=== PATIENT | male | born 1955 | race Caucasian/White ===

== ENCOUNTER → 2018-05-27 11:18 | Outpatient (CLI) | payer OTHER, SELFPAY | PROVIDERS: Family Provider Family Medicine; PCP Family Medicine | DX: M43.26 Fusion of spine, lumbar region (principal) | CPT/HCPCS: 72114 ==

== ENCOUNTER → 2018-11-17 07:47 | Outpatient (CLI) | payer MEDICARE, OTHER, SELFPAY ==
--- NOTE | 2018-11-17 07:56 | ART_ITS ---
Reason For Study: Atherosclerosis Procedure A bilateral lower extremity continuous wave Doppler with analog waveform analysis and ankle brachial indexes. Left Segmental Pressures Left brachial= 122mmHg. Left posterior tibial artery = 168mmHg. Left dorsalis pedis artery = 167mmHg. Right Segmental Pressures Right brachial= 131mmHg. Right posterior tibial artery = 153mmHg. Right dorsalis pedis artery = 139mmHg. Indices The right ankle brachial index by the posterior tibial artery is 1.17. The right ankle brachial index by the dorsalis pedis is 1.06. The left ankle brachial index by the posterior tibial artery is 1.28. The left ankle brachial index by the dorsalis pedis is 1.27. Interpretation Summary 1. bilateral lower extremity with no significant stenosis at rest with an JERE 1.17/1.28. Ordering Physician: Curt Nguyen Referring Physician: Curt Nguyen Performed By: Gauri Dodson RDCS/RVT
--- NOTE | 2018-11-17 07:56 | CDU_ITS ---
Reason For Study: Carotid Stenosis Rt. Velocities/BP Lt. Velocities/BP Prox CCA 93/26 cm/sec. Prox CCA 104/36 cm/sec. Mid CCA 100/36 cm/sec. Mid CCA 101/36 cm/sec. Dist CCA 96/32 cm/sec. Dist CCA 108/39 cm/sec. Prox ICA 76/26 cm/sec. Prox ICA 178/56 cm/sec. Mid ICA 107/38 cm/sec. Mid ICA 148/50 cm/sec. Dist ICA 100/47 cm/sec. Dist ICA 123/46 cm/sec. Rt. ICA/CCA = 1.07. Lt. ICA/CCA = 1.76. Prox ECA 110/25 cm/sec. Prox ECA 74/16 cm/sec. Rt. Vert. 40/17 cm/sec. Lt. Vert. 25/9 cm/sec. Right Extracranial There is heterogeneous, irregular atherosclerotic plaque noted in the right common carotid artery. There is heterogeneous, smooth atherosclerotic plaque noted in the right internal carotid artery. There is heterogeneous, smooth atherosclerotic plaque noted in the right external carotid artery. Antegrade flow is noted in the right vertebral artery. Left Extracranial There is heterogeneous, irregular atherosclerotic plaque noted in the left common carotid artery. There is heterogeneous, irregular atherosclerotic plaque noted in the left internal carotid artery. There is heterogeneous, irregular atherosclerotic plaque noted in the left external carotid artery. Antegrade flow is noted in the left vertebral artery. Procedure Carotid Duplex [id number]. Exam performed in department. Interpretation Summary Mild (<50%) stenosis right extracranial internal carotid. Moderate (50-69%) stenosis left extracranial internal carotid. Flow within the vertebral arteries is antegrade bilaterally. Ordering Physician: Curt Nguyen Referring Physician: Juan Antonio Claros Performed By: Gauri Dodson, RDCS, RVT
--- NOTE | 2018-11-17 07:57 | AAVD_ITS ---
Reason For Study: Atherosclerosis Aorta Measurements Aorta Doppler Measurements Proximal aorta measures2.04 x 2.16cm. in cross- Peak systolic flow velocities within the proximal sectional axis. aorta measure 80.7 cm/sec. Proximal aorta measures2.04cm. in longitudinal Peak systolic flow velocities within the mid aorta axis. measure 48.1 cm/sec. Mid aorta measures2.20 x 2.23cm. in cross- Peak systolic flow velocities within the distal sectional axis. aorta measure 48.5 cm/sec. Mid aorta measures2.19cm. in longitudinal axis. Distal aorta measures3.26 x 3.30cm. in cross- sectional axis. Distal aorta measures3.13cm. in longitudinal axis. Left Iliac Artery Left iliac artery measures 1.01 x 0.99 cm. in the cross-sectional axis. Left iliac artery measures 1.02 cm. in the longitudinal axis. Peak systolic velocity in the left iliac artery measures 232 cm/sec. Right Iliac Artery Right iliac artery measures 1.92 x 19.2 cm. in the cross-sectional axis. Right iliac artery measures 1.55 cm. in the longitudinal axis. Right iliac artery stent measures 0.79 x 0.84 cm in the cross- sectional axis. Right iliac artery stent measures 0.73 cm in the longitudinal axis. Peak systolic velocity in the right iliac artery measures 493 cm/sec. Procedure Aorta IVC Iliac vasculature or bypass grafts [id number]. Exam performed in department. Interpretation Summary 1. Aortic aneurysm 3.3cm 2. Severe right CLAUDE stenosis 3. Moderate left CLAUDE stenosis. Ordering Physician: Curt Nguyen Referring Physician: Juan Antonio Claros MD Performed By: Gauri Dodson RVT, RDCS and Student
== END ==
PROVIDERS: Family Provider Family Medicine; PCP Family Medicine; Referring Provider Surgery Vascular Surgery; Visit Provider Surgery Vascular Surgery
DX: I65.23 Occlusion and stenosis of bilateral carotid arteries (principal); I70.213 Atherosclerosis of native arteries of extremities with intermittent claudication, bilateral legs; I77.1 Stricture of artery
CPT/HCPCS: 93880; 93922; 93978

== ENCOUNTER → 2019-07-27 | Outpatient (CLI) | payer MEDICARE, OTHER, SELFPAY ==
[2019-01-27 08:06] VITALS: BMI 27.3
--- NOTE | 2019-07-27 09:56 | RAD_ITS ---
STUDY: X-RAY - PELVIS REASON FOR EXAM: Male, 64 years old. Inflammatory polyarthropathy TECHNIQUE: One view of the pelvis was obtained. COMPARISON: None. FINDINGS: There is a non-specific bowel gas pattern. Normal visualized soft tissue structures. Surgical fusion with vertebral rods with slight scoliosis at the lower lumbar levels. Right common iliac stent is noted. Normal bilateral iliac wings, sacroiliac joints and visualized sacrum. Normal visualized bilateral superior and inferior pubic rami. Normal pubic symphysis. Normal ischial tuberosities. Normal visualized right femoral head. Normal right acetabulum. Normal right hip joint. Normal visualized left femoral head. Normal left acetabulum. Normal left hip joint. RAD/Pelvis 1 or 2 Views IMPRESSION: No acute pathology of the pelvis. Electronically Signed: Raul Samuel DO at 21:23 EDT Tel [phone], Service support ,
[2019-07-27 12:19] LABS: Erythrocyte Sedimentation Rate 7 mm/hr (0-20)
[2019-07-27 12:24] LABS: Absolute Lymphocyte Count 1.26 X10^3/uL (0.83-4.51); Absolute Neutrophil Count 3.1 X10^3/uL (2.0-7.7); Basophil# 0.02 X10^3/uL; Basophil% 0.4 % (0-1); Hematocrit 40.1 % (40-54); Hemoglobin 13.3 g/dL (13.0-16.5); Lymphocyte # 1.26 X10^3/ul (4.0); Lymphocyte % 25.8 % (19-41); Mean Corp Hgb Conc 33.2 g/dL (32-36); Mean Corpuscular Hgb 31.9 pg (27.0-32.0); Mean Corpuscular Volume 96.2 fL (80-94); Mean Platelet Vol. 9.7 fl (6.2-12.0); Monocyte# 0.39 X10^3/uL; NRBC Flagged by Analyzer 0 % (0-5); Neutrophil % 63.6 % (47-70); Platelet Count 234 K/mm3 (150-450); RBC Distribution Width CV 13.1 % (11.6-14.6); Red Blood Count 4.17 M/mm3 (4.6-6.2); White Blood Count 4.9 K/mm3 (4.4-11.0)
[2019-07-27 12:42] LABS: BUN 21 mg/dL (7-18); Creatinine, Serum 0.91 mg/dL (0.70-1.30); Glucose 128 mg/dL (74-106)
[2019-07-27 12:43] LABS: ALB/GLOB Ratio 1.2 RATIO (0.9-2.4); AST(SGOT) 23 U/L (15-37); Alanine Aminotransfer ALT/SGPT 25 U/L (16-61); Albumin, Serum 3.7 g/dL (3.2-5.0); Alkaline Phosphatase 92 U/L (45-117); Anion Gap 7 (5-15); BUN/Creat Ratio 23.1 RATIO (10-20); CRP < 2.90 mg/L (0.0-3.0); Calcium,Total 8.7 mg/dL (8.5-10.1); Chloride 106 mmol/L (98-107); EST Glomerular Filtration Rate 89 mL/min (>60); Est Glom Filt Rate - Afr Amer 107 mL/min (>60); Globulin 3.2 g/dL (2.2-4.2); Potassium 3.6 mmol/L (3.5-5.1); Protein, Total 6.9 g/dL (6.4-8.2); Rheumatoid Factor < 10.0 IU/mL (<15); Sodium Level 140 mmol/L (136-145)
[2019-07-27 13:27] LABS: Hepatitis B Surface Antibody Non-Reactive; Hepatitis B Surface Antigen Non-Reactive (Nonreactive); Hepatitis C Antibody Non-Reactive (Nonreactive)
[2019-07-28 15:25] LABS: ANTINUCLEAR ANTIBODIES DIRECT Negative (Negative)
[2019-08-01 13:35] LABS: CCP IgG Antibodies 7 units (0-19); HLA B27 Negative (.); Hepatitis B Core AB IgM Negative (Negative)
== END | disposition home or self-care (01) ==
LOC: MTLAB 09:53
PROVIDERS: Family Provider Family Medicine; PCP Family Medicine; Referring Provider Internal Medicine Rheumatology; Visit Provider Internal Medicine Rheumatology
DX: M06.4 Inflammatory polyarthropathy (principal); M17.0 Bilateral primary osteoarthritis of knee; M50.30 Other cervical disc degeneration, unspecified cervical region; M51.37 Other intervertebral disc degeneration, lumbosacral region; M47.892 Other spondylosis, cervical region; M47.897 Other spondylosis, lumbosacral region; I73.9 Peripheral vascular disease, unspecified; E78.5 Hyperlipidemia, unspecified; F41.9 Anxiety disorder, unspecified
CPT/HCPCS: 36415; 72170; 80053; 81374; 85025; 85652; 86038; 86140; 86200; 86431; 86705; 86706; 86803; 87340

== ENCOUNTER → 2019-08-21 08:19 | Outpatient (CLI) | payer MEDICARE, OTHER, SELFPAY ==
[2019-01-27 08:06] VITALS: BMI 27.3
--- NOTE | 2019-08-21 16:20 | NEURO ---
NCS and/or EMG Patient Report HPI: Patient is a 64-year-old male who presented with numbness, tingling, pain and stiffness in both hands, left hand being worse than the right. Symptoms began about 10 months ago. Patient has history of neck surgeries, bulging disc and bone spurs in the cervical neck area. Patient denies being diabetic. Physical Exam: Mild tenderness at right and left wrist area noted. Tinel's sign slightly positive at left wrist. Decreased sensation to light touch noted in both hand fingers. Mild cervical spasm and tenderness noted. ROM mostly within functional limit at cervical spine. Findings: 1. There is prolongation of distal latency of the left median sensory nerve response 2. Normal right median and right and left ulnar sensory nerve responses. 3. Normal right and left median and ulnar motor nerve conduction studies. 4. Normal needle examination of bilateral upper extremities including cervical paraspinal muscles. Impression: 1. Findings are consistent with mild left median mononeuropathy at wrist due to carpal tunnel syndrome. 2. No electrodiagnostic evidence of ulnar neuropathy, cervical radiculopathy or brachial plexopathy in bilateral upper extremities. Recommendation: 1. Patient recommended to wear left hand splint as much as possible. 2. Patient recommended to avoid repetitive hand movements and heavy lifting from left hand. 3. Patient will need evaluation by hand surgeon for possible surgical release of left carpal syndrome if symptoms continues.
== END ==
PROVIDERS: Family Provider Family Medicine; PCP Family Medicine; Referring Provider Physician Assistant; Visit Provider Physician Assistant
DX: M54.12 Radiculopathy, cervical region (principal); M50.30 Other cervical disc degeneration, unspecified cervical region
CPT/HCPCS: 95886; 95911

== ENCOUNTER → 2020-03-08 07:58 | Outpatient (CLI) | payer MEDICARE, OTHER, SELFPAY ==
[2019-01-27 08:06] VITALS: BMI 27.3
--- NOTE | 2020-03-08 08:04 | ART_ITS ---
Reason For Study: Athersoclerosis Procedure A bilateral lower extremity continuous wave Doppler with analog waveform analysis and ankle brachial indexes. Left Segmental Pressures Left brachial= 144mmHg. Left posterior tibial artery = 156mmHg. Left dorsalis pedis artery = 159mmHg. The left dorsalis pedis waveforms are triphasic. The left posterior tibial artery waveforms are triphasic. Right Segmental Pressures Right brachial= 144mmHg. Right posterior tibial artery = 158mmHg. Right dorsalis pedis artery = 156mmHg. The right dorsalis pedis waveforms are triphasic. The right posterior tibial artery waveforms are triphasic. Indices The right ankle brachial index by the dorsalis pedis is 1.08. The right ankle brachial index by the posterior tibial artery is 1.10. The left ankle brachial index by the dorsalis pedis is 1.10. The left ankle brachial index by the posterior tibial artery is 1.08. Interpretation Summary No significant occlussive disease at rest with bilateral triphasic flow and JERE 1.1 and 1.1. Ordering Physician: Curt Nguyen Referring Physician: Juan Antonio Claros MD Performed By: Harleen Maurer RVT
--- NOTE | 2020-03-08 08:04 | AAVD_ITS ---
Reason For Study: Atherosclerosis Aorta Measurements Aorta Doppler Measurements Proximal aorta measures2.24 x 2.26cm. in cross- Peak systolic flow velocities within the proximal sectional axis. aorta measure 84.3 cm/sec. Proximal aorta measures2.27cm. in longitudinal Peak systolic flow velocities within the mid aorta axis. measure 52.3 cm/sec. Mid aorta measures2.40 x 2.50cm. in cross- Peak systolic flow velocities within the distal sectional axis. aorta measure 46.2 cm/sec. Mid aorta measures2.40cm. in longitudinal axis. Distal aorta measures3.22 x 3.27cm. in cross- sectional axis. Distal aorta measures3.26cm. in longitudinal axis. Left Iliac Artery Left iliac artery measures 0.79 x 0.79 cm. in the cross-sectional axis. Left iliac artery measures 0.60 cm. in the longitudinal axis. Peak systolic velocity in the left iliac artery measures 179.5 cm/sec. Right Iliac Artery Right iliac artery measures 1.61 x 1.54 cm. in the cross-sectional axis. Right iliac artery measures 1.67 cm. in the longitudinal axis. Right iliac stent measures 0.58 x 0.58 x 0.58 cm. Peak systolic velocity in the right iliac artery measures 205.6 cm/sec. Procedure Aorta IVC Iliac vasculature or bypass grafts [id number]. Exam performed in department. Interpretation Summary 3.27cm aortic aneurysm. Ordering Physician: uCrt Nguyen Referring Physician: Juan Antonio Claros MD Performed By: Harleen Maurer RVT
== END ==
PROVIDERS: PCP Family Medicine; Referring Provider Surgery Vascular Surgery; Visit Provider Surgery Vascular Surgery
DX: I70.213 Atherosclerosis of native arteries of extremities with intermittent claudication, bilateral legs (principal); Z48.812 Encounter for surgical aftercare following surgery on the circulatory system
CPT/HCPCS: 93922; 93978

== ENCOUNTER → 2021-04-07 08:42 | Outpatient (CLI) | payer MEDICARE, OTHER, SELFPAY ==
[2019-01-27 08:06] VITALS: BMI 27.3
--- NOTE | 2021-04-07 08:59 | CDU_ITS ---
Reason For Study: Carotid stenosis Rt. Velocities/BP Lt. Velocities/BP Prox CCA 74.7/21.3 cm/sec. Prox CCA 69.2/17.3 cm/sec. Mid CCA 73.4/17.3 cm/sec. Mid CCA 89/27.7 cm/sec. Dist CCA 73.4/20 cm/sec. Dist CCA 65.1/17.9 cm/sec. Prox ICA 89.1/27.8 cm/sec. Prox ICA 181.4/46.2 cm/sec. Mid ICA 82.6/26.5 cm/sec. Mid ICA 126.6/37.1 cm/sec. Dist ICA 107.3/35.6 cm/sec. Dist ICA 124.7/37.1 cm/sec. Rt. ICA/CCA = 1.46. Lt. ICA/CCA = 2.63. Prox ECA 70.8/14.7 cm/sec. Prox ECA 51.9/8 cm/sec. Rt. Vert. 48.5 cm/sec. Lt. Vert. 32.5/9 cm/sec. Right Extracranial There is heterogeneous, irregular atherosclerotic plaque noted in the right common carotid artery. There is heterogeneous, irregular atherosclerotic plaque noted in the right internal carotid artery. There is heterogeneous, irregular atherosclerotic plaque noted in the right external carotid artery. Antegrade flow is noted in the right vertebral artery. Left Extracranial There is heterogeneous, irregular atherosclerotic plaque noted in the left common carotid artery. There is heterogeneous, irregular atherosclerotic plaque noted in the left internal carotid artery. There is heterogeneous, irregular atherosclerotic plaque noted in the left external carotid artery. Antegrade flow is noted in the left vertebral artery. Procedure Carotid Duplex [id number]. This is a Carotid Duplex examination using B-mode, color flow and specral Doppler. Exam performed in department. VL/Carotid Duplex Ultrasound Interpretation Summary Mild (<50%) stenosis right extracranial internal carotid. Moderate (50-69%) rian nosis left extracranial internal carotid. Flow within the vertebral arteries is antegrade bilaterally. Ordering Physician: Curt Nguyen Referring Physician: Juan Antonio Claros MD Performed By: Harleen Maurer RVT
--- NOTE | 2021-04-07 08:59 | AAVD_ITS ---
Reason For Study: AAA Aorta Measurements Aorta Doppler Measurements Proximal aorta measures2.32 x 2.32cm. in cross- Peak systolic flow velocities within the proximal sectional axis. aorta measure 79.8 cm/sec. Proximal aorta measures2.31cm. in longitudinal Peak systolic flow velocities within the mid aorta axis. measure 51.2 cm/sec. Mid aorta measures2.44 x 2.44cm. in cross- Peak systolic flow velocities within the distal sectional axis. aorta measure 39.3 cm/sec. Mid aorta measures2.40cm. in longitudinal axis. Distal aorta measures3.53 x 3.55cm. in cross- sectional axis. Distal aorta measures3.54cm. in longitudinal axis. Left Iliac Artery Left iliac artery measures 0.99 x 0.98 cm. in the cross-sectional axis. Left iliac artery measures 0.95 cm. in the longitudinal axis. Peak systolic velocity in the left iliac artery measures 205.6 cm/sec. Right Iliac Artery Right iliac artery measures 0.82 x 0.83 cm. in the cross-sectional axis. Right iliac artery measures 1.84 cm. in the longitudinal axis. Peak systolic velocity in the right iliac artery measures 190.8 cm/sec. Stent noted within the right iliac artery. Residual sac measures 1.85 x 1.88 x 1.84 cm. Procedure Aorta IVC Iliac vasculature or bypass grafts [id number]. Exam performed in department. VL/Abd Aortic/IVC Duplex scan Interpretation Summary Aortic aneurysm at 3.5 cm. Right iliac at 1.8 cm possible stent noted. Ordering Physician: Curt Nguyen Referring Physician: Juan Antonio Claros MD Performed By: Harleen Maurer RVT and Student
--- NOTE | 2021-04-07 08:59 | ART_ITS ---
Reason For Study: Atherosclerosis Procedure A bilateral lower extremity continuous wave Doppler with analog waveform analysis and ankle brachial indexes. Left Segmental Pressures Left brachial= 167mmHg. Left posterior tibial artery = 175mmHg. Left dorsalis pedis artery = 170mmHg. The left dorsalis pedis waveforms are triphasic. The left posterior tibial artery waveforms are triphasic. Right Segmental Pressures Right brachial= 157mmHg. Right posterior tibial artery = 166mmHg. Right dorsalis pedis artery = 162mmHg. The right dorsalis pedis waveforms are triphasic. The right posterior tibial artery waveforms are triphasic. Indices The right ankle brachial index by the dorsalis pedis is 0.97. The right ankle brachial index by the posterior tibial artery is 0.99. The left ankle brachial index by the dorsalis pedis is 1.02. The left ankle brachial index by the posterior tibial artery is 1.05. VL/Ankle Brachial Index Interpretation Summary Bilateral lower extremities with no significant occlusive disease at rest with bilateral triphasic flow and an JERE 0.99 and 1.05. Ordering Physician: Curt Nguyen Referring Physician: Juan Antonio Claros MD Performed By: Harleen Maurer RVT and Student
== END ==
PROVIDERS: PCP Family Medicine; Referring Provider Surgery Vascular Surgery; Visit Provider Surgery Vascular Surgery
DX: I65.23 Occlusion and stenosis of bilateral carotid arteries (principal); I70.213 Atherosclerosis of native arteries of extremities with intermittent claudication, bilateral legs; I71.4 Abdominal aortic aneurysm, without rupture; I77.1 Stricture of artery
CPT/HCPCS: 93880; 93922; 93978

== ENCOUNTER → 2021-06-02 12:01 | Outpatient (CLI) | payer MEDICARE, OTHER, SELFPAY ==
--- NOTE | 2021-06-02 12:14 | CT_ITS ---
STUDY: CT LUMBAR SPINE WITH CONTRAST REASON FOR EXAM: Male, 66 years old. RADICULOPATHY OF LEG RADIATION DOSAGE (If Supplied By Facility): CTDIvol = ( 12.89 ) mGy, DLP = ( 423.12 ) mGycm TECHNIQUE: The patient was scanned in a multi detector CT scanner. High resolution transaxial imaging was performed following the intravenous administration of 14 mL of intrathecal contrast.. Images were obtained from T1 through the sacrum. Sagittal and coronal images were reconstructed. Individualized dose optimization techniques were used for this CT. COMPARISON: Lumbar spine MRI obtained 06/23/2016 and lumbar spine x-ray obtained on 05/19/2018. FINDINGS: Straightening of the normal alignment of the columns of the lumbar spine is visualized. Fusion of the L2 and L3 vertebral bodies is visualized. Bipedicular posterior internal fixation of the L2, L3, L4 and L5 vertebral bodies is visualized, no evidence of lucency surrounding the prosthesis. Subtle grade 1 anterolisthesis of L2 over L3 is seen. Subtle grade 1 retrolisthesis of L5 over S1 is seen. Loss of intervertebral disc height/ossification visualized at L2-L3, decreased intervertebral disc height visualized most prominent at L5-S1. Unremarkable opacification of the thecal sac is visualized, no evidence of extravasation of contrast outside the contours of the thecal sac except at the level of the L3-4 intervertebral disc space, this most likely represents the lumbar puncture access site. Extensive atherosclerotic calcifications visualized in the abdominal aorta and common iliac vessels, the abdominal aorta measures 2.7 x 2.9 cm at the proximal segment and measures at least 3.4 cm in its distal segment suggestive of aneurysmal dilatation. A stent is visualized within the right common iliac artery. L1-2: Circumferential disc bulges hypertrophic changes in the facet joints and ligamentum flavum is visualized this level, a longitudinal calcification is visualized along the lateral aspect of the posterior left epidural space is visualized on axial series 2 image 26 that could represent calcifications of the ligamentum flavum at this level. Moderate narrowing of the spinal canal and severe narrowing of bilateral neuroforamina is visualized at this level. L2-3: Opacification of the intervertebral disc spaces visualized this level, posterior decompression is seen at this level, unremarkable spinal canal is seen, moderate to severe narrowing of the right neural foramina and severe narrowing of the left neuroforamina is seen at this level. L3-4: Circumferential disc bulges hypertrophic changes in the facet joints is visualized, posterior decompression is seen at this level, no narrowing of the spinal canal is visualized at this level. Severe narrowing of the right neural foramina and moderate to severe narrowing of the left neuroforamina is seen at this level. L4-5: Circumferential disc bulges hypertrophic changes in the facet joints is visualized at this level, posterior decompression is seen. Note narrowing of the spinal canal is seen at this level. Severe narrowing of the right neural foramina and moderate narrowing of the left neuroforamina is seen at this level. L5-S1: Circumferential disc bulge is seen with hypertrophic changes in the facet joints, posterior decompression visualized at this level with no narrowing of the spinal canal seen, severe narrowing of bilateral neuroforamina is visualized at this level. CT/Spine Lumbar WITH Contrast IMPRESSION: Extensive degenerative changes of the lumbar spine visualized. Narrowing of the spinal canal visualized at L1-L2. Severe narrowing of the neural foramina visualized at multiple levels. Electronically Signed: Damián Lee MD at 15:15 EDT Tel , Service support ,
[2021-06-02 12:33] VITALS: BP 165/79; PULSE 63; RESP 18; TEMP 36.7; O2SAT 98; BMI 25.8
--- NOTE | 2021-06-02 12:40 | RAD_ITS ---
FLUOROSCOPICALLY GUIDED LUMBAR MYELOGRAM. HISTORY: The patient is a 66 years year old Male presenting with lower extremity radiculopathy. CONSENT: Risks, benefits, treatment options, potential complications and personnel to be involved were discussed (including the risks of radiation exposure, contrast and anesthesia administration, and any equipment needed for the procedure to ensure best possible outcome) with the patient and all questions were answered and consent was obtained prior to procedure. MEDICATION RECONCILIATION: The patient''s medications and allergies were reviewed in the electronic medical record and reconciled to the proposed procedure/treatment. TIME OUT: An audible time out was performed immediately prior to the start of the procedure with the entire procedure team to confirm the patient''s identity (name, medical record number), anatomy (including marking of site and side), type of procedure to be performed, patient position, procedure consent form, relevant diagnostic and radiology test results, antibiotic administration, safety precautions, and procedure-specific equipment was present. ANESTHESIA: Local anesthesia: 1% Lidocaine was administered. IMAGE GUIDANCE: Fluoroscopic guidance was used. Fluoro Time: 2 minutes. Radiation dose exceed 5 Gy: No If radiation dose exceeded 5 Gy, was counseling and instructional brochure provided:N/A POSITIONING: The patient was placed prone on the fluoroscopy table. The paraspinal region was then prepped and draped in the usual sterile fashion. Access Site: 22 gauge spinal needle from a Right paramedian approach at the L4 vertebral body level. Procedure Details: Using sterile procedure, local anesthesia was introduced to the skin and subcutaneous tissues as outlined above. Under fluoroscopic guidance, the needle was carefully advanced into the thecal space resulting in free flow of clear CSF. A total of 14 mL of 4 OMNIPAQUE 300 was then injected under fluoroscopy observation needle was removed and sterile dressing was applied. Multiple images of the contrast opacified thecal sac were then obtained in different projections. The patient tolerated the procedure well with no immediate complications and was transferred for CT myelogram stable condition. RAD/Lumbar Myelogram IMPRESSION: SUCCESSFUL FLUOROSCOPICALLY GUIDED LUMBAR MYELOGRAM. Electronically Signed: Damián Lee MD at 14:17 EDT Tel , Service support ,
[2021-06-02] MEDS: Lidocaine 2% (5ml sdv) 5 ML VIAL.MPF INFILT (12:45)
[2021-06-02 13:20] VITALS: BP 139/61; PULSE 55; RESP 16; O2SAT 99
[2021-06-02 14:30] VITALS: BP 154/62; PULSE 57; RESP 16; O2SAT 100
== END | disposition home or self-care (01) ==
PROVIDERS: PCP Family Medicine
DX: M54.10 Radiculopathy, site unspecified (principal); Z98.1 Arthrodesis status
CPT/HCPCS: 62304; 72132; Q9965

== ENCOUNTER → 2022-06-07 | Outpatient (CLI) | payer MEDICARE, OTHER, SELFPAY ==
--- NOTE | 2022-06-07 08:40 | ART_ITS ---
Reason For Study: Atherosclerosis Procedure A bilateral lower extremity continuous wave Doppler with analog waveform analysis and ankle brachial indexes. Left Segmental Pressures Left brachial= 127mmHg. Left posterior tibial artery = 157mmHg. Left dorsalis pedis artery = 150mmHg. Left digit = 132 mmHg. The left dorsalis pedis waveforms are triphasic. The left posterior tibial artery waveforms are triphasic. Right Segmental Pressures Right brachial= 131mmHg. Right posterior tibial artery = 155mmHg. Right dorsalis pedis artery = 152mmHg. Right digit = 117 mmHg. The right dorsalis pedis waveforms are triphasic. The right posterior tibial artery waveforms are triphasic. Indices The right ankle brachial index by the dorsalis pedis is 1.16. The right ankle brachial index by the posterior tibial artery is 1.18. The right digital-brachial index is 0.89. The left ankle brachial index by the dorsalis pedis is 1.15. The left ankle brachial index by the posterior tibial artery is 1.20. The left digital-brachial index is 1.01. VL/Ankle Brachial Index Interpretation Summary No evidence occlussive disease at rest with triphasic flow and JERE 1.18 and 1.2 0. Ordering Physician: Curt Nguyen Referring Physician: Juan Antonio Claros MD Performed By: Harleen Maurer RVT
--- NOTE | 2022-06-07 08:40 | AAVD_ITS ---
Reason For Study: AAA w/o rupture Aorta Measurements Aorta Doppler Measurements Proximal aorta measures2.32 x 2.32cm. in cross- Peak systolic flow velocities within the proximal sectional axis. aorta measure 60 cm/sec. Proximal aorta measures2.30cm. in longitudinal Peak systolic flow velocities within the mid aorta axis. measure 65.5 cm/sec. Mid aorta measures2.59 x 2.62cm. in cross- Peak systolic flow velocities within the distal sectional axis. aorta measure 56 cm/sec. Mid aorta measures2.56cm. in longitudinal axis. Distal aorta measures3.68 x 3.65cm. in cross- sectional axis. Distal aorta measures3.64cm. in longitudinal axis. Left Iliac Artery Left iliac artery measures 1.05 x 1.07 cm. in the cross-sectional axis. Left iliac artery measures 1.06 cm. in the longitudinal axis. Peak systolic velocity in the left iliac artery measures 173.4 cm/sec. Right Iliac Artery Right iliac artery measures 0.83 x 0.81 cm. in the cross-sectional axis. Right iliac artery measures 0.83 cm. in the longitudinal axis. Peak systolic velocity in the right iliac artery measures 167.5 cm/sec. Stent noted within the right iliac artery. Residual sac measures 1.84 x 1.93 x 1.89 cm. Procedure Aorta IVC Iliac vasculature or bypass grafts [id number]. Exam performed in department. VL/Abd Aortic/IVC Duplex scan Interpretation Summary 3.68cm aortic aneurysm. Ordering Physician: MD Curt Nguyen Referring Physician: Juan Antonio Claros MD Performed By: Harleen Maurer RVT
--- NOTE | 2022-06-07 08:41 | CDU_ITS ---
Reason For Study: Carotid artery stenosis Rt. Velocities/BP Lt. Velocities/BP Prox CCA 66.9/20 cm/sec. Prox CCA 80.2/22.5 cm/sec. Mid CCA 78.6/22.6 cm/sec. Mid CCA 85.1/28.6 cm/sec. Dist CCA 73.4/17.3 cm/sec. Dist CCA 81.4/28.6 cm/sec. Prox ICA 66.9/26.5 cm/sec. Prox ICA 179.5/39.6 cm/sec. Mid ICA 89.1/30.4 cm/sec. Mid ICA 101.6/38 cm/sec. Dist ICA 86.5/33 cm/sec. Dist ICA 101/33.4 cm/sec. Rt. ICA/CCA = 1.21. Lt. ICA/CCA = 2.21. Prox ECA 81.2/14.7 cm/sec. Prox ECA 59.3/9 cm/sec. Rt. Vert. 41.9/14.5 cm/sec. Lt. Vert. 31.5/8.8 cm/sec. Right Extracranial There is heterogeneous, irregular atherosclerotic plaque noted in the right common carotid artery. There is heterogeneous, irregular atherosclerotic plaque noted in the right internal carotid artery. There is heterogeneous, irregular atherosclerotic plaque noted in the right external carotid artery. Antegrade flow is noted in the right vertebral artery. Left Extracranial There is heterogeneous, irregular atherosclerotic plaque noted in the left common carotid artery. There is heterogeneous, irregular atherosclerotic plaque noted in the left internal carotid artery. There is heterogeneous, irregular atherosclerotic plaque noted in the left external carotid artery. Antegrade flow is noted in the left vertebral artery. Procedure Carotid Duplex [id number]. This is a Carotid Duplex examination using B-mode, color flow and specral Doppler. Exam performed in department. VL/Carotid Duplex Ultrasound Interpretation Summary Mild (<50%) stenosis right extracranial internal carotid. Moderate (50-69%) rian nosis left extracranial internal carotid. Flow within the vertebral arteries is antegrade bilaterally. Ordering Physician: MD Curt Nguyen Referring Physician: Juan Antonio Claros MD Performed By: Harleen Maurer RVT
== END | disposition home or self-care (01) ==
LOC: CVS 08:36
PROVIDERS: PCP Family Medicine; Referring Provider Surgery Vascular Surgery; Visit Provider Surgery Vascular Surgery
DX: I71.4 Abdominal aortic aneurysm, without rupture (principal); I77.1 Stricture of artery; I65.23 Occlusion and stenosis of bilateral carotid arteries
CPT/HCPCS: 93880; 93922; 93978

== ENCOUNTER 2023-04-01 14:30 | Inpatient (IN) | payer MEDICARE, OTHER, SELFPAY ==
[2023-04-01 14:56] VITALS: BP 162/70; PULSE 68; RESP 17; TEMP 36.7; O2SAT 93
[2023-04-01 16:53] VITALS: O2SAT 96
[2023-04-01] MEDS: Magnesium Hydroxide 30 ML UDC PO (17:06)
--- NOTE | 2023-04-01 18:03 | PCM.HP.STD ---
HPI - General General Date of Admission: 04/01/23 Date of Service: 04/01/23 Chief Complaint: Debility due to Cervical laminectomy and fusion of C2-7. HPI Narrative SADIE CARSON, is a 68 YO M with a PMH of peripheral vascular disease with history of stents in the lower extremities, osteoarthritis, hyperlipidemia, anxiety and rheumatoid arthritis who was seen at [facility] ED c/o radicular pain in BL LE's, numbness in both legs and muscle weakness to the point where he had to use a walker. The day prior to presenting to the ED his leg buckled and he fell. He was also c/o of pain in his hands for the preceding 1-2 weeks. He had been seeing Dr. Johnson and had a hx of cervical spine fusion in the early and Lumbar laminectomy and fusion on 01/26/2016. He was transferred from [facility] to [facility] and was admitted to Dr. Johnson's service. He underwent cervical laminectomy and fusion of C2-C7 by Dr. Johnson. Post operatively he was seen by PT/OT and admission to acute rehab was recommended post DC. He was transferred to [facility] acute rehab on 04/01/23 for 3 hours of therapy daily to restore function/independence at or near his level prior to recent decline with radiculopathy and myopathy. He has been taking Prednisone 10 mg daily since November to help with radicular pain in the R leg. He tells me that he suddenly became weak in the R leg and the R arm about 1 and 1/2 weeks prior to presenting to [facility]. He though it was his low back causing the R leg pain. Sadie tells me that he started on Abilify in 2012 when his son . He has not tried to get off of Abilify since then. Tells me he has gained about 25 pounds since starting Abilify. [facility] Medical History (Updated 04/02/23 @ 18:[address] Shyla Coleman DO) Abdominal aortic aneurysm Anxiety Depression Former smoker Hyperlipidemia PAD (peripheral artery disease) Palmoplantar keratoderma Rheumatoid arthritis Rotator cuff arthropathy of right shoulder Ventral hernia Home Medications alprazolam 0.5 mg tablet,extended release 24 hr (Xanax XR) 0.5 mg PO DAILY nn 05/03/15 [History Last Taken Unknown] aspirin 81 mg chewable tablet 81 mg PO DAILY@0800 heart 05/03/15 [History Last Taken Unknown] atorvastatin 20 mg tablet 20 mg PO QHS cholesterol 05/03/15 [History Last Taken Unknown] ibuprofen 400 mg tablet 800 mg PO Q6H PRN PRN Mild/Moderate Pain 05/03/15 [History Last Taken Unknown] aripiprazole 5 mg tablet (Abilify) 5 mg PO DAILY mood 04/01/23 [History Last Taken Unknown] baclofen 5 mg tablet 5 mg PO Q8H PRN muscle spasm 04/01/23 [History Last Taken Unknown] gabapentin 300 mg capsule 300 mg PO BID pain 04/01/23 [History Last Taken Unknown] oxycodone 5 mg tablet 5 - 10 mg PO Q6H PRN pain 04/01/23 [History Last Taken Unknown] prednisone 10 mg tablet 10 mg PO DAILY pain 04/01/23 [History Last Taken Unknown] Allergy/AdvReac Type Severity Reaction Status Date / Time No Known Allergies Allergy Verified 01/27/19 08:07 Family History unable to obtain Surgical History (Updated 04/02/23 @ 09:[address] Shyla Coleman DO) H/O knee surgery H/O laminectomy H/O microdiscectomy Hip joint replacement status History of lumbar laminectomy Status post cervical spinal fusion Status post right rotator cuff repair Total knee replacement status Social History (Updated 04/02/23 @ 17:[address] Shyla Coleman DO) household members: spouse housing: house current occupational status: retired Smoking Status: Former smoker quit date: 03/05/23 how long ago did patient quit smokin weeks ago refuses a nicotine patch alcohol intake: current substance use type: does not use ROS Review of Systems ROS Unobtainable: Denies due to encephalopathy, due to endotracheal tube, due to mental condition or due to mental status Constitutional Constitutional: Reports change in weight, fatigue, snoring, stops breathing during sleep, weight gain and other Details: Has gained approximately 25 pounds since starting on Abilify. ; Denies anorexia, chills, fever(s), night sweats or weakness Eyes Eyes: Denies blurry vision, change in vision, eye pain or loss of vision ENT HEENT: Denies abnormal hearing, dysphagia, headache(s), hearing loss, nasal congestion or sore throat Cardiovascular Cardiovascular: Denies chest pain, dyspnea on exertion, edema, lightheadedness, orthopnea, palpitations, paroxysmal nocturnal dyspnea or syncope Respiratory/Chest Respiratory/Chest: Denies cough, dyspnea, shortness of breath at rest, shortness of breath with exertion or wheezing Gastrointestinal Gastrointestinal: Reports constipation; Denies abdominal pain, diarrhea, dyspepsia, hematemesis, hematochezia, nausea or vomiting Genitourinary Genitourinary: Denies dysuria, hematuria, nocturia, urinary frequency, urinary hesitancy, urinary incontinence or urinary urgency Musculoskeletal Musculoskeletal: Reports back pain, muscle weakness, neck pain, numbness and radiating pain into limb; Denies joint pain or joint swelling Integumentary Integumentary: Reports wounds; Denies jaundice Neurologic Neurologic: Reports focal weakness, paresthesias, radicular pain, restless legs and weakness; Denies confusion, disequilibrium, dizziness, headache(s), seizures or tremor(s) Psychiatric Psychiatric: Denies anxiety, depression, homicidal ideation or suicidal ideation Endocrine Endocrinology: Denies change in body appearance, polydipsia or polyuria Hematologic/Lymphatic Hematologic/Lymphatic: Denies easy bleeding, easy bruising or lymphadenopathy Allergic/Immunologic Allergic/Immunologic: Denies rhinitis, eczemia or asthma Vital Signs Vital Signs Vital Signs: 04/01/23 14:56 04/01/23 16:53 Temperature 98.0 F Temperature Source Temporal Pulse Rate 68 Respiratory Rate 17 Blood Pressure 162/70 H Blood Pressure Mean 100 Blood Pressure Source Monitor Blood Pressure Position Semi-Fowlers Blood Pressure Location Left Arm Pulse Ox 93 96 Oxygen Delivery Method Room Air Room Air Physical Exam Const alert, oriented x3 and no apparent distress Constitutional Narrative: Making good eye contact, appropriate General Appearance: cooperative and comfortable HEENT normocephalic and head/scalp atraumatic HEENT Narrative: Very dry mucous membranes. No evidence of thrush. Eyes PERRL, EOMs intact bilaterally, conjunctivae normal and no scleral icterus Eyes Narrative: No discharge from the eye and no mattering of the eyelashes. General Eye: normal appearance of both eyes Neck no lymphadenopathy, supple, no JVD and no carotid bruits Neck Narrative: There is an incision in the posterior neck from recent laminectomy. General: trachea midline Chest Chest: symmetrical chest wall rise Resp normal respiratory effort, no use of accessory muscles and clear to auscultation bilaterally Resp Narrative: Not tachypneic and no conversational dyspnea. Effort and Inspection: able to speak in complete sentences Cardio regular rate, regular rhythm, S1 normal heart sound, S2 normal heart sound, no murmurs, no rub and no gallops GI normal to inspection, nondistended, normoactive bowel sounds, soft to palpation and non-tender GI Narrative: No guarding with palpation. Extremity no clubbing, cyanosis or edema and no calf tenderness Extremity Narrative: hands and feet are warm with good color, no cyanosis Skin Skin Narrative: No rashes, no skin breakdown. The skin over the palms of the hands is hyperkeratotic and cracked in several places. This is chronic. He tells me that his feet are the same way and it runs in his family. His hands are painful when they are cracked. Neuro oriented x3 and CN's II-XII intact bilaterally Neuro Narrative: Weakness of the R arm and leg. Can not lift the RLE off the bed but can lift his knee up. Some side to side movement on the bed. R hand printing mechanist is weaker than the left and he is R handed. Unable to lift the R arm more than 20 to 30 degrees off the bed. Psych affect normal Psych Narrative: Appropriate, making good eye contact. Able to stay on topic and focus. No flight of ideas. Does not appear anxious or depressed. Conversant and relating well to staff. 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 DVT prophylaxis with SCDs and MISA hose until okay with Dr. Johnson to start pharmacologic DVT prophylaxis. He has no history of VTE. Follow up with PCP, Dr. Benjamin, dermatology following DC from [facility] AM lab including CMP, CBC, Mag and Phos - personally reviewed. We discussed tapering the Abilify with Sadie and he is in agreement, spencer when he found out that Abilify causes wt gain. If he needs and antidepressant he may be a good candidate for either Effexor or duloxetine going forward as they both have indications for chronic pain. Will decrease the Abilify dose to 2 mg Q HS. ammonium lactate and hydrocortisone BID to the hands. Will examine his feet in the AM. If this is not effective will DC the steroid and try a retinoid. Encouraged him to follow up with a air pollution inspector. Measure his neck in cm. Overnight trending pulse ox tonight on room air Sleep center evaluation completed. He snores, stops breathing while sleeping, has restless leg, has fallen asleep while driving and falls asleep when he is a passenger in a car all the time, does not feel rested when he wakes up in the AM and feels tired most of the time. Charges/Coding Visit Charges Inpatient E&M: 22392 Init Hosp L2
[2023-04-01] MEDS: oxyCODONE 5 MG Tablet PO (18:28)
[2023-04-01 21:30] VITALS: BP 159/68; PULSE 70; RESP 18; TEMP 36.8; O2SAT 94
[2023-04-01] MEDS: Gabapentin 300 MG Capsule PO (22:08)
[2023-04-01] MEDS: Senna/Docusate Sodium 1 Tablet 2 TABLET PO (22:08)
[2023-04-01] MEDS: Baclofen 10 MG Tablet 5 MG PO (22:08)
[2023-04-02 00:26] VITALS: BMI 29.0
[2023-04-02] MEDS: oxyCODONE 5 MG Tablet PO ×2 (05:54→20:13)
[2023-04-02 06:09] LABS: Hematocrit 44.8 % (40-54); Hemoglobin 14.5 g/dL (13.0-16.5); Mean Corp Hgb Conc 32.4 g/dL (32-36); Mean Corpuscular Hgb 31.8 pg (27.0-32.0); Mean Corpuscular Volume 98.2 fL (80-94); Mean Platelet Vol. 9.5 fl (6.2-12.0); Platelet Count 177 K/mm3 (150-450); RBC Distribution Width CV 14.1 % (11.6-14.6); RBC Distribution Width SD 51.2 fl (35.1-43.9); Red Blood Count 4.56 M/mm3 (4.6-6.2); White Blood Count 8.5 K/mm3 (4.4-11.0)
[2023-04-02 06:46] LABS: ALB/GLOB Ratio 0.9 RATIO (0.9-2.4); AST(SGOT) 99 U/L (15-37); Alanine Aminotransfer ALT/SGPT 29 U/L (16-61); Albumin, Serum 3.1 g/dL (3.2-5.0); Alkaline Phosphatase 62 U/L (45-117); Anion Gap 3 (5-15); BUN 27 mg/dL (7-18); BUN/Creat Ratio 29.2 RATIO (10-20); Calcium,Total 8.6 mg/dL (8.5-10.1); Chloride 102 mmol/L (98-107); Creatinine, Serum 0.92 mg/dL (0.70-1.30); EST Glomerular Filtration Rate 86 mL/min (>60); Est Glom Filt Rate - Afr Amer 104 mL/min (>60); Estimated Creatinine Clearance 67.42 ml/min; Globulin 3.3 g/dL (2.2-4.2); Glucose 98 mg/dL (74-106); Magnesium 2.5 mg/dL (1.6-2.6); Phosphorus 2.7 mg/dL (2.5-4.9); Potassium 4.4 mmol/L (3.5-5.1); Protein, Total 6.4 g/dL (6.4-8.2); Sodium Level 138 mmol/L (136-145)
[2023-04-02 07:47] VITALS: BP 148/67; PULSE 69; RESP 17; TEMP 36.8; O2SAT 95
[2023-04-02] MEDS: Aspirin 81 MG TAB.CHEW PO (09:13)
[2023-04-02] MEDS: predniSONE 10 MG Tablet PO (09:14)
[2023-04-02] MEDS: ARIPiprazole 5 MG Tablet PO (09:14)
[2023-04-02] MEDS: Senna/Docusate Sodium 1 Tablet 2 TABLET PO ×2 (09:14→20:18)
[2023-04-02] MEDS: Gabapentin 300 MG Capsule PO ×2 (09:18→21:17)
[2023-04-02 12:18] VITALS: BMI 29.5
[2023-04-02 15:45] VITALS: O2SAT 92
--- NOTE | 2023-04-02 18:20 | REHABEVAL_ITS ---
Admission Information Primary Diagnosis:: Debility secondary to cervical myelopathy/radiculopathy with recent cervical laminectomy and fusion. Status Changes from Prescreening?: No changes Identified Actual Problem List:: Skin Intergrity, Pain, ALteration in Cmfrt, Depression, Bowel, Constipation, Mobility Impaired, Self Care Deficit, BP, Hypertension, Fluid Change-Dehydration and Alteration-Leisure Activ. Potential Problem List:: DVT, Bleeding, Infection, UTI, Aspiration, Falls, Skin Integrity and Depression Risk of Complications DVT: MISA Hose and Sequential Compression Device Bleeding: Monitor Lab Values, Nursing to Teach Precautions for anti-coagulation therapy., Wound, if applicable, to be assessed every shift. and Stroke patients assessed for lethargy or change in status. Infection: Clinical Staff to Monitor for S/S of infection: and S/S of infection include fever, redness, warmth, etc. Urinary Tract Infection: Monitor for frequency, burning, discomfort, or incontinence. and Nursing will obtain urine sample for urinalysis and C&S when ordered. Aspiration: Clinical staff will monitor for coughing, drooling, congestion., Speech will evaluate swallowing and dsyphasia. and Nursing will monitor patient swallowing during meals. Falls: Patient will be evaluated for Fall Precautions and Patient will be placed on Fall Precautions as indicated per protocol. Skin Breakdown: Nursing will assess skin daily using assessment tool. and Nursing will place on Skin Breakdown Precautions as indicated. Pain: Clinical staff will assess patient's pain level per protocol., Medications will be given, if needed, and the pain level reassessed. and Other methods: Massage, distraction, decrease stimulus, etc. used PRN. Plan of Care Patient requires physician specializing in physical medicine and rehab oversight to provide close medical supervision of rehab issues including: Pain Management, Sleep Problems, Bowel and Bladder, Medical and co-morbidity Management, DVT prophylaxis, Rehabilitation Leadership and Coordination of treatment team Patient needs Physical Therapy: For a minimum of 1 hour and At least 5 out of 7 days Patient needs Physical Therapy to improve:: Mobility, Strengthening, Transfers, Stretching, ROM, Endurance, Stairs, Gait and Balance Patient needs Occupational Therapy: For a minimum of 1 hour and At least 5 out of 7 days Patient needs Occupational Therapy to improve ADL's incl.: Eating, Grooming, Bathing, Dressing, Toileting, Toilet transfers, Community Reintegration, Higher functioning activities, Household tasks, Adaptive Equipment, Splinting and Other activities as determined Patient requires 24/7 Rehabilitation Nursing for: Pain Issues, Identifying and preventing risk factors, Monitoring and reporting current medical conditions, Assisting with ambulation, transfer, and all ADL's, Teaching patients about disease process and medications, Family teaching, Providing safe environment, Bowel and Bladder Issues, Skin integrity and Medication Management Patient needs Collect On Delivery Clerk/ Case Management for: Discharge Planning, Arranging Home Equipment or Services and Family Interventions Patient needs Dietary and Nutrition Services for: Adequate Nutrition, Nutritional Supplements and Nutritional Education Goals Patient will remain: free from falls Patient will perform bed mobility at: MOD I level of assist. Patient will complete transfers from bed to chair at: MOD I level of assist. Patient will ambulate: - (150 feet with a front wheeled walker at mod I) Patient will complete upper body dressing at: MOD I level of assist. Patient will complete lower body dressing at: MOD I level of assist. (with AE as needed) Patient will complete toileting at: MOD I level of assist. Patient will perform bathing at: Standby Assist. Patient will complete grooming at: MOD I level of assist. Patient will achieve: - (1 flight of stairs with 2 handrails at mod I to allow safe entry into his home.) Patient will have pain level of: of 3 or less Patient's skin will: remain intact Discharge Planning Pt Prognosis for Sig. Practical Improv. w/in Reasonable Time: Good Estimated Length of stay (days): 28 Anticipated D/C Destination: Home with Outpt Therapy Was Preadmission Assessment Accurate?: Yes
[2023-04-02 19:57] VITALS: BP 141/70; PULSE 64; RESP 15; TEMP 36.8; O2SAT 100
[2023-04-02] MEDS: Hydrocortisone 2.5% Crm 1 APPLIC TOPICAL (20:13)
[2023-04-02] MEDS: Ammonium Lactate 225 gm Bottle 1 APPLIC TOPICAL (20:13)
[2023-04-02 22:08] VITALS: PULSE 62; O2SAT 93
--- NOTE | 2023-04-02 22:11 | NURSING ---
Neck circumference is 20 inches.
[2023-04-03] MEDS: Acetaminophen 325 MG Tablet 650 MG PO ×2 (01:24→09:13)
[2023-04-03] MEDS: Baclofen 10 MG Tablet 5 MG PO (01:25)
[2023-04-03] MEDS: oxyCODONE 5 MG Tablet PO ×3 (05:23→21:37)
[2023-04-03 07:33] VITALS: O2SAT 95
[2023-04-03 08:01] VITALS: BP 124/65; PULSE 64; RESP 16; TEMP 36.8; O2SAT 94
[2023-04-03] MEDS: Ammonium Lactate 225 gm Bottle 1 APPLIC TOPICAL ×2 (09:08→20:10)
[2023-04-03] MEDS: Hydrocortisone 2.5% Crm 1 APPLIC TOPICAL ×2 (09:08→20:11)
[2023-04-03] MEDS: predniSONE 10 MG Tablet PO (09:09)
[2023-04-03] MEDS: ARIPiprazole 2 MG Tablet PO (09:09)
[2023-04-03] MEDS: Aspirin 81 MG TAB.CHEW PO (09:09)
[2023-04-03] MEDS: Gabapentin 300 MG Capsule PO ×2 (09:09→20:14)
[2023-04-03 19:28] VITALS: BP 139/76; PULSE 56; RESP 16; TEMP 36.6; O2SAT 97
[2023-04-03 20:00] VITALS: PULSE 56; RESP 16; O2SAT 97
[2023-04-03] MEDS: Senna/Docusate Sodium 1 Tablet 2 TABLET PO (20:12)
[2023-04-04] MEDS: Acetaminophen 325 MG Tablet 650 MG PO ×2 (05:16→20:00)
[2023-04-04] MEDS: Aspirin 81 MG TAB.CHEW PO (07:40)
[2023-04-04] MEDS: predniSONE 10 MG Tablet PO (07:40)
[2023-04-04] MEDS: Menthol/Lanolin/Calamine/Znox 113 GM Tube 1 APPLIC TOPICAL ×2 (07:58→20:07)
[2023-04-04 08:10] VITALS: BP 143/71; PULSE 77; RESP 17; TEMP 36.4; O2SAT 93
[2023-04-04] MEDS: oxyCODONE 5 MG Tablet PO ×2 (09:10→15:10)
[2023-04-04] MEDS: Ammonium Lactate 225 gm Bottle 1 APPLIC TOPICAL ×2 (09:51→20:01)
[2023-04-04] MEDS: Hydrocortisone 2.5% Crm 1 APPLIC TOPICAL ×2 (09:52→20:00)
[2023-04-04] MEDS: ARIPiprazole 2 MG Tablet PO (09:52)
[2023-04-04] MEDS: Gabapentin 300 MG Capsule PO ×2 (09:54→20:02)
[2023-04-04 20:00] VITALS: BP 124/72; PULSE 72; RESP 17; TEMP 36.6; O2SAT 96
[2023-04-04] MEDS: Senna/Docusate Sodium 1 Tablet 2 TABLET PO (20:02)
--- NOTE | 2023-04-05 02:49 | NURSING ---
Reviewed and agree with Esteban QUESADA, documentation and assessment charting.
[2023-04-05] MEDS: oxyCODONE 5 MG Tablet PO ×3 (03:07→19:46)
[2023-04-05] MEDS: Menthol/Lanolin/Calamine/Znox 113 GM Tube 1 APPLIC TOPICAL (05:53)
[2023-04-05 06:00] VITALS: BMI 29.0
[2023-04-05] MEDS: Aspirin 81 MG TAB.CHEW PO (08:36)
[2023-04-05] MEDS: predniSONE 10 MG Tablet PO (08:36)
[2023-04-05] MEDS: ARIPiprazole 2 MG Tablet PO (08:36)
[2023-04-05] MEDS: Senna/Docusate Sodium 1 Tablet 2 TABLET PO ×2 (08:38→21:55)
[2023-04-05] MEDS: Ammonium Lactate 225 gm Bottle 1 APPLIC TOPICAL ×2 (08:39→19:52)
[2023-04-05] MEDS: Hydrocortisone 2.5% Crm 1 APPLIC TOPICAL ×2 (08:39→19:52)
[2023-04-05 08:44] VITALS: BP 134/81; PULSE 61; RESP 17; TEMP 36.8; O2SAT 94
[2023-04-05] MEDS: Acetaminophen 325 MG Tablet 650 MG PO (08:52)
[2023-04-05] MEDS: Gabapentin 300 MG Capsule PO ×2 (08:53→21:54)
--- NOTE | 2023-04-05 08:53 | PCM.PROGNOTE ---
Subjective Subjective Afebrile VSS Maintaining appropriate oxygen saturation on RA Oral intake is good Discussed with nursing - no problems that need addressed Reviewed the PT/OT/ST notes Medication list reviewed. Tells me that he feels tired much of the time and still not feeling rested in the AM. RLS has resolved with the administration of O2 any time he is sleeping. Denies SOB, CP, lightheadedness. No calf tenderness and no dysuria. He wonders fi Valium wound help his pain........his pharmacist suggested this since it helped him after spinal surgery. Giuliano is denying muscle spasms. He has only taken 2 doses of the PRN Baclofen since admission to rehab. I told him Baclofen and Valium are both used for muscle spasms and if he is having spasms he should ask for the Baclofen. He is only taking the Oxycodone 2 times a day. His only complaint today is numbness of the R foot.......all his toes today. Between the ROBBIE wrap and the sock and shoe it is very tight over the tarsal tunnel.......may be compressing the nerve. Will take the show off and rewrap the ROBBIE. I reviewed the results of the overnight trending pulse ox with him and told him he likely has ISMA. I completed the paperwork for a sleep study and left in in the sleep lab office. Will try and schedule for the night he is discharged if possible. He will need Oxygen at home until he can get CPAP. Will need to follow up with pulmonary after the sleep study. Giuliano had been trying to not take the Oxycodone but, PT spoke to him and told him pain limits his ability to do therapy and he should take the Oxycodone in the AM and around lunch so he is not having a lot of pain with therapy limiting his ability to participate. Objective Data Objective Data Vital Signs: Vital Signs Temp Pulse Resp BP Pulse Ox O2 Del Method O2 Flow Rate 98.3 F 61 17 134/81 H 94 Room Air 0 04/05/23 08:44 04/05/23 08:44 04/05/23 08:44 04/05/23 08:44 04/05/23 08:44 04/05/23 08:44 04/02/23 22:08 FiO2 21 04/02/23 22:08 Oxygen Flow Rate (L/min) 0 Oxygen Delivery Method Room Air Weight: 188 lb 7 oz Body Mass Index (BMI) 29.5 Intake & Output: Intake and Output for Last 24 Hours 04/03/23 04/04/23 04/05/23 23:59 23:59 23:59 Intake Total 1000 / 1000 1024 / 1024 1230 / 1230 Output Total 1250 / 1250 1525 / 1525 1000 / 1000 Balance -250 / -250 -501 / -501 230 / 230 Lab / Micro Data 04/02/23 05:50 04/02/23 05:50 Physical Exam Const alert, oriented x3 and no apparent distress Constitutional Narrative: Sitting in the WC and looks comfortable. General Appearance: cooperative HEENT moist oral mucous membranes Resp normal respiratory effort and clear to auscultation bilaterally Resp Narrative: Denies cough and SOB. Effort and Inspection: Negative for tachypneic or labored Auscultation: diminished lung sounds Cardio regular rate, regular rhythm, no rub and no gallops Cardio Narrative: No ectopy GI normal to inspection, nondistended, normoactive bowel sounds, soft to palpation and non-tender GI Narrative: No guarding with palpation and he is having regular BM's Extremity no calf tenderness Extremity Narrative: No spasm in the cervical thoracic area posteriorly. No pain with palpation in the trapezius muscle. General Extremity: Negative for edema Skin General Skin Exam: no breakdown Rashes: no rashes Wound Narrative: The incision of the posterior neck and upper thoracic area is intact. There is some swelling around the incision but no erythema and no increased warmth to touch. Small amount of serous DC from the caudal portion of the incision. No tenderness to palpation around the incision. Still with bruising but resolving. Psych thought process normal, cooperative and affect normal Appearance: appropriate Attitude: No agitated Activity / Motor Behavior: Negative for restless Assessment & Plan Assessment/Plan (1) Debility: (2) Radiculopathy: QUALIFIERS: Spinal region: unspecified Qualified Code(s): M54.10 - Radiculopathy, site unspecified PLAN: UE's and LE's (3) Myopathy: PLAN: More so on the R (4) Right hemiparesis: (5) H/O laminectomy: (6) Current chronic use of systemic steroids: PLAN: We are weaning off. (7) Metabolic alkalosis: PLAN: more likely than not do to contraction alkalosis (8) Dehydration: (9) ISMA (obstructive sleep apnea): PLAN: Suspected. Very abnormal overnight trending pulse ox. Paperwork completed for sleep study and sleep lab will try and coordinate to do the study on the night of DC. Then he will follow up with pulmonary. I suspect he may have COPD as well. 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 (13) Depression: PLAN: Plan 1. Continue therapy 2. The Abilify was decreased to 2 mg at HS from 5 mg. Has gained 25lbs since he was started on Abilify and he would like to lose weight. Will start Low dose Duloxetine. In another week or 10 days will DC Abilify and increase the Duloxetine to a more therapeutic dose. Will help with the chronic radicular pain he has. 3. Reminded Goerge the Baclofen is PRN and he will need to ask for it if he is having issues with muscle spasm 4. Continue Lac-Hydrin and hydrocortisone cream to both hands. If no improvement by next week will discontinue hydrocortisone and start a retinoid. Recommended he follow up with a on site construction superintendent post DC. It runs in his family. 5. Continue to encourage increased fluid intake. 6. Recheck a BMP on Saturday. Charges/Coding Visit Charges Inpatient E&M: 19071 Subs Hosp L2
[2023-04-05] MEDS: DULoxetine Hcl 20 MG Capsule PO (12:07)
--- NOTE | 2023-04-05 14:50 | CHAPLAIN ---
Type of Pastoral Visit _x__ Initial Visit ___ Follow-up Visit ___ On-call Visit ___ General Patient Visit ___ Spiritual Assessment ___ Family Conference ___ Bereavement ___ Rapid Response ___ Code Blue ___ Other (describe below) Pastoral Care Referral From _x__ Patient ___ Family ___ Nurse ___ Physician ___ Statistics Professor ___ Ditching Machine Engineer ___ Other (describe below) Sacrament/Intervention _x__ Active listening ___ Anointing ___ Restorationism ___ Bereavement ___ Communion _x__ Karen exploration ___ _x__ Life review _x__ Prayer ___ Reconciliation ___ Sacrament of Sick ___ Supportive presence ___ Wedding ___ Other (describe below) Pastoral Comments patient is welcoming of spiritual care visit and 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
[2023-04-05 19:01] VITALS: BP 144/55; PULSE 68; RESP 16; TEMP 36.5; O2SAT 95
[2023-04-05] MEDS: Baclofen 10 MG Tablet 5 MG PO (21:58)
[2023-04-06] MEDS: Menthol/Lanolin/Calamine/Znox 113 GM Tube 1 APPLIC TOPICAL ×2 (05:02→21:24)
[2023-04-06] MEDS: oxyCODONE 5 MG Tablet PO ×2 (05:02→17:57)
[2023-04-06 08:24] VITALS: BP 153/60; PULSE 62; RESP 18; TEMP 36.6; O2SAT 95
[2023-04-06] MEDS: Senna/Docusate Sodium 1 Tablet 2 TABLET PO ×2 (09:21→21:05)
[2023-04-06] MEDS: DULoxetine Hcl 20 MG Capsule PO (09:21)
[2023-04-06] MEDS: Ammonium Lactate 225 gm Bottle 1 APPLIC TOPICAL ×2 (09:22→21:05)
[2023-04-06] MEDS: Hydrocortisone 2.5% Crm 1 APPLIC TOPICAL ×2 (09:22→21:06)
[2023-04-06] MEDS: ARIPiprazole 2 MG Tablet PO (09:23)
[2023-04-06] MEDS: predniSONE 10 MG Tablet PO (09:23)
[2023-04-06] MEDS: Aspirin 81 MG TAB.CHEW PO (09:24)
[2023-04-06] MEDS: Gabapentin 300 MG Capsule PO ×2 (09:26→21:05)
[2023-04-06 21:00] VITALS: BP 130/68; PULSE 62; RESP 15; TEMP 36.7; O2SAT 96
[2023-04-06] MEDS: Acetaminophen 325 MG Tablet 650 MG PO (21:04)
[2023-04-07] MEDS: oxyCODONE 5 MG Tablet PO ×2 (02:57→12:59)
[2023-04-07] MEDS: Menthol/Lanolin/Calamine/Znox 113 GM Tube 1 APPLIC TOPICAL ×2 (05:27→20:05)
[2023-04-07 07:11] VITALS: BP 124/63; PULSE 62; RESP 16; TEMP 36.2; O2SAT 94
[2023-04-07] MEDS: Ammonium Lactate 225 gm Bottle 1 APPLIC TOPICAL ×2 (09:21→20:03)
[2023-04-07] MEDS: Hydrocortisone 2.5% Crm 1 APPLIC TOPICAL ×2 (09:21→20:03)
[2023-04-07] MEDS: Aspirin 81 MG TAB.CHEW PO (09:22)
[2023-04-07] MEDS: DULoxetine Hcl 20 MG Capsule PO (09:22)
[2023-04-07] MEDS: ARIPiprazole 2 MG Tablet PO (09:23)
[2023-04-07] MEDS: predniSONE 10 MG Tablet PO (09:23)
[2023-04-07] MEDS: Acetaminophen 325 MG Tablet 650 MG PO ×2 (09:26→20:06)
[2023-04-07] MEDS: Gabapentin 300 MG Capsule PO ×2 (09:27→20:04)
[2023-04-07] MEDS: Senna/Docusate Sodium 1 Tablet 2 TABLET PO (09:28)
[2023-04-07 19:45] VITALS: BP 146/64; PULSE 63; RESP 18; TEMP 36.6; O2SAT 97
[2023-04-07] MEDS: Baclofen 10 MG Tablet 5 MG PO (22:35)
[2023-04-08] MEDS: Menthol/Lanolin/Calamine/Znox 113 GM Tube 1 APPLIC TOPICAL ×2 (05:38→20:54)
[2023-04-08 06:04] LABS: Anion Gap 2 (5-15); BUN 22 mg/dL (7-18); Chloride 105 mmol/L (98-107); Creatinine, Serum 0.76 mg/dL (0.70-1.30); EST Glomerular Filtration Rate 108 mL/min (>60); Est Glom Filt Rate - Afr Amer 131 mL/min (>60); Estimated Creatinine Clearance 62.03 ml/min; Glucose 97 mg/dL (74-106); Sodium Level 138 mmol/L (136-145)
[2023-04-08 08:10] VITALS: BP 135/63; PULSE 94; RESP 16; TEMP 36.4; O2SAT 96
[2023-04-08] MEDS: oxyCODONE 5 MG Tablet PO ×2 (08:29→17:52)
[2023-04-08] MEDS: predniSONE 10 MG Tablet PO (08:31)
[2023-04-08] MEDS: ARIPiprazole 2 MG Tablet PO (08:31)
[2023-04-08] MEDS: DULoxetine Hcl 20 MG Capsule PO (08:31)
[2023-04-08] MEDS: Aspirin 81 MG TAB.CHEW PO (08:31)
[2023-04-08] MEDS: Senna/Docusate Sodium 1 Tablet 2 TABLET PO ×2 (08:31→20:53)
[2023-04-08] MEDS: Baclofen 10 MG Tablet 5 MG PO (09:33)
[2023-04-08] MEDS: Gabapentin 300 MG Capsule PO ×2 (09:33→20:54)
--- NOTE | 2023-04-08 09:38 | NURSING ---
Patient c/o pain in the right thigh. No redness and edema or swelling noted. Patient states baclofen helped previously. PRN baclofen given at this time.
[2023-04-08 09:56] VITALS: PULSE 62
[2023-04-08] MEDS: Hydrocortisone 2.5% Crm 1 APPLIC TOPICAL ×2 (10:33→20:54)
[2023-04-08] MEDS: Ammonium Lactate 225 gm Bottle 1 APPLIC TOPICAL ×2 (10:34→20:53)
--- NOTE | 2023-04-08 11:07 | PCM.PROGNOTE ---
Subjective Subjective Giuliano was seen on team rounds today. His was present in the room for rounds. Afebrile VSS Maintaining appropriate oxygen saturation on RA Oral intake is good. He ate 75 to 100% of his breakfast today. Discussed with nursing - no problems that need addressed Reviewed the PT/OT/ST notes Medication list reviewed. Taking only 2 oxycodone 10 mg daily. He has had baclofen 5 mg once yesterday and once today. All lab today was personally reviewed. Sodium is 138 and the potassium is 4.0. Serum bicarb is down to 31 from 33 on 04/02/2023. BUN is 22, down from 27 on 04/02/2023 and the creatinine is 0.76, down from 0.92 on 04/02/2023. Calcium is 8 and the Albumin is pending. Giuliano tells me that his pain is adequately controlled. He is making progress in therapy. He denies cephalgia, lightheadedness, chest pain, shortness of breath, palpitations, nausea/vomiting/abdominal pain/constipation, dysuria and calf tenderness. The right side is weaker than the left side. He has ambulated up to 100 feet with a front wheeled walker at [facility]. Still needs a lot of assistance with toileting. Both Giuliano and his feel that he is not ready to go home yet and suspect he will need to go to an SNF for more therapy at [place] from rehab which is on the 04/12/23. Objective Data Objective Data Vital Signs: Vital Signs Temp Pulse Resp BP Pulse Ox O2 Del Method O2 Flow Rate 97.6 F L 62 16 135/63 H 96 Room Air 0 04/08/23 08:10 04/08/23 09:56 04/08/23 08:10 04/08/23 08:10 04/08/23 08:10 04/08/23 08:10 04/02/23 22:08 FiO2 21 04/02/23 22:08 Oxygen Flow Rate (L/min) 0 Oxygen Delivery Method Room Air Weight: 184 lb 11.958 oz Body Mass Index (BMI) 29.0 Intake & Output: Intake and Output for Last 24 Hours 04/06/23 04/07/23 04/08/23 23:59 23:59 23:59 Intake Total 1430 / 1430 340 / 340 840 / 840 Output Total 2875 / 2875 650 / 650 Balance -1445 / -1445 -310 / -310 840 / 840 Lab / Micro Data 04/02/23 05:50 04/08/23 05:05 Labs: Laboratory Results - last 24 hr 04/08/23 05:05: Sodium 138, Potassium 4.0, Chloride 105, Carbon Dioxide 31.0, Anion Gap 2 L, BUN 22 H, Creatinine 0.76, Estim Creat Clear Calc 62.03, Est GFR (MDRD) Af Amer 131, Est GFR (MDRD) Non-Af 108, BUN/Creatinine Ratio 29.0 H, Glucose 97, Calcium 8.0 L Physical Exam Const alert, oriented x3 and no apparent distress General Appearance: cooperative Neck supple Resp normal respiratory effort, no use of accessory muscles and clear to auscultation bilaterally Effort and Inspection: able to speak in complete sentences; Negative for tachypneic Auscultation: diminished lung sounds Cardio regular rate, regular rhythm, S1 normal heart sound, S2 normal heart sound, no murmurs, no rub and no gallops Cardio Narrative: No ectopy GI normal to inspection, nondistended, normoactive bowel sounds, soft to palpation and non-tender GI Narrative: No guarding with palpation and he is having regular BM's Extremity no clubbing, cyanosis or edema and no calf tenderness Extremity Narrative: No spasm in the cervical thoracic area posteriorly. No pain with palpation in the trapezius muscle. General Extremity: Negative for edema Skin General Skin Exam: no breakdown Rashes: no rashes Wound Narrative: The incision of the posterior neck and upper thoracic area is intact. There is some swelling around the incision but no erythema and no increased warmth to touch. Small amount of serous DC from the caudal portion of the incision. No tenderness to palpation around the incision. Still with bruising but resolving. Neuro oriented x3 and CN's II-XII intact bilaterally Neuro Narrative: Weakness of the R arm and leg. Can not lift the RLE off the bed but can lift his knee up. Some side to side movement on the bed. 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 Unable to lift the R arm more than 20 to 30 degrees off the bed. Psych thought process normal, cooperative and affect normal Psych Narrative: Appropriate, making good eye contact. Able to stay on topic and focus. No flight of ideas. Does not appear anxious or depressed. Conversant and relating well to staff. 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 Continue therapy 2. [place] Abilify and increase duloxetine to 40 mg daily later this week. 3. Prednisone decreased to 7.5 mg daily for 1 week then alternate 7.5.and 6 mg for 1 week and then 6 mg daily for 1 week and then alternate 6 mg and 5 mg for 1 week and then 5 mg daily for 1 week and then alternate 5 mg and 4 mg for 1 week and then 4 mg daily for 1 week and then alternate 4 mg and 3 mg for 1 week and then decrease to 3 mg daily for 1 week and then decrease to 2.5 mg daily for 1-2 weeks and then discontinue. 4. Planning for SNF at [place] from rehab. 5. Continue to encourage increased fluid intake. BUN/creatinine ratio is still markedly elevated at 29. Charges/Coding Visit Charges Inpatient E&M: 03807 Subs Hosp L2
[2023-04-08 11:32] LABS: Albumin, Serum 2.7 g/dL (3.2-5.0)
--- NOTE | 2023-04-08 13:27 | CASEMGMT ---
Addendum entered by Narcisa Samuels 04/09/23 15:30: SW spoke with Director and reimbursement was received from insurance, thus pt can admit to TCU pending precert from insurance. SW phoned to update. Advised precert can be denied and pt can pay privately, but precert can be submitted afterall. expressed understanding and appreciation. Plan: DC to TCU, pending precert, pending LCD given on RU Addendum entered by Narcisa Samuels 04/08/23 14:16: provided copies of advanced directives for pt. SW placed on chart. Pt and also requesting referral to [facility] TCU. SW phoned referral. Will continue to follow. Original Note: Social Work IDT met with patient and for Team meeting. Discussed patient's progress in PT/OT/SN. Educated to Medicare approval of 13 days with [facility]C 04/14. However, pt needs a sleep study and sleep lab can accommodate on 04/12. Pt will DC to sleep study on 04/12. SW inquired about DC plan from sleep study. Offered therapy training or alternative DC plans. and pt agreed pt needs to be more independent to DC home and agreeable to SNF stay. Educated to SNF benefit. Provided printed SNF list in [facility] with quality and resource data via [facility]. Pt/ requesting [facility] as first choice. Pt also has f/u appt scheduled with surgeon for 04/15 and requesting w/c transport. Hand off to be given to accepting SNF. SW will continue to follow. MARLO FairbanksW
--- NOTE | 2023-04-08 13:31 | CASEMGMT ---
Social Work IDT met with patient and for Team meeting. Discussed patient's progress in PT/OT/Sn. Educated to Medicare approval of 13 days with [facility] 04/14. However, pt needs a sleep study and [facility] sleep lab can accommodate on 04/12. Pt and agreeable to DC to sleep study on 04/12, then admit to location. SW inquired about DC plan from sleep study. Offered therapy training or alternative DC plans. and pt agreed pt needs to be more independent to DC home and agreeable to SNF stay. Educated to SNF benefit. Provided printed SNF list in [facility] with quality and resource data via [employer]. pt/ requesting referral to [facility]. Pt also has f/u appt scheduled with surgeon for 04/15 and requesting w/c transport. Hand off to be given to accepting SNF. SW will continue to follow. -- provided copies of advanced directives for pt. SW placed in chart. Pt and also requesting referral to [facility] TCU. SW phoned referral to TCU. Will continue to follow. MARLO Fairbanks RFID MANAGER
[2023-04-08] MEDS: Acetaminophen 325 MG Tablet 650 MG PO (20:53)
[2023-04-08 21:00] VITALS: BP 139/49; PULSE 59; RESP 14; TEMP 36.6; O2SAT 93
[2023-04-09] MEDS: Menthol/Lanolin/Calamine/Znox 113 GM Tube 1 APPLIC TOPICAL ×2 (05:47→21:29)
[2023-04-09] MEDS: oxyCODONE 5 MG Tablet PO ×2 (05:48→12:39)
[2023-04-09 07:48] VITALS: BP 143/73; PULSE 59; RESP 16; TEMP 36.1; O2SAT 98
[2023-04-09] MEDS: DULoxetine Hcl 20 MG Capsule PO (08:08)
[2023-04-09] MEDS: ARIPiprazole 2 MG Tablet PO (08:08)
[2023-04-09] MEDS: Hydrocortisone 2.5% Crm 1 APPLIC TOPICAL ×2 (08:08→21:27)
[2023-04-09] MEDS: Aspirin 81 MG TAB.CHEW PO (08:08)
[2023-04-09] MEDS: Ammonium Lactate 225 gm Bottle 1 APPLIC TOPICAL ×2 (08:09→21:27)
[2023-04-09] MEDS: Senna/Docusate Sodium 1 Tablet 2 TABLET PO (08:09)
[2023-04-09] MEDS: Gabapentin 300 MG Capsule PO ×2 (08:12→21:27)
[2023-04-09] MEDS: predniSONE 5 MG Tablet 7.5 MG PO (09:01)
[2023-04-09 09:30] VITALS: PULSE 62
[2023-04-09] MEDS: Acetaminophen 325 MG Tablet 650 MG PO ×2 (10:16→21:27)
[2023-04-09] MEDS: Baclofen 10 MG Tablet 5 MG PO (10:17)
--- NOTE | 2023-04-09 15:39 | CASEMGMT ---
Social Work SW spoke with pt to update [facility] and TCU can accept pt. Pt's first choice is [facility] TCU. SW updated both SNFs. Narcisa Samuels, HEAD START ASSISTANT TEACHER NUMBERER AND WIRER
[2023-04-09 19:54] VITALS: BP 125/65; PULSE 64; RESP 16; TEMP 36.6; O2SAT 94
[2023-04-09 21:00] VITALS: PULSE 64; RESP 16; O2SAT 94
[2023-04-10] MEDS: Acetaminophen 325 MG Tablet 650 MG PO (05:00)
[2023-04-10] MEDS: oxyCODONE 5 MG Tablet PO ×3 (05:00→21:35)
[2023-04-10] MEDS: Menthol/Lanolin/Calamine/Znox 113 GM Tube 1 APPLIC TOPICAL ×2 (05:04→22:30)
--- NOTE | 2023-04-10 07:48 | SLEEP ---
PROVIDED PATIENT WITH INFORMATION FOR SLEEP LAB VISIT COMING UP ON Saturday04/12/23. [facility] AND TELLS ME HIS IS DC TO TCU AFTER STUDY. HE REQUESTS URINAL BE PROVIDED. HE WILL NEED ASSISTANCE IF HAS BM DURING STUDY. STUDY PROCEDURE EXPLAINED TO PATIENT AND HIS QUESTIONS ANSWERED. ENCOURAGED HIM/ TO CONTACT IF FURTHER QUESTIONS PRIOR TO HIS APPT.
[2023-04-10] MEDS: predniSONE 5 MG Tablet 7.5 MG PO (07:57)
[2023-04-10] MEDS: Aspirin 81 MG TAB.CHEW PO (07:57)
[2023-04-10 08:21] VITALS: BP 139/79; PULSE 60; RESP 16; TEMP 36.2; O2SAT 99
[2023-04-10] MEDS: Ammonium Lactate 225 gm Bottle 1 APPLIC TOPICAL ×2 (09:20→22:31)
[2023-04-10] MEDS: DULoxetine Hcl 20 MG Capsule PO (09:21)
[2023-04-10] MEDS: ARIPiprazole 2 MG Tablet PO (09:21)
[2023-04-10] MEDS: Gabapentin 300 MG Capsule PO ×2 (09:21→21:57)
[2023-04-10] MEDS: Hydrocortisone 2.5% Crm 1 APPLIC TOPICAL ×2 (09:21→22:31)
[2023-04-10] MEDS: Senna/Docusate Sodium 1 Tablet 2 TABLET PO (09:21)
[2023-04-10] MEDS: Baclofen 10 MG Tablet 5 MG PO (11:14)
[2023-04-10 18:53] VITALS: BP 133/63; PULSE 68; RESP 18; TEMP 36.7; O2SAT 94
[2023-04-11] MEDS: oxyCODONE 5 MG Tablet PO ×2 (06:42→13:48)
[2023-04-11] MEDS: Menthol/Lanolin/Calamine/Znox 113 GM Tube 1 APPLIC TOPICAL ×2 (06:42→20:48)
[2023-04-11 07:57] VITALS: BP 129/60; PULSE 63; RESP 16; TEMP 36.6; O2SAT 95
[2023-04-11] MEDS: Aspirin 81 MG TAB.CHEW PO (08:39)
[2023-04-11] MEDS: predniSONE 5 MG Tablet 7.5 MG PO (08:40)
[2023-04-11] MEDS: DULoxetine Hcl 20 MG Capsule PO (08:40)
[2023-04-11] MEDS: ARIPiprazole 2 MG Tablet PO (08:41)
[2023-04-11] MEDS: Hydrocortisone 2.5% Crm 1 APPLIC TOPICAL ×2 (08:41→20:45)
[2023-04-11] MEDS: Ammonium Lactate 225 gm Bottle 1 APPLIC TOPICAL ×2 (08:41→20:44)
[2023-04-11] MEDS: Gabapentin 300 MG Capsule PO ×2 (08:53→20:46)
--- NOTE | 2023-04-11 12:20 | PCM.PROGNOTE ---
Subjective Subjective Afebrile VSS Maintaining appropriate oxygen saturation on RA Oral intake is good Discussed with nursing - no problems that need addressed Reviewed the PT/OT/ST notes - making good progress but, he does not feel he will be ready to go home at [place] from rehab and thinks he would like to go to an SNF for additional therapy prior to going home. Medication list reviewed. Giuliano denies lightheadedness, cephalgia, chest pain, palpitations, shortness of breath, nausea/vomiting/abdominal pain, dysuria and calf pain. He feels that he is sleeping well and his pain is adequately controlled. Objective Data Objective Data Vital Signs: Vital Signs Temp Pulse Resp BP Pulse Ox O2 Del Method O2 Flow Rate 97.8 F 63 16 129/60 H 95 Room Air 0 04/11/23 07:57 04/11/23 07:57 04/11/23 07:57 04/11/23 07:57 04/11/23 07:57 04/11/23 07:57 04/02/23 22:08 FiO2 21 04/02/23 22:08 Oxygen Flow Rate (L/min) 0 Oxygen Delivery Method Room Air Weight: 184 lb 11.958 oz Body Mass Index (BMI) 29.0 Intake & Output: Intake and Output for Last 24 Hours 04/09/23 04/10/23 04/11/23 23:59 23:59 23:59 Intake Total 1300 / 1400 2520 / 2520 300 / 300 Output Total 775 / 1125 2125 / 2125 900 / 900 Balance 525 / 275 395 / 395 -600 / -600 Lab / Micro Data 04/02/23 05:50 04/08/23 05:05 Physical Exam Const alert, oriented x3 and no apparent distress General Appearance: cooperative Resp normal respiratory effort and clear to auscultation bilaterally Effort and Inspection: Negative for tachypneic or labored Auscultation: diminished lung sounds Cardio regular rate, regular rhythm, no murmurs and no gallops GI normal to inspection, nondistended, normoactive bowel sounds, soft to palpation and non-tender Extremity no calf tenderness General Extremity: Negative for edema Skin General Skin Exam: no breakdown Rashes: no rashes Wound Narrative: The posterior cervical incision that extends into the upper thoracic area is intact with some localized shazia-incisional bruising but no dehiscence, no shazia-incisional erythema, no purulent discharge and no significant shazia-incisional swelling. Assessment & Plan Assessment/Plan (1) Debility: (2) Radiculopathy: QUALIFIERS: Spinal region: unspecified Qualified Code(s): M54.10 - Radiculopathy, site unspecified (3) Myopathy: (4) Right hemiparesis: (5) H/O laminectomy: PLAN: Dr. Johnson is the surgeon. (6) Metabolic alkalosis: (7) Dehydration: PLAN: This is chronic due to decreased fluid consumption despite multiple reminders to increase fluids. 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 Continue therapy 2. Discuss SNF at discharge with the health and social care teacher. 3. Needs a sleep study at discharge. 4. Can start tapering off prednisone over the next 2 months. Charges/Coding Visit Charges Inpatient E&M: 60766 Subs Hosp L2
[2023-04-11 19:31] VITALS: BP 135/88; PULSE 87; RESP 17; TEMP 36.7; O2SAT 94
[2023-04-11 21:55] VITALS: O2SAT 94
[2023-04-12] MEDS: oxyCODONE 5 MG Tablet PO ×3 (01:30→19:41)
[2023-04-12] MEDS: Menthol/Lanolin/Calamine/Znox 113 GM Tube 1 APPLIC TOPICAL ×2 (05:18→19:44)
[2023-04-12 05:39] VITALS: BMI 32.4
[2023-04-12 08:06] VITALS: BP 133/64; PULSE 62; RESP 18; TEMP 36.5; O2SAT 99
[2023-04-12] MEDS: Aspirin 81 MG TAB.CHEW PO (08:36)
[2023-04-12] MEDS: predniSONE 5 MG Tablet 7.5 MG PO (08:37)
[2023-04-12] MEDS: ARIPiprazole 2 MG Tablet PO (08:38)
[2023-04-12] MEDS: DULoxetine Hcl 20 MG Capsule PO (08:39)
[2023-04-12] MEDS: Gabapentin 300 MG Capsule PO ×2 (08:42→19:38)
[2023-04-12] MEDS: Ammonium Lactate 225 gm Bottle 1 APPLIC TOPICAL ×2 (08:44→19:42)
[2023-04-12] MEDS: Hydrocortisone 2.5% Crm 1 APPLIC TOPICAL ×2 (08:44→19:43)
--- NOTE | 2023-04-12 10:47 | TREXTCAR_ITS ---
Diet Diet Order/Speech Therapy: 04/01/23 16:01 Diet: Regular - General Routine Orders/Code Status Enema Type: Fleetz Enema Frequency: Daily PRN Suppository Type: Dulcolax 10mg Suppository Frequency: Daily PRN O2 Liters per Minute: 1-2 O2 Frequency: PRN (He should be on 2 LPM of O2 ANYTIME he is sleeping. ) Keep PO Greater than or Equal to (%): 90 Code Status: Full Code Wound(s) posterior neck: Wound Type: Surgical Incision left sykes: Wound Type: Abrasion drain site to the right of the incision: Wound Type: Surgical Incision Therapies Weight Bearing: Full weight bearing Extremity Affected:: Bilateral Lower (BL legs and the R arm. ) Physical Therapy: Eval and Treat Occupational Therapy: Eval and Treat Problem/Diagnosis (1) Debility: Status: Acute Code(s): R53.81 - Other malaise (2) Radiculopathy: Status: Acute Code(s): M54.10 - Radiculopathy, site unspecified (3) Myopathy: Status: Acute Code(s): G72.9 - Myopathy, unspecified (4) Right hemiparesis: Status: Acute Code(s): G81.91 - Hemiplegia, unspecified affecting right dominant side Comment: Due to cervical cord compression. (5) H/O laminectomy: Status: Acute Code(s): Z98.890 - Other specified postprocedural states Comment: Cervical laminectomy and fusion of C2-[address] Johnson in February of 2023. (6) Current chronic use of systemic steroids: Status: Chronic Code(s): Z79.52 - terminal superintendent (current) use of systemic steroids Comment: Tapering these off. See protocol on DC medication. Started in November for radiculopathy. (7) Metabolic alkalosis: Status: Resolved Code(s): E87.3 - Alkalosis Comment: more likely than not due to dehydration. (8) Dehydration: Status: Acute Code(s): E86.0 - Dehydration Comment: He continues to limit fluid intake despite instruction to increase fluids. (9) ISMA (obstructive sleep apnea): Status: Suspected Code(s): G47.33 - Obstructive sleep apnea (adult) (pediatric) Comment: overnight trending pulse ox ABN with pulse ox < 90% on RA for 30% of the time he was monitored. He is currently on 2 LPM O2 anytime he is sleeping. Having a sleep study on 04/12/23 then admitting to TCU on 04/13/23. 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 Could try a retinoid with ammonium lactate or refer to dermatology when DC'd from TCU (12) Restless leg syndrome: Status: Chronic Code(s): G25.81 - Restless legs syndrome Comment: Suspect due to obstructive sleep apnea. While on oxygen had no restless leg. (13) Depression: Status: Chronic Code(s): F32.A - Depression, unspecified Comment: Abilify weaned off because of weight gain and he has been transitioned to Duloxetine for depression and chronic pain S. Plan 1. Discharge today. 2. Sleep study tonight and then will follow up with pulmonary medicine at [facility]. 3. Continue 2 LPM O2 whenever he is sleeping. 4. Will follow up with Dr. Allen for orthopedics. 5. 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 6. Steroids are being tapered off over several weeks. See protocol in the discharge medication list. Allergies/Procedures Done in Hospital Allergies No Known Allergies Allergy (Verified 01/27/19 08:07) Type of Care/Length of Stay Estimated LOS: Convalescent Care Less Than 30 days Type of Care Needed: Skilled Rehab Potential: Good Prognosis: Good Additional Orders/Day of Discharge Day of Discharge: 04/12/23 Dietary and Speech Recommendations Dietitian Recommendations/Changes: Continue Regular diet to optimize oral intakes. Discharge Plan Admission Admit Date/Time: 04/01/23 14:30 Primary Reason for Your Visit: Debility secondary to cervical canal stenosis with radiculopathy and myopat Attending Provider: Shyla Coleman Primary Care Provider: Juan Antonio Claros Discharge Orders/Prescriptions Prescriptions: New prednisone 5 mg Tablet See Rx Instructions .ROUTE .COMPLEX Qty: 1 0RF Rx Instructions: Prednisone 7.5 mg daily X 3 days then alternate 6 mg and 7 mg for 7 days then 6 mg daily for 7 days then alternate 5 mg and 6 mg for 7 days then 5 mg daily for 7 days then alternate 4 mg and 5 mg for 7 days then 4 mg daily for 7 days them alternate 3 mg and 4 mg for 7 days then 3 mg daily for 7 days then 2.5 mg daily for 14 days and discontinue Prednisone acetaminophen 325 mg Tablet 650 mg PO Q6H PRN PRN (Reason: Pain Score 1-4) Qty: 1 0RF ammonium lactate 12 % Lotion 1 applic topical BID Qty: 1 0RF Protocol: *Topical Application Instructions APPLICATION INSTRUCTIONS: mix this with the hydrocortisone and apply to the hands (back and front) BID bisacodyl 10 mg Suppository 10 mg UT .PRN X 1 PRN (Reason: Constipation) Qty: 12 0RF sennosides-docusate sodium [Stool Softener-Stimulant Laxat] 8.6-50 mg Tablet 2 tab PO BID PRN (Reason: constipation) Qty: 1 0RF duloxetine 20 mg Capsule,Delayed Release(Dr/Ec) 40 mg PO DAILY Qty: 1 0RF Continued aspirin 81 MG tablet,chewable 81 mg PO DAILY@0800 baclofen 5 mg tablet 5 mg PO Q8H PRN (Reason: muscle spasm) gabapentin 300 mg capsule 300 mg PO BID oxycodone 5 mg tablet 5 - 10 mg PO Q6H PRN (Reason: pain) 7 Days Qty: 42 0RF Rx Instructions: one tab pain 4-6 two tabs pain 7-10 Discontinued alprazolam [Xanax XR] 0.5 MG tablet extended release 24 hr 0.5 mg PO DAILY aripiprazole [Abilify] 5 mg tablet 5 mg PO DAILY prednisone 10 mg tablet 10 mg PO DAILY No Action atorvastatin 20 MG tablet 20 mg PO QHS ibuprofen 400 MG tablet 800 mg PO Q6H PRN PRN (Reason: Mild/Moderate Pain) Referrals / Follow Up: sleep,study [Other] - 04/12/23 8:00 pm Reji Duarte [Other] - 04/15/23 1:40 pm Juan Antonio Claros MD [Primary Care Provider] - Disposition Disposition (needs filled in before D/C Order can be placed): [facility] (2) Radiculopathy Qualifiers: Spinal region: unspecified Qualified Code(s): M54.10 - Radiculopathy, site unspecified (10) Hyperlipidemia Qualifiers: Hyperlipidemia type: unspecified Qualified Code(s): E78.5 - Hyperlipidemia, unspecified (13) Depression Qualifiers: Depression Type: persistent depressive disorder Qualified Code(s): F34.1 - Dysthymic disorder
--- NOTE | 2023-04-12 11:35 | DS.PCM_ITS ---
Providers Date of Admission: 04/01/23 Date of Discharge: 04/13/23 Primary Care Physician: Dr. Juan Antonio Claros MD Reason For Visit: CERVICAL LAMINECTOMY Diagnosis Discharge Diagnosis (1) Debility: Status: Acute Code(s): R53.81 - Other malaise (2) Radiculopathy: Status: Acute Code(s): M54.10 - Radiculopathy, site unspecified Qualifiers: Spinal region: unspecified Qualified Code(s): M54.10 - Radiculopathy, site unspecified (3) Myopathy: Status: Acute Code(s): G72.9 - Myopathy, unspecified (4) Right hemiparesis: Status: Acute Code(s): G81.91 - Hemiplegia, unspecified affecting right dominant side (5) H/O laminectomy: Status: Acute Code(s): Z98.890 - Other specified postprocedural states Plan: Dr. Johnson is the surgeon. (6) Metabolic alkalosis: Status: Resolved Code(s): E87.3 - Alkalosis Plan: To contraction alkalosis from decreased oral fluid intake. (7) Dehydration: Status: Acute Code(s): E86.0 - Dehydration Plan: This is chronic due to decreased fluid consumption despite multiple reminders to increase fluids. (8) ISMA (obstructive sleep apnea): Status: Suspected Code(s): G47.33 - Obstructive sleep apnea (adult) (pediatric) Plan: A sleep study was done on the night of discharge from rehab and he was admitted to TCU the following morning. He is going to follow-up with pulmonary medicine to review the results of the sleep study. Until he can see pulmonary medicine he will need oxygen 2 L/min anytime he is sleeping. 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 He may benefit more from addition of a retinoid however we have not on formulary at [facility]. 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 Many family members also have this. (11) Restless leg syndrome: Status: Chronic Code(s): G25.81 - Restless legs syndrome Plan: Restless leg resolved with application of O2 when he is sleeping. (12) Depression: Status: Chronic Code(s): F32.A - Depression, unspecified Qualifiers: Depression Type: persistent depressive disorder Qualified Code(s): F 34.1 - Dysthymic disorder Plan: He has gained 25 lbs since being on Abilify. He would like to lose weight. He was initially started on Abilify after the of his son. We tapered the Abilify off and he was started on duloxetine for chronic back pain. (13) Chronic steroid use: Status: Acute Plan: He was started on Prednisone 10 mg daily in November for back pain and radiculopathy. Will taper off per schedule in the medications at [place]. Plan 1. Discharge today. 2. Sleep study tonight and then will follow up with pulmonary medicine at [facility]. 3. Continue 2 LPM O2 whenever he is sleeping until he is seen by Pulmonary. 4. Will follow up with Dr. Johnson for orthopedics. 5. 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 6. Steroids are being tapered off over several weeks. See protocol in the discharge medication list. Medications at Discharge Home Medications aspirin 81 mg chewable tablet 81 mg PO DAILY@0800 heart 05/03/15 atorvastatin 20 mg tablet 20 mg PO QHS cholesterol 05/03/15 ibuprofen 400 mg tablet 800 mg PO Q6H PRN PRN Mild/Moderate Pain 05/03/15 baclofen 5 mg tablet 5 mg PO Q8H PRN muscle spasm 04/01/23 gabapentin 300 mg capsule 300 mg PO BID pain 04/01/23 acetaminophen 325 mg tablet 650 mg (2 x 325 mg) PO Q6H PRN PRN Pain Score 1-4 #1 TAB 04/12/23 ammonium lactate 12 % lotion 1 applic topical BID Dry skin #1 g 04/12/23 bisacodyl 10 mg rectal suppository 10 mg MI .PRN X 1 PRN Constipation #12 ea 04/12/23 duloxetine 20 mg capsule,delayed release 40 mg (2 x 20 mg) PO DAILY Depression #1 cap 04/12/23 oxycodone 5 mg tablet 5 - 10 mg (1 - 2 x 5 mg) PO Q6H PRN pain 7 days #42 tabs 04/12/23 prednisone 5 mg tablet See Rx Instructions .Route .COMPLEX Inflammation #1 TAB 04/12/23 sennosides 8.6 mg-docusate sodium 50 mg tablet (Stool Softener-Stimulant Laxative) 2 tab PO BID PRN constipation #1 TAB 04/12/23 menthol 0.44 %-zinc oxide 20.6 % topical ointment (Calmoseptine) 1 applic topical BID Redness 04/13/23 Hospital Course Operations - (C2-C7 laminectomy and fusion by Dr. Johnson. ) Procedures - (sleep study on the night of DC from rehab. Done as an OP.) Summary of Care Provided Minutes Spent on Discharge: 45 Hospital Course: SADIE CARSON, is a 68 YO M with a PMH of peripheral vascular disease with history of stents in the lower extremities, osteoarthritis, hyperlipidemia, anxiety, chronic steroid use since November 2022 and rheumatoid arthritis who was seen at [facility] ED c/o radicular pain in BL 's, numbness in both legs and muscle weakness to the point where he had to use a walker. The day prior to presenting to the ED his leg buckled and he fell. He was also c/o of pain in his hands for the preceding 1-2 weeks. He had been seeing Dr. Johnson and had a hx of cervical spine fusion in the early and Lumbar laminectomy and fusion on 01/26/2016. He was transferred from [facility] to [facility] and was admitted to Dr. Johnson's service. He underwent cervical laminectomy and fusion of C2-C7 by Dr. Johnson. Post operatively he was seen by PT/OT and admission to acute rehab was recommended post DC. He was transferred to [facility] acute rehab on 04/01/23 for 3 hours of therapy daily to restore function/independence at or near his level prior to recent decline with radiculopathy and myopathy. At the time of admission his hemoglobin was 14.5 but he was quite dehydrated. Following hydration the hemoglobin dropped to 12.4. Chemistry at admission showed a mildly increased CO2 at 33 and a BUN of 27 with a creatinine of 0.92 and a BUNs/creatinine ratio of 29.2. Calcium corrected for hypoalbuminemia has been within normal limits. Sadie c/o restless leg and his told me that he snores loudly and sto ps breathing at night. He can fall asleep when riding in a car, when driving a car (has to pull off the road), when reading and watching TV and when talking to someone. He has HTN and nocturia. He never feels rested and he naps in the afternoon, sometimes taking more than 1 nap a day. We did an overnight trending pulse ox that was markedly abnormal. 30% of the time he was monitored on room air the pulse ox was less than 90%. He has been wearing oxygen at 2 L/min anytime he is sleeping. Sadie and I had a discussion regarding his continued need for an antidepressant. He told me he is not depressed at this time and related that he has gained 25 pounds since being placed on Abilify. This is not helping his breathing or his back pain. We agreed to taper the Abilify down to 2 mg nightly and to see how it went. At the same time we started duloxetine 20 mg daily for depression/chronic back pain. He had no recurrence of depression and the Abilify was discontinued prior to transfer to transitional care. Duloxetine was increased to 40 mg daily at the time of discharge to TCU and he has had no adverse side effects with duloxetine. Sadie did well with therapy. At the time of discharge he was independent with eating and grooming and required minimal assistance with upper body dressing but moderate assistance with lower body dressing. He is contact-guard assist for toilet transfer but requires moderate assistance with toileting. He requires only minimal assistance with tub/shower transfer. He is ambulated up to 112 feet at contact-guard assist/min assist on various surfaces with a front wheeled walker. Still requiring min assist at times due to leg instability. He was able to ascend/descend three 4 inch steps with 2 handrails at contact-guard assist/min assist. His goal was to climb 1 flight of steps with 2 HR's at MOD I. He was not ready to be discharged home upon DC from acute rehab and he was transferred to TCU on the morning of 04/14/23. The night of DC from acute rehab he had a split sleep study and will follow up with either Dr. Clraos or Dr. Butch going forward to discuss the results of the sleep study. Physical Exam Const alert, oriented x3 and no apparent distress General Appearance: cooperative and comfortable HEENT normocephalic and head/scalp atraumatic HEENT Narrative: MM are dry always. He does not drink enough fluid despite constant reminders from staff. Eyes PERRL, EOMs intact bilaterally, conjunctivae normal and no scleral icterus Eyes Narrative: No discharge from the eye and no mattering of the eyelashes. General Eye: normal appearance of both eyes Neck no lymphadenopathy, supple, no JVD and no carotid bruits Neck Narrative: There is an incision in the posterior neck from recent laminectomy. General: trachea midline Chest Chest Narrative: He is barrel chested. Chest: symmetrical chest wall rise Resp normal respiratory effort, no use of accessory muscles and clear to auscultation bilaterally Resp Narrative: Denies cough and SOB. Effort and Inspection: able to speak in complete sentences; Negative for tachypneic or labored Auscultation: diminished lung sounds bilateral and diffuse Cardio regular rate, regular rhythm, S1 normal heart sound, S2 normal heart sound, no murmurs, no rub and no gallops Cardio Narrative: No ectopy GI normal to inspection, nondistended, normoactive bowel sounds, soft to palpation and non-tender GI Narrative: No guarding with palpation and he is having regular BM's Extremity no clubbing, cyanosis or edema and no calf tenderness Skin Skin Narrative: No rashes, no skin breakdown. The skin over the palms of the hands is hyperkeratotic and cracked in several places. This is chronic. He tells me that his feet are the same way and it runs in his family. His hands are painful when they are cracked. Rashes: no rashes Wound Narrative: the posterior cervical incision is intact with no dehiscence, no shazia-incisional erythema and no discharge. There is still some resolving bruising present. The area is not tender to palpation. Neuro oriented x3 and CN's II-XII intact bilaterally Neuro Narrative: Weakness of the R arm and leg. With abnormal gait. He is able to hold onto the WW now when ambulating. Psych thought process normal, cooperative and affect normal Psych Narrative: Appropriate, making good eye contact. Able to stay on topic and focus. No flight of ideas. Does not appear anxious or depressed. Conversant and relating well to staff. Attitude: No agitated Activity / Motor Behavior: Negative for restless Weight / BMI Weight Weight: 206 lb 14.4 oz Body Mass Index (BMI) 32.4 ABG / Lab / Microbiology Data 04/02/23 05:50 04/08/23 05:05 Meaningful Use Info Meaningful Use Diagnoses (Choose all that apply): None applicable Discharge Plan Admission Admit Date/Time: 04/01/23 14:30 Primary Reason for Your Visit: Debility secondary to cervical canal stenosis with radiculopathy and myopat Attending Provider: Shyla Coleman Primary Care Provider: Juan Antonio Claros Discharge Orders/Prescriptions Prescriptions: New prednisone 5 mg Tablet See Rx Instructions .ROUTE .COMPLEX Qty: 1 0RF Rx Instructions: Prednisone 7.5 mg daily X 3 days then alternate 6 mg and 7 mg for 7 days then 6 mg daily for 7 days then alternate 5 mg and 6 mg for 7 days then 5 mg daily for 7 days then alternate 4 mg and 5 mg for 7 days then 4 mg daily for 7 days them alternate 3 mg and 4 mg for 7 days then 3 mg daily for 7 days then 2.5 mg daily for 14 days and discontinue Prednisone acetaminophen 325 mg Tablet 650 mg PO Q6H PRN PRN (Reason: Pain Score 1-4) Qty: 1 0RF ammonium lactate 12 % Lotion 1 applic topical BID Qty: 1 0RF Protocol: *Topical Application Instructions APPLICATION INSTRUCTIONS: mix this with the hydrocortisone and apply to the hands (back and front) BID bisacodyl 10 mg Suppository 10 mg MI .PRN X 1 PRN (Reason: Constipation) Qty: 12 0RF sennosides-docusate sodium [Stool Softener-Stimulant Laxat] 8.6-50 mg Tablet 2 tab PO BID PRN (Reason: constipation) Qty: 1 0RF duloxetine 20 mg Capsule,Delayed Release(Dr/Ec) 40 mg PO DAILY Qty: 1 0RF Continued aspirin 81 MG tablet,chewable 81 mg PO DAILY@0800 baclofen 5 mg tablet 5 mg PO Q8H PRN (Reason: muscle spasm) gabapentin 300 mg capsule 300 mg PO BID oxycodone 5 mg tablet 5 - 10 mg PO Q6H PRN (Reason: pain) 7 Days Qty: 42 0RF Rx Instructions: one tab pain 4-6 two tabs pain 7-10 Discontinued alprazolam [Xanax XR] 0.5 MG tablet extended release 24 hr 0.5 mg PO DAILY aripiprazole [Abilify] 5 mg tablet 5 mg PO DAILY prednisone 10 mg tablet 10 mg PO DAILY No Action atorvastatin 20 MG tablet 20 mg PO QHS Hold Instructions: Patient stated not taking ibuprofen 400 MG tablet 800 mg PO Q6H PRN PRN (Reason: Mild/Moderate Pain) Hold Instructions: Order Changed menthol-zinc oxide [Calmoseptine] 0.44-20.6 % ointment 1 applic topical BID Rx Instructions: Apply to bilateral buttocks Referrals / Follow Up: marco antonio,enriqueta [Other] - 04/12/23 8:00 pm Reji Duarte [Other] - 04/15/23 1:40 pm Juan Antonio Claros MD [Primary Care Provider] - Disposition Disposition (needs filled in before D/C Order can be placed): Shelter Facility Charges/Coding Visit Charges Inpatient E&M: 97854 Disch Hosp >30min
--- NOTE | 2023-04-12 11:50 | TREXTCAR_ITS ---
Diet Diet Order/Speech Therapy: 04/01/23 16:01 Diet: Regular - General Routine Orders/Code Status Enema Type: Fleetz Enema Frequency: Daily PRN Suppository Type: Dulcolax 10mg Suppository Frequency: Daily PRN O2 Frequency: PRN (He should be on 2 LPM of O2 ANYTIME he is sleeping. ) Keep PO Greater than or Equal to (%): 90 Code Status: Full Code Wound(s) posterior neck: Wound Type: Surgical Incision left sykse: Wound Type: Abrasion drain site to the right of the incision: Wound Type: Surgical Incision Therapies Weight Bearing: Full weight bearing Extremity Affected:: Right Upper Physical Therapy: Eval and Treat Occupational Therapy: Eval and Treat Problem/Diagnosis (1) Debility: Status: Acute Code(s): R53.81 - Other malaise (2) Radiculopathy: Status: Acute Code(s): M54.10 - Radiculopathy, site unspecified (3) Myopathy: Status: Acute Code(s): G72.9 - Myopathy, unspecified (4) Right hemiparesis: Status: Acute Code(s): G81.91 - Hemiplegia, unspecified affecting right dominant side Comment: Due to cervical cord compression. (5) H/O laminectomy: Status: Acute Code(s): Z98.890 - Other specified postprocedural states Comment: Cervical laminectomy and fusion of C2-[address] Johnson in February of 2023. (6) Current chronic use of systemic steroids: Status: Chronic Code(s): Z79.52 - [facility] (current) use of systemic steroids Comment: Tapering these off. See protocol on DC medication. Started in November for radiculopathy. (7) Metabolic alkalosis: Status: Resolved Code(s): E87.3 - Alkalosis Comment: more likely than not due to dehydration. (8) Dehydration: Status: Acute Code(s): E86.0 - Dehydration Comment: He continues to limit fluid intake despite instruction to increase fluids. (9) ISMA (obstructive sleep apnea): Status: Suspected Code(s): G47.33 - Obstructive sleep apnea (adult) (pediatric) Comment: overnight trending pulse ox ABN with pulse ox < 90% on RA for 30% of the time he was monitored. He is currently on 2 LPM O2 anytime he is sleeping. Having a sleep study on 04/12/23 then admitting to TCU on 04/13/23. 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 Could try a retinoid with ammonium lactate or refer to dermatology when DC'd from TCU (12) Restless leg syndrome: Status: Chronic Code(s): G25.81 - Restless legs syndrome Comment: Suspect due to obstructive sleep apnea. While on oxygen had no restless leg. (13) Depression: Status: Chronic Code(s): F32.A - Depression, unspecified Comment: Abilify weaned off because of weight gain and he has been transitioned to Duloxetine for depression and chronic pain S. Plan 1. Discharge today. 2. Sleep study tonight and then will follow up with pulmonary medicine at [facility]. 3. Continue 2 LPM O2 whenever he is sleeping. 4. Will follow up with Dr. Allen for orthopedics. 5. 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 6. Steroids are being tapered off over several weeks. See protocol in the discharge medication list. Allergies/Procedures Done in Hospital Allergies No Known Allergies Allergy (Verified 01/27/19 08:07) Type of Care/Length of Stay Estimated LOS: Convalescent Care Less Than 30 days Type of Care Needed: Skilled Rehab Potential: Good Prognosis: Good Additional Orders/Day of Discharge Day of Discharge: 04/12/23 Dietary and Speech Recommendations Dietitian Recommendations/Changes: Continue Regular diet to optimize oral intakes. Discharge Plan Admission Admit Date/Time: 04/01/23 14:30 Primary Reason for Your Visit: Debility secondary to cervical canal stenosis with radiculopathy and myopat Attending Provider: Shyla Coleman Primary Care Provider: Juan Antonio Claros Discharge Orders/Prescriptions Prescriptions: New prednisone 5 mg Tablet See Rx Instructions .ROUTE .COMPLEX Qty: 1 0RF Rx Instructions: Prednisone 7.5 mg daily X 3 days then alternate 6 mg and 7 mg for 7 days then 6 mg daily for 7 days then alternate 5 mg and 6 mg for 7 days then 5 mg daily for 7 days then alternate 4 mg and 5 mg for 7 days then 4 mg daily for 7 days them alternate 3 mg and 4 mg for 7 days then 3 mg daily for 7 days then 2.5 mg daily for 14 days and discontinue Prednisone acetaminophen 325 mg Tablet 650 mg PO Q6H PRN PRN (Reason: Pain Score 1-4) Qty: 1 0RF ammonium lactate 12 % Lotion 1 applic topical BID Qty: 1 0RF Protocol: *Topical Application Instructions APPLICATION INSTRUCTIONS: mix this with the hydrocortisone and apply to the hands (back and front) BID bisacodyl 10 mg Suppository 10 mg [place] .PRN X 1 PRN (Reason: Constipation) Qty: 12 0RF sennosides-docusate sodium [Stool Softener-Stimulant Laxat] 8.6-50 mg Tablet 2 tab PO BID PRN (Reason: constipation) Qty: 1 0RF duloxetine 20 mg Capsule,Delayed Release(Dr/Ec) 40 mg PO DAILY Qty: 1 0RF Continued aspirin 81 MG tablet,chewable 81 mg PO DAILY@0800 baclofen 5 mg tablet 5 mg PO Q8H PRN (Reason: muscle spasm) gabapentin 300 mg capsule 300 mg PO BID oxycodone 5 mg tablet 5 - 10 mg PO Q6H PRN (Reason: pain) 7 Days Qty: 42 0RF Rx Instructions: one tab pain 4-6 two tabs pain 7-10 Discontinued alprazolam [Xanax XR] 0.5 MG tablet extended release 24 hr 0.5 mg PO DAILY aripiprazole [Abilify] 5 mg tablet 5 mg PO DAILY prednisone 10 mg tablet 10 mg PO DAILY No Action atorvastatin 20 MG tablet 20 mg PO QHS ibuprofen 400 MG tablet 800 mg PO Q6H PRN PRN (Reason: Mild/Moderate Pain) Referrals / Follow Up: sleep,study [Other] - 04/12/23 8:00 pm Reji Duarte [Other] - 04/15/23 1:40 pm Juan Antonio Claros MD [Primary Care Provider] - Disposition Disposition (needs filled in before D/C Order can be placed): [facility] (2) Radiculopathy Qualifiers: Spinal region: unspecified Qualified Code(s): M54.10 - Radiculopathy, site unspecified (10) Hyperlipidemia Qualifiers: Hyperlipidemia type: unspecified Qualified Code(s): E78.5 - Hyperlipidemia, unspecified (13) Depression Qualifiers: Depression Type: persistent depressive disorder Qualified Code(s): F34.1 - Dysthymic disorder
[2023-04-12 19:31] VITALS: BP 139/64; PULSE 64; RESP 18; TEMP 36.8; O2SAT 96
[2023-04-12 19:33] VITALS: RESP 16; O2SAT 96
--- NOTE | 2023-04-12 20:07 | NURSING ---
discharged to sleep lab per order and premedicated for pain and hs meds.
== END 2023-04-12 20:09 | disposition skilled nursing facility (03) | DRG 560 ==
PROVIDERS: Admitting Provider Internal Medicine; PCP Family Medicine; Visit Provider Internal Medicine
DX: Z47.89 Encounter for other orthopedic aftercare (principal); E87.3 Alkalosis; G81.91 Hemiplegia, unspecified affecting right dominant side; G95.29 Other cord compression; I73.9 Peripheral vascular disease, unspecified; M06.9 Rheumatoid arthritis, unspecified; F34.1 Dysthymic disorder; G47.33 Obstructive sleep apnea (adult) (pediatric); G25.81 Restless legs syndrome; M54.10 Radiculopathy, site unspecified; Q82.8 Other specified congenital malformations of skin; I10 Essential (primary) hypertension; E78.5 Hyperlipidemia, unspecified; F41.9 Anxiety disorder, unspecified; Z87.891 Personal history of nicotine dependence; Z79.52 Long term (current) use of systemic steroids; Z79.82 Long term (current) use of aspirin; Z98.1 Arthrodesis status; Z79.899 Other long term (current) drug therapy
CPT/HCPCS: 36415; 80048; 80053; 82040; 83735; 84100; 85027; 94668; 94762; 97110; 97112; 97116; 97163; 97165; 97530; 97535; 97802; 99252; 99406; G0463

== ENCOUNTER → 2023-04-12 | Outpatient (CLI) | payer MEDICARE, OTHER, SELFPAY | END | disposition home or self-care (01) | PROVIDERS: PCP Family Medicine; Visit Provider Internal Medicine | DX: G47.10 Hypersomnia, unspecified (principal); G47.30 Sleep apnea, unspecified | CPT/HCPCS: 95811 ==

== ENCOUNTER 2023-04-13 05:30 | Inpatient (IN) | payer MEDICARE, OTHER, SELFPAY ==
[2023-04-13 06:00] VITALS: BP 130/70; PULSE 63; RESP 16; TEMP 36.7; O2SAT 94; BMI 29.4
[2023-04-13] MEDS: DULoxetine Hcl 20 MG Capsule 40 MG PO (07:46)
[2023-04-13] MEDS: oxyCODONE 5 MG Tablet PO ×2 (07:46→17:27)
[2023-04-13] MEDS: Aspirin 81 MG TAB.CHEW PO (07:46)
--- NOTE | 2023-04-13 08:11 | HP.PCM_ITS ---
HPI - General General Date of Admission: 04/13/23 Date of Service: 04/15/23 Chief Complaint: Here for rehabilitation. HPI Narrative SADIE CARSON, is a 68 Male who presents with following: [facility] bilateral lower extremity radicular pain, numbness, muscle weakness, needed walker to walk. Legs bucked, fell. Dr. Jeffrey cervical spine fusion 1999', lumbar laminectomy/fusion 01/26/2016. Transfer to [facility] under Dr. Johnson's service. Dr. Johnson performed C2-C7 laminectomy/fusion. PT/OT recommended acute rehab. 04/01/2023 Admit to . On Abilify since his son , causing weight gain. Taper off Abilify. 04/05/2023 Baclofen for muscle spasm. Overnight trending pulsox suggestive of obstructive sleep apnea. Taper off Abilify, start Duloxetine for depression. 04/08/2023 Pain controlled, progressing with therapy. Right side weaker than left. Stop Abilify, increase Duloxetine to 40mg daily. Taper down prednisone. 04/12/2023 Discharge to sleep lab for sleep study. 04/13/2023 Admit to TCU with debility, here for rehabilitation, strengthening, prior to discharge home with . [facility] Medical History Abdominal aortic aneurysm Anxiety Depression Former smoker Hyperlipidemia PAD (peripheral artery disease) Palmoplantar keratoderma Rheumatoid arthritis Rotator cuff arthropathy of right shoulder Ventral hernia Home Medications aspirin 81 mg chewable tablet 81 mg PO DAILY@0800 heart 05/03/15 [History Last Taken 04/12/23] atorvastatin 20 mg tablet 20 mg PO QHS cholesterol 05/03/15 [History Last Taken Unknown] ibuprofen 400 mg tablet 800 mg PO Q6H PRN PRN Mild/Moderate Pain 05/03/15 [History Last Taken Unknown] baclofen 5 mg tablet 5 mg PO Q8H PRN muscle spasm 04/01/23 [History Last Taken Unknown] gabapentin 300 mg capsule 300 mg PO BID pain 04/01/23 [History Last Taken 04/12/23] acetaminophen 325 mg tablet 650 mg (2 x 325 mg) PO Q6H PRN PRN Pain Score 1-4 #1 TAB 04/12/23 [Rx Last Taken Unknown] ammonium lactate 12 % lotion 1 applic topical BID Dry skin #1 g 04/12/23 [Rx Last Taken 04/12/23] bisacodyl 10 mg rectal suppository 10 mg TX .PRN X 1 PRN Constipation #12 ea 04/12/23 [Rx Last Taken Unknown] duloxetine 20 mg capsule,delayed release 40 mg (2 x 20 mg) PO DAILY Depression #1 cap 04/12/23 [Rx Last Taken Unknown] oxycodone 5 mg tablet 5 - 10 mg (1 - 2 x 5 mg) PO Q6H PRN pain 7 days #42 tabs 04/12/23 [Rx Last Taken 04/12/23] prednisone 5 mg tablet See Rx Instructions .Route .COMPLEX Inflammation #1 TAB 04/12/23 [Rx Last Taken 04/12/23] sennosides 8.6 mg-docusate sodium 50 mg tablet (Stool Softener-Stimulant Laxative) 2 tab PO BID PRN constipation #1 TAB 04/12/23 [Rx Last Taken Unknown] menthol 0.44 %-zinc oxide 20.6 % topical ointment (Calmoseptine) 1 applic topical BID Redness 04/13/23 [History Last Taken 04/12/23] Allergy/AdvReac Type Severity Reaction Status Date / Time No Known Allergies Allergy Verified 01/27/19 08:07 Surgical History H/O knee surgery H/O laminectomy H/O microdiscectomy Hip joint replacement status History of lumbar laminectomy Status post cervical spinal fusion Status post right rotator cuff repair Total knee replacement status Social History household members: spouse housing: house current occupational status: retired Smoking Status: Former smoker quit date: 03/05/23 how long ago did patient quit smokin weeks ago refuses a nicotine patch alcohol intake: current substance use type: does not use ROS Constitutional Constitutional: Denies chills, fever(s) or weight gain ENT HEENT: Denies headache(s), nasal congestion or nasal discharge Cardiovascular Cardiovascular: Denies chest pain or palpitations Respiratory/Chest Respiratory/Chest: Denies cough, excessive phlegm production or shortness of breath with exertion Gastrointestinal Gastrointestinal: Denies abdominal pain, nausea or vomiting Genitourinary Genitourinary: Denies dysuria Musculoskeletal Musculoskeletal: Denies joint pain or joint swelling Integumentary Integumentary: Denies rash or wounds Neurologic Neurologic: Denies focal weakness, numbness or tingling Psychiatric Psychiatric: Denies anxiety, auditory hallucinations, depression, homicidal ideation or suicidal ideation Vital Signs Vital Signs Vital Signs: 04/13/23 06:00 04/13/23 06:00 Temperature 98.1 F Temperature Source Temporal Pulse Rate 63 Pulse Rhythm Regular Pulse Strength Normal (2+) Respiratory Rate 16 Respiratory Effort Normal Non-Labored Respiratory Depth Normal Respiratory Pattern Normal Blood Pressure 130/70 H Blood Pressure Mean 90 Blood Pressure Source Monitor Blood Pressure Position Sitting Blood Pressure Location Right Arm Pulse Ox 94 Oxygen Delivery Method Room Air Room Air Weight Weight: 82.69 kg Body Mass Index (BMI) 29.4 Physical Exam Const alert General Appearance: cooperative HEENT normocephalic Eyes PERRL and EOMs intact bilaterally Neck supple, no JVD and no carotid bruits Resp normal respiratory effort, normal air movement and clear to auscultation bilaterally Cardio regular rate and regular rhythm GI normal to inspection, nondistended, normoactive bowel sounds, non-tender and non-distended Extremity normal capillary refill General Extremity: Negative for edema Skin no rashes or lesions noted Skin Narrative: Posterior cervical incision birgit intact. General Skin Exam: no breakdown Psych affect normal Appearance: appropriate Results Lab / Micro Data 04/14/23 06:10 04/14/23 06:10 Assessment & Plan Assessment/Plan (1) Debility: (2) Cervical spinal stenosis: (3) H/O laminectomy: (4) ISMA (obstructive sleep apnea): (5) Peripheral vascular disease: (6) Osteoarthritis: (7) Hyperlipidemia: QUALIFIERS: Hyperlipidemia type: unspecified Qualified Code(s): E78.5 - Hyperlipidemia, unspecified (8) Rheumatoid arthritis: (9) Depression: QUALIFIERS: Depression Type: persistent depressive disorder Qualified Code(s): F34.1 - Dysthymic disorder (10) Muscle spasm: PLAN: Plan 68 year old male with below past medical history hospitalized for progressive quadraplegia, underwent C2-C7 laminectomy/fusion with Dr. Johnson, transferred to for acute rehab, discharged to sleep study, admit to TCU with debility, here for rehabilitation, strengthening, prior to discharge home with . * Debility - PT/OT. * Pain - Tylenol 1000mg q6 prn pain (1-4), Oxycodone 5-10mg q6h prn pain (6-10). * Bowel - senna/colace 2 tablets bid, Dulcolax 10mg pr x 1 prn, MOM 30ml po x 1 prn. * Adult immunization - Administer pneumonia vaccine, covid19 vaccine, flu v accine as appropriate. * DVT prophylaxis - Monitor. * Skin irritation - Ammonium Lactate topical bid, Hydrocortisone 2.5% topical bid, Calmoseptine topical bid. * CV prophylaxis - Aspirin 81mg daily. * Muscle spasm - Baclofen 5mg q8h prn. * Depression - Duloxetine 40mg daily, stable use, GDR not recommended. * Neuropathic pain - Gabapentin 300mg bid. * Cervical spinal stenosis s/p laminectomy/fusion - Prednisone taper.
[2023-04-13 14:41] VITALS: BP 125/58; PULSE 68; RESP 14; TEMP 36.3; O2SAT 89
--- NOTE | 2023-04-13 14:43 | PCA ---
nurse put patient on 2L/min 02 and oxygen raised to 95%
[2023-04-13] MEDS: Gabapentin 300 MG Capsule PO (17:27)
[2023-04-13] MEDS: Ammonium Lactate 225 gm Bottle 1 APPLIC TOPICAL (17:30)
[2023-04-13] MEDS: Hydrocortisone 2.5% Ointment 20 gm tube 1 APPLIC TOPICAL (17:30)
[2023-04-13] MEDS: Menthol/Lanolin/Calamine/Znox 113 GM Tube 1 APPLIC TOPICAL (17:34)
[2023-04-13] MEDS: Baclofen 10 MG Tablet 5 MG PO (20:09)
[2023-04-14 06:32] LABS: Absolute Lymphocyte Count 1.06 X10^3/uL (0.83-4.51); Absolute Neutrophil Count 2.9 X10^3/uL (2.0-7.7); Basophil# 0.04 X10^3/uL; Basophil% 0.8 % (0-1); Eosinophil# 0.18 X10^3/uL; Eosinophils% 3.8 % (0-5); Hematocrit 38.2 % (40-54); Hemoglobin 12.4 g/dL (13.0-16.5); Lymphocyte # 1.06 X10^3/ul (0.83-4.51); Lymphocyte % 22.1 % (19-41); Mean Corp Hgb Conc 32.5 g/dL (32-36); Mean Corpuscular Hgb 31.6 pg (27.0-32.0); Mean Corpuscular Volume 97.2 fL (80-94); Monocyte# 0.57 X10^3/uL; Monocyte% 11.9 % (0-10); NRBC Flagged by Analyzer 0 % (0-5); Neutrophil # 2.92 X10^3/uL (2.7-7.7); Platelet Count 215 K/mm3 (150-450); RBC Distribution Width SD 46.7 fl (35.1-43.9); Red Blood Count 3.93 M/mm3 (4.6-6.2); White Blood Count 4.8 K/mm3 (4.4-11.0)
[2023-04-14] MEDS: Gabapentin 300 MG Capsule PO ×2 (06:40→16:30)
[2023-04-14] MEDS: oxyCODONE 5 MG Tablet PO ×2 (06:40→12:33)
[2023-04-14] MEDS: Menthol/Lanolin/Calamine/Znox 113 GM Tube 1 APPLIC TOPICAL ×2 (06:41→16:30)
[2023-04-14] MEDS: Ammonium Lactate 225 gm Bottle 1 APPLIC TOPICAL ×2 (06:41→16:31)
[2023-04-14] MEDS: Hydrocortisone 2.5% Ointment 20 gm tube 1 APPLIC TOPICAL ×2 (06:42→16:31)
[2023-04-14] MEDS: DULoxetine Hcl 20 MG Capsule 40 MG PO (06:42)
[2023-04-14 07:00] LABS: Anion Gap 2 (5-15); BUN 21 mg/dL (7-18); BUN/Creat Ratio 24.5 RATIO (10-20); Calcium,Total 8.3 mg/dL (8.5-10.1); Chloride 103 mmol/L (98-107); Creatinine, Serum 0.86 mg/dL (0.70-1.30); EST Glomerular Filtration Rate 94 mL/min (>60); Est Glom Filt Rate - Afr Amer 114 mL/min (>60); Estimated Creatinine Clearance 72.13 ml/min; Glucose 100 mg/dL (74-106); Potassium 4.2 mmol/L (3.5-5.1); Sodium Level 138 mmol/L (136-145)
[2023-04-14] MEDS: Aspirin 81 MG TAB.CHEW PO (07:49)
[2023-04-14] MEDS: predniSONE 5 MG Tablet 7.5 MG PO (07:50)
[2023-04-14] MEDS: Tuberculin,Purif.prot.deriv. 50 TU/ML Vial 0.1 ML ID (09:53)
[2023-04-14] MEDS: Baclofen 10 MG Tablet 5 MG PO ×2 (09:59→20:22)
[2023-04-14 16:00] VITALS: BP 128/43; PULSE 69; RESP 16; TEMP 36.2; O2SAT 93
[2023-04-14 20:27] VITALS: PULSE 67; RESP 18; O2SAT 91
[2023-04-15] MEDS: Acetaminophen 500 MG Tablet 1000 MG PO ×2 (01:48→17:26)
[2023-04-15] MEDS: Ammonium Lactate 225 gm Bottle 1 APPLIC TOPICAL ×2 (04:51→17:28)
[2023-04-15] MEDS: DULoxetine Hcl 20 MG Capsule 40 MG PO (04:51)
[2023-04-15] MEDS: Hydrocortisone 2.5% Ointment 20 gm tube 1 APPLIC TOPICAL ×2 (04:52→17:28)
[2023-04-15] MEDS: Menthol/Lanolin/Calamine/Znox 113 GM Tube 1 APPLIC TOPICAL (04:54)
[2023-04-15] MEDS: Gabapentin 300 MG Capsule PO ×2 (04:54→17:27)
[2023-04-15 05:30] VITALS: BMI 29.1
[2023-04-15] MEDS: Aspirin 81 MG TAB.CHEW PO (07:39)
[2023-04-15] MEDS: predniSONE 5 MG Tablet 7.5 MG PO (07:39)
[2023-04-15] MEDS: oxyCODONE 5 MG Tablet PO ×2 (07:42→17:27)
[2023-04-15 09:43] VITALS: PULSE 53; RESP 18; O2SAT 94
--- NOTE | 2023-04-15 11:14 | PHA.CONS_ITS ---
<Statement entered by Carlos Castillo MD - 04/15/23 11:54> I have personally performed a face to face assessment of the patient and have reviewed the BUDDY Note. TCU RX Drug Regimen Review Subjective/Objective Subjective/Objective: Subjective: TCU Admission. 68 YOM presented to the ER with bilateral lower extremity pain, weakness and numbness. Transferred to [facility] and hospitalized for progressive quadriplegia, underwent C2-C7 laminectomy/fusion with Dr. Johnson, transferred to for acute rehab, discharged to sleep study. Admitted to TCU with debility for strengthening and rehabilitation. Objective: Allergies No Known Allergies Allergy (Verified 01/27/19 08:07) Current Medications Generic Name Dose Route Start Last Admin Trade Name Freq PRN Reason Stop Dose Admin Acetaminophen 1,000 mg 04/13/23 08:30 04/15/23 01:48 Acetaminophen 500 Mg Tablet PO 1,000 mg Q6H PRN PRN Administration Pain Score 1-4 Aspirin 81 mg 04/13/23 08:00 04/15/23 07:39 Aspirin 81 Mg Tab.Chew PO 81 mg DAILY@0800 SERGIO Administration Baclofen 5 mg 04/13/23 06:53 04/14/23 20:22 Baclofen 10 Mg Tablet PO 5 mg Q8H PRN PRN Administration muscle spasm Bisacodyl 10 mg 04/13/23 06:40 Bisacodyl 10 Mg Suppository RC .PRN X 1 PRN Constipation Calamine/Phenol 1 applic 04/13/23 18:00 04/15/23 04:54 Menthol/Lanolin/Calamine/Znox 113 Gm Tube TOPICAL 1 applic BID SERGIO Administration Protocol Duloxetine HCl 40 mg 04/13/23 08:00 04/15/23 04:51 Duloxetine Hcl 20 Mg Capsule PO 40 mg DAILY SERGIO Administration Gabapentin 300 mg 04/13/23 18:00 04/15/23 04:54 Gabapentin 300 Mg Capsule PO 300 mg BID SERGIO Administration Hydrocortisone 1 applic 04/13/23 18:00 04/15/23 04:52 Hydrocortisone 2.5% Ointment 20 Gm Tube TOPICAL 1 applic BID SERGIO Administration Protocol Lactic Acid 1 applic 04/13/23 18:00 04/15/23 04:51 Ammonium Lactate 225 Gm Bottle TOPICAL 1 applic BID SERGIO Administration Protocol Magnesium Hydroxide 30 ml 04/13/23 07:39 Magnesium Hydroxide 30 Ml Udc PO DAILY PRN Constipation Oxycodone HCl 5 - 10 mg 04/13/23 06:40 04/15/23 07:42 Oxycodone 5 Mg Tablet PO 5 mg Q6H PRN PRN Administration Pain Score 4-10 Prednisone 7.5 mg 04/14/23 08:00 04/15/23 07:39 Prednisone 5 Mg Tablet PO 04/21/23 08:01 7.5 mg BREAKFAST SERGIO Administration Prednisone 5 mg 04/22/23 08:00 Prednisone 5 Mg Tablet PO 04/29/23 08:01 BREAKFAST SERGIO Prednisone 2.5 mg 04/30/23 08:00 Prednisone 5 Mg Tablet PO 05/07/23 08:01 BREAKFAST SERGIO Senna/Docusate Sodium 2 tablet 04/13/23 06:40 Senna/Docusate Sodium 1 Tablet PO BID PRN PRN constipation Tuberculin PPD 0.1 ml 04/21/23 10:00 Tuberculin,Purif.Prot.Deriv. 50 Tu/Ml Vial ID 04/21/23 10:01 X1 ONE Problem List (Updated 04/02/23 @ 09:[address] Shyla Coleman, DO) Muscle spasm (Acute) Osteoarthritis (Acute) Peripheral vascular disease (Acute) Cervical spinal stenosis (Acute) Depression (Chronic) Hyperlipidemia (Chronic) Debility (Acute) ISMA (obstructive sleep apnea) (Suspected) Rheumatoid arthritis (Acute) H/O laminectomy (Acute) Vital Signs Temp Pulse Resp BP Pulse Ox O2 Del Method 97.2 F L 53 L 18 128/43 H 94 Room Air 04/14/23 16:00 04/15/23 09:43 04/15/23 09:43 04/14/23 16:00 04/15/23 09:43 04/15/23 09:43 Oxygen Delivery Method Room Air Weight: 81.828 kg Body Mass Index (BMI) 29.1 Sodium 138 mmol/L (136-145) 04/14/23 06:10 Potassium 4.2 mmol/L (3.5-5.1) 04/14/23 06:10 Chloride 103 mmol/L (98-107) 04/14/23 06:10 Carbon Dioxide 33.0 mmol/L (21.0-32.0) H 04/14/23 06:10 Anion Gap 2 (5-15) L 04/14/23 06:10 BUN 21 mg/dL (7-18) H 04/14/23 06:10 Creatinine 0.86 mg/dL (0.70-1.30) 04/14/23 06:10 Est GFR (MDRD) Af Amer 114 mL/min (>60) 04/14/23 06:10 Est GFR (MDRD) Non-Af 94 mL/min (>60) 04/14/23 06:10 BUN/Creatinine Ratio 24.5 RATIO (10-20) H 04/14/23 06:10 Glucose 100 mg/dL (74-106) 04/14/23 06:10 Assessment/Plan: 1. Pain: acetaminophen 1000 mg PO Q6H PRN pain (1-4) and oxycodone 5-10 mg PO Q6H PRN pain (6-10). Please monitor total daily intake of acetaminophen, pain levels, constipation and respiratory depression. Resident has had 1 dose of acetaminophen for a pain score (3 in the legs) and 5 doses of oxycodone for a pain scores of 5-7 in the back/leg/neck. 2. Bowel: senna/docusate 2 tablets PO BID PRN constipation, bisacodyl 10 mg RC PRN constipation and MOM 30mL PO x1 PRN constipation. Please monitor for constipation and diarrhea as well as electrolyte disturbances. Resident has not had any doses of PRN medications. Last documented bowel movement from admission on 04/07/23. 3. CV prophylaxis: aspirin 81 mg PO daily. Please monitor platelet count (last 215,000), hemoglobin (last 12.4g/dL) and S/S of bleeding/heart attack.? 4. Muscle spasm: baclofen 5 mg Q8H PO PRN muscle spasms. Please monitor breakthrough S/S of muscle spasms and medication effectiveness, hypotonia, dry mouth and muscle weakness.?Resident has received 3 doses so far. 5. Cervical spinal stenosis s/p laminectomy/fusion: prednisone taper thru 05/07/23. Please anger control counselor on taper doses and monitor for insomnia, agitation and irritability, improved pain, increased hunger and glucose (last 100mg/dL). 6. Skin irritation: ammonium lactate topical BID, hydrocortisone ointment 2.5% topical BID, calmoseptine topical BID. Please monitor skin irritation, redness and itching.? Assessment/Plan for indications treated with psychotropic medications: 1. Depression: duloxetine 40mg PO daily. Please see physician note regarding GDR. Please continue to monitor for suicidal ideation (black box warning), falls/fractures (BEERs medication), renal function and sodium (last 138mmol/L). Of note, resident was recently weaned off aripiprazole. 2. Neuropathic pain: gabapentin 300mg PO BID. GDR not appropriate as this resident is using for neuropathic pain. Dose appropriate for renal function. Please continue to monitor renal function (BEERs medication, CrCl 72 mL/min), confusion and falls/fractures (BEERs medication). Medical chart and medication regimen reviewed. The following medication irregularities or issues were identified: 1. Hyperlipidemia: atorvastatin 20mg PO QHS listed on home medication list with a note that resident is not taking, however, hyperlipidemia is still listed as an active problem and there is no lipid panel in the chart. Please consider ordering a lipid panel to see if this medication should be restarted. Thanks. Date Date of Note:: 04/15/23
--- NOTE | 2023-04-15 11:53 | CASEMGMT ---
Social Work Pt admitted from RU stay. No changes to assessment. Educated to Medicare benefit. Encouraged to contact secondary insurance to ensure copay coverage. Confirmed full code as code status. Pt's goal is to return home with closer to PLOF. SW will continue to follow for DC planning. Narcisa Samuels, MARLO BARAJASW
--- NOTE | 2023-04-15 11:56 | NURSING ---
Pool Cleaner Note; Activity Asset: Alec Nobles prefers to be called Jean-Pierre. Jean-Pierre is independent in his choice of daily activities. He has his devotional book, magazines, and will work on word search puzzles along with TV. He has a smartphone he uses to talk w/family and friend on. He has stated he would interested in trying bingo and welcomes visit from the locum tenens hospitalist and therapy dog.
--- NOTE | 2023-04-15 12:08 | NURSING ---
Addendum entered by Jessica Alvarez 04/15/23 16:53: Pt returned from appt with Dr. Johnson at 1430, No new orders received at this time. [place] to cervical area removed at appointment. Pt has follow up in 3 months, has appointment information. Original Note: Pt left unit at 1205 for appointment, transporting.
--- NOTE | 2023-04-15 13:21 | NS ---
Left copy of daily specials/first choice menu on bedside table. MST score is 2 d/t wt gain
[2023-04-15 16:00] VITALS: BP 120/57; PULSE 76; RESP 18; TEMP 36.2; O2SAT 96
[2023-04-16] MEDS: oxyCODONE 5 MG Tablet PO ×3 (06:35→23:25)
[2023-04-16] MEDS: DULoxetine Hcl 20 MG Capsule 40 MG PO (06:36)
[2023-04-16] MEDS: Gabapentin 300 MG Capsule PO ×2 (06:36→17:20)
[2023-04-16] MEDS: Menthol/Lanolin/Calamine/Znox 113 GM Tube 1 APPLIC TOPICAL ×2 (06:37→17:20)
[2023-04-16] MEDS: Ammonium Lactate 225 gm Bottle 1 APPLIC TOPICAL ×2 (06:37→17:21)
[2023-04-16] MEDS: Hydrocortisone 2.5% Ointment 20 gm tube 1 APPLIC TOPICAL ×2 (06:37→17:21)
[2023-04-16 07:00] VITALS: BMI 29.5
[2023-04-16] MEDS: Aspirin 81 MG TAB.CHEW PO (07:44)
[2023-04-16] MEDS: predniSONE 5 MG Tablet 7.5 MG PO (07:44)
[2023-04-16 09:23] VITALS: BP 116/67; PULSE 83; RESP 16; TEMP 36.3; O2SAT 95
[2023-04-16] MEDS: Baclofen 10 MG Tablet 5 MG PO (14:05)
[2023-04-16] MEDS: Acetaminophen 500 MG Tablet 1000 MG PO (19:36)
[2023-04-16 21:11] VITALS: RESP 18
[2023-04-17] MEDS: Gabapentin 300 MG Capsule PO ×2 (06:42→17:24)
[2023-04-17] MEDS: Ammonium Lactate 225 gm Bottle 1 APPLIC TOPICAL ×2 (06:42→20:23)
[2023-04-17] MEDS: Menthol/Lanolin/Calamine/Znox 113 GM Tube 1 APPLIC TOPICAL ×2 (06:42→17:26)
[2023-04-17] MEDS: DULoxetine Hcl 20 MG Capsule 40 MG PO (06:42)
[2023-04-17] MEDS: Hydrocortisone 2.5% Ointment 20 gm tube 1 APPLIC TOPICAL ×2 (06:43→17:24)
[2023-04-17] MEDS: oxyCODONE 5 MG Tablet PO ×2 (06:47→13:50)
[2023-04-17] MEDS: predniSONE 5 MG Tablet 7.5 MG PO (08:26)
[2023-04-17] MEDS: Aspirin 81 MG TAB.CHEW PO (08:26)
[2023-04-17] MEDS: Baclofen 10 MG Tablet 5 MG PO (08:30)
--- NOTE | 2023-04-17 10:16 | CASEMGMT ---
Social Work IDT met with patient, and sister for care plan meeting. Discussed patient's progress in PT/OT/SN. Educated to Medicare benefit. Encouraged to contact secondary insurance for copay coverage. Pt's goal is to return home with . Pt has new night O2. SW to coordinate ongoing therapy. No DME needs. Pt and to set DC date when ready. Provided detailed explanations of tasks to improve pt during stay and at home and the progressions of therapy exercises. SW will continue to follow for DC planning. MARLO FairbanksW
[2023-04-17 12:49] VITALS: PULSE 70; O2SAT 94
[2023-04-17 14:14] VITALS: BP 123/64; PULSE 68; RESP 16; TEMP 36.3; O2SAT 95
[2023-04-17] MEDS: Acetaminophen 500 MG Tablet 1000 MG PO (20:26)
[2023-04-18] MEDS: Menthol/Lanolin/Calamine/Znox 113 GM Tube 1 APPLIC TOPICAL ×2 (05:25→17:13)
[2023-04-18] MEDS: Gabapentin 300 MG Capsule PO ×2 (05:25→17:12)
[2023-04-18] MEDS: Hydrocortisone 2.5% Ointment 20 gm tube 1 APPLIC TOPICAL ×2 (05:25→17:12)
[2023-04-18] MEDS: Ammonium Lactate 225 gm Bottle 1 APPLIC TOPICAL ×2 (05:25→17:12)
[2023-04-18] MEDS: DULoxetine Hcl 20 MG Capsule 40 MG PO (05:25)
[2023-04-18] MEDS: Aspirin 81 MG TAB.CHEW PO (08:09)
[2023-04-18] MEDS: predniSONE 5 MG Tablet 7.5 MG PO (08:09)
[2023-04-18] MEDS: oxyCODONE 5 MG Tablet PO ×2 (08:53→21:42)
--- NOTE | 2023-04-18 10:59 | CASEMGMT ---
Social Work BIMS () and PHQ-9 (10/26) completed for MDS assessment. Narcisa Samuels MSW STAFF SUBMARINE WARFARE OFFICER
[2023-04-18 11:24] VITALS: BP 130/76; PULSE 60; RESP 16; TEMP 36.1; O2SAT 95
[2023-04-18] MEDS: Baclofen 10 MG Tablet 5 MG PO ×2 (11:29→20:20)
[2023-04-18] MEDS: Acetaminophen 500 MG Tablet 1000 MG PO ×2 (13:28→20:20)
[2023-04-18 20:00] VITALS: PULSE 61; RESP 16; O2SAT 98
[2023-04-19] MEDS: oxyCODONE 5 MG Tablet PO ×2 (05:59→14:00)
[2023-04-19] MEDS: Gabapentin 300 MG Capsule PO ×2 (05:59→16:59)
[2023-04-19] MEDS: Menthol/Lanolin/Calamine/Znox 113 GM Tube 1 APPLIC TOPICAL ×2 (06:00→15:51)
[2023-04-19] MEDS: DULoxetine Hcl 20 MG Capsule 40 MG PO (06:01)
--- NOTE | 2023-04-19 06:04 | NURSING ---
patient requests creams as ordered to be administered after shower this AM, will pass along to oncoming nurse of patient request.
[2023-04-19] MEDS: Aspirin 81 MG TAB.CHEW PO (08:31)
[2023-04-19] MEDS: predniSONE 5 MG Tablet 7.5 MG PO (08:31)
--- NOTE | 2023-04-19 09:58 | NURSING ---
pt with nonpitting edema to RLE with slight redness. pt reports more painful than LT leg. dr lancaster notified by operations supervisor 2nd shift nurse, new order for doppler. pt aware.
[2023-04-19] MEDS: Hydrocortisone 2.5% Ointment 20 gm tube 1 APPLIC TOPICAL ×2 (10:17→15:50)
--- NOTE | 2023-04-19 12:42 | MDS.RN ---
Pain interview for mds completed
[2023-04-19 15:03] VITALS: BP 112/58; PULSE 79; RESP 18; TEMP 36.2; O2SAT 93
--- NOTE | 2023-04-19 15:13 | NURSING ---
doppler positive for DVTS, dr lancaster updated, new order for eliquis. pt updated.
[2023-04-19] MEDS: APIXABAN 5 MG TABLET 10 MG PO (15:49)
[2023-04-19] MEDS: Baclofen 10 MG Tablet 5 MG PO (15:49)
[2023-04-19] MEDS: Ammonium Lactate 225 gm Bottle 1 APPLIC TOPICAL (15:51)
[2023-04-19 20:00] VITALS: PULSE 64; RESP 14; O2SAT 97
[2023-04-19] MEDS: Acetaminophen 500 MG Tablet 1000 MG PO (21:11)
[2023-04-20] MEDS: DULoxetine Hcl 20 MG Capsule 40 MG PO (06:27)
[2023-04-20] MEDS: oxyCODONE 5 MG Tablet PO ×2 (06:27→21:14)
[2023-04-20] MEDS: APIXABAN 5 MG TABLET 10 MG PO ×2 (06:28→17:04)
[2023-04-20] MEDS: Gabapentin 300 MG Capsule PO ×2 (06:30→17:04)
[2023-04-20] MEDS: predniSONE 5 MG Tablet 7.5 MG PO (07:35)
[2023-04-20] MEDS: Ammonium Lactate 225 gm Bottle 1 APPLIC TOPICAL ×2 (07:42→21:15)
[2023-04-20] MEDS: Hydrocortisone 2.5% Ointment 20 gm tube 1 APPLIC TOPICAL ×2 (07:44→21:16)
[2023-04-20 14:26] VITALS: BP 111/71; PULSE 91; RESP 18; TEMP 36.6; O2SAT 93
[2023-04-20] MEDS: Menthol/Lanolin/Calamine/Znox 113 GM Tube 1 APPLIC TOPICAL ×2 (17:05→21:17)
[2023-04-20] MEDS: Acetaminophen 500 MG Tablet 1000 MG PO (17:07)
[2023-04-21] MEDS: Acetaminophen 500 MG Tablet 1000 MG PO ×2 (05:14→16:32)
[2023-04-21] MEDS: APIXABAN 5 MG TABLET 10 MG PO ×2 (05:14→16:31)
[2023-04-21] MEDS: DULoxetine Hcl 20 MG Capsule 40 MG PO (05:14)
[2023-04-21] MEDS: Gabapentin 300 MG Capsule PO ×2 (05:15→16:32)
[2023-04-21 06:11] LABS: Absolute Lymphocyte Count 1.69 X10^3/uL (0.83-4.51); Absolute Neutrophil Count 2.7 X10^3/uL (2.0-7.7); Basophil# 0.03 X10^3/uL; Basophil% 0.6 % (0-1); Eosinophil# 0.15 X10^3/uL; Eosinophils% 2.9 % (0-5); Hematocrit 38.9 % (40-54); Hemoglobin 12.6 g/dL (13.0-16.5); Lymphocyte # 1.69 X10^3/ul (0.83-4.51); Lymphocyte % 32.8 % (19-41); Mean Corp Hgb Conc 32.4 g/dL (32-36); Mean Corpuscular Hgb 31.3 pg (27.0-32.0); Mean Corpuscular Volume 96.5 fL (80-94); Mean Platelet Vol. 8.9 fl (6.2-12.0); Monocyte# 0.59 X10^3/uL; Monocyte% 11.5 % (0-10); NRBC Flagged by Analyzer 0 % (0-5); Neutrophil # 2.66 X10^3/uL (2.7-7.7); Neutrophil % 51.6 % (47-70); Platelet Count 234 K/mm3 (150-450); RBC Distribution Width CV 12.9 % (11.6-14.6); RBC Distribution Width SD 45.7 fl (35.1-43.9); Red Blood Count 4.03 M/mm3 (4.6-6.2); White Blood Count 5.2 K/mm3 (4.4-11.0)
[2023-04-21 07:01] LABS: Anion Gap 4 (5-15); BUN 20 mg/dL (7-18); BUN/Creat Ratio 25.2 RATIO (10-20); Calcium,Total 8.6 mg/dL (8.5-10.1); Chloride 105 mmol/L (98-107); Creatinine, Serum 0.79 mg/dL (0.70-1.30); EST Glomerular Filtration Rate 103 mL/min (>60); Est Glom Filt Rate - Afr Amer 124 mL/min (>60); Estimated Creatinine Clearance 62.03 ml/min; Glucose 89 mg/dL (74-106); Potassium 3.9 mmol/L (3.5-5.1); Sodium Level 140 mmol/L (136-145)
[2023-04-21] MEDS: predniSONE 5 MG Tablet 7.5 MG PO (07:47)
[2023-04-21] MEDS: Tuberculin,Purif.prot.deriv. 50 TU/ML Vial 0.1 ML ID (10:16)
[2023-04-21] MEDS: Hydrocortisone 2.5% Ointment 20 gm tube 1 APPLIC TOPICAL ×2 (10:19→20:22)
[2023-04-21] MEDS: Ammonium Lactate 225 gm Bottle 1 APPLIC TOPICAL ×2 (10:19→20:23)
[2023-04-21 15:35] VITALS: BP 139/71; PULSE 63; RESP 16; TEMP 36.2; O2SAT 96
[2023-04-21] MEDS: Senna/Docusate Sodium 1 Tablet 2 TABLET PO (16:35)
[2023-04-21] MEDS: oxyCODONE 5 MG Tablet PO (20:22)
[2023-04-21] MEDS: Baclofen 10 MG Tablet 5 MG PO (22:10)
[2023-04-22] MEDS: Gabapentin 300 MG Capsule PO ×2 (04:59→17:20)
[2023-04-22] MEDS: APIXABAN 5 MG TABLET 10 MG PO ×2 (05:00→17:20)
[2023-04-22] MEDS: DULoxetine Hcl 20 MG Capsule 40 MG PO (05:00)
--- NOTE | 2023-04-22 05:14 | NURSING ---
Lg amount of dried blood noted on pillowcase and flat sheet. Small sheared area noted to posterior aspect of lt upper arm. Affected area w/ a small amount of active bleeding. Pressure applied per pt using 4x4s. Bleeding ceased. Wound bed is pink/red. Surrounding tissue without redness, warmth, or swelling. Bandaid applied per pt request. Will continue to monitor.
[2023-04-22] MEDS: oxyCODONE 5 MG Tablet PO ×2 (06:56→20:21)
[2023-04-22] MEDS: predniSONE 5 MG Tablet PO (08:17)
[2023-04-22 08:18] VITALS: BP 124/68; PULSE 75; RESP 16; TEMP 36.2; O2SAT 94
--- NOTE | 2023-04-22 08:59 | NURSING ---
Principal Technical Specialist Note; MDS for 04/20/2023 Complete
[2023-04-22] MEDS: Ammonium Lactate 225 gm Bottle 1 APPLIC TOPICAL ×2 (10:03→21:03)
[2023-04-22] MEDS: Hydrocortisone 2.5% Ointment 20 gm tube 1 APPLIC TOPICAL ×2 (10:04→21:02)
[2023-04-22] MEDS: Acetaminophen 500 MG Tablet 1000 MG PO (15:21)
[2023-04-22] MEDS: Baclofen 10 MG Tablet 5 MG PO (15:21)
[2023-04-23] MEDS: DULoxetine Hcl 20 MG Capsule 40 MG PO (05:56)
[2023-04-23] MEDS: APIXABAN 5 MG TABLET 10 MG PO ×2 (05:56→17:44)
[2023-04-23] MEDS: Gabapentin 300 MG Capsule PO ×2 (05:59→17:44)
[2023-04-23] MEDS: oxyCODONE 5 MG Tablet PO ×2 (06:00→20:38)
[2023-04-23] MEDS: predniSONE 5 MG Tablet PO (07:26)
[2023-04-23 07:46] VITALS: BMI 28.8
[2023-04-23 09:19] VITALS: BP 131/76; PULSE 88; RESP 16; TEMP 36.3; O2SAT 97
[2023-04-23] MEDS: Baclofen 10 MG Tablet 5 MG PO (09:24)
[2023-04-23] MEDS: Ammonium Lactate 225 gm Bottle 1 APPLIC TOPICAL ×2 (10:44→20:39)
[2023-04-23] MEDS: Hydrocortisone 2.5% Ointment 20 gm tube 1 APPLIC TOPICAL ×2 (10:44→20:40)
--- NOTE | 2023-04-23 13:10 | MDS.RN ---
Information for the mds was obtained from review of the clinical record, interview of resident, staff, and direct observation of resident's care.
[2023-04-23] MEDS: Acetaminophen 500 MG Tablet 1000 MG PO (15:59)
[2023-04-24] MEDS: Acetaminophen 500 MG Tablet 1000 MG PO ×2 (05:02→16:04)
[2023-04-24] MEDS: Gabapentin 300 MG Capsule PO ×2 (05:03→18:03)
[2023-04-24] MEDS: DULoxetine Hcl 20 MG Capsule 40 MG PO (05:04)
[2023-04-24] MEDS: APIXABAN 5 MG TABLET 10 MG PO ×2 (05:04→18:03)
[2023-04-24] MEDS: oxyCODONE 5 MG Tablet PO ×2 (06:19→20:23)
[2023-04-24] MEDS: Baclofen 10 MG Tablet 5 MG PO (06:23)
[2023-04-24] MEDS: predniSONE 5 MG Tablet PO (08:39)
--- NOTE | 2023-04-24 09:25 | NURSING ---
Off unit with for appt at [facility].
--- NOTE | 2023-04-24 14:05 | NURSING ---
Return from appt at this time with NNO. Pt denies needs.
[2023-04-24] MEDS: Hydrocortisone 2.5% Ointment 20 gm tube 1 APPLIC TOPICAL ×2 (14:20→20:24)
[2023-04-24] MEDS: Ammonium Lactate 225 gm Bottle 1 APPLIC TOPICAL ×2 (14:20→20:23)
[2023-04-24 15:04] VITALS: BP 136/101; PULSE 83; RESP 18; TEMP 36.3; O2SAT 96
[2023-04-25] MEDS: Acetaminophen 500 MG Tablet 1000 MG PO ×2 (03:55→17:32)
[2023-04-25] MEDS: oxyCODONE 5 MG Tablet PO ×2 (06:17→20:17)
[2023-04-25] MEDS: Gabapentin 300 MG Capsule PO ×2 (06:18→17:29)
[2023-04-25] MEDS: APIXABAN 5 MG TABLET 10 MG PO ×2 (06:18→17:29)
[2023-04-25] MEDS: DULoxetine Hcl 20 MG Capsule 40 MG PO (06:18)
[2023-04-25] MEDS: predniSONE 5 MG Tablet PO (07:36)
[2023-04-25] MEDS: Baclofen 10 MG Tablet 5 MG PO ×2 (07:41→22:43)
[2023-04-25] MEDS: Hydrocortisone 2.5% Ointment 20 gm tube 1 APPLIC TOPICAL ×2 (10:06→21:28)
[2023-04-25] MEDS: Ammonium Lactate 225 gm Bottle 1 APPLIC TOPICAL ×2 (10:07→21:28)
[2023-04-25 15:34] VITALS: BP 136/68; PULSE 63; RESP 16; TEMP 35.9; O2SAT 97
[2023-04-25] MEDS: Menthol/Lanolin/Calamine/Znox 113 GM Tube 1 APPLIC TOPICAL (21:26)
[2023-04-26] MEDS: DULoxetine Hcl 20 MG Capsule 40 MG PO (05:42)
[2023-04-26] MEDS: Gabapentin 300 MG Capsule PO ×2 (05:43→17:36)
[2023-04-26] MEDS: APIXABAN 5 MG TABLET 10 MG PO ×2 (05:43→17:36)
[2023-04-26] MEDS: oxyCODONE 5 MG Tablet PO ×2 (07:05→21:02)
[2023-04-26] MEDS: Baclofen 10 MG Tablet 5 MG PO ×2 (07:06→21:04)
[2023-04-26] MEDS: predniSONE 5 MG Tablet PO (07:07)
[2023-04-26] MEDS: Ammonium Lactate 225 gm Bottle 1 APPLIC TOPICAL (07:08)
[2023-04-26] MEDS: Hydrocortisone 2.5% Ointment 20 gm tube 1 APPLIC TOPICAL (07:08)
[2023-04-26 14:04] VITALS: BP 127/61; PULSE 62; RESP 16; TEMP 36.1; O2SAT 94
[2023-04-26] MEDS: Acetaminophen 500 MG Tablet 1000 MG PO (14:15)
[2023-04-26] MEDS: Menthol/Lanolin/Calamine/Znox 113 GM Tube 1 APPLIC TOPICAL (21:05)
[2023-04-27] MEDS: DULoxetine Hcl 20 MG Capsule 40 MG PO (05:10)
[2023-04-27] MEDS: Gabapentin 300 MG Capsule PO ×2 (05:10→17:30)
[2023-04-27] MEDS: APIXABAN 5 MG TABLET PO ×2 (05:10→17:30)
[2023-04-27] MEDS: oxyCODONE 5 MG Tablet PO ×2 (06:15→20:39)
[2023-04-27] MEDS: predniSONE 5 MG Tablet PO (07:55)
[2023-04-27] MEDS: Ammonium Lactate 225 gm Bottle 1 APPLIC TOPICAL ×2 (07:56→20:38)
[2023-04-27] MEDS: Hydrocortisone 2.5% Ointment 20 gm tube 1 APPLIC TOPICAL ×2 (07:57→20:36)
[2023-04-27 11:00] VITALS: PULSE 72; RESP 18; O2SAT 92
[2023-04-27 13:52] VITALS: BP 111/56; PULSE 65; RESP 18; TEMP 35.9; O2SAT 93
[2023-04-27] MEDS: Baclofen 10 MG Tablet 5 MG PO (20:39)
[2023-04-28] MEDS: APIXABAN 5 MG TABLET PO ×2 (05:33→18:49)
[2023-04-28] MEDS: Gabapentin 300 MG Capsule PO ×2 (05:33→18:49)
[2023-04-28] MEDS: Acetaminophen 500 MG Tablet 1000 MG PO (05:33)
[2023-04-28] MEDS: DULoxetine Hcl 20 MG Capsule 40 MG PO (05:33)
[2023-04-28 07:04] LABS: Absolute Lymphocyte Count 2.21 X10^3/uL (0.83-4.51); Absolute Neutrophil Count 2.8 X10^3/uL (2.0-7.7); Basophil# 0.04 X10^3/uL; Basophil% 0.7 % (0-1); Eosinophil# 0.23 X10^3/uL; Eosinophils% 3.9 % (0-5); Hematocrit 42.2 % (40-54); Hemoglobin 13.5 g/dL (13.0-16.5); Lymphocyte # 2.21 X10^3/ul (0.83-4.51); Mean Corpuscular Hgb 30.8 pg (27.0-32.0); Mean Corpuscular Volume 96.3 fL (80-94); Monocyte# 0.66 X10^3/uL; Monocyte% 11.1 % (0-10); NRBC Flagged by Analyzer 0 % (0-5); Neutrophil # 2.81 X10^3/uL (2.7-7.7); Platelet Count 247 K/mm3 (150-450); RBC Distribution Width CV 12.9 % (11.6-14.6); RBC Distribution Width SD 45.9 fl (35.1-43.9); Red Blood Count 4.38 M/mm3 (4.6-6.2)
[2023-04-28 07:45] LABS: Anion Gap 3 (5-15); BUN 19 mg/dL (7-18); BUN/Creat Ratio 20.2 RATIO (10-20); Calcium,Total 8.8 mg/dL (8.5-10.1); Chloride 103 mmol/L (98-107); Creatinine, Serum 0.94 mg/dL (0.70-1.30); EST Glomerular Filtration Rate 84 mL/min (>60); Est Glom Filt Rate - Afr Amer 102 mL/min (>60); Estimated Creatinine Clearance 65.99 ml/min; Glucose 98 mg/dL (74-106); Potassium 4.1 mmol/L (3.5-5.1); Sodium Level 138 mmol/L (136-145)
[2023-04-28] MEDS: predniSONE 5 MG Tablet PO (08:04)
[2023-04-28] MEDS: Hydrocortisone 2.5% Ointment 20 gm tube 1 APPLIC TOPICAL ×2 (08:04→21:10)
[2023-04-28] MEDS: Ammonium Lactate 225 gm Bottle 1 APPLIC TOPICAL ×2 (08:05→21:10)
[2023-04-28 09:31] VITALS: PULSE 70; RESP 16; O2SAT 94
[2023-04-28 14:23] VITALS: BP 118/61; PULSE 66; RESP 18; TEMP 36; O2SAT 100
[2023-04-28] MEDS: oxyCODONE 5 MG Tablet PO (18:48)
[2023-04-29] MEDS: APIXABAN 5 MG TABLET PO ×2 (05:54→17:33)
[2023-04-29] MEDS: DULoxetine Hcl 20 MG Capsule 40 MG PO (05:54)
[2023-04-29] MEDS: Gabapentin 300 MG Capsule PO ×2 (05:54→17:33)
[2023-04-29] MEDS: oxyCODONE 5 MG Tablet PO (07:01)
[2023-04-29] MEDS: predniSONE 5 MG Tablet PO (08:01)
[2023-04-29] MEDS: Ammonium Lactate 225 gm Bottle 1 APPLIC TOPICAL ×2 (11:32→19:46)
[2023-04-29] MEDS: Hydrocortisone 2.5% Ointment 20 gm tube 1 APPLIC TOPICAL ×2 (11:34→19:46)
[2023-04-29 13:34] VITALS: BP 129/69; PULSE 83; RESP 18; TEMP 36; O2SAT 98
--- NOTE | 2023-04-29 14:46 | NURSING ---
PER THERAPY, PT IS AB DAVIS IN ROOM BUT HELP PT WITH ADLS.
[2023-04-29] MEDS: Acetaminophen 500 MG Tablet 1000 MG PO (19:49)
[2023-04-29] MEDS: Baclofen 10 MG Tablet 5 MG PO (19:52)
[2023-04-29 19:59] VITALS: PULSE 71; RESP 18; O2SAT 92
[2023-04-30] MEDS: DULoxetine Hcl 20 MG Capsule 40 MG PO (05:04)
[2023-04-30] MEDS: APIXABAN 5 MG TABLET PO ×2 (05:04→17:48)
[2023-04-30] MEDS: Gabapentin 300 MG Capsule PO ×2 (05:04→17:47)
[2023-04-30 07:00] VITALS: BMI 28.8
[2023-04-30] MEDS: predniSONE 5 MG Tablet 2.5 MG PO (07:48)
[2023-04-30] MEDS: oxyCODONE 5 MG Tablet PO ×2 (07:48→20:25)
[2023-04-30 09:40] VITALS: PULSE 90; RESP 18; O2SAT 90
[2023-04-30] MEDS: Hydrocortisone 2.5% Ointment 20 gm tube 1 APPLIC TOPICAL ×2 (10:35→20:19)
[2023-04-30] MEDS: Ammonium Lactate 225 gm Bottle 1 APPLIC TOPICAL ×2 (10:35→20:19)
[2023-04-30 14:44] VITALS: BP 135/71; PULSE 73; RESP 14; TEMP 36.2; O2SAT 96
[2023-04-30] MEDS: Acetaminophen 500 MG Tablet 1000 MG PO (16:33)
[2023-04-30] MEDS: Baclofen 10 MG Tablet 5 MG PO (20:25)
[2023-05-01] MEDS: APIXABAN 5 MG TABLET PO ×2 (06:10→17:05)
[2023-05-01] MEDS: DULoxetine Hcl 20 MG Capsule 40 MG PO (06:10)
[2023-05-01] MEDS: Gabapentin 300 MG Capsule PO ×2 (06:12→17:04)
[2023-05-01] MEDS: oxyCODONE 5 MG Tablet PO ×2 (06:47→20:30)
[2023-05-01] MEDS: Baclofen 10 MG Tablet 5 MG PO ×2 (06:50→20:31)
[2023-05-01] MEDS: predniSONE 5 MG Tablet 2.5 MG PO (07:38)
[2023-05-01 07:40] VITALS: O2SAT 96
[2023-05-01] MEDS: Ammonium Lactate 225 gm Bottle 1 APPLIC TOPICAL ×2 (10:54→20:33)
[2023-05-01] MEDS: Hydrocortisone 2.5% Ointment 20 gm tube 1 APPLIC TOPICAL ×2 (10:55→20:34)
[2023-05-01 14:47] VITALS: BP 131/63; PULSE 60; RESP 16; TEMP 36.1; O2SAT 98
[2023-05-01 20:40] VITALS: O2SAT 94
[2023-05-01 21:44] VITALS: PULSE 67; RESP 16; O2SAT 95
[2023-05-02] MEDS: Gabapentin 300 MG Capsule PO ×2 (06:42→16:58)
[2023-05-02] MEDS: APIXABAN 5 MG TABLET PO ×2 (06:43→16:58)
[2023-05-02] MEDS: Baclofen 10 MG Tablet 5 MG PO ×2 (06:43→18:46)
[2023-05-02] MEDS: DULoxetine Hcl 20 MG Capsule 40 MG PO (06:43)
[2023-05-02] MEDS: oxyCODONE 5 MG Tablet PO ×2 (06:43→18:46)
[2023-05-02] MEDS: predniSONE 5 MG Tablet 2.5 MG PO (08:30)
[2023-05-02] MEDS: Hydrocortisone 2.5% Ointment 20 gm tube 1 APPLIC TOPICAL ×2 (10:00→20:47)
[2023-05-02] MEDS: Ammonium Lactate 225 gm Bottle 1 APPLIC TOPICAL ×2 (10:02→20:48)
[2023-05-02 14:22] VITALS: BP 119/58; PULSE 77; RESP 16; TEMP 36.3; O2SAT 95
[2023-05-03] MEDS: APIXABAN 5 MG TABLET PO ×2 (06:07→17:17)
[2023-05-03] MEDS: DULoxetine Hcl 20 MG Capsule 40 MG PO (06:07)
[2023-05-03] MEDS: Gabapentin 300 MG Capsule PO ×2 (06:07→17:17)
[2023-05-03] MEDS: Baclofen 10 MG Tablet 5 MG PO ×2 (06:52→19:10)
[2023-05-03] MEDS: oxyCODONE 5 MG Tablet PO ×2 (06:52→19:10)
[2023-05-03] MEDS: predniSONE 5 MG Tablet 2.5 MG PO (09:28)
[2023-05-03] MEDS: Hydrocortisone 2.5% Ointment 20 gm tube 1 APPLIC TOPICAL ×2 (10:42→21:10)
[2023-05-03] MEDS: Ammonium Lactate 225 gm Bottle 1 APPLIC TOPICAL ×2 (10:42→21:09)
[2023-05-03 13:59] VITALS: BP 124/70; PULSE 72; RESP 18; TEMP 36.2; O2SAT 94
[2023-05-03 21:00] VITALS: BP 134/67; PULSE 60; RESP 18; TEMP 36.6; O2SAT 95
[2023-05-04] MEDS: Gabapentin 300 MG Capsule PO ×2 (06:15→17:18)
[2023-05-04] MEDS: DULoxetine Hcl 20 MG Capsule 40 MG PO (06:15)
[2023-05-04] MEDS: APIXABAN 5 MG TABLET PO ×2 (06:16→17:19)
[2023-05-04] MEDS: Baclofen 10 MG Tablet 5 MG PO ×2 (07:00→21:40)
[2023-05-04] MEDS: oxyCODONE 5 MG Tablet PO ×2 (07:01→21:41)
[2023-05-04] MEDS: predniSONE 5 MG Tablet 2.5 MG PO (07:48)
[2023-05-04 08:50] VITALS: PULSE 76; RESP 18
[2023-05-04] MEDS: Ammonium Lactate 225 gm Bottle 1 APPLIC TOPICAL (09:02)
[2023-05-04] MEDS: Hydrocortisone 2.5% Ointment 20 gm tube 1 APPLIC TOPICAL ×2 (09:03→21:39)
[2023-05-04 15:51] VITALS: BP 121/65; PULSE 62; RESP 15; TEMP 37.1; O2SAT 99
[2023-05-05 04:35] LABS: Absolute Lymphocyte Count 1.73 X10^3/uL (0.83-4.51); Absolute Neutrophil Count 2.5 X10^3/uL (2.0-7.7); Basophil# 0.04 X10^3/uL; Basophil% 0.8 % (0-1); Eosinophil# 0.24 X10^3/uL; Eosinophils% 4.7 % (0-5); Hematocrit 38.8 % (40-54); Hemoglobin 12.2 g/dL (13.0-16.5); Lymphocyte # 1.73 X10^3/ul (0.83-4.51); Lymphocyte % 33.5 % (19-41); Mean Corp Hgb Conc 31.4 g/dL (32-36); Mean Corpuscular Hgb 30.7 pg (27.0-32.0); Mean Corpuscular Volume 97.5 fL (80-94); Mean Platelet Vol. 9.2 fl (6.2-12.0); Monocyte# 0.66 X10^3/uL; Monocyte% 12.8 % (0-10); NRBC Flagged by Analyzer 0 % (0-5); Neutrophil # 2.47 X10^3/uL (2.7-7.7); Neutrophil % 47.8 % (47-70); Platelet Count 216 K/mm3 (150-450); RBC Distribution Width CV 12.7 % (11.6-14.6); RBC Distribution Width SD 45.8 fl (35.1-43.9); Red Blood Count 3.98 M/mm3 (4.6-6.2); White Blood Count 5.2 K/mm3 (4.4-11.0)
[2023-05-05 05:03] LABS: Anion Gap 4 (5-15); BUN 18 mg/dL (7-18); BUN/Creat Ratio 22.1 RATIO (10-20); Calcium,Total 8.6 mg/dL (8.5-10.1); Chloride 105 mmol/L (98-107); Creatinine, Serum 0.81 mg/dL (0.70-1.30); EST Glomerular Filtration Rate 100 mL/min (>60); Est Glom Filt Rate - Afr Amer 121 mL/min (>60); Estimated Creatinine Clearance 76.58 ml/min; Glucose 99 mg/dL (74-106); Potassium 3.8 mmol/L (3.5-5.1); Sodium Level 140 mmol/L (136-145)
[2023-05-05] MEDS: Acetaminophen 500 MG Tablet 1000 MG PO ×2 (06:33→18:47)
[2023-05-05] MEDS: APIXABAN 5 MG TABLET PO ×2 (06:33→17:22)
[2023-05-05] MEDS: DULoxetine Hcl 20 MG Capsule 40 MG PO (06:33)
[2023-05-05] MEDS: Baclofen 10 MG Tablet 5 MG PO ×2 (06:34→21:57)
[2023-05-05] MEDS: Gabapentin 300 MG Capsule PO ×2 (06:38→17:22)
[2023-05-05] MEDS: predniSONE 5 MG Tablet 2.5 MG PO (08:16)
[2023-05-05] MEDS: Hydrocortisone 2.5% Ointment 20 gm tube 1 APPLIC TOPICAL ×2 (09:04→21:59)
[2023-05-05] MEDS: Ammonium Lactate 225 gm Bottle 1 APPLIC TOPICAL ×2 (09:04→21:59)
[2023-05-05 16:00] VITALS: BP 125/63; PULSE 76; RESP 16; TEMP 36.1; O2SAT 96
[2023-05-05 19:50] VITALS: BP 146/73; PULSE 72; RESP 18; TEMP 37.4; O2SAT 96
[2023-05-05] MEDS: oxyCODONE 5 MG Tablet PO (21:58)
[2023-05-06] MEDS: oxyCODONE 5 MG Tablet PO ×3 (05:36→20:22)
[2023-05-06] MEDS: DULoxetine Hcl 20 MG Capsule 40 MG PO (05:37)
[2023-05-06] MEDS: APIXABAN 5 MG TABLET PO ×2 (05:38→17:54)
[2023-05-06] MEDS: Gabapentin 300 MG Capsule PO ×2 (05:38→17:54)
[2023-05-06] MEDS: Ammonium Lactate 225 gm Bottle 1 APPLIC TOPICAL ×3 (05:40→20:18)
[2023-05-06] MEDS: Hydrocortisone 2.5% Ointment 20 gm tube 1 APPLIC TOPICAL ×2 (08:38→20:18)
[2023-05-06] MEDS: Acetaminophen 500 MG Tablet 1000 MG PO (08:41)
[2023-05-06] MEDS: predniSONE 5 MG Tablet 2.5 MG PO (08:42)
[2023-05-06] MEDS: Baclofen 10 MG Tablet 5 MG PO ×2 (08:42→20:22)
[2023-05-06 10:00] VITALS: PULSE 74; RESP 16
[2023-05-06 14:30] VITALS: BP 125/64; PULSE 70; RESP 18; TEMP 35.9; O2SAT 95
--- NOTE | 2023-05-06 15:55 | CASEMGMT ---
Social Work SW followed up with pt on setting DC date. Pt requesting DC home 05/12. IDT agreeable. SW offered skilled HHC list but pt requesting [facility] for HHC first then transition to OP. Confirmed no DME needs. SW placed referral to [facility] for PT/OT via [facility]. Plan: DC home with 05/12, [facility] PT/OT MARLO FairbanksW
--- NOTE | 2023-05-06 19:11 | PCM.DC.SUM ---
Providers Date of Admission: 04/13/23 Primary Care Physician: Dr. Juan Antonio Claros MD Reason For Visit: DEBILITY Diagnosis Discharge Diagnosis (1) Debility: Status: Acute Code(s): R53.81 - Other malaise (2) Cervical spinal stenosis: Status: Acute Code(s): M48.02 - Spinal stenosis, cervical region (3) H/O laminectomy: Status: Acute Code(s): Z98.890 - Other specified postprocedural states (4) ISMA (obstructive sleep apnea): Status: Acute Code(s): G47.33 - Obstructive sleep apnea (adult) (pediatric) (5) Peripheral vascular disease: Status: Acute Code(s): I73.9 - Peripheral vascular disease, unspecified (6) Osteoarthritis: Status: Acute Code(s): M19.90 - Unspecified osteoarthritis, unspecified site (7) Hyperlipidemia: Status: Inactive Code(s): E78.5 - Hyperlipidemia, unspecified Qualifiers: Hyperlipidemia type: unspecified Qualified Code(s): E78.5 - Hyperlipidemia, unspecified (8) Rheumatoid arthritis: Status: Acute Code(s): M06.9 - Rheumatoid arthritis, unspecified (9) Depression: Status: Inactive Code(s): F32.A - Depression, unspecified Qualifiers: Depression Type: persistent depressive disorder Qualified Code(s): F34.1 - Dysthymic disorder (10) Muscle spasm: Status: Acute Code(s): M62.838 - Other muscle spasm Plan 68 year old male with below past medical history hospitalized for progressive quadraplegia, underwent C2-C7 laminectomy/fusion with Dr. Johnson, transferred to for acute rehab, discharged to sleep study, admit to TCU with debility, here for rehabilitation, strengthening, prior to discharge home with . Debility - PT/OT. Pain - Tylenol 1000mg q6 prn pain (1-4), Oxycodone 5-10mg q6h prn pain (6-10). Bowel - senna/colace 2 tablets bid, Dulcolax 10mg pr x 1 prn, MOM 30ml po x 1 prn. Adult immunization - Administer pneumonia vaccine, covid19 vaccine, flu vaccine as appropriate. DVT prophylaxis - Monitor. Skin irritation - Ammonium Lactate topical bid, Hydrocortisone 2.5% topical bid, Calmoseptine topical bid. CV prophylaxis - Aspirin 81mg daily. Muscle spasm - Baclofen 5mg q8h prn. Depression - Duloxetine 40mg daily, stable use, GDR not recommended. Neuropathic pain - Gabapentin 300mg bid. Cervical spinal stenosis s/p laminectomy/fusion - Prednisone taper. Medications at Discharge Home Medications acetaminophen 500 mg tablet 1,000 mg (2 x 500 mg) PO Q6H PRN PRN Pain Score 1-4 #0 tabs 05/06/23 ammonium lactate 12 % lotion 1 applic topical BID@1000,2200 30 days #400 grams 05/06/23 apixaban 5 mg tablet (Eliquis) 5 mg PO BID 30 days #60 tabs 05/06/23 baclofen 10 mg tablet 5 mg (1/2 x 10 mg) PO Q8H PRN PRN muscle spasm 30 days #90 tabs 05/06/23 duloxetine 20 mg capsule,delayed release 40 mg (2 x 20 mg) PO DAILY 30 days #60 caps 05/06/23 gabapentin 300 mg capsule 300 mg PO BID 30 days #60 caps 05/06/23 oxycodone 5 mg tablet 5 - 10 mg (1 - 2 x 5 mg) PO Q6H PRN PRN Pain Score 4-10 7 days #28 tabs 05/06/23 Hospital Course Operations - (See below.) Procedures None Summary of Care Provided Minutes Spent on Discharge: 35 Hospital Course: 68 year old male with below past medical history hospitalized for progressive quadraplegia, underwent C2-C7 laminectomy/fusion with Dr. Johnson, transferred to for acute rehab, discharged to sleep study, admit to TCU with debility, here for rehabilitation, strengthening, prior to discharge home with . 04/19/2023 Doppler showed right lower extremity DVT, recommend Eliquis 5mg bid thru 07/20/2023. Discharge home with 05/12/2023, [facility] PT/OT. Physical Exam Const alert General Appearance: cooperative HEENT normocephalic Eyes PERRL and EOMs intact bilaterally Neck supple, no JVD and no carotid bruits Resp normal respiratory effort, normal air movement and clear to auscultation bilaterally Cardio regular rate and regular rhythm GI normal to inspection, nondistended, normoactive bowel sounds, non-tender and non-distended Extremity normal capillary refill General Extremity: Negative for edema Skin no rashes or lesions noted General Skin Exam: no breakdown Psych affect normal Appearance: appropriate Weight / BMI Weight Weight: 81.193 kg Body Mass Index (BMI) 28.8 ABG / Lab / Microbiology Data 05/05/23 04:05 05/05/23 04:05 D/C Instructions Discharge Diet: No restrictions Discharge Activity: Return to Normal Activity, May Shower and Use Walker Weight Bearing Status: Weight bearing as tolerated Call your doctor if you observe: Fever of 101 or Higher, Inability to urinate, Inability to have a bowel movement, Shortness of breath, Dizziness, Fainting spells, Swelling in the ankles, Chest pain and Uncontrolled pain Additional Instructions: Discharge home with 05/12/2023, [facility] PT/OT. Please Follow Up With: Solis Johnson MD When: As scheduled. Meaningful Use Info Meaningful Use Diagnoses (Choose all that apply): None applicable Discharge Plan Admission Admit Date/Time: 04/13/23 05:30 Primary Reason for Your Visit: Debility. Attending Provider: Carlos Castillo Chi Primary Care Provider: Juan Antonio Claros Instructions Additional Instructions / Restrictions: Discharge home with 05/12/2023, [facility] PT/OT. Discharge Orders/Prescriptions Prescriptions: New acetaminophen 500 mg Tablet 1,000 mg PO Q6H PRN PRN (Reason: Pain Score 1-4) Qty: 0 0RF ammonium lactate 12 % Lotion 1 applic topical BID@1000,2200 30 Days Qty: 400 0RF Protocol: *Topical Application Instructions APPLICATION INSTRUCTIONS: Apply to BLE baclofen 10 mg Tablet 5 mg PO Q8H PRN PRN (Reason: muscle spasm) 30 Days Qty: 90 0RF gabapentin 300 mg Capsule 300 mg PO BID 30 Days Qty: 60 0RF oxycodone 5 mg Tablet 5 - 10 mg PO Q6H PRN PRN (Reason: Pain Score 4-10) 7 Days Qty: 28 0RF duloxetine 20 mg Capsule,Delayed Release(Dr/Ec) 40 mg PO DAILY 30 Days Qty: 60 0RF Eliquis 5 mg Tablet 5 mg PO BID 30 Days Qty: 60 0RF Discontinued atorvastatin 20 MG tablet 20 mg PO QHS Hold Instructions: Patient stated not taking ibuprofen 400 MG tablet 800 mg PO Q6H PRN PRN (Reason: Mild/Moderate Pain) Hold Instructions: Order Changed aspirin 81 MG tablet,chewable 81 mg PO DAILY@0800 baclofen 5 mg tablet 5 mg PO Q8H PRN (Reason: muscle spasm) gabapentin 300 mg capsule 300 mg PO BID prednisone 5 mg Tablet See Rx Instructions .ROUTE .COMPLEX Qty: 1 0RF Rx Instructions: Prednisone 7.5 mg daily X 3 days then alternate 6 mg and 7 mg for 7 days then 6 mg daily for 7 days then alternate 5 mg and 6 mg for 7 days then 5 mg daily for 7 days then alternate 4 mg and 5 mg for 7 days then 4 mg daily for 7 days them alternate 3 mg and 4 mg for 7 days then 3 mg daily for 7 days then 2.5 mg daily for 14 days and discontinue Prednisone acetaminophen 325 mg Tablet 650 mg PO Q6H PRN PRN (Reason: Pain Score 1-4) Qty: 1 0RF ammonium lactate 12 % Lotion 1 applic topical BID Qty: 1 0RF Protocol: *Topical Application Instructions APPLICATION INSTRUCTIONS: mix this with the hydrocortisone and apply to the hands (back and front) BID bisacodyl 10 mg Suppository 10 mg FL .PRN X 1 PRN (Reason: Constipation) Qty: 12 0RF sennosides-docusate sodium [Stool Softener-Stimulant Laxat] 8.6-50 mg Tablet 2 tab PO BID PRN (Reason: constipation) Qty: 1 0RF duloxetine 20 mg Capsule,Delayed Release(Dr/Ec) 40 mg PO DAILY Qty: 1 0RF oxycodone 5 mg tablet 5 - 10 mg PO Q6H PRN (Reason: pain) 7 Days Qty: 42 0RF Rx Instructions: one tab pain 4-6 two tabs pain 7-10 menthol-zinc oxide [Calmoseptine] 0.44-20.6 % ointment 1 applic topical BID Rx Instructions: Apply to bilateral buttocks Referrals / Follow Up: Juan Antonio Claros MD [Primary Care Provider] - Gisselle Davila NP, ANALYTICAL SCIENCES DIRECTOR-C [Med Staff - [facility]] - 05/09/23 8:00 am Disposition Disposition (needs filled in before D/C Order can be placed): Home Health Service
[2023-05-07] MEDS: DULoxetine Hcl 20 MG Capsule 40 MG PO (05:53)
[2023-05-07] MEDS: APIXABAN 5 MG TABLET PO ×2 (05:53→17:35)
[2023-05-07] MEDS: Gabapentin 300 MG Capsule PO ×2 (05:59→17:35)
[2023-05-07] MEDS: oxyCODONE 5 MG Tablet PO ×2 (06:43→20:21)
[2023-05-07] MEDS: Baclofen 10 MG Tablet 5 MG PO ×2 (06:43→20:22)
[2023-05-07 07:00] VITALS: BMI 28.3
[2023-05-07] MEDS: predniSONE 5 MG Tablet 2.5 MG PO (07:43)
[2023-05-07] MEDS: Hydrocortisone 2.5% Ointment 20 gm tube 1 APPLIC TOPICAL ×2 (10:08→20:37)
[2023-05-07] MEDS: Ammonium Lactate 225 gm Bottle 1 APPLIC TOPICAL ×2 (10:10→20:36)
[2023-05-07 14:07] VITALS: BP 142/70; PULSE 70; RESP 14; TEMP 35.8; O2SAT 96
[2023-05-07 20:20] VITALS: BP 132/66; PULSE 63; RESP 17; TEMP 36.3; O2SAT 95
[2023-05-08] MEDS: Gabapentin 300 MG Capsule PO ×2 (06:51→17:44)
[2023-05-08] MEDS: APIXABAN 5 MG TABLET PO ×2 (06:51→17:44)
[2023-05-08] MEDS: DULoxetine Hcl 20 MG Capsule 40 MG PO (06:51)
[2023-05-08] MEDS: oxyCODONE 5 MG Tablet PO ×2 (06:51→21:17)
[2023-05-08] MEDS: Baclofen 10 MG Tablet 5 MG PO ×2 (06:52→21:17)
[2023-05-08 09:40] VITALS: PULSE 56; RESP 16; O2SAT 93
[2023-05-08] MEDS: Ammonium Lactate 225 gm Bottle 1 APPLIC TOPICAL ×2 (09:53→21:17)
[2023-05-08] MEDS: Hydrocortisone 2.5% Ointment 20 gm tube 1 APPLIC TOPICAL ×2 (09:53→21:17)
[2023-05-08 14:34] VITALS: BP 119/57; PULSE 75; RESP 18; TEMP 36.2; O2SAT 96
[2023-05-08] MEDS: Acetaminophen 500 MG Tablet 1000 MG PO (17:44)
[2023-05-09] MEDS: Gabapentin 300 MG Capsule PO ×2 (05:36→17:43)
[2023-05-09] MEDS: DULoxetine Hcl 20 MG Capsule 40 MG PO (05:36)
[2023-05-09] MEDS: APIXABAN 5 MG TABLET PO ×2 (05:37→17:43)
[2023-05-09] MEDS: oxyCODONE 5 MG Tablet PO ×2 (06:28→19:51)
[2023-05-09] MEDS: Baclofen 10 MG Tablet 5 MG PO ×2 (06:30→19:51)
--- NOTE | 2023-05-09 08:16 | NURSING ---
Pt left the floor at 0750 by wheelchair for an appt with Dr Mike
--- NOTE | 2023-05-09 08:46 | NURSING ---
Pt back to floor at 0840 from being off floor for an appt
[2023-05-09] MEDS: Hydrocortisone 2.5% Ointment 20 gm tube 1 APPLIC TOPICAL ×2 (09:01→19:53)
[2023-05-09] MEDS: Ammonium Lactate 225 gm Bottle 1 APPLIC TOPICAL ×2 (09:02→19:52)
[2023-05-09 10:00] VITALS: PULSE 78
[2023-05-09] MEDS: Acetaminophen 500 MG Tablet 1000 MG PO (14:17)
[2023-05-09 14:42] VITALS: BP 107/55; PULSE 63; RESP 14; TEMP 36.1; O2SAT 93
[2023-05-10] MEDS: APIXABAN 5 MG TABLET PO ×2 (05:11→17:02)
[2023-05-10] MEDS: Gabapentin 300 MG Capsule PO ×2 (05:11→17:02)
[2023-05-10] MEDS: DULoxetine Hcl 20 MG Capsule 40 MG PO (05:11)
[2023-05-10] MEDS: Baclofen 10 MG Tablet 5 MG PO ×2 (08:08→19:57)
[2023-05-10] MEDS: oxyCODONE 5 MG Tablet PO ×2 (08:08→19:56)
[2023-05-10 09:14] VITALS: BP 95/50; PULSE 93; RESP 17; TEMP 36.4; O2SAT 95
[2023-05-10 10:00] VITALS: PULSE 74
--- NOTE | 2023-05-10 15:21 | CASEMGMT ---
Social Work BIMS () and PHQ-9 () completed for MDS assessment. Narcisa Samuels MSW [employer] UTILITY WORKER
[2023-05-10] MEDS: Ammonium Lactate 225 gm Bottle 1 APPLIC TOPICAL (19:57)
[2023-05-10] MEDS: Hydrocortisone 2.5% Ointment 20 gm tube 1 APPLIC TOPICAL (19:57)
[2023-05-11] MEDS: Baclofen 10 MG Tablet 5 MG PO ×2 (06:32→20:47)
[2023-05-11] MEDS: APIXABAN 5 MG TABLET PO ×2 (06:33→16:57)
[2023-05-11] MEDS: DULoxetine Hcl 20 MG Capsule 40 MG PO (06:33)
[2023-05-11] MEDS: oxyCODONE 5 MG Tablet PO ×2 (06:33→20:48)
[2023-05-11] MEDS: Gabapentin 300 MG Capsule PO ×2 (06:34→16:57)
[2023-05-11] MEDS: Ammonium Lactate 225 gm Bottle 1 APPLIC TOPICAL (12:24)
[2023-05-11] MEDS: Hydrocortisone 2.5% Ointment 20 gm tube 1 APPLIC TOPICAL ×2 (12:25→20:49)
[2023-05-11 16:00] VITALS: BP 129/63; PULSE 60; RESP 14; TEMP 36.5; O2SAT 95
[2023-05-11] MEDS: Acetaminophen 500 MG Tablet 1000 MG PO (16:56)
[2023-05-12] MEDS: Gabapentin 300 MG Capsule PO (06:07)
[2023-05-12] MEDS: DULoxetine Hcl 20 MG Capsule 40 MG PO (06:08)
[2023-05-12] MEDS: APIXABAN 5 MG TABLET PO (06:08)
[2023-05-12 06:57] LABS: Absolute Lymphocyte Count 1.78 X10^3/uL (0.83-4.51); Basophil# 0.04 X10^3/uL; Basophil% 0.9 % (0-1); Eosinophil# 0.23 X10^3/uL; Hematocrit 40.1 % (40-54); Lymphocyte # 1.78 X10^3/ul (0.83-4.51); Lymphocyte % 38.4 % (19-41); Mean Corp Hgb Conc 32.4 g/dL (32-36); Mean Corpuscular Volume 95.7 fL (80-94); Mean Platelet Vol. 9.2 fl (6.2-12.0); Monocyte# 0.54 X10^3/uL; Monocyte% 11.6 % (0-10); NRBC Flagged by Analyzer 0 % (0-5); Neutrophil # 2.04 X10^3/uL (2.7-7.7); Neutrophil % 43.9 % (47-70); Platelet Count 244 K/mm3 (150-450); RBC Distribution Width CV 12.8 % (11.6-14.6); RBC Distribution Width SD 44.6 fl (35.1-43.9); Red Blood Count 4.19 M/mm3 (4.6-6.2); White Blood Count 4.6 K/mm3 (4.4-11.0)
[2023-05-12 07:26] LABS: Anion Gap 5 (5-15); BUN 18 mg/dL (7-18); BUN/Creat Ratio 22.4 RATIO (10-20); Calcium,Total 8.9 mg/dL (8.5-10.1); Chloride 105 mmol/L (98-107); EST Glomerular Filtration Rate 101 mL/min (>60); Est Glom Filt Rate - Afr Amer 122 mL/min (>60); Estimated Creatinine Clearance 77.53 ml/min; Glucose 95 mg/dL (74-106); Potassium 4.4 mmol/L (3.5-5.1); Sodium Level 140 mmol/L (136-145)
[2023-05-12 07:37] VITALS: O2SAT 95
[2023-05-12] MEDS: Baclofen 10 MG Tablet 5 MG PO (08:12)
[2023-05-12] MEDS: oxyCODONE 5 MG Tablet PO (08:12)
[2023-05-12 09:38] VITALS: BP 124/63; PULSE 75; RESP 14; TEMP 36.4; O2SAT 96
== END 2023-05-12 11:40 | disposition home health service (06) | DRG 561 ==
PROVIDERS: Admitting Provider Family Medicine Geriatric Medicine; PCP Family Medicine; Visit Provider Family Medicine Geriatric Medicine
DX: Z47.89 Encounter for other orthopedic aftercare (principal); E78.5 Hyperlipidemia, unspecified; I73.9 Peripheral vascular disease, unspecified; M06.9 Rheumatoid arthritis, unspecified; F34.1 Dysthymic disorder; G47.33 Obstructive sleep apnea (adult) (pediatric); M19.90 Unspecified osteoarthritis, unspecified site; M48.02 Spinal stenosis, cervical region; M62.838 Other muscle spasm; Z87.891 Personal history of nicotine dependence; Z79.82 Long term (current) use of aspirin; Z98.1 Arthrodesis status; Z79.899 Other long term (current) drug therapy
CPT/HCPCS: 36415; 80048; 85025; 94002; 94003; 94660; 95811; 97110; 97116; 97162; 97166; 97530; 97535

== ENCOUNTER → 2023-04-19 | Outpatient (CLI) | payer MEDICARE, OTHER, SELFPAY ==
--- NOTE | 2023-04-19 10:17 | VDLE_ITS ---
Reason For Study: RLE SWELLING RIGHT GSV is normal. CFV is compressible, spontaneous, phasic, competent and demonstrates normal augmentation. FV is compressible, spontaneous, phasic, competent and demonstrates normal augmentation. Acute deep vein thrombosis is noted in the POP V. It is dilated and NONCOMPRESSIBLE. Acute deep vein thrombosis is noted in the T/P Trunk. It is dilated and NONCOMPRESSIBLE. Acute deep vein thrombosis is noted in the PTV. It is dilated and NONCOMPRESSIBLE. RT PerV is compressible. Procedure This is a venous duplex using B-mode, color flow and spectral Doppler. Exam performed portable in patient room. A preliminary report was called and/or faxed to RN on TCU @ 2:10 pm. VL/Venous Duplex US, Unilateral Interpretation Summary Acute deep venous thrombosis right popliteal tibioperoneal trunk, posterior tib ial veins Patent and compressible right great saphenous vein Ordering Physician: Carlos Castillo Chi Referring Physician: Roshni Claros Performed By: Zenaida Doyle, LIZZETTE, RVT
== END | disposition home or self-care (01) ==
LOC: CVS 10:17
PROVIDERS: PCP Family Medicine; Referring Provider Family Medicine Geriatric Medicine; Visit Provider Family Medicine Geriatric Medicine
DX: R22.41 Localized swelling, mass and lump, right lower limb (principal)
CPT/HCPCS: 93971

== ENCOUNTER → 2023-05-10 | Outpatient (CLI) | payer MEDICARE, OTHER, SELFPAY | END | disposition home or self-care (01) | LOC: SL 09:44 | PROVIDERS: PCP Family Medicine; Visit Provider Nurse Practitioner Acute Care | DX: Z46.89 Encounter for fitting and adjustment of other specified devices (principal) ==

== ENCOUNTER → 2023-08-27 | Outpatient (CLI) | payer MEDICARE, OTHER, SELFPAY ==
--- NOTE | 2023-08-27 08:19 | CT_ITS ---
STUDY: LOW DOSE CT LUNG CANCER SCREENING REASON FOR EXAM: Male, 68 years old. Patient smokes half a pack per day for 51 years. RADIATION DOSAGE (If Supplied By Facility): CTDIvol = ( 3.02 ) mGy, DLP = ( 102.32 ) mGycm TECHNIQUE: No contrast was administered. Low dose technique was utilized (average mAS-38 and kVp 120). 1.25 mm axial source images with a slice interval of 1.25-mm were reconstructed in lung windows. 2.5 mm axial source images with a slice interval of 2.5-mm were reconstructed in lung windows. 5.0 mm axial source images with a slice interval of 5.0-mm were reconstructed in soft tissue windows. COMPARISON: None. NODULES: No suspicious nodules are seen. Emphysema: Hyperinflation. Emphysematous changes with bullous formation worse in the upper lobes. Linear scarring in the posterior aspect of the lingular segment of the left upper lobe. Endobronchial lesion: None Aorta: Atherosclerotic plaque formation of the aortic arch and descending thoracic aorta. CORONARY ARTERIES: Coronary artery calcification is seen. Heart: Remarkable Pulmonary artery: Unremarkable Mediastinal nodes: Small mediastinal lymph nodes. Other chest and abdominal findings: CT/Low Dose CT Lung Screening IMPRESSION: Lung-RADS category 2 - Continue annual screening with LDCT in 12 months. IMPORTANT NOTES FOR USE: ACR Lung-RADS Version 1.1 Assessment Categories Release Date: 2018 Category: Coded 0-4 bases on nodule(s) with highest degree of suspicion. Negative screen is defined as categories 1 and 2; a positive screen is defined as categories 3 and 4. Category 3 and 4A nodules that are unchanged on interval CT should be coded as category 2, and individuals returned to screening in 12 months. Category 4X: Category 3 or 4 nodules with additional imaging findings that increase the suspicion of lung cancer, such as spiculation, GGN that doubles in size in 1 year, enlarged lymph notes, etc. Category Modifiers: S (significant finding unrelated to lung cancer) Electronically Signed: Dez Ibrahim MD at 10:05 EST ,
--- NOTE | 2023-08-27 08:20 | ART_ITS ---
Reason For Study: Atherosclerosis / AAA Procedure A bilateral lower extremity continuous wave Doppler with analog waveform analysis and ankle brachial indexes. Left Segmental Pressures Left brachial= 139mmHg. Left posterior tibial artery = 151mmHg. Left dorsalis pedis artery = 158mmHg. The left posterior tibial artery waveforms are triphasic. The left dorsalis pedis waveforms are triphasic. Right Segmental Pressures Right brachial= 138mmHg. Right posterior tibial artery = 160mmHg. Right dorsalis pedis artery = 156mmHg. The right posterior tibial artery waveforms are triphasic. The right dorsalis pedis waveforms are triphasic. Indices The right ankle brachial index by the posterior tibial artery is 1.15. The right ankle brachial index by the dorsalis pedis is 1.12. The left ankle brachial index by the posterior tibial artery is 1.09. The left ankle brachial index by the dorsalis pedis is 1.14. VL/Ankle Brachial Index Interpretation Summary No disease noted at rest with triphasic flow and JERE 1.15 and 1.14. Ordering Physician: Curt Nguyen Referring Physician: Juan Antonio Claros Performed By: Hussein Webster RVT
--- NOTE | 2023-08-27 08:20 | AAVD_ITS ---
Reason For Study: Atherosclerosis / AAA / Rt Iliac Stent Aorta Measurements Aorta Doppler Measurements Proximal aorta measures3.54 x 3.49cm. in cross- Peak systolic flow velocities within the proximal sectional axis. aorta measure 62.5 cm/sec. Proximal aorta measures3.54cm. in longitudinal Peak systolic flow velocities within the mid aorta axis. measure 51.5 cm/sec. Mid aorta measures4.01 x 3.85cm. in cross- Peak systolic flow velocities within the distal sectional axis. aorta measure 52.6 cm/sec. Mid aorta measures4.14cm. in longitudinal axis. Distal aorta measures3.92 x 3.76cm. in cross- sectional axis. Distal aorta measures3.69cm. in longitudinal axis. Left Iliac Artery Left iliac artery measures 1.12 x 1.26 cm. in the cross-sectional axis. Left iliac artery measures 1.21 cm. in the longitudinal axis. Peak systolic velocity in the left iliac artery measures 180.1 cm/sec. Right Iliac Artery Stent noted within Rt Iliac Artery. Residual sac measures 2.00cm x 1.91 cm in transverse view. Stent measures 0.67cm x 0.70cm in transverse view. Residual sac measures 1.8cm in longitudinal view. Stent measures 0.67cm in longitudinal view. Peak systolic velocity in the right iliac artery measures 211.5 cm/sec. Procedure Aorta IVC Iliac vasculature or bypass grafts [id number]. The exam was diagnostic. Exam performed in department. VL/Abd Aortic/IVC Duplex scan Interpretation Summary AAA at 4.1cm. Right iliac sac 2cm. No stenosis noted. Ordering Physician: Curt Nguyen Referring Physician: Juan Antonio Claros Performed By: Hussein Webster RVT
--- NOTE | 2023-08-27 08:21 | CDU_ITS ---
Reason For Study: Atherosclerosis Rt. Velocities/BP Lt. Velocities/BP Prox CCA 57.5/15.7 cm/sec. Prox CCA 90.6/24.8 cm/sec. Mid CCA 96.0/24.5 cm/sec. Mid CCA 92.4/23.0 cm/sec. Dist CCA 77.3/26.7 cm/sec. Dist CCA 86.9/21.2 cm/sec. Prox ICA 85.0/27.8 cm/sec. Prox ICA 180.7/54.6 cm/sec. Mid ICA 82.8/28.9 cm/sec. Mid ICA 124.0/43.7 cm/sec. Dist ICA 92.7/28.9 cm/sec. Dist ICA 127.7/34.5 cm/sec. Rt. ICA/CCA = 1.0. Lt. ICA/CCA = 2.0. Prox ECA 98.1/20.1 cm/sec. Prox ECA 105.2/12.1 cm/sec. Rt. Vert. 43.5/14.9 cm/sec. Lt. Vert. 50.2/14.6 cm/sec. Right Extracranial There is heterogeneous, irregular atherosclerotic plaque noted in the right common carotid artery. There is heterogeneous, irregular atherosclerotic plaque noted in the right internal carotid artery. There is heterogeneous, irregular atherosclerotic plaque noted in the right external carotid artery. Antegrade flow is noted in the right vertebral artery. Left Extracranial There is heterogeneous, irregular atherosclerotic plaque noted in the left common carotid artery. There is heterogeneous, irregular atherosclerotic plaque noted in the left internal carotid artery. There is heterogeneous, irregular atherosclerotic plaque noted in the left external carotid artery. Antegrade flow is noted in the left vertebral artery. Procedure Carotid Duplex [id number]. This is a Carotid Duplex examination using B-mode, color flow and specral Doppler. The exam was diagnostic. Exam performed in department. VL/Carotid Duplex Ultrasound Interpretation Summary Mild (<50%) stenosis right extracranial internal carotid. Moderate (50-69%) rian nosis left extracranial internal carotid. Flow within the vertebral arteries is antegrade bilaterally. Ordering Physician: Curt Nguyen Referring Physician: Juan Antonio Claros Performed By: Hussein Webster RVT
== END | disposition home or self-care (01) ==
PROVIDERS: PCP Family Medicine; Referring Provider Surgery Vascular Surgery; Visit Provider Surgery Vascular Surgery
DX: Z12.2 Encounter for screening for malignant neoplasm of respiratory organs (principal); I71.43 Infrarenal abdominal aortic aneurysm, without rupture; I70.213 Atherosclerosis of native arteries of extremities with intermittent claudication, bilateral legs; F17.210 Nicotine dependence, cigarettes, uncomplicated; I65.23 Occlusion and stenosis of bilateral carotid arteries
CPT/HCPCS: 71271; 93880; 93922; 93978

== ENCOUNTER → 2023-09-03 | Outpatient (CLI) | payer MEDICARE, OTHER, SELFPAY | END | disposition home or self-care (01) | LOC: SL 12:03 | PROVIDERS: PCP Family Medicine; Referring Provider Internal Medicine Critical Care Medicine; Visit Provider Internal Medicine Critical Care Medicine | DX: G47.33 Obstructive sleep apnea (adult) (pediatric) (principal) | CPT/HCPCS: 98960; G0463 ==

== ENCOUNTER → 2023-11-07 | Outpatient (CLI) | payer MEDICARE, OTHER, SELFPAY ==
--- OUTSIDE RECORDS SUMMARY | 2023-11-07 06:52 | XMS RPT_ITS | CCD ---
Author Name Unknown Address [id number] [place] [address] Organization [facility] Care Team Providers Care Portfolio Lead Name Role Phone Harlan BEASLEY, Christina Weiss Unavailable Christina Claros MD Unavailable [facility], . [facility] office Unavailable Wendy Corley, Dr. Elias Unavailable [phone] Sidra BEASLEY, Dr Federico Weiss Unavailable [facility] Unavailable [facility] Unavailable Mackenzie BEASLEY, Dr. Escalera Unavailable Sesar BEASLEY, Dr. Vigil Unavailable [phone] [facility] Unavaila ble Jarrod BEASLEY, Dr. Dee ([facility]) A Unavail able Dr. Sheir Kingston MD Unavailable [facility] Unavailable [facility] Unavailable Paris BEASLEY, Joceline Marshall Unavailable Terry QUESADA, Caroilne Unavailable Chandan ROSALES, Leila Velazquez Unavailable Kirsten Mireles LPN Unavailable Unavailable Gogoi (scribe), Hemanta Unavailable Unavaila ble Harrison QUESADA, Margaret Unavailable Unavailable Jad BEASLEY, Feliciano Perez Unavailable Polly Hernandez PA-C Unavailable Sushila Zavala Unavailable Unavailable Sally RN, Kimberly L Unavailable Unavail able Juan BUSINESS MACHINE MECHANIC, Rachel Unavailable Unavailable Faisal GARZA, Polly Perez Unavailable Unavaila ble Marthey BUSINESS MACHINE MECHANIC, Brooklyn Unavailable Unavailable Fab BUSINESS MACHINE MECHANIC, Rony Unavailable Unavailable Khloe RN, Marilu Y Unavailable Unavailable Taylor BUSINESS MACHINE MECHANIC, Farheen Unavailable Unavailable Mutersbaugh BUSINESS MACHINE MECHANIC, Valorie K Unavailable Unavai joshua Sanchez PA-C, Haven J Unavailable Tha BUSINESS MACHINE MECHANIC, Joceline M Unavailable Unavailab le Abie BUSINESS MACHINE MECHANIC, Shyla Lepe Unavailable Unavailab louise Phillips MA, Rachel Unavailable Unavailable Omi BEASLEY, Wilmar Perez Unavailable Vess BUSINESS MACHINE MECHANIC, Nedimase L Unavailable Unavailable Wengerd BUSINESS MACHINE MECHANIC, Patricia Unavailable Unavailabl e Eloy BUSINESS MACHINE MECHANIC, Alis N Unavailable Unavaila ble Unavailable Unavailable CHRISTINA CLAROS Consulting Unavailable CHRISTINA CLAROS Attending Unavailable CHRISTINA CLAROS Admitting Unavailable CHRISTINA CLAROS Primary Care Unavailable PROVIDER, UNKNOWN Consulting Unavailable PROVIDER, UNKNOWN Consulting Unavailable PROVIDER, UNKNOWN Consulting Unavailable CHRISTINA CLAROS Consulting Unavailable CHRISTINA CLAROS Attending Unavailable CHRISTINA CLAROS Admitting Unavailable CHRISTINA CLAROS Primary Care Unavailable PROVIDER, UNKNOWN Consulting Unavailable PROVIDER, UNKNOWN Consulting Unavailable PROVIDER, UNKNOWN Consulting Unavailable CHRISTINA CLAROS Consulting Unavailable GAURAV SHUKLA Admitting Unavailable GAURAV SHUKLA Primary Care Unavailable GAURAV SHUKLA Attending Unavailable PROVIDER, UNKNOWN Consulting Unavailable PROVIDER, UNKNOWN Consulting Unavailable PROVIDER, UNKNOWN Consulting Unavailable FOREST MOTT Primary Care Unavailable FOREST MOTT Attending Unavailable CHRISTINA CLAROS Consulting Unavailable CHRISTINA CLAROS Referring Unavailable FOREST MOTT Admitting Unavailable PROVIDER, UNKNOWN Consulting Unavailable PROVIDER, UNKNOWN Consulting Unavailable PROVIDER, UNKNOWN Consulting Unavailable Medications Current Medications Medication Drug Class(es) Dates Sig (Normalized) Sig (Original) ALPRAZolam 0.25 mg oral tablet (5 sources) Benzodiazepine Start: 10-24-2021 apixaban 2.5 mg oral tablet (5 sources) Factor Xa Inhibitor aspirin 81 mg delayed release oral tablet (10 sources) Platelet Aggregation Inhibitor, Nonsteroidal Anti-inflammatory Drug baclofen 20 mg oral tablet (5 sources) gamma-Aminobutyric Acid-ergic Agonist citalopram 10 mg oral tablet (5 sources) Serotonin Reuptake Inhibitor fenofibrate 160 mg oral tablet (5 sources) Peroxisome Proliferator Receptor alpha Agonist Start: 06-13-2023 gabapentin 300 mg oral capsule (15 sources) Anti-epileptic Agent Start: 06-25-2023 Completed/Discontinued Medications Medication Drug Class(es) Dates Sig (Normalized) Sig (Original) acetaminophen 325 mg / oxyCODONE hydrochloride 5 mg oral tablet (5 sources) Opioid Agonist Start: 07-07-2016 End: 08-10-2016 amitriptyline hydrochloride 50 mg oral tablet (5 sources) Tricyclic Antidepressant Start: 06-12-2013 End: 11-25-2013 amoxicillin 500 mg oral tablet (5 sources) Penicillin-class Antibacterial Start: 06-10-2023 End: 06-11-2023 amoxicillin 875 mg / clavulanate 125 mg oral tablet (10 sources) Penicillin-class Antibacterial Start: 09-17-2023 End: 09-26-2023 Problems Problem Classification Problem Date Documented Da te Episodic/Chronic Acute bronchitis (5 sources) Acute bronchitis; Translations: [Acute bronchitis, unspecified] 10-30-2013 Episodic Adjustment disorders (10 sources) Adjustment disorder with depressed mood 10-30-2013 Chronic Administrative/social admission (20 sources) Issue of repeat prescriptions 09-06-2017 Episodic Allergic reactions (10 sources) Allergic condition; Translations: [Allergy, unspecified, initial encounter] 09-17-2023 Episodic Anxiety disorders (20 sources) Anxiety; Translations: [Anxiety disorder, unspecified] 09-17-2023 Chronic Aortic; peripheral; and visceral artery aneurysms (20 sources) Abdominal aortic aneurysm; Translations: [Abdominal aortic aneurysm, without rupture] 09-17-2023 Chronic Chronic obstructive pulmonary disease and bronchiectasis (20 sources) Bronchitis; Translations: [Bronchitis, not specified as acute or chronic] 09-26-2023 Episodic Coagulation and hemorrhagic disorders (5 sources) Easy bruising; Translations: [Spontaneous ecchymoses] 08-10-2016 Episodic Diseases of mouth; excluding dental (5 sources) Glossitis; Translations: [Glossitis] 05-29-2019 Episodic Disorders of lipid metabolism (20 sources) Hyperlipidemia; Translations: [Hyperlipidemia, unspecified] 09-17-2023 Chronic Esophageal disorders (10 sources) Gastroesophageal reflux disease; Translations: [Gastro-esophageal reflux disease without esophagitis] 09-17-2023 Chronic Hemorrhoids (5 sources) Hemorrhoids; Translations: [Unspecified hemorrhoids] 09-17-2017 Episodic Immunizations and screening for infectious disease (20 sources) Needs influenza immunization; Translations: [Encounter for immunization] 07-10-2017 Episodic Intestinal infection (5 sources) Colitis, enteritis, and gastroenteritis of presumed infectious origin 06-30-2010 Episodic Malaise and fatigue (15 sources) Fatigue; Translations: [Other fatigue] 09-17-2023 Episodic Mood disorders (20 sources) Depressive disorder; Translations: [Depressive disorder, not elsewhere classified] 04-13-2021 Chronic Mycoses (8 sources) Candidiasis of mouth; Translations: [Candidal stomatitis] 10-10-2023 Episodic Nonspecific chest pain (8 sources) Chest pain; Translations: [Chest pain, unspecified] 10-10-2023 Episodic Osteoarthritis (20 sources) Degenerative joint disease involving multiple joints; Translations: [Polyosteoarthritis, unspecified] 09-17-2023 Chronic Other aftercare (10 sources) Antibiotic prophylaxis indicated; Translations: [buttermaker (current) use of antibiotics] 09-17-2023 Episodic Other aftercare (15 sources) Long-term (current) use of other medications 06-18-2011 Episodic Other circulatory disease (10 sources) Elevated blood pressure; Translations: [Elevated blood-pressure reading, without diagnosis of hypertension] 09-17-2023 Episodic Other connective tissue disease (20 sources) Polymyalgia rheumatica; Translations: [Polymyalgia rheumatica] 09-17-2023 Chronic Other connective tissue disease (15 sources) Pain in bilateral legs; Translations: [Pain in right leg] 09-17-2023 Episodic Other connective tissue disease (10 sources) Muscle pain; Translations: [Myalgia, unspecified site] 09-17-2023 Episodic Other connective tissue disease (10 sources) Olecranon bursitis; Translations: [Olecranon bursitis, unspecified elbow] 09-17-2023 Episodic Other connective tissue disease (5 sources) Pain in lower limb; Translations: [Pain in right leg] 01-05-2014 Episodic Other ear and sense organ disorders (5 sources) Impacted cerumen; Translations: [Impacted cerumen, right ear] 07-08-2018 Episodic Other ear and sense organ disorders (5 sources) Pain of ear structure; Translations: [Otalgia, unspecified ear] 09-15-2012 Episodic Other gastrointestinal disorders (10 sources) Abdominal bloating; Translations: [Abdominal distension (gaseous)] 09-17-2023 Episodic Other gastrointestinal disorders (5 sources) Stool DNA-based colorectal cancer screening positive; Translations: [Other fecal abnormalities] 03-06-2019 Episodic Other inflammatory condition of skin (5 sources) Other psoriasis 06-30-2010 Chronic Other lower respiratory disease (5 sources) Cough; Translations: [Cough] 01-16-2017 Episodic Other nervous system disorders (10 sources) Myelomalacia; Translations: [Other specified diseases of spinal cord] 09-17-2023 Chronic Other nervous system disorders (10 sources) Peripheral nerve entrapment syndrome; Translations: [Mononeuropathy, unspecified] 09-17-2023 Chronic Other nervous system disorders (15 sources) Paresthesia; Translations: [Paresthesia of skin] 09-17-2023 Episodic Other non-traumatic joint disorders (15 sources) Pain in right hip joint; Translations: [Pain in right hip] 09-17-2023 Episodic Other non-traumatic joint disorders (5 sources) Pain in left knee; Translations: [Pain in joint, lower leg] 02-16-2019 Episodic Other nutritional; endocrine; and metabolic disorders (20 sources) Overweight in adulthood with body mass index of 25 or more but less than 30; Translations: [Body mass index (BMI) 27.0-27.9, adult] 09-17-2023 Episodic Other nutritional; endocrine; and metabolic disorders (10 sources) Weight loss; Translations: [Abnormal weight loss] 09-17-2023 Episodic Other nutritional; endocrine; and metabolic disorders (5 sources) Anorexia 06-30-2010 Episodic Other screening for suspected conditions (not mental disorders or infectious disease) (20 sources) Decreased testosterone level ; Translations: [Other specified abnormal findings of blood chemistry] 09-17-2023 Episodic Other upper respiratory infections (15 sources) Sinusitis; Translations: [Chronic sinusitis, unspecified] 06-26-2022 Chronic Other upper respiratory infections (5 sources) Acute sinusitis; Translations: [Acute sinusitis, unspecified] 11-24-2012 Episodic Peripheral and visceral atherosclerosis (20 sources) Intermittent claudication of bilateral lower limbs co-occurrent and due to atherosclerosis; Translations: [Atherosclerosis of [place] arteries of extremities with intermittent claudication, bilateral legs] 09-17-2023 Chronic Residual codes; unclassified (10 sources) Obstructive sleep apnea syndrome; Translations: [Obstructive sleep apnea (adult) (pediatric)] 09-17-2023 Chronic Residual codes; unclassified (15 sources) Insomnia; Translations: [Insomnia, unspecified] 09-17-2023 Episodic Residual codes; unclassified (20 sources) Tobacco user; Translations: [Tobacco use] 09-17-2023 Episodic Residual codes; unclassified (5 sources) Altered mental status; Translations: [Altered mental status, unspecified] 03-07-2020 Episodic Spondylosis; intervertebral disc disorders; other back problems (20 sources) Lumbar radiculopathy; Translations: [Radiculopathy, lumbar region] 09-17-2023 Episodic Systemic lupus erythematosus and connective tissue disorders (5 sources) Temporal arteritis; Translations: [Other giant cell arteritis] 01-05-2014 Chronic Results Test Name Value Interpretation Reference Range Facil ity Vital Signs Date Time Vital Sign Value Performing Clinician Faci lity 10-17-2023 14:19-0500 Body weight 85.28 kg Rony Sanon BUSINESS MACHINE MECHANIC [employer]. 10-17-2023 14:19-0500 Diastolic blood pressure 79 mm[Hg] Rony Sanon BUSINESS MACHINE MECHANIC [employer] 10-17-2023 14:19-0500 Heart rate 76 /min Rony Sanon BUSINESS MACHINE MECHANIC [employer] 10-17-2023 14:19-0500 Systolic blood pressure 162 mm[Hg] Rony Sanon LPN [employer], [employer]. 10-10-2023 07:13-0500 Body temperature 97.6 [degF] Christina Claros MD Work Phone: [employer], [employer]. 10-10-2023 07:13-0500 Body weight 85.28 kg Christina Claros MD Work Phone: [employer], [employer]. 10-10-2023 07:13-0500 Heart rate 62 /min Christina Claros MD Work Phone: [facility].; [facility] 10-10-2023 07:13-0500 Inhaled oxygen concentration 20 % Christina Claros MD Work Phone: [facility].; [facility], [employer]. 10-10-2023 07:13-0500 SaO2% (BldA) [Mass fraction] 99 % Christina Claros MD Work Phone: [facility].; [employer] [facility]. 09-17-2023 14:16-0500 Body height 167.64 [facility], [facility].; [place] [facility], [employer]. 09-17-2023 14:16-0500 Body mass index (BMI) [Ratio] 30.18 kg/m2 [facility], [facility].; [place] [facility], [employer]. 09-17-2023 14:16-0500 Body surface area Derived from formula 1.94 m2 [facility], [facility].; [employer], [employer]. 09-17-2023 14:16-0500 Body temperature 100.2 [degF] [facility], [facility].; [employer] 09-17-2023 14:16-0500 Body weight 84.82 kg [facility], [facility].; [employer], [employer]. 09-17-2023 14:16-0500 Diastolic blood pressure 64 mm[Hg] [facility], [facility].; [employer], [employer]. 09-17-2023 14:16-0500 Heart rate 66 /min [facility], [facility].; [employer] 09-17-2023 14:16-0500 Inhaled oxygen concentration 20 % [facility], [facility].; [employer], [employer]. 09-17-2023 14:16-0500 SaO2% (BldA) [Mass fraction] 96 % Shyla Santana BUSINESS MACHINE MECHANIC [facility], Inc.; [employer] 09-17-2023 14:16-0500 Systolic blood pressure 118 mm[Hg] Shyla Santana [facility], Inc.; [employer] 07-17-2023 09:31-0400 Body height 167.64 cm Joceline Praveena Tha [facility], Inc.; [employer] 07-17-2023 09:31-0400 Body mass index (BMI) [Ratio] 29.54 kg/m2 [facility] [employer] 07-17-2023 09:31-0400 Body surface area Derived from formula 1.93 m[address] Praveena Alma[address] [facility], [facility].; [employer] 07-17-2023 09:31-0400 Body weight 83.01 kg Joceline M Tha [facility], [facility] [employer] 07-17-2023 09:31-0400 Diastolic blood pressure 75 mm[Hg] Joceline [facility]veena [facility] [employer] 07-17-2023 09:31-0400 Heart rate 74 /min Joceline Praveena Almazan BUSINESS MACHINE MECHANIC [employer] [facility], [facility] [employer] 07-17-2023 09:31-0400 Systolic blood pressure 133 mm[Hg] Joceline Almazan [facility], [facility] [employer] 05-16-2023 09:05-0400 Body weight 81.65 kg Rony Sanon BUSINESS MACHINE MECHANIC [employer] [facility], [facility] [employer], [employer]. 05-16-2023 09:05-0400 Diastolic blood pressure 78 mm[Hg] [facility]ony [facility]on [facility] [employer] 05-16-2023 09:05-0400 Heart rate 71 /min Rony Sanon BUSINESS MACHINE MECHANIC [employer] [facility], [facility] [employer], [employer]. 05-16-2023 09:05-0400 Systolic blood pressure 144 mm[Hg] Rony Sanon LPN [facility], [facility].; [facility], [facility]. 02-19-2023 13:04-0400 Body weight 84.82 kg Rony Sanon LPN [facility], [facility].; [facility] 02-19-2023 13:04-0400 Diastolic blood pressure 88 mm[Hg] Rony Sanon LPN [facility] 02-19-2023 13:04-0400 Heart rate 76 /min Rony Sanon BUSINESS MACHINE MECHANIC [facility], [facility].; [facility], [facility]. 02-19-2023 13:04-0400 Systolic blood pressure 156 mm[Hg] Rony Sanon LPN [facility], [facility] 01-03-2023 09:37-0400 Body height 167.64 cm Rachel Phillips MA [facility], [facility].; [facility], [facility]. 01-03-2023 09:37-0400 Body mass index (BMI) [Ratio] 30.51 kg/m2 Rachel Phillips MA [facility], [facility].; [place] [facility], [facility]. 01-03-2023 09:37-0400 Body surface area Derived from formula 1.95 m2 Rachel Phillips MA [facility], [facility].; [facility], [facility]. 01-03-2023 09:37-0400 Body weight 85.73 kg Rachel Phillips MA [facility], [facility], [facility]. 01-03-2023 09:37-0400 Diastolic blood pressure 88 mm[Hg] Rachel Phillips MA [facility], [facility].; [facility], [facility]. 01-03-2023 09:37-0400 Heart rate 84 /min Rachel Phillips MA [facility], [facility].; [place] [facility], [facility]. 01-03-2023 09:37-0400 Systolic blood pressure 153 mm[Hg] Rachel Phillips MA [facility], [facility].; [facility], [facility]. 11-29-2022 09:32-0500 Body height 167.64 cm Rachel Martinez LPN [facility].; [facility]. 11-29-2022 09:32-0500 Body mass index (BMI) [Ratio] 30.34 kg/m2 Rachel Martinez LPN [facility], [facility].; [facility]. 11-29-2022 09:32-0500 Body surface area Derived from formula 1.95 m2 Rachel Martinez LPN [facility], [facility].; [facility]. 11-29-2022 09:32-0500 Body temperature 96.2 [degF] Rachel Martinez LPN [facility], [facility].; [facility]. 11-29-2022 09:32-0500 Body weight 85.28 kg Rachel Martinez LPN [facility], [facility].; [facility]. 11-29-2022 09:32-0500 Diastolic blood pressure 79 mm[Hg] Rachel Martinez [facility], [facility].; [facility]. 11-29-2022 09:32-0500 Heart rate 71 /min Rachel Martinez LPN [facility].; [facility]. 11-29-2022 09:32-0500 Inhaled oxygen concentration 20 % Rachel Martinez [facility].; [facility]. 11-29-2022 09:32-0500 SaO2% (BldA) [Mass fraction] 97 % Rachel Martinez BUSINESS MACHINE MECHANIC [facility], [facility].; [facility]. 11-29-2022 09:32-0500 Systolic blood pressure 135 mm[Hg] Rachel Martinez LPN [facility], [facility].; [facility], [facility]. 11-13-2022 08:03-0500 Body height 167.64 cm Christina Claros MD Work Phone: [facility].; [facility], [facility]. 11-13-2022 08:03-0500 Body mass index (BMI) [Ratio] 30.99 kg/m2 Christina Claros MD Work Phone: [facility].; [place], [facility]. 11-13-2022 08:03-0500 Body surface area Derived from formula 1.97 m2 Christina Claros MD Work Phone: [place] [employer]. 11-13-2022 08:03-0500 Body weight 87.09 kg Christina Claros MD Work Phone: [place] [employer] 11-13-2022 08:03-0500 Diastolic blood pressure 80 mm[Hg] Christina Claros MD Work Phone: [employer]. 11-13-2022 08:03-0500 Heart rate 59 /min Christina Claros MD Work Phone: [place] [employer]. 11-13-2022 08:03-0500 Systolic blood pressure 132 mm[Hg] Christina Claros MD Work Phone: [place] [employer]. 09-11-2022 09:42-0500 Body height 167.64 cm Rachel Phillips [facility].; [employer] [facility]. 09-11-2022 09:42-0500 Body mass index (BMI) [Ratio] 30.34 kg/m2 Rachel Phillips MA [facility].; [employer]. 09-11-2022 09:42-0500 Body surface area Derived from formula 1.95 m2 Rachel Phillips MA [facility].; [employer]. 09-11-2022 09:42-0500 Body temperature 96.6 [degF] Rachel [facility].; [employer]. 09-11-2022 09:42-0500 Body weight 85.28 kg Rachel Phillips [facility].; [employer]. 09-11-2022 09:42-0500 Diastolic blood pressure 81 mm[Hg] Rachel Phillips [facility].; [employer]. 09-11-2022 09:42-0500 Heart rate 71 /min Rachel Phillips MA [facility], [facility].; [facility], [facility]. 09-11-2022 09:42-0500 Systolic blood pressure 136 mm[Hg] Rachel Phillips MA [facility], [facility].; [facility], [facility]. 06-26-2022 10:50-0400 Body height 167.64 cm [facility], [facility].; [place] [facility], [facility]. 06-26-2022 10:50-0400 Body mass index (BMI) [Ratio] 29.86 kg/m2 [facility], [facility].; [facility], [employer]. 06-26-2022 10:50-0400 Body surface area Derived from formula 1.94 m2 [facility], [facility].; [facility], [facility]. 06-26-2022 10:50-0400 Body temperature 97.8 [degF] Jayashree Esther [facility], [facility].; [facility], [facility]. 06-26-2022 10:50-0400 Body weight 83.92 kg [facility], [facility].; [employer] [facility], [employer]. 06-26-2022 10:50-0400 Diastolic blood pressure 88 mm[Hg] JayashreeSherley Santana [facility] [employer] [facility], [employer]. 06-26-2022 10:50-0400 Heart rate 62 /min [facility], [facility].; [facility], [employer]. 06-26-2022 10:50-0400 Inhaled oxygen concentration 20 % [facility], [facility].; [facility], [employer]. 06-26-2022 10:50-0400 SaO2% (BldA) [Mass fraction] 96 % [facility], [facility].; [employer], [employer]. 06-26-2022 10:50-0400 Systolic blood pressure 131 mm[Hg] [facility], [facility].; [employer]. 05-17-2022 08:02-0400 Body height 167.64 cm Christina Claros MD Work Phone: [employer] 05-17-2022 08:02-0400 Body mass index (BMI) [Ratio] 29.38 kg/m2 Christina Claros MD Work Phone: [employer].; [employer] 05-17-2022 08:02-0400 Body surface area Derived from formula 1.92 m2 Christina Claros MD Work Phone: [employer].; [employer]. 05-17-2022 08:02-0400 Body weight 82.56 kg Christina Claros MD Work Phone: [employer]. 05-17-2022 08:02-0400 Diastolic blood pressure 72 mm[Hg] Christina Claros MD Work Phone: [employer].; [employer]. 05-17-2022 08:02-0400 Heart rate 81 /min Christina Claros MD Work Phone: [employer].; [employer]. 05-17-2022 08:02-0400 Systolic blood pressure 130 mm[Hg] Christina Claros MD Work Phone: [employer]. 02-20-2022 10:50-0400 Body height [facility].64 cm [facility] [employer]. 02-20-2022 10:50-0400 Body mass index (BMI) [Ratio] 29.21 kg/m2 [facility] [employer] 02-20-2022 10:50-0400 Body surface area Derived from formula 1.92 m2 [facility] [employer]. 02-20-2022 10:50-0400 Body weight 82.1 kg Shyla Santana LPN [facility], Inc.; [facility], Inc[facility] 02-20-2022 10:50-0400 Diastolic blood pressure 83 mm[Hg] Shyla Santana [facility], Inc.; [employer] 02-20-2022 10:50-0400 Heart rate 69 /min Shyla Santana [facility], Inc.; [employer] 02-20-2022 10:50-0400 Systolic blood pressure 151 mm[Hg] Shyla Santana [facility], Inc.; [employer] [facility], Inc. 08-15-2021 11:30-0500 Body height 167.64 cm Shyla Santana [facility], Inc.; [employer] 08-15-2021 11:30-0500 Body mass index (BMI) [Ratio] 26.47 kg/m2 Shyla Santana [facility], Inc.; [employer] 08-15-2021 11:30-0500 Body surface area Derived from formula 1.84 m2 Jayashree Esther [facility], Inc.; [employer] 08-15-2021 11:30-0500 Body temperature 97.9 [degF] Shyla Santana [facility], Inc.; [employer] 08-15-2021 11:30-0500 Body weight 74.39 kg Shyla Santana BUSINESS MACHINE MECHANIC [facility], Inc.; [employer] 08-15-2021 11:30-0500 Diastolic blood pressure 87 mm[Hg] Shyla Santana [facility], Inc.; [employer] 08-15-2021 11:30-0500 Heart rate 85 /min Shyla Santana [facility], Inc.; [employer] 08-15-2021 11:30-0500 Inhaled oxygen concentration 20 % Jayashree Esther [facility], Inc.; [employer] 08-15-2021 11:30-0500 SaO2% (BldA) [Mass fraction] 99 % Shyla Santana [facility], Inc.; [employer], [employer]. 08-15-2021 11:30-0500 Systolic blood pressure 166 mm[Hg] Shyla Santana BUSINESS MACHINE MECHANIC [facility], Inc.; [employer] 08-01-2021 09:30-0400 Body height 167.64 cm Shyla Whelanuckey [facility], Inc.; [employer], [employer]. 08-01-2021 09:30-0400 Body mass index (BMI) [Ratio] 26.47 kg/m2 [facility].; [employer] 08-01-2021 09:30-0400 Body surface area Derived from formula 1.84 m2 [facility].; [employer], [employer]. 08-01-2021 09:30-0400 Body weight 74.39 kg Shyla Whelanuckey [facility], [facility].; [employer], [employer]. 08-01-2021 09:30-0400 Diastolic blood pressure 91 mm[Hg] Shyla Santana [facility], Inc.; [employer], [employer]. 08-01-2021 09:30-0400 Heart rate 71 /min [facility], [facility].; [employer]. 08-01-2021 09:30-0400 Systolic blood pressure 180 mm[Hg] Shyla Whelanuckey [facility], [facility].; [employer], [employer]. 04-13-2021 09:27-0400 Body height 167.64 cm Farheen Taylor BUSINESS MACHINE MECHANIC [facility], [facility].; [employer], [employer]. 04-13-2021 09:27-0400 Body mass index (BMI) [Ratio] 26.63 kg/m2 Farheen Taylor BUSINESS MACHINE MECHANIC [place] [facility], Inc.; [employer]. 04-13-2021 09:27-0400 Body surface area Derived from formula 1.84 m2 Farheen Taylor LPN [facility], [facility].; [facility]. 04-13-2021 09:27-0400 Body weight 74.84 kg Farheen Taylor LPN [facility], [facility].; [facility], [facility]. 04-13-2021 09:27-0400 Diastolic blood pressure 79 mm[Hg] Farheen Taylor BUSINESS MACHINE MECHANIC [facility], Inc.; [facility], [facility]. 04-13-2021 09:27-0400 Heart rate 79 /min [facility].; [employer] [facility], [facility]. 04-13-2021 09:27-0400 Systolic blood pressure 145 mm[Hg] [facility], [facility].; [facility], [facility]. 01-19-2021 10:51-0400 Diastolic blood pressure 71 mm[Hg] Farheen Taylor LPN [facility], Inc.; [facility], [facility]. 01-19-2021 10:51-0400 Systolic blood pressure 123 mm[Hg] Farheen Taylor LPN [place] [facility], [facility].; [employer] [facility], [facility]. 01-18-2021 07:08-0400 Body height 167.64 cm JayashreeSherley Santana [facility], [facility].; [employer] [facility], [facility]. 01-18-2021 07:08-0400 Body mass index (BMI) [Ratio] 28.57 kg/m2 Jayashree Stuckey [facility], [facility].; [employer] [facility], [facility]. 01-18-2021 07:08-0400 Body surface area Derived from formula 1.9 m2 Shyla Santana LPN [facility], [facility].; [employer], [facility]. 01-18-2021 07:08-0400 Body weight 80.29 kg JayashreeSherley Santana BUSINESS MACHINE MECHANIC [place] [facility], [facility].; [employer], [facility]. 01-18-2021 07:08-0400 Diastolic blood pressure 77 mm[Hg] JayashreeSherley Santana LPN [place] [facility], Inc.; [employer], [employer]. 01-18-2021 07:08-0400 Heart rate 82 /min Shyla Santana [facility].; [facility], Inc. 01-18-2021 07:08-0400 Systolic blood pressure 154 mm[Hg] Shyla Santana BUSINESS MACHINE MECHANIC [facility], [facility].; [facility] 01-02-2021 10:41-0400 Body height 167.64 cm Shyla Santana [facility], Inc.; [facility] Inc[facility] 01-02-2021 10:41-0400 Body mass index (BMI) [Ratio] 28.57 kg/m2 Shyla Santana [facility], Inc.; [employer] 01-02-2021 10:41-0400 Body surface area Derived from formula 1.9 m2 Shyla Santana [facility], [facility].; [facility] Inc[facility] 01-02-2021 10:41-0400 Body weight 80.29 kg Shyla Santana [facility], Inc.; [employer] 01-02-2021 10:41-0400 Diastolic blood pressure 92 mm[Hg] Shyla Santana [facility], Inc.; [employer] [facility] Inc. 01-02-2021 10:41-0400 Heart rate 85 /min Shyla Santana [facility], [facility].; [employer] [facility], Inc. 01-02-2021 10:41-0400 Systolic blood pressure 154 mm[Hg] Shyla Santana BUSINESS MACHINE MECHANIC [facility], Inc.; [employer] [facility], Inc. 12-02-2020 07:45-0500 Body height 167.64 cm Christina Claros MD Work Phone: [facility], [facility].; [employer] 12-02-2020 07:45-0500 Body mass index (BMI) [Ratio] 30.02 kg/m2 Christina Claros MD Work Phone: [place] [facility], Inc.; [employer] 12-02-2020 07:45-0500 Body surface area Derived from formula 1.94 m2 Christina Claros MD Work Phone: [employer] [facility], [employer].; [employer] 12-02-2020 07:45-0500 Body weight 84.37 kg Christina Claros MD Work Phone: [employer], [employer].; [employer] 12-02-2020 07:45-0500 Diastolic blood pressure 63 mm[Hg] Christina Claros MD Work Phone: [employer].; [employer] 12-02-2020 07:45-0500 Heart rate 56 /min Christina lCaros MD Work Phone: [employer].; [employer], [employer]. 12-02-2020 07:45-0500 Systolic blood pressure 136 mm[Hg] Christina Claros MD Work Phone: [employer], [employer].; [employer] 07-04-2020 14:08-0400 Body height 167.64 cm [facility].; [employer] 07-04-2020 14:08-0400 Body mass index (BMI) [Ratio] 29.38 kg/m2 [facility] Inc.; [employer] 07-04-2020 14:08-0400 Body surface area Derived from formula 1.92 m2 [facility], Inc.; [employer] 07-04-2020 14:08-0400 Body temperature 96.7 [degF] [facility], Inc.; [employer], [employer]. 07-04-2020 14:08-0400 Body weight 82.56 kg [facility], Inc.; [employer], [employer]. 07-04-2020 14:08-0400 Diastolic blood pressure 88 mm[Hg] [facility] Inc.; [employer] 07-04-2020 14:08-0400 Heart rate 96 /min [facility], Inc.; [employer]. 07-04-2020 14:08-0400 Inhaled oxygen concentration 20 % [facility].; [facility]. 07-04-2020 14:08-0400 SaO2% (BldA) [Mass fraction] 98 % Jayashree Esther [facility], [facility].; [employer]. 07-04-2020 14:08-0400 Systolic blood pressure 155 mm[Hg] Shyla Santana [facility].; [employer]. 03-07-2020 09:07-0400 Body height 167.64 cm Polly Malone RN [place] [facility].; [employer]. 03-07-2020 09:07-0400 Body mass index (BMI) [Ratio] 28.08 kg/m2 Polly Malone RN [place] [facility] HospitalTun[facility].; [employer] [facility]. 03-07-2020 09:07-0400 Body surface area Derived from formula 1.89 m2 Polly Malone RN [place] [facility].; [employer]. 03-07-2020 09:07-0400 Body temperature 97.1 [degF] Polly Malone RN [place] [facility].; [employer]. 03-07-2020 09:07-0400 Body weight 78.93 kg Polly Malone RN [facility] [employer] [facility].; [employer]. 03-07-2020 09:07-0400 Diastolic blood pressure 74 mm[Hg] Polly Malone RN [facility] [employer] [facility].; [employer]. 03-07-2020 09:07-0400 Heart rate 87 /min Polly Malone RN [facility] [employer] [facility].; [employer]. 03-07-2020 09:07-0400 Systolic blood pressure 124 mm[Hg] Polly Malone RN [employer].; [employer]. 10-12-2019 10:38-0500 Body height 167.64 cm JayashreeSherley Santana [facility], Inc.; [employer] [facility], [employer]. 10-12-2019 10:38-0500 Body mass index (BMI) [Ratio] 28.25 kg/m2 Shyla Santana [facility], Inc.; [employer] [facility], Inc. 10-12-2019 10:38-0500 Body surface area Derived from formula 1.89 m2 Jayashree Esther BUSINESS MACHINE MECHANIC [facility], Inc.; [employer] [facility], [employer]. 10-12-2019 10:38-0500 Body temperature 96.7 [degF] Shyla Santana [facility], Inc.; [employer], [employer]. 10-12-2019 10:38-0500 Body weight 79.38 kg Shyla Santana [facility], Inc.; [employer], [employer]. 10-12-2019 10:38-0500 Diastolic blood pressure 89 mm[Hg] Jayashree Esther [facility], Inc.; [employer], [employer]. 10-12-2019 10:38-0500 Heart rate 81 /min Jayashree Stuckey [facility], [facility].; [employer], [employer]. 10-12-2019 10:38-0500 Inhaled oxygen concentration 20 % [facility].; [employer], [employer]. 10-12-2019 10:38-0500 SaO2% (BldA) [Mass fraction] 97 % [facility].; [employer], [employer]. 10-12-2019 10:38-0500 Systolic blood pressure 148 mm[Hg] Shyla Santana BUSINESS MACHINE MECHANIC [facility], [facility].; [employer], [employer]. 07-10-2019 06:55-0400 Body height 167.64 cm Polly Malone RN [place] [facility], [employer].; [employer], [employer]. 07-10-2019 06:55-0400 Body mass index (BMI) [Ratio] 27.6 kg/m2 Polly Malone RN [place] [facility], [employer].; [employer]. 07-10-2019 06:55-0400 Body surface area Derived from formula 1.87 m2 Polly Malone RN [employer] 07-10-2019 06:55-0400 Body weight 77.57 kg Polly Malone RN [employer], [employer].; [employer] 07-10-2019 06:55-0400 Diastolic blood pressure 67 mm[Hg] Polly Malone RN [employer], [employer].; [employer] 07-10-2019 06:55-0400 Heart rate 57 /min Polly Malone RN [employer], [employer].; [employer] 07-10-2019 06:55-0400 Systolic blood pressure 123 mm[Hg] Polly Malone RN [employer], [employer].; [employer] 06-09-2019 11:44-0400 Body height 167.64 cm Shyla Santana LPN [employer], [employer].; [employer] 06-09-2019 11:44-0400 Body mass index (BMI) [Ratio] 27.12 kg/m2 JayashreeSherley Santana LPN [employer], [employer].; [employer] 06-09-2019 11:44-0400 Body surface area Derived from formula 1.86 m2 Shyla Santana LPN [employer] 06-09-2019 11:44-0400 Body temperature 97.8 [degF] Shyla Santana LPN [employer].; [employer] 06-09-2019 11:44-0400 Body weight 76.2 kg Shyla Santana LPN [employer].; [employer] 06-09-2019 11:44-0400 Diastolic blood pressure 71 mm[Hg] Shyla Santana LPN [employer].; [employer] 06-09-2019 11:44-0400 Heart rate 73 /min Shyla Santana LPN [employer], [employer].; [employer] 06-09-2019 11:44-0400 Inhaled oxygen concentration 20 % Shyla Santana BUSINESS MACHINE MECHANIC [employer]. 06-09-2019 11:44-0400 SaO2% (BldA) [Mass fraction] 98 % Shyla Santana BUSINESS MACHINE MECHANIC [employer].; [employer] 06-09-2019 11:44-0400 Systolic blood pressure 150 mm[Hg] Shyla Santana SANGITA [employer], [employer].; [employer] 05-29-2019 15:29-0400 Body height 167.64 cm [facility]oceline Almazan [facility].; [employer]. 05-29-2019 15:29-0400 Body mass index (BMI) [Ratio] 26.79 kg/m2 Joceline [facility]mazan [facility].; [employer]. 05-29-2019 15:29-0400 Body surface area Derived from formula 1.85 m2 Joceline Almazan BUSINESS MACHINE MECHANIC [employer].; [employer]. 05-29-2019 15:29-0400 Body weight 75.3 kg Joceline Almazan BUSINESS MACHINE MECHANIC [employer].; [employer], [employer]. 05-29-2019 15:29-0400 Diastolic blood pressure 80 mm[Hg] Joceline Almazan LPN [employer] [employer].; [employer]. 05-29-2019 15:29-0400 Heart rate 84 /min Joceline Almazan BUSINESS MACHINE MECHANIC [employer], [employer].; [employer]. 05-29-2019 15:29-0400 Systolic blood pressure 135 mm[Hg] Joceline Almazan BUSINESS MACHINE MECHANIC [employer].; [employer]. 02-16-2019 07:55-0400 Body height 167.64 cm Polly Malone RN [employer], [employer].; [employer]. 02-16-2019 07:55-0400 Body mass index (BMI) [Ratio] 28.57 kg/m2 Polly Malone RN [employer].; [employer]. 02-16-2019 07:55-0400 Body surface area Derived from formula 1.9 m2 Polly Malone RN [employer].; [employer]. 02-16-2019 07:55-0400 Body temperature 97.2 [degF] Polly Malone RN [employer].; [employer]. 02-16-2019 07:55-0400 Body weight 80.29 kg Polly Malone RN [employer].; [employer]. 02-16-2019 07:55-0400 Diastolic blood pressure 78 mm[Hg] Polly Malone RN [employer].; [employer]. 02-16-2019 07:55-0400 Heart rate 82 /min Polly Malone RN [employer].; [employer]. 02-16-2019 07:55-0400 Systolic blood pressure 149 mm[Hg] Polly Malone RN [employer].; [employer]. 01-26-2019 14:07-0400 Body height 167.64 cm Hermelindailee L Vess SANGITA [employer].; [employer]. 01-26-2019 14:07-0400 Body mass index (BMI) [Ratio] 28.57 kg/m2 Neilee L Vess SANGITA [employer]. 01-26-2019 14:07-0400 Body surface area Derived from formula 1.9 m2 Neilee L Vess SANGITA [employer].; [employer]. 01-26-2019 14:07-0400 Body temperature 97.6 [degF] Neilee L Vess SANGITA [employer].; [employer]. 01-26-2019 14:07-0400 Body weight 80.29 kg Neilee L Vess BUSINESS MACHINE MECHANIC [employer]. 01-26-2019 14:07-0400 Diastolic blood pressure 73 mm[Hg] Neilee L Vess BUSINESS MACHINE MECHANIC [employer].; [employer]. 01-26-2019 14:07-0400 Heart rate 79 /min Nedimase Dinora Vess BUSINESS MACHINE MECHANIC [employer], [employer].; [employer]. 01-26-2019 14:07-0400 Systolic blood pressure 136 mm[Hg] Neilee L Vess BUSINESS MACHINE MECHANIC [employer], [employer].; [employer] 01-09-2019 07:20-0400 Body height 167.64 cm Joceline Grissom Tha BUSINESS MACHINE MECHANIC [employer], [employer].; [employer]. 01-09-2019 07:20-0400 Body mass index (BMI) [Ratio] 28.41 kg/m2 Joceline Patellabach [facility].; [employer] 01-09-2019 07:20-0400 Body surface area Derived from formula 1.89 m2 Joceline Praveena RebolledoTha [facility] Inc.; [employer] 01-09-2019 07:20-0400 Body weight 79.83 kg Joceline Grissom Tha BUSINESS MACHINE MECHANIC [employer], [employer].; [employer]. 01-09-2019 07:20-0400 Diastolic blood pressure 79 mm[Hg] Joceline Grissom Tha SANGITA [employer], [employer].; [employer] 01-09-2019 07:20-0400 Heart rate 57 /min Joceline Grissom Tha BUSINESS MACHINE MECHANIC [employer].; [employer]. 01-09-2019 07:20-0400 Systolic blood pressure 133 mm[Hg] Joceline Grissom Tha BUSINESS MACHINE MECHANIC [employer].; [employer]. 12-15-2018 13:42-0400 Body height 170.18 cm Hermelindailee L Vess BUSINESS MACHINE MECHANIC [employer].; [employer]. 12-15-2018 13:42-0400 Body mass index (BMI) [Ratio] 27.88 kg/m2 Neilee L Vess BUSINESS MACHINE MECHANIC [employer].; [employer]. 12-15-2018 13:42-0400 Body surface area Derived from formula 1.92 m2 Neilee L Vess BUSINESS MACHINE MECHANIC [employer] [employer].; [employer] 12-15-2018 13:42-0400 Body weight 80.74 kg Kamala Eason BUSINESS MACHINE MECHANIC [employer].; [employer] 12-15-2018 13:42-0400 Diastolic blood pressure 83 mm[Hg] Kamala Eason BUSINESS MACHINE MECHANIC [employer] 12-15-2018 13:42-0400 Heart rate 84 /min Kamala [facility]ason [facility] [employer] 12-15-2018 13:42-0400 Systolic blood pressure 137 mm[Hg] Kamala Eason BUSINESS MACHINE MECHANIC [employer] 11-29-2018 08:07-0500 Body height 170.18 cm Shyla Santana BUSINESS MACHINE MECHANIC [employer].; [employer] 11-29-2018 08:07-0500 Body mass index (BMI) [Ratio] 28.19 kg/m2 Shyla [facility]ana [facility] [employer] 11-29-2018 08:07-0500 Body surface area Derived from formula 1.93 m2 Shyla Santana BUSINESS MACHINE MECHANIC [employer].; [employer] 11-29-2018 08:07-0500 Body temperature 97.3 [degF] Shyla Santana BUSINESS MACHINE MECHANIC [employer].; [employer] 11-29-2018 08:07-0500 Body weight 81.65 kg Shyla Santana SANGITA [employer].; [employer] 11-29-2018 08:07-0500 Diastolic blood pressure 77 mm[Hg] Shyla Santana BUSINESS MACHINE MECHANIC [employer].; [employer] 11-29-2018 08:07-0500 Heart rate 72 /min Shyla Santana BUSINESS MACHINE MECHANIC [employer] [employer].; [employer] 11-29-2018 08:07-0500 Inhaled oxygen concentration 20 % Shyla Whelanuckey [facility] [employer], [employer]. 11-29-2018 08:07-0500 SaO2% (BldA) [Mass fraction] 99 % Shyla Santana [facility], Inc.; [employer] 11-29-2018 08:07-0500 Systolic blood pressure 150 mm[Hg] Shyla Santana BUSINESS MACHINE MECHANIC [place] [facility], Inc.; [employer], [employer]. 11-12-2018 10:43-0500 Body height 170.[address] [facility], Inc.; [employer], [employer]. 11-12-2018 10:43-0500 Body mass index (BMI) [Ratio] 28.19 kg/m2 Jayashree Esther [facility], Inc.; [employer], [employer]. 11-12-2018 10:43-0500 Body surface area Derived from formula 1.93 m2 Jayashree Esther BUSINESS MACHINE MECHANIC [place] [facility], Inc.; [employer], [employer]. 11-12-2018 10:43-0500 Body temperature 96.5 [degF] Shyla Santana [facility], Inc.; [employer], [employer]. 11-12-2018 10:43-0500 Body weight 81.65 kg Shyla Santana BUSINESS MACHINE MECHANIC [place] [facility], Inc.; [employer], [employer]. 11-12-2018 10:43-0500 Diastolic blood pressure 81 mm[Hg] Shyla Santana BUSINESS MACHINE MECHANIC [place] [facility], Inc.; [employer], [employer]. 11-12-2018 10:43-0500 Heart rate 79 /min Shyla Santana BUSINESS MACHINE MECHANIC [place] [facility], Inc.; [employer], [employer]. 11-12-2018 10:43-0500 Inhaled oxygen concentration 20 % Shyla Santana [facility], Inc.; [employer], [employer]. 11-12-2018 10:43-0500 SaO2% (BldA) [Mass fraction] 95 % Shyla Santana BUSINESS MACHINE MECHANIC [place] [facility], Inc.; [employer]. 11-12-2018 10:43-0500 Systolic blood pressure 152 mm[Hg] Shyla Santana LPN [facility], Inc.; [employer] 07-08-2018 11:13-0400 Body height 170.18 cm Shyla Santana [facility], Inc.; [employer] 07-08-2018 11:13-0400 Body mass index (BMI) [Ratio] 27.1 kg/m2 Jayashree Esther [facility], Inc.; [employer] 07-08-2018 11:13-0400 Body surface area Derived from formula 1.[address] [facility], Inc.; [employer] 07-08-2018 11:13-0400 Body temperature 97.9 [degF] JayashreeSherley Santana [facility], Inc.; [employer], [employer] 07-08-2018 11:130400 Body weight 78.[address] [facility] [employer] 07-08-2018 11:13-0400 Diastolic blood pressure 68 mm[Hg] Shyla Santana [facility] [employer] 07-08-2018 11:13-0400 Heart rate 83 /min JayashreeSherley Santana [facility] [employer] 07-08-2018 11:13-0400 Systolic blood pressure 130 mm[Hg] Shyla Santana [facility] [employer] 07-04-2018 06:57-0400 Body height 170.18 cm Polly Malone RN [place] [facility] [employer], [employer]. 07-04-2018 06:57-0400 Body mass index (BMI) [Ratio] 26.78 kg/m2 Polly Malone RN [place] [facility] [employer] 07-04-2018 06:57-0400 Body surface area Derived from formula 1.89 m2 Polly Malone RN [place] [facility] [employer], [employer]. 07-04-2018 06:57-0400 Body weight 77.57 kg Polly Malone RN [employer] [facility] [employer] 07-04-2018 06:57-0400 Diastolic blood pressure 78 mm[Hg] Polly Malone RN [employer] [employer] 07-04-2018 06:57-0400 Heart rate 61 /min Polly Malone RN [employer] [employer] 07-04-2018 06:57-0400 Systolic blood pressure 129 mm[Hg] Polly Malone RN [employer] [employer] 01-03-2018 07:19-0400 Body height 175.26 cm Kirsten Mireles LPN [employer] [employer] 01-03-2018 07:19-0400 Body mass index (BMI) [Ratio] 27.5 kg/m2 Kirsten Mireles LPN [employer] [employer] 01-03-2018 07:19-0400 Body surface area Derived from formula 2 m2 Kirsten Mireles LPN [facility] [employer] 01-03-2018 07:19-0400 Body weight 84.48 kg Kirsten Mireles LPN [facility] [employer] 01-03-2018 07:19-0400 Diastolic blood pressure 71 mm[Hg] Kirsten Mireles LPN [facility] [employer] 01-03-2018 07:19-0400 Heart rate 75 /min Kirsten Mireles LPN [employer] [employer] 01-03-2018 07:19-0400 Systolic blood pressure 138 mm[Hg] Kirsten Mireles LPN [employer] [employer] 09-17-2017 11:54-0500 Body height 170.18 cm Jayashree Abie SANGITA [facility] [employer] 09-17-2017 11:54-0500 Body mass index (BMI) [Ratio] 28.82 kg/m2 Shyla Santana [employer] 09-17-2017 11:54-0500 Body surface area Derived from formula 1.95 m2 Shyla Santana [employer] [employer] 09-17-2017 11:54-0500 Body weight 83.46 kg [facility] [employer] 09-17-2017 11:54-0500 Diastolic blood pressure 76 mm[Hg] [facility]yla [facility] [employer] 09-17-2017 11:54-0500 Heart rate 73 /min Shyla [facility]ana [facility] [employer] 09-17-2017 11:54-0500 Systolic blood pressure 117 mm[Hg] Shyla Santana [facility] [employer] 07-10-2017 06:52-0400 Body height 170.18 cm Valorie Edmund Mutkhaibaugh [employer] 07-10-2017 06:52-0400 Body mass index (BMI) [Ratio] 27.72 kg/m2 Valorie Edmund Mutersbaugh [employer] 07-10-2017 06:52-0400 Body surface area Derived from formula 1.92 m2 Valorie K Mutersbaugh [employer] [employer] 07-10-2017 06:52-0400 Body weight 80.29 kg Valorie K Mutersbaugh [employer] 07-10-2017 06:52-0400 Diastolic blood pressure 70 mm[Hg] Valorie K Mutersbaugh [employer] 07-10-2017 06:52-0400 Heart rate 69 /min Valorie K Mutersbaugh [employer] 07-10-2017 06:52-0400 Systolic blood pressure 111 mm[Hg] Valorie Edmund Barnhartkhaijoe [facility] [employer] 01-16-2017 07:14-0400 Body height 170.18 cm [facility] [employer] 01-16-2017 07:14-0400 Body mass index (BMI) [Ratio] 28.5 kg/m2 [facility] [employer] 01-16-2017 07:14-0400 Body surface area Derived from formula 1.94 m2 [place] [facility] [employer] 01-16-2017 07:14-0400 Body weight 82.56 kg [facility] [employer] 01-16-2017 07:14-0400 Diastolic blood pressure 82 mm[Hg] Shyla [facility]ana [facility] [employer] 01-16-2017 07:14-0400 Heart rate 75 /min [facility] [employer] 01-16-2017 07:14-0400 Systolic blood pressure 124 mm[Hg] Jayashree Stuckey [facility] [employer] 11-16-2016 09:58-0500 Body temperature 98.1 [degF] Kirsten [facility]ireles [facility] [employer] 11-16-2016 09:58-0500 Body weight 83.01 kg Kirsten Mireles [facility] [employer], [employer]. 11-16-2016 09:58-0500 Diastolic blood pressure 85 mm[Hg] Kirsten Mireles [facility] [employer] 11-16-2016 09:58-0500 Heart rate 73 /min Kirsten Mireles [facility] [employer] 11-16-2016 09:58-0500 Systolic blood pressure 130 mm[Hg] Kirsten Mireles LPN [employer] 08-10-2016 12:11-0500 Body height 170.18 cm Christina Claros MD Work Phone: [employer] 08-10-2016 12:11-0500 Body mass index (BMI) [Ratio] 26.31 kg/m2 Christina Claros MD Work Phone: [employer] 08-10-2016 12:11-0500 Body surface area Derived from formula 1.88 m2 Christina Claros MD Work Phone: [employer] 08-10-2016 12:11-0500 Body weight 76.2 kg Christina Claros MD Work Phone: [employer] 08-10-2016 12:11-0500 Diastolic blood pressure 74 mm[Hg] Christina Claros MD Work Phone: [employer] 08-10-2016 12:11-0500 Heart rate 96 /min Christina Claros MD Work Phone: [employer].; [employer]. 08-10-2016 12:11-0500 Systolic blood pressure 130 mm[Hg] Christina Claros MD Work Phone: [employer].; [employer]. 05-25-2016 13:28-0400 Body height 170.18 cm Valorie K Mutersbaugh [employer] 05-25-2016 13:28-0400 Body mass index (BMI) [Ratio] 25.37 kg/m2 Valorie K Mutersbaugh [employer] 05-25-2016 [id number] Body surface area Derived from formula 1.85 m2 Valorie K Mutersbaugh [employer] [place] [facility] [employer] 05-25-2016 13:28-0400 Body weight 73.48 kg Valorie Miranda [employer]INE [employer] [facility] [employer] 05-25-2016 13:28-0400 Diastolic blood pressure 74 mm[Hg] Valorie Miranda [employer] [facility] [employer] 05-25-2016 13:28-0400 Heart rate 91 /min Valorie Miranda [employer] 05-25-2016 13:28-0400 Systolic blood pressure 128 mm[Hg] Valorie Miranda [employer] [facility] [employer] 01-13-2016 09:07-0400 Body height 170.18 cm Shyla Santana [employer] [facility] [employer] 01-13-2016 09:07-0400 Body mass index (BMI) [Ratio] 27.1 kg/m2 [facility]yla [facility] [employer], [employer]. 01-13-2016 09:07-0400 Body surface area Derived from formula 1.9 m2 Shyla Santana [employer] [facility] [employer] 01-13-2016 09:07-0400 Body temperature 96.2 [degF] Shyla Santana [employer] 01-13-2016 09:07-0400 Body weight 78.47 kg Shyla Santana [employer] [employer], [employer]. 01-13-2016 09:07-0400 Diastolic blood pressure 85 mm[Hg] Shyla Santana [employer] [employer] 01-13-2016 09:07-0400 Heart rate 68 /min Shyla Santana [employer], [employer]. 01-13-2016 09:07-0400 Inhaled oxygen concentration 20 % Shyla Santana [facility] [employer], [employer]. 01-13-2016 09:07-0400 SaO2% (BldA) [Mass fraction] 99 % [facility] [employer] 01-13-2016 09:07-0400 Systolic blood pressure 126 mm[Hg] Jayashree Esther [facility] [employer] 11-21-2015 15:35-0500 Body weight 79.38 kg [facility]irsten [facility]les [facility] [employer], [employer]. 11-21-2015 15:35-0500 Diastolic blood pressure 85 mm[Hg] Kirsten Mireles [facility] [employer] 11-21-2015 15:35-0500 Heart rate 86 /min Kirsten Mireles [facility] [employer] 11-21-2015 15:35-0500 Systolic blood pressure 157 mm[Hg] Kirsten [facility]ireles [facility] [employer], [employer]. 11-15-2015 08:12-0500 Body height 170.[address] [facility] [employer] 11-15-2015 08:12-0500 Body mass index (BMI) [Ratio] 28.5 kg/m2 [facility] [employer] 11-15-2015 08:12-0500 Body surface area Derived from formula 1.94 m2 [facility] [employer], [employer]. 11-15-2015 08:12-0500 Body weight 82.[address] [facility] [employer] 11-15-2015 08:12-0500 Diastolic blood pressure 80 mm[Hg] Jayashree Abie [facility] [employer] 11-15-2015 08:12-0500 Heart rate 103 /min Shyla Santana LPN [place] [facility] [employer] 11-15-2015 08:12-0500 Systolic blood pressure 123 mm[Hg] Shyla Santana LPN [place] [facility] [employer] 09-14-2015 06:58-0500 Body height 170.[address] [facility] [employer] 09-14-2015 06:58-0500 Body mass index (BMI) [Ratio] 27.57 kg/m2 Jayashree Esther [facility] [employer] 09-14-2015 06:58-0500 Body surface area Derived from formula 1.92 m[address] [facility] [employer] 09-14-2015 06:58-0500 Body weight 79.83 kg [facility]yla [facility] [employer] 09-14-2015 06:58-0500 Diastolic blood pressure 85 mm[Hg] Shyla [facility]ana [facility] [employer] 09-14-2015 06:58-0500 Heart rate 75 /min JayashreeSherley [facility]ana [facility] [employer] 09-14-2015 06:58-0500 Systolic blood pressure 126 mm[Hg] JayashreeSherley [facility]ana [facility] [employer] 08-10-2015 14:36-0500 Body height 170.18 cm Jayashree [facility] [employer] 08-10-2015 14:36-0500 Body mass index (BMI) [Ratio] 28.04 kg/m2 [facility] [employer] 08-10-2015 14:36-0500 Body surface area Derived from formula 1.93 m2 [facility] [employer] [facility] [employer] 08-10-2015 14:36-0500 Body weight 81.19 kg Shyla [facility]ana [facility]. 08-10-2015 14:36-0500 Diastolic blood pressure 90 mm[Hg] Shyla [facility]ana [facility] [employer] 08-10-2015 14:36-0500 Heart rate 64 /min Shyla [facility]ana [facility] [employer] 08-10-2015 14:36-0500 Systolic blood pressure 147 mm[Hg] Shyla [facility]ana [facility] [employer], [facility]. 03-16-2015 06:59-0400 Body height 170.18 cm Valorie K Mutersbaugh [facility] [employer], [employer]. 03-16-2015 06:59-0400 Body mass index (BMI) [Ratio] 26.94 kg/m2 Valorie K [facility]ersbaugh [facility] [employer] 03-16-2015 06:59-0400 Body surface area Derived from formula 1.9 m2 Valorie K [facility]ersbaugh [facility] [employer], [employer]. 03-16-2015 06:59-0400 Body weight 78.02 kg Valorie K [facility]baugh [facility] [employer]. 03-16-2015 06:59-0400 Diastolic blood pressure 72 mm[Hg] Valorie K Mutersbaugh [employer], [facility].; [employer], [employer]. 03-16-2015 06:59-0400 Heart rate 59 /min Valorie K [facility]ersbaugh [facility] [employer], [employer]. 03-16-2015 06:59-0400 Systolic blood pressure 114 mm[Hg] Valorie K Mutersbaugh [employer] [employer], [employer]. 09-15-2014 07:00-0500 Body height 170.18 cm Shyla [facility]ana [facility] [employer], [employer]. 09-15-2014 07:00-0500 Body mass index (BMI) [Ratio] 28.04 kg/m2 Shyla Santana [facility] [employer] 09-15-2014 07:00-0500 Body surface area Derived from formula 1.[address] [facility] [employer] 09-15-2014 07:00-0500 Body weight 81.19 kg Shyla Santana [facility], [facility].; [employer], [employer]. 09-15-2014 07:00-0500 Diastolic blood pressure 78 mm[Hg] Shyla Santana [facility] [employer] 09-15-2014 07:00-0500 Heart rate 87 /min Jayashree Esther [facility] [employer], [employer]. 09-15-2014 07:00-0500 Systolic blood pressure 125 mm[Hg] [facility]yla [facility] [employer] 08-02-2014 18:23-0500 Body temperature 97.4 [degF] Kirsten Mireles [facility] [employer] 08-02-2014 18:23-0500 Body weight 81.[address] [facility] [employer], [employer]. 08-02-2014 18:23-0500 Diastolic blood pressure 74 mm[Hg] Kirsten [facility]ireles [facility] [employer] [employer]. 08-02-2014 18:23-0500 Heart rate 90 /min Kirsten [facility]ireles [facility] [employer], [employer]. 08-02-2014 18:23-0500 Inhaled oxygen concentration 20 % Kirsten Mireles [facility] [employer], [employer]. 08-02-2014 18:23-0500 SaO2% (BldA) [Mass fraction] 98 % Kirsten Mireles [facility], [employer]. 08-02-2014 18:23-0500 Systolic blood pressure 126 mm[Hg] Kirsten Mireles SANGITA [facility] [employer] 04-16-2014 07:06-0400 Body weight 76.66 kg Kirsten Mireles SANGITA [place] [facility] [employer] 04-16-2014 07:06-0400 Diastolic blood pressure 78 mm[Hg] Kirsten Mireles SANGITA [facility] [facility] [employer] 04-16-2014 07:06-0400 Heart rate 76 /min Kirsten Mireles [employer] [employer] 04-16-2014 07:06-0400 Systolic blood pressure 120 mm[Hg] Kirsten Mireles SANGITA [facility] [employer] 03-09-2014 15:17-0400 Body height 170.18 cm Shyla Santana [employer]ACH[employer] [facility] [employer] 03-09-2014 15:17-0400 Body mass index (BMI) [Ratio] 25.53 kg/m2 Shyla [facility]ana [facility] [employer] 03-09-2014 15:17-0400 Body surface area Derived from formula 1.85 m2 Shyla Santana [employer]ACHINE [employer]CH[employer] [facility] [employer] 03-09-2014 15:17-0400 Body weight 73.94 kg Shyla Santana [employer] [employer] 03-09-2014 15:17-0400 Diastolic blood pressure 87 mm[Hg] Shyla Santana [employer]INE [employer] [employer] 03-09-2014 15:17-0400 Heart rate 87 /min JayashreeSherley Santana BUSINESS [employer]ACHINE [employer]CH[employer] [employer] 03-09-2014 15:17-0400 Systolic blood pressure 149 mm[Hg] Shyla Santana BUSINESS [employer]ACHINE [employer]CH[employer] [employer] 01-05-2014 10:14-0400 Body weight 73.94 kg Shyla Santana BUSINESS [employer]ACHINE [employer]CH[employer] [facility] 01-05-2014 10:14-0400 Diastolic blood pressure 86 mm[Hg] Shyla Santana [facility] 01-05-2014 10:14-0400 Heart rate 68 /min JayashreeSherley Santana [facility], [facility] [place] [facility] 01-05-2014 10:14-0400 Systolic blood pressure 142 mm[Hg] Shyla Santana [facility] [place] [facility] 12-16-2013 09:210400 Body height 170.18 cm Shyla Santana [facility], [facility] [place] [facility] 12-16-2013 09:21-0400 Body mass index (BMI) [Ratio] 24.9 kg/m2 [facility] [place] [facility] 12-16-2013 09:21-0400 Body surface area Derived from formula 1.83 m2 [facility] [place] [facility] 12-16-2013 09:21-0400 Body weight 72.12 kg Shyla Santana [employer]ACHINE [employer]CH[employer] [facility] [place] [facility] 12-16-2013 09:21-0400 Diastolic blood pressure 79 mm[Hg] Shyla Santana [facility] [place] [facility] 12-16-2013 09:21-0400 Heart rate 79 /min Jayashree Stuckey [facility], [facility] [place] [facility] 12-16-2013 09:21-0400 Systolic blood pressure 130 mm[Hg] Jayashree Stuckey [facility] [place] [facility] 11-25-2013 09:25-0500 Body height 170.18 cm Patricia Loomis [facility], [facility].; [place] [employer] 11-25-2013 09:25-0500 Body mass index (BMI) [Ratio] 25.12 kg/m2 Patricia Wemaryjane QUESADA [facility], [facility].; [facility] [employer] [facility]. 11-25-2013 09:25-0500 Body surface area Derived from formula 1.84 m2 Patriciasara Loomis LPN [place] [facility], [facility].; [employer]. 11-25-2013 09:25-0500 Body weight 72.75 kg Patricia Ebonie QUESADA [place] [employer] [facility], [facility].; [facility] [facility]. 11-25-2013 09:25-0500 Diastolic blood pressure 76 mm[Hg] [facility], [facility].; [employer] 11-25-2013 09:25-0500 Heart rate 71 /min Patricia Ebonie QUESADA [place] [employer] [facility] [facility]. 11-25-2013 09:25-0500 Systolic blood pressure 127 mm[Hg] Patricia [facility]bonie [facility], [facility].; [employer], [facility]. 10-30-2013 07:34-0500 Body temperature 96.2 [degF] Kirsten Mireles [facility], [facility].; [employer], [facility]. 10-30-2013 07:34-0500 Body weight 70.[address] [facility], [facility].; [employer]. 10-30-2013 07:34-0500 Diastolic blood pressure 82 mm[Hg] Kirsten Mireles [facility], [facility].; [employer], [employer]. 10-30-2013 07:34-0500 Heart rate 66 /min Kirsten Mireles [facility], [facility].; [employer]. 10-30-2013 07:34-0500 Inhaled oxygen concentration 20 % Kirsten Mireles [facility], [facility].; [employer], [employer]. 10-30-2013 07:34-0500 SaO2% (BldA) [Mass fraction] 97 % Kirsten Mireles [facility], [facility].; [employer]. 10-30-2013 07:34-0500 Systolic blood pressure 136 mm[Hg] Kirsten Mireles LPN [employer].; [employer]. 09-05-2013 09:01-0500 Body height 170.18 cm Marilu Ledbetter RN [place] [employer]. 09-05-2013 09:01-0500 Body mass index (BMI) [Ratio] 23.57 kg/m2 Marilu Ledbetter RN [place] [facility].; [employer]. 09-05-2013 09:01-0500 Body surface area Derived from formula 1.79 m2 Marilu Ledbetter RN [employer].; [employer]. 09-05-2013 09:01-0500 Body temperature 97.8 [degF] Marilu Ledbetter RN [employer].; [employer]. 09-05-2013 09:01-0500 Body weight 68.27 kg Marilu Ledbetter RN [employer].; [employer]. 09-05-2013 09:01-0500 Diastolic blood pressure 67 mm[Hg] Marilu Ledbetter RN [employer].; [employer]. 09-05-2013 09:01-0500 Heart rate 62 /min Marilu Ledbetter RN [employer].; [employer]. 09-05-2013 09:01-0500 Systolic blood pressure 113 mm[Hg] Marilu Ledbetter RN [employer].; [employer]. 08-14-2013 07:09-0500 Body weight 68.49 kg Kirsten Mireles LPN [employer].; [employer]. 08-14-2013 07:09-0500 Diastolic blood pressure 66 mm[Hg] Kirsten Mireles LPN [employer].; [employer]. 08-14-2013 07:09-0500 Heart rate 80 /min Kirsten Mireles LPN [employer].; [employer]. 08-14-2013 07:09-0500 Systolic blood pressure 114 mm[Hg] Kirsten Mireles LPN [employer] 07-13-2013 10:51-0400 Body weight 68.95 kg Kirsten Mireles SANGITA [employer] 07-13-2013 10:51-0400 Diastolic blood pressure 73 mm[Hg] Kirsten Rolando Mireles [employer]CH[employer] 07-13-2013 10:51-0400 Heart rate 109 /min Kirsten Mireles [employer] [employer] 07-13-2013 10:51-0400 Systolic blood pressure 123 mm[Hg] Kirsten Rolando Mireles [employer] 06-03-2013 07:58-0400 Body weight 72.58 kg Shyla Santana [employer] 06-03-2013 07:58-0400 Diastolic blood pressure 80 mm[Hg] Shyla Santana [facility] [employer] 06-03-2013 07:58-0400 Heart rate 66 /min Shyla Santana [facility] [employer] 06-03-2013 07:58-0400 Systolic blood pressure 152 mm[Hg] Shyla Santana [employer] 11-24-2012 17:49-0500 Body temperature 96.8 [degF] Kirsten Mireles LPN [employer] 11-24-2012 17:49-0500 Body weight 75.3 kg Kirsten Rolando Mireles [employer] 11-24-2012 17:49-0500 Diastolic blood pressure 82 mm[Hg] Kirsten Mireles LPN [employer] 11-24-2012 17:49-0500 Heart rate 85 /min Kirsten Mireles LPN [employer] [facility] 11-24-2012 17:49-0500 Systolic blood pressure 132 mm[Hg] Kirsten E Chi QUESADA [employer] [facility] [employer] 09-15-2012 09:20-0500 Body temperature 97.6 [degF] Kirsten Marshall Chi [employer] [facility] [employer] 09-15-2012 09:20-0500 Body weight 74.84 kg [facility]ando [facility] [employer] 09-15-2012 09:20-0500 Diastolic blood pressure 84 mm[Hg] Kirsten Mireles [employer] 09-15-2012 09:20-0500 Heart rate 76 /min [facility] [employer] 09-15-2012 09:20-0500 Systolic blood pressure 134 mm[Hg] Kirsten Mireles [employer] 05-02-2012 08:06-0400 Body height 170.18 cm [facility] [employer] 05-02-2012 08:06-0400 Body mass index (BMI) [Ratio] 24.9 kg/m2 [facility]ree Stuckey [facility] [employer] 05-02-2012 08:06-0400 Body surface area Derived from formula 1.83 m2 Jayashree Esther [facility] [employer] 05-02-2012 08:06-0400 Body weight 72.12 kg Shyla Santana [facility] [employer] 05-02-2012 08:06-0400 Diastolic blood pressure 81 mm[Hg] [facility] [employer] 05-02-2012 08:06-0400 Heart rate 64 /min [facility]ashree Esther [facility] [employer] 05-02-2012 08:06-0400 Systolic blood pressure 126 mm[Hg] Shyla Sierracedric QUESADA [facility] [employer] 10-11-2011 14:53-0500 Body height 170.18 cm Christina Claros MD Work Phone: [facility] [employer] 10-11-2011 14:53-0500 Body mass index (BMI) [Ratio] 25.84 kg/m2 Christina Claros MD Work Phone: [facility] [employer] 10-11-2011 14:53-0500 Body surface area Derived from formula 1.86 m2 Christina Claros MD Work Phone: [facility] [employer] 10-11-2011 14:53-0500 Body weight 74.84 kg Christina Claros MD Work Phone: [employer] [facility] 10-11-2011 14:53-0500 Diastolic blood pressure 84 mm[Hg] Christina Claros MD Work Phone: [employer] 10-11-2011 14:53-0500 Heart rate 80 /min Christina Claros MD Work Phone: [facility] [employer] 10-11-2011 14:53-0500 Systolic blood pressure 136 mm[Hg] Christina Claros MD Work Phone: [facility] [employer] 06-15-2011 07:46-0400 Body weight 73.03 kg Kirsten Mireles LPN [facility] [employer] 06-15-2011 07:46-0400 Diastolic blood pressure 67 mm[Hg] Kirsten Mireles LPN [employer] 06-15-2011 07:46-0400 Heart rate 61 /min Kirsten Mireles LPN [employer] [facility]. 06-15-2011 07:46-0400 Systolic blood pressure 109 mm[Hg] Kirsten Mireles LPN [employer] 06-30-2010 07:14-0400 Body temperature 96 [degF] Kirsten Marshall Chi QUESADA [employer] 06-30-2010 07:14-0400 Body weight 69.85 kg Kirsten Marshall Chi [employer] 06-30-2010 07:14-0400 Diastolic blood pressure 79 mm[Hg] Kirsten Mireles LPN [employer] 06-30-2010 07:14-0400 Heart rate 74 /min Kirsten Rolando Mireles [facility] [employer] 06-30-2010 07:14-0400 Systolic blood pressure 121 mm[Hg] Kirsten Marshall Chi [employer] Encounters Encounter Date Encounter Type Care Provider Facility Start: 10-24-2023 End: 10-24-2023 Christina Claros MD Work Phone: [employer] Start: 10-17-2023 End: 10-17-2023 Office outpatient visit 15 minutes Christina Claros MD Work Phone: [facility]. Start: 10-10-2023 End: 10-10-2023 ambulatory CHRISTINA CLAROS [facility] Start: 10-10-2023 End: 10-10-2023 Office outpatient visit 15 minutes Christina Claros MD Work Phone: [employer] Start: 10-07-2023 End: 10-07-2023 Christina Claros MD Work Phone: [facility]. Start: 09-26-2023 End: 09-26-2023 Christina Claros MD Work Phone: [facility]. Start: 09-17-2023 End: 09-17-2023 Office outpatient visit 15 minutes Christina Claros MD Work Phone: [facility]. Start: 07-17-2023 End: 07-17-2023 Office outpatient visit 15 minutes Christina Claros MD Work Phone: [facility]. Start: 05-23-2023 End: 05-24-2023 Christina Claros MD Work Phone: [facility]. Start: 05-16-2023 End: 05-16-2023 Office outpatient visit 15 minutes Christina Claros MD Work Phone: [facility]. Start: 04-23-2023 End: 04-23-2023 Christina Claros MD Work Phone: [facility]. Start: 03-25-2023 End: 03-26-2023 Emergency department patient visit FOREST Castro PANTERA [facility] Start: 03-18-2023 End: 03-20-2023 Christina Claros MD Work Phone: [facility]. Start: 03-18-2023 End: 03-18-2023 Christina Claros MD Work Phone: [facility]. Start: 02-28-2023 End: 02-28-2023 ambulatory [facility] Start: 02-19-2023 End: 02-19-2023 Office outpatient visit 15 minutes Christina Claros MD Work Phone: [facility]. Start: 01-03-2023 End: 01-03-2023 Office outpatient visit 15 minutes Christina Claros MD Work Phone: [facility]. Start: 12-27-2022 End: 12-27-2022 ambulatory [facility] Start: 12-27-2022 End: 12-27-2022 Christina Claros MD Work Phone: [facility]. Start: 11-30-2022 End: 12-03-2022 Christina Claros MD Work Phone: [facility]. Start: 11-29-2022 End: 11-29-2022 Office outpatient visit 15 minutes Christina Claros MD Work Phone: [facility]. Start: 11-27-2022 End: 11-27-2022 Christina Claros MD Work Phone: [facility]. Start: 11-13-2022 End: 11-13-2022 Office outpatient visit 25 minutes Christina Claros MD Work Phone: [facility]. Start: 09-11-2022 End: 09-11-2022 Office outpatient visit 15 minutes Christina Claros MD Work Phone: [facility]. Start: 06-26-2022 End: 06-26-2022 Office outpatient visit 15 minutes Christina Claros MD Work Phone: [facility]. Start: 05-17-2022 End: 05-17-2022 Patient encounter status Christina Claros MD Work Phone: [employer].; [facility] Start: 05-17-2022 End: 05-17-2022 Periodic preventive med est patient 65yrs& older Christina Claros MD Work Phone: [facility]. Start: 03-29-2022 End: 04-03-2022 Christina Claros MD Work Phone: [facility]. Start: 02-20-2022 End: 02-20-2022 Office outpatient visit 15 minutes Christina Claros MD Work Phone: [facility]. Start: 08-25-2021 End: 08-25-2021 Christina Claros MD Work Phone: [facility]. Start: 08-21-2021 End: 08-21-2021 Christina Claros MD Work Phone: [facility]. Start: 08-15-2021 End: 08-15-2021 Office outpatient visit 15 minutes Christina Claros MD Work Phone: [facility]. Start: 08-14-2021 End: 08-14-2021 Christina Claros MD Work Phone: [facility]. Start: 08-08-2021 End: 08-08-2021 Christina Claros MD Work Phone: [facility]. Start: 08-01-2021 End: 08-01-2021 Office outpatient visit 15 minutes Christina Claros MD Work Phone: [facility]. Start: 04-17-2021 End: 04-17-2021 Christina Claros MD Work Phone: [facility]. Start: 04-13-2021 End: 04-13-2021 Office outpatient visit 15 minutes Christina Claros MD Work Phone: [facility]. Start: 01-19-2021 End: 01-19-2021 Christina Claros MD Work Phone: [facility]. Start: 01-18-2021 End: 01-18-2021 Office outpatient visit 25 minutes Christina Claros MD Work Phone: [facility]. Start: 01-02-2021 End: 01-02-2021 Office outpatient visit 15 minutes Christina Claros MD Work Phone: [facility]. Start: 12-02-2020 End: 12-02-2020 Patient encounter status Christina Claros MD Work Phone: [employer]; [facility]. Start: 12-02-2020 End: 12-02-2020 Periodic preventive med est patient 65yrs& older Christina Claros MD Work Phone: [facility]. Start: 11-24-2020 End: 11-25-2020 Christina Claros MD Work Phone: [facility]. Start: 11-21-2020 End: 11-21-2020 Christina Claros MD Work Phone: [facility]. Start: 07-18-2020 End: 07-18-2020 Christina Claros MD Work Phone: [employer] Start: 07-04-2020 End: 07-04-2020 Christina Claros MD Work Phone: [facility]. Start: 03-07-2020 End: 03-07-2020 Office outpatient visit 15 minutes Christina Claros MD Work Phone: [facility]. Start: 10-27-2019 End: 10-27-2019 Christina Claros MD Work Phone: [facility]. Start: 10-12-2019 End: 10-12-2019 Office outpatient visit 15 minutes Christina Claros MD Work Phone: [facility]. Start: 07-10-2019 End: 07-10-2019 Office outpatient visit 15 minutes Christina Claros MD Work Phone: [facility]. Start: 06-09-2019 End: 06-09-2019 Office outpatient visit 15 minutes Christina Claros MD Work Phone: [facility]. Start: 05-29-2019 End: 05-29-2019 Office outpatient visit 15 minutes Christina Claros MD Work Phone: [facility]. Start: 04-15-2019 End: 04-15-2019 Christina Claros MD Work Phone: [facility]. Start: 03-06-2019 End: 03-06-2019 Christina Claros MD Work Phone: [facility]. Start: 03-05-2019 End: 03-05-2019 Christina Claros MD Work Phone: [facility]. Start: 02-16-2019 End: 02-16-2019 Office outpatient visit 15 minutes Christina Claros MD Work Phone: [facility]. Start: 01-26-2019 End: 01-26-2019 Office outpatient visit 15 minutes Christina Claros MD Work Phone: [facility]. Start: 01-09-2019 End: 01-09-2019 Patient encounter status Christina Claros MD Work Phone: [facility] [employer] Start: 01-09-2019 End: 01-09-2019 Periodic preventive med est patient 65yrs& older Christina Claros MD Work Phone: [employer] Start: 01-09-2019 End: 01-07-2019 Christina Claros MD Work Phone: [employer] Start: 01-02-2019 End: 01-02-2019 Christina Claros MD Work Phone: [employer] Start: 12-15-2018 End: 12-15-2018 Office outpatient visit 15 minutes Christina Claros MD Work Phone: [employer] Start: 11-29-2018 End: 11-29-2018 Office outpatient visit 15 minutes Christina Claros MD Work Phone: [employer] Start: 11-12-2018 End: 11-12-2018 Office outpatient visit 15 minutes Christina Claros MD Work Phone: [employer] Start: 07-08-2018 End: 07-08-2018 Office outpatient visit 15 minutes Christina Claros MD Work Phone: [employer] Start: 07-04-2018 End: 07-04-2018 Christina Claros MD Work Phone: [employer] Start: 07-04-2018 End: 07-04-2018 Office outpatient visit 25 minutes Christina Claros MD Work Phone: [employer] Start: 06-19-2018 End: 06-19-2018 Christina Claros MD Work Phone: [employer] Start: 01-03-2018 End: 01-03-2018 Office outpatient visit 15 minutes Christina Claros MD Work Phone: [employer] Start: 12-31-2017 End: 12-31-2017 Christina Claros MD Work Phone: [employer] Start: 09-18-2017 End: 09-20-2017 Christina Claros MD Work Phone: [employer] Start: 09-17-2017 End: 09-17-2017 Office outpatient visit 15 minutes Christina Claros MD Work Phone: [facility]. Start: 09-17-2017 End: 09-17-2017 Preprocedural examination done Christina Claros MD Work Phone: [facility] [employer] Start: 09-06-2017 End: 09-06-2017 Christina Claros MD Work Phone: [facility]. Start: 07-10-2017 End: 07-10-2017 Office outpatient visit 15 minutes Christina Claros MD Work Phone: [facility]. Start: 07-05-2017 End: 07-05-2017 Christina Claros MD Work Phone: [facility]. Start: 05-10-2017 End: 05-10-2017 Christina Claros MD Work Phone: [facility]. Start: 01-28-2017 End: 01-28-2017 Patient encounter status Christina Claros MD Work Phone: [facility] [employer] Start: 01-28-2017 End: 01-28-2017 Christina Claros MD Work Phone: [facility]. Start: 01-16-2017 End: 01-16-2017 Christina Claros MD Work Phone: [facility]. Start: 01-16-2017 End: 01-16-2017 Christina Claros MD Work Phone: [facility]. Start: 11-16-2016 End: 11-16-2016 Office outpatient visit 15 minutes Christina Claros MD Work Phone: [facility]. Start: 08-10-2016 End: 08-10-2016 Christina Claros MD Work Phone: [facility]. Start: 07-10-2016 End: 07-10-2016 Christina Claros MD Work Phone: [facility]. Start: 06-25-2016 End: 06-25-2016 Christina Claros MD Work Phone: [facility]. Start: 06-22-2016 End: 06-22-2016 Evaluation finding Christina Claros MD Work Phone: [facility].; [employer] Start: 06-22-2016 End: 06-22-2016 Christina Claros MD Work Phone: [employer] Start: 06-19-2016 End: 06-19-2016 Christina Claros MD Work Phone: [facility]. Start: 05-25-2016 End: 05-25-2016 Office outpatient visit 15 minutes Christina Claros MD Work Phone: [facility]. Start: 03-20-2016 End: 03-20-2016 Christina Claros MD Work Phone: [facility]. Start: 02-15-2016 End: 02-15-2016 Christina Claros MD Work Phone: [facility]. Start: 01-23-2016 End: 01-23-2016 Christina Claros MD Work Phone: [facility]. Start: 01-13-2016 End: 01-13-2016 Office outpatient visit 15 minutes Christina Claros MD Work Phone: [facility]. Start: 12-22-2015 End: 12-22-2015 Christina Claros MD Work Phone: [facility]. Start: 11-30-2015 End: 11-30-2015 Christina Claros MD Work Phone: [facility]. Start: 11-21-2015 End: 11-21-2015 Office outpatient visit 15 minutes Christina Claros MD Work Phone: [facility]. Start: 11-15-2015 End: 11-15-2015 Office outpatient visit 15 minutes Christina Claros MD Work Phone: [facility]. Start: 10-19-2015 End: 10-19-2015 Christina Claros MD Work Phone: [facility]. Start: 09-14-2015 End: 09-14-2015 Office outpatient visit 15 minutes Christina Claros MD Work Phone: [facility]. Start: 09-07-2015 End: 09-07-2015 Christina Claros MD Work Phone: [facility]. Start: 08-10-2015 End: 08-10-2015 Office outpatient visit 15 minutes Christina Claros MD Work Phone: [facility]. Start: 07-25-2015 End: 07-25-2015 Christina Claros MD Work Phone: [facility]. Start: 06-20-2015 End: 06-20-2015 Christina Claros MD Work Phone: [facility]. Start: 04-20-2015 End: 04-20-2015 Christina Claros MD Work Phone: [facility]. Start: 03-16-2015 End: 03-16-2015 Office outpatient visit 25 minutes Christina Claros MD Work Phone: [facility]. Start: 03-16-2015 End: 03-16-2015 Christina Claros MD Work Phone: [facility]. Start: 12-17-2014 End: 12-17-2014 Christina Claros MD Work Phone: [facility]. Start: 12-08-2014 End: 12-09-2014 Christina Claros MD Work Phone: [facility]. Start: 12-01-2014 End: 12-01-2014 Christina Claros MD Work Phone: [facility]. Start: 10-18-2014 End: 10-18-2014 Christina Claros MD Work Phone: [facility]. Start: 09-17-2014 End: 09-17-2014 Christina Claros MD Work Phone: [facility]. Start: 09-15-2014 End: 09-15-2014 Office outpatient visit 25 minutes Christina Claros MD Work Phone: [facility]. Start: 08-18-2014 End: 08-18-2014 Christina Claros MD Work Phone: [facility]. Start: 08-02-2014 End: 08-02-2014 Christina Claros MD Work Phone: [facility]. Start: 04-23-2014 End: 04-23-2014 Christina Claros MD Work Phone: [facility]. Start: 04-22-2014 End: 04-23-2014 Christina Claros MD Work Phone: [facility]. Start: 04-16-2014 End: 04-16-2014 Christina Claros MD Work Phone: [facility]. Start: 04-16-2014 End: 04-16-2014 Office outpatient visit 15 minutes Christina Claros MD Work Phone: [facility]. Start: 04-05-2014 End: 04-05-2014 Christina Claros MD Work Phone: [facility]. Start: 03-09-2014 End: 03-09-2014 Christina Claros MD Work Phone: [facility]. Start: 01-19-2014 End: 01-19-2014 Christina Claros MD Work Phone: [facility]. Start: 01-11-2014 End: 01-11-2014 Christina Claros MD Work Phone: [facility]. Start: 01-05-2014 End: 01-05-2014 Christina Claros MD Work Phone: [facility]. Start: 12-16-2013 End: 12-16-2013 Christina Claros MD Work Phone: [facility]. Start: 12-15-2013 End: 12-15-2013 Christina Claros MD Work Phone: [employer] Start: 12-01-2013 End: 12-01-2013 Christina Claros MD Work Phone: [facility]. Start: 11-25-2013 End: 11-25-2013 Christina Claros MD Work Phone: [facility]. Start: 10-30-2013 End: 10-30-2013 Christina Clarso MD Work Phone: [facility]. Start: 10-03-2013 End: 10-03-2013 Christina Claros MD Work Phone: [facility]. Start: 09-05-2013 End: 09-05-2013 Christina Claros MD Work Phone: [facility]. Start: 08-14-2013 End: 08-14-2013 Christina Claros MD Work Phone: [facility]. Start: 08-13-2013 End: 08-13-2013 Christina Claros MD Work Phone: [employer] Start: 07-13-2013 End: 07-13-2013 Christina Claros MD Work Phone: [facility]. Start: 06-26-2013 End: 06-26-2013 Christina Claros MD Work Phone: [facility]. Start: 06-18-2013 End: 06-18-2013 Christina Claros MD Work Phone: [facility]. Start: 06-12-2013 End: 06-12-2013 Christina Claros MD Work Phone: [facility]. Start: 06-03-2013 End: 06-03-2013 Christina Claros MD Work Phone: [facility]. Start: 12-03-2012 End: 12-03-2012 Christina Claros MD Work Phone: [facility]. Start: 11-24-2012 End: 11-24-2012 Christina Claros MD Work Phone: [facility]. Start: 09-15-2012 End: 09-15-2012 Christina Claros MD Work Phone: [facility]. Start: 06-09-2012 End: 06-09-2012 Christina Claros MD Work Phone: [facility]. Start: 05-02-2012 End: 05-02-2012 Christina Claros MD Work Phone: [facility]. Start: 04-07-2012 End: 04-07-2012 Christina Claros MD Work Phone: [facility] [employer] Start: 10-11-2011 End: 10-11-2011 [facility] Start: 06-18-2011 End: 06-18-2011 [facility] Start: 06-15-2011 End: 06-15-2011 Christina Claros MD Work Phone: [facility] Start: 04-04-2011 End: 04-04-2011 [facility] Start: 08-23-2010 End: 08-23-2010 Christina Claros MD Work Phone: [facility] Start: 06-30-2010 End: 06-30-2010 Christina Claros MD Work Phone: [facility] Patient encounter status Shyla Iqbal [facility]. Patient encounter status Rony Sanon [facility].; [facility]. Patient encounter status Rony Sanon [facility].; [facility]. Procedures Date Procedure Procedure Detail Performing Clinician Start: 10-17-2023 End: 10-17-2023 Dexamethasone sodium phos Christina Claros MD Work Phone: Start: 10-10-2023 End: 10-14-2023 Chest x-ray Christina Claros MD Work Phone: Start: 07-17-2023 End: 07-17-2023 Flu immunize order/admin Christina Chao Work Phone: Start: 02-19-2023 End: 03-01-2023 Us abdominal real time w/image documentation Christina Claros MD Work Phone: Start: 05-31-2022 End: 05-31-2022 Screening colonoscopy Shyla Santana LPN Start: 05-17-2022 End: 05-17-2022 Adv care pln/ no alt dcsn mkr docd or refusal Christina Claros MD Work Phone: Start: 05-17-2022 End: 05-17-2022 Depression screening Christina Claros MD Work Phone: Start: 05-17-2022 End: 05-17-2022 Falls risk assessment documented Christina Claros MD Work Phone: Start: 05-17-2022 End: 05-17-2022 PPPS, subseq visit Christina Claros MD Work Phone: Start: 05-17-2022 End: 05-17-2022 Pt falls assess docd w/o fall/injury past year Christina Claros MD Work Phone: Start: 05-17-2022 End: 05-17-2022 Scr dep neg, no plan reqd Christina Claros MD Work Phone: Start: 04-30-2022 End: 04-30-2022 Lipid panel results documented & reviewed Shyla Santana LPN Start: 04-30-2022 End: 04-30-2022 Shyla Santana LP N Start: 09-30-2021 End: 09-30-2021 Replacement of total knee joint Rachel Martinez [employer] Start: 08-08-2021 End: 08-14-2021 Radex hip unilateral with pelvis 2-3 views Christina Claros MD Work Phone: Start: 12-02-2020 End: 12-02-2020 Depression screening Christina Claros MD Work Phone: Start: 12-02-2020 End: 12-02-2020 Falls risk assessment documented Christina Clarso MD Work Phone: Start: 12-02-2020 End: 12-02-2020 PPPS, subseq visit Christina Claros MD Work Phone: Start: 12-02-2020 End: 12-02-2020 Pt falls assess docd 2/> falls/fall w/injury/yr Christina Claros MD Work Phone: Start: 12-02-2020 End: 12-02-2020 Scr dep neg, no plan reqd Christina Claros MD Work Phone: Start: 11-24-2020 End: 11-24-2020 Prostate specific antigen measurement Shyla Santana [employer] Start: 07-18-2020 End: 07-18-2020 Flu immunize order/admin Christina Chao Work Phone: Start: 02-19-2019 End: 02-19-2019 Shyla Santana LP N Start: 01-09-2019 End: 01-09-2019 Depression screening Christina Claros MD Work Phone: Start: 01-09-2019 End: 01-09-2019 Falls risk assessment documented Christina Claros MD Work Phone: Start: 01-09-2019 End: 01-09-2019 Initial preventive exam Christina Claros MD Work Phone: Start: 01-09-2019 End: 03-06-2019 Oncology colorectal screening zaynab 10 dna markrs Christina Claros MD Work Phone: Start: 01-09-2019 End: 01-09-2019 Pt falls assess docd w/o fall/injury past year Christina Claros MD Work Phone: Start: 01-09-2019 End: 01-09-2019 Scr dep neg, no plan reqd Christina Claros MD Work Phone: Start: 01-09-2019 End: 01-09-2019 Screening test visual acuity quantitative bilat Christina Claros MD Work Phone: Start: 07-08-2018 End: 07-08-2018 Removal impacted cerumen instrumentation unilat Christina Claros MD Work Phone: Start: 01-03-2018 End: 01-03-2018 Body mass index documented Christina Claros MD Work Phone: Start: 09-17-2017 End: 09-17-2017 Body mass index documented Christina Claros MD Work Phone: Start: 01-28-2017 End: 02-04-2020 Ct thorax w/o & w/contrast material Christina Claros MD Work Phone: Start: 01-16-2017 End: 01-16-2017 Dexamethasone sodium phos Christina Claros MD Work Phone: Start: 06-19-2016 End: 06-25-2016 Mri spinal canal lumbar w/o & w/contr matrl Christina Claros MD Work Phone: Start: 05-25-2016 End: 05-25-2016 Dexamethasone sodium phos Christina Claros MD Work Phone: Start: 11-15-2015 End: 11-15-2015 Dexamethasone sodium phos Feliciano Street MD Work Phone: Start: 08-10-2015 End: 08-10-2015 Dexamethasone sodium phos Christina Claros MD Work Phone: Start: 04-22-2014 End: 04-23-2014 Ct abdomen w/o & w/contrast material Christina Claros MD Work Phone: Start: 04-16-2014 End: 04-23-2014 Ct pelvis w/contrast material Kirsten Mireles LPN Start: 09-05-2013 End: 09-05-2013 Triamcinolone acet inj NOS Joceline Toledo MD Work Phone: Start: 06-03-2013 End: 06-03-2013 Triamcinolone acet inj NOS Christina Claros MD Work Phone: Start: 09-15-2012 End: 09-15-2012 Dexamethasone sodium phos Christina Claros MD Work Phone: Start: 10-11-2011 End: 10-11-2011 Triamcinolone acet inj NOS Joceline Toledo MD Work Phone: Polly edward RN Plan of Treatment Date Care Activity Detail Author Start: 11-21-2023 [facility] [employer] Start: 11-14-2023 [facility]. Start: 10-10-2023 Chest x-ray [facility].; [employer]. Start: 05-09-2023 Assay of testosterone free [employer] Start: 05-09-2023 Comprehensive metabolic panel [facility] [employer] [facility].; [employer] Start: 05-09-2023 Hemoglobin glycosylated a1c [employer], [employer]. Start: 05-09-2023 Lipid panel [facility].; [employer], [employer]. Work Phone: [facility] [employer], [employer]. [employer]. [employer]. [employer]. [employer].; [employer]. [employer], [employer]. [employer], [employer]. Immunizations Immunization Date Immunization Notes Care Provider [facility] 07-17-2023 influenza virus vacc ine, unspecified formulation Christina Claros MD Work Phone: [employer]. 07-17-2023 influenza, injectabl e, quadrivalent, preservative free Christina Claros MD Work Phone: [employer]. 05-17-2022 pneumococcal polysaccharide vaccine, 23 valent Christina Claros MD Work Phone: [employer] 01-30-2022 Christina Claros MD Work Phone: [employer]. 06-27-2021 [facility] MD [facility]: [facility].; [facility] 12-08-2020 Christina Claros MD Work Phone: [facility].; [facility] 11-17-2020 Christina Claros MD Work Phone: [facility].; [facility] 07-18-2020 influenza virus vacc ine, unspecified formulation Christina Claros MD Work Phone: [facility].; [facility] [employer] [facility]. 07-18-2020 influenza, injectabl e, quadrivalent, contains preservative Christina Claros MD Work Phone: [facility].; [facility] 03-04-2020 zoster vaccine recombinant Christina Claros MD Work Phone: [facility] 11-19-2019 zoster vaccine recombinant Christina Claros MD Work Phone: [facility].; [facility]. 01-22-2019 tetanus toxoid, redu linda diphtheria toxoid, and acellular pertussis vaccine, adsorbed Christina Claros MD Work Phone: [facility].; [facility]. 01-09-2019 diphtheria, tetanus toxoids and acellular pertussis vaccine, unspecified formulation Christina Claros MD Work Phone: [facility].; [facility] 01-09-2019 Shingrix (PF) Christina Claros MD Work Phone: [facility].; [facility]. 01-09-2019 pneumococcal conjuga te vaccine, 13 valent Christina Claros MD Work Phone: [facility].; [facility]. 07-04-2018 influenza, injectabl e, quadrivalent, contains preservative Christina Claros MD Work Phone: [facility].; [place] [employer]. 07-10-2017 influenza, injectabl e, quadrivalent, contains preservative Christina Claros MD Work Phone: [facility]; [employer]. 06-25-2016 influenza, seasonal, injectable Christina Claros MD Work Phone: [facility].; [place] [employer] 07-16-2013 influenza, seasonal, injectable Christina Claros MD Work Phone: [facility] [employer] Payers Date Payer Category Payer Unknown [id number] 1955 Unknown [id number] 1955 Unknown [id number] 1955 Unknown [id number] Medicare [id number] Unknown Unknown [id number] Social History Date Type Detail Facility [facility] [employer]; [employer] Former smoker. [place] [employer]. Summary Purpose Family History Colon Cancer Status:Active Comments:Negativ e Family History Of. Myocardial Infarction Status:Active Comments:F ather. Prostate Cancer Status:Active Comments:Father. Colon Cancer Status:Active Comments:Negativ e Family History Of. Myocardial Infarction Status:Active Comments:F ather. Prostate Cancer Status:Active Comments:Father. Colon Cancer Status:Active Comments:Negativ e Family History Of. Myocardial Infarction Status:Active Comments:F ather. Prostate Cancer Status:Active Comments:Father. Colon Cancer Status:Active Comments:Negativ e Family History Of. Myocardial Infarction Status:Active Comments:F ather. Prostate Cancer Status:Active Comments:Father. Colon Cancer Status:Active Comments:Negativ e Family History Of. Myocardial Infarction Status:Active Comments:F ather. Prostate Cancer Status:Active Comments:Father. Advance Directives No Advanced Directives Records FoundNo Advanced Directives Records FoundNo Advanced Directives Records FoundNo Advanced Directives Records Found Additional Source Comments (unrecognized sect ion and content) No Status Records FoundNo Status Records FoundNo Status Records FoundNo Status Records Found INFORMATION SOURCE (unrecogn ized section and content) DATE CREATED AUTHOR AUTHOR'S ORGANIZ ATION 06/05/2022 [facility] ([place]) DATE CREATED AUTHOR AUTHOR'S ORGANIZ ATION 08/25/2023 [facility] DATE CREATED AUTHOR AUTHOR'S ORGANIZ ATION 10/11/2023 [facility] FOR RECORDS PERTAINING TO PATIENTS WHO ARE OR HAVE BEEN ENROLLED IN A CHEMICAL DEPENDENCY/SUBSTANCEABUSE PROGRAM, SOME INFORMATION MAY BE OMITTED. This clinical summary was aggregated from multiple sources. Caution should be exercised in using it in the provision of clinical care. This summary normalizes information from multiple sources, and as a consequence, information in this document may materially change the coding, format and clinical context of patient data. In addition, data may be omitted in some cases. CLINICAL DECISIONS SHOULD BE BASED ON THE PRIMARY CLINICAL RECORDS. [facility] [employer] [facility]. provides no warranty or guarantee of the accuracy or completeness of information in this document.
--- NOTE | 2023-11-07 06:58 | CT_ITS ---
STUDY: CTA ABDOMEN AND PELVIS WITH CONTRAST REASON FOR EXAM: Male, 68 years old. INFRARENAL ABD AORTIC ANEURYSM W/O RUPTURE RADIATION DOSAGE (If Supplied By Facility): CTDIvol = ( 27.86 ) mGy, DLP = ( 1007.28 ) mGycm TECHNIQUE: Transaxial images were obtained from the dome of the diaphragm to the symphysis pubis without oral contrast. IV 100mL Isovue-370 was administered. Sagittal and coronal images were reconstructed. 3-D images were reconstructed. Individualized dose optimization techniques were used for this CT. COMPARISON: None. FINDINGS: The visualized lung bases are unremarkable. The visualized portions of the heart are within normal limits. There is decreased attenuation of the liver consistent with steatosis. Normal gallbladder and extrahepatic biliary system. Normal spleen. Normal pancreas. Normal bilateral adrenal glands. Dominant right renal cyst measuring 5.5 cm x 5.2 cm. Multiple left renal cysts. The largest cyst is in the lower pole and measures 8 cm x 7.4 cm. Normal left kidney. Normal visualized stomach. Normal small intestine. There are multiple colonic diverticula consistent with diverticulosis. The appendix is visualized and appears normal. Infrarenal fusiform abdominal aortic aneurysm with a transverse dimension of 3.9 cm. Mural thrombus is seen. 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 Atherosclerotic confirmation of the iliac arteries bilaterally. Normal inferior vena cava. Normal retroperitoneum. Normal urinary bladder. Plaque like calcifications of the penis suggestive of pleural disease. There is a small umbilical hernia containing fat. There is evidence of a prior intrapedicular screw and tressa fixation at the L2-L3, L3-L4 and L4-L5 levels. The patient is also status post right total hip replacement. CT/CTA Abd/Pelvis W/WO Contrast IMPRESSION: Infrarenal abdominal aortic aneurysm with a transverse dimension of 3.9 cm. Bilateral renal cysts more prominent on the left side. Electronically Signed: Dez Ibrahim MD at 15:22 EST ,
[2023-11-07 07:36] LABS: CREATININE FINGERSTICK 1.1 mg/dL (0.70-1.30); EGFR FINGERSTICK > 60.0000 mL/min (>60)
== END | disposition home or self-care (01) ==
LOC: CT 06:48
PROVIDERS: PCP Family Medicine; Referring Provider Surgery Vascular Surgery; Visit Provider Surgery Vascular Surgery
DX: I71.43 Infrarenal abdominal aortic aneurysm, without rupture (principal)
CPT/HCPCS: 74174; Q9967

== ENCOUNTER → 2023-12-13 | Outpatient (CLI) | payer MEDICARE, OTHER, SELFPAY ==
--- NOTE | 2023-12-13 12:11 | CT_ITS ---
STUDY: CT LUMBAR SPINE WITH INTRATHECAL CONTRAST (LUMBAR CT MYELOGRAM) REASON FOR EXAM: Male, 68 years old. LOWER BACK PAIN. Prior low back surgery. RADIATION DOSAGE (If Supplied By Facility): CTDIvol = ( 17.32 ) mGy, DLP = ( 472.95 ) mGycm TECHNIQUE: Transaxial images were obtained from the L1 vertebra through the S1 vertebral level, following intrathecal administration of 10 ml of Isovue-M 200 contrast material, performed by Dr. Ibrahim. Please refer to this physicians technical notes for procedural details. Coronal and sagittal reconstructions were obtained. Individualized dose optimization techniques were used for this CT. COMPARISON: Comparison is made with prior myelogram done earlier in the day. FINDINGS: There is straightening of the normal lumbar lordosis. There is no substantial scoliosis. Normal vertebrae of the lumbar spine. There is dependent layering of contrast material in the distal thecal sac. The conus medullaris terminates in a normal position at the T12-L1. There is no demonstrated cauda equina nerve root abnormality or intraspinal mass. L1-2: Moderate degree of disc space narrowing. Spondylosis. Facet joint osteoarthritis and hypertrophy. Mild degree of central canal stenosis. Mild degree of bilateral neural foraminal stenosis. L2-3: The patient is status post laminectomy and fusion. Minimal anterior listhesis of L1 on L2. No significant stenosis is seen. L3-4: Status post laminectomy and fusion. No evidence of stenosis. L4-5: Moderate degree of disc space narrowing. Anterior spondylosis. The patient is status post laminectomy and fusion. No significant stenosis seen. L5-S1: Normal endplates. Normal disc height and morphology. Normal bilateral facet joints. Normal central canal and bilateral lateral recesses. Normal bilateral intervertebral neural foramina. Normal visualized sacroiliac joints. There is evidence of a stenting of the dilated infrarenal abdominal aortic aneurysm and right common iliac artery. CT/Spine Lumbar WITH Contrast IMPRESSION: Status post laminectomy with intraventricular screw and tressa fixation at the L2-L3, L3-L4 and L4-L5 levels. Mild degree of spinal stenosis at the L1-L2 level. Mild anterior listhesis of L1 on L2. Electronically Signed: Dez Ibrahim MD at 14:36 EDT ,
[2023-12-13 12:27] VITALS: BP 169/79; PULSE 68; RESP 16; O2SAT 98; BMI 29.0
--- NOTE | 2023-12-13 12:36 | RAD_ITS ---
PROCEDURE: LUMBAR MYELOGRAM DATE OF EXAMINATION: December 13, 2023. INDICATION: Male, 68 years old. Low back pain. PHYSICIAN: Dez Ibrahim M.D. CONSENT: The patient''s history and physical findings were reviewed. The lumbar myelogram procedure was discussed with the patient prior to signing a consent. SEDATION: Local anesthesia with 3 mL of 1% lidocaine was used. FLUOROSCOPY TIME (if supplied): (1:12) minutes/seconds. 30.24 mGy Injection Information: 10 cc of Isovue-M 200 Number of images obtained: 4 TECHNIQUE: Digital fluoroscopy was used to identify a safe approach for the lumbar myelogram. The back was prepped and draped in usual fashion. Local anesthesia was utilized. Under fluoroscopic guidance a 22-gauge spinal needle was inserted into the spinal canal at the L2-L3 level. Clear spinal fluid was seen. 10 mL of Isovue 200 M was injected into the spinal canal. There is good opacification of the spinal fluid. The nerve root sheaths are asymmetrically identified. There is no extradural defects. The patient is status post laminectomy with fusion at the L2-L3, L3-L4 and L4-L5 levels. RAD/Lumbar Myelogram IMPRESSION: Normal lumbar myelogram. CT scan will be obtained. Electronically Signed: Dez Ibrahim MD at 13:56 EDT ,
[2023-12-13] MEDS: Lidocaine 2% (5ml sdv) 5 ML VIAL.MPF INFILT (12:51)
[2023-12-13 13:06] VITALS: BP 135/72; PULSE 56; RESP 14; O2SAT 98
[2023-12-13 13:40] VITALS: BP 130/76; PULSE 52; RESP 14; O2SAT 99
== END | disposition home or self-care (01) ==
PROVIDERS: PCP Family Medicine; Referring Provider Orthopaedic Surgery Orthopaedic Surgery of the Spine; Visit Provider Orthopaedic Surgery Orthopaedic Surgery of the Spine
DX: M54.50 Low back pain, unspecified (principal)
CPT/HCPCS: 62304; 72132; Q9965

== ENCOUNTER → 2024-09-02 | Outpatient (CLI) | payer MEDICARE, OTHER, SELFPAY ==
--- NOTE | 2024-09-02 07:50 | CT_ITS ---
STUDY: LOW DOSE CT LUNG CANCER SCREENING REASON FOR EXAM: Male, 69 years old. Smoker and gt; 20 pack history RADIATION DOSAGE (If Supplied By Facility): CTDIvol = ( 3.02 ) mGy, DLP = ( 117.02 ) mGycm TECHNIQUE: No contrast was administered. Low dose technique was utilized (average mAS-38 and kVp 120). 1.25 mm axial source images with a slice interval of 1.25-mm were reconstructed in lung windows. 2.5 mm axial source images with a slice interval of 2.5-mm were reconstructed in lung windows. 5.0 mm axial source images with a slice interval of 5.0-mm were reconstructed in soft tissue windows. COMPARISON: Comparison is made with prior study dated August 27, 2023. NODULES: No suspicious nodules are seen. Emphysema: Hyperinflation. Stable emphysematous changes with bullous formation more prominent in the upper lobes. Stable linear scarring in the posterior aspect of the lingular segment of the left upper lobe. Endobronchial lesion: None Aorta: Atherosclerotic plaque formation of the aortic arch and descending thoracic aorta. CORONARY ARTERIES: Coronary artery calcification is seen. Heart: Calcification of the mitral valve annulus. Pulmonary artery: Unremarkable Mediastinal nodes: Small mediastinal lymph nodes. Other chest and abdominal findings: CT/Low Dose CT Lung Screening IMPRESSION: Lung-RADS category 2 - Continue annual screening with LDCT in 12 months. IMPORTANT NOTES FOR USE: ACR Lung-RADS Version 1.1 Assessment Categories Release Date: 2018 Category: Coded 0-4 bases on nodule(s) with highest degree of suspicion. Negative screen is defined as categories 1 and 2; a positive screen is defined as categories 3 and 4. Category 3 and 4A nodules that are unchanged on interval CT should be coded as category 2, and individuals returned to screening in 12 months. Category 4X: Category 3 or 4 nodules with additional imaging findings that increase the suspicion of lung cancer, such as spiculation, GGN that doubles in size in 1 year, enlarged lymph notes, etc. Category Modifiers: S (significant finding unrelated to lung cancer) Electronically Signed: Dez Ibrahim MD at 13:32 EST ,
== END | disposition home or self-care (01) ==
LOC: CT 07:45
PROVIDERS: PCP Family Medicine; Referring Provider Nurse Practitioner Acute Care; Visit Provider Nurse Practitioner Acute Care
DX: F17.210 Nicotine dependence, cigarettes, uncomplicated (principal)
CPT/HCPCS: 71271

== ENCOUNTER → 2024-11-12 | Outpatient (CLI) | payer MEDICARE, OTHER, SELFPAY ==
--- NOTE | 2024-11-12 08:58 | AAVD_ITS ---
Reason For Study Reason For Study: AAA w/o rupture Aorta Measurements Aorta Doppler Measurements Proximal aorta measures2.12 x 2.15cm. in cross-sectional Peak systolic flow velocities within the proximal aorta axis. measure 81.4 cm/sec. Proximal aorta measures2.17cm. in longitudinal axis. Peak systolic flow velocities within the mid aorta measure Mid aorta measures3.99 x 4.02cm. in cross-sectional axis. 52.4 cm/sec. Mid aorta measures3.99cm. in longitudinal axis. Peak systolic flow velocities within the distal aorta Distal aorta measures3.01 x 3.05cm. in cross-sectional axis.measure 54.8 cm/sec. Distal aorta measures3.04cm. in longitudinal axis. Left Iliac Artery Left iliac artery measures 0.78 x 0.73 cm. in the cross-sectional axis. Left iliac artery measures 0.68 cm. in the longitudinal axis. Peak systolic velocity in the left iliac artery measures 236.2 cm/sec. Right Iliac Artery Stent noted within Rt Iliac Artery. Residual sac measures 2.04 x 2.17 cm in transverse view. Stent measures 0.84 x 0.85 cm in transverse view. Residual sac measures 2.04 cm in longitudinal view. Stent measures 0.84 cm in longitudinal view. Peak systolic velocity in the right iliac artery measures 171.1 cm/sec. Procedure Aorta IVC Iliac vasculature or bypass grafts [id number]. Exam performed in department. VL/Abd Aortic/IVC Duplex scan Interpretation Summary Aortic aneurysm 4cm. Right iliac stent patent with residual iliac 2cm. Ordering Physician: Curt Nguyen Referring Physician: Juan Antonio Claros MD Performed By: Harleen Maurer RVT
--- NOTE | 2024-11-12 08:58 | ART_ITS ---
Reason For Study Reason For Study: Atherosclerosis Procedure A bilateral lower extremity continuous wave Doppler with analog waveform analysis and ankle brachial indexes. Left Segmental Pressures Left brachial= 116mmHg. Left posterior tibial artery = 147mmHg. Left dorsalis pedis artery = 137mmHg. Left digit = 91 mmHg. The left dorsalis pedis waveforms are triphasic. The left posterior tibial artery waveforms are triphasic. Right Segmental Pressures Right brachial= 132mmHg. Right posterior tibial artery = 149mmHg. Right dorsalis pedis artery = 154mmHg. Right digit = 85 mmHg. The right dorsalis pedis waveforms are triphasic. The right posterior tibial artery waveforms are triphasic. Indices The right ankle brachial index by the dorsalis pedis is 1.17. The right ankle brachial index by the posterior tibial artery is 1.13. The right digital-brachial index is 0.64. The left ankle brachial index by the dorsalis pedis is 1.04. The left ankle brachial index by the posterior tibial artery is 1.11. The left digital-brachial index is 0.69. VL/Ankle Brachial Index Interpretation Summary Resting ankle-brachial indices appear bilaterally normal. Ordering Physician: Curt Nguyen Referring Physician: Juan Antonio Claros MD Performed By: Harleen Maurer RVT
--- NOTE | 2024-11-12 08:59 | CDU_ITS ---
Reason For Study Reason For Study: Carptid stenosis Rt. Velocities/BP Lt. Velocities/BP Prox CCA 69.2/11.6 cm/sec. Prox CCA 67.4/22 cm/sec. Mid CCA 75.1/24.6 cm/sec. Mid CCA 70.2/23 cm/sec. Dist CCA 85.3/24.8 cm/sec. Dist CCA 80.6/25.8 cm/sec. Prox ICA 81.5/28.6 cm/sec. Prox ICA 155.8/42.6 cm/sec. Mid ICA 80.6/26.7 cm/sec. Mid ICA 135.7/38.9 cm/sec. Dist ICA 80.6/25.8 cm/sec. Dist ICA 124.7/35.3 cm/sec. Rt. ICA/CCA = 1.09. Lt. ICA/CCA = 2.22. Prox ECA 99.5/23.9 cm/sec. Prox ECA 92.7/6.9 cm/sec. Rt. Vert. 46.6/15.4 cm/sec. Lt. Vert. 36/9.9 cm/sec. Right Extracranial There is heterogeneous, irregular atherosclerotic plaque noted in the right common carotid artery. There is heterogeneous, irregular atherosclerotic plaque noted in the right internal carotid artery. There is heterogeneous, irregular atherosclerotic plaque noted in the right external carotid artery. Antegrade flow is noted in the right vertebral artery. Left Extracranial There is heterogeneous, irregular atherosclerotic plaque noted in the left common carotid artery. There is heterogeneous, irregular atherosclerotic plaque noted in the left internal carotid artery. There is heterogeneous, irregular atherosclerotic plaque noted in the left external carotid artery. Antegrade flow is noted in the left vertebral artery. Procedure Carotid Duplex [id number]. This is a Carotid Duplex examination using B-mode, color flow and specral Doppler. Exam performed in department. VL/Carotid Duplex Ultrasound Interpretation Summary Mild (<50%) stenosis right extracranial internal carotid. Moderate (50-69%) rian nosis left extracranial internal carotid. Flow within the vertebral arteries is antegrade bilaterally. Ordering Physician: Curt Nguyen Referring Physician: Juan Antonio Claros MD Performed By: Harleen Maurer RVT
== END | disposition home or self-care (01) ==
LOC: CVS 08:55
PROVIDERS: PCP Family Medicine; Referring Provider Surgery Vascular Surgery; Visit Provider Surgery Vascular Surgery
DX: I65.23 Occlusion and stenosis of bilateral carotid arteries (principal); I70.213 Atherosclerosis of native arteries of extremities with intermittent claudication, bilateral legs; I71.43 Infrarenal abdominal aortic aneurysm, without rupture; I77.1 Stricture of artery; Z72.0 Tobacco use
CPT/HCPCS: 93880; 93922; 93978

== ENCOUNTER → 2024-12-08 | Outpatient (CLI) | payer MEDICARE, OTHER, SELFPAY | END | disposition home or self-care (01) | PROVIDERS: PCP Family Medicine; Referring Provider Nurse Practitioner Acute Care; Visit Provider Nurse Practitioner Acute Care | DX: R06.02 Shortness of breath (principal) | CPT/HCPCS: 94060; 94726; 94729 ==

== ENCOUNTER → 2024-12-22 | Outpatient (CLI) | payer MEDICARE, OTHER, SELFPAY ==
[2024-12-22 12:45] VITALS: PULSE 104; PULSE 105; PULSE 80; PULSE 85; PULSE 95; PULSE 97; PULSE 98; O2SAT 96; O2SAT 97; O2SAT 98
--- NOTE | 2024-12-23 11:05 | PCM.PSN.6M ---
PSN 6 Minute Walk Test 6 Minute Walk Test 6 Minute Walk Test: 6 Minute Walk Test PSN:6-Minute Walk Test Start: 12/22/24 12:45 Freq: Status: Active Protocol: [id number] Document 12/22/24 12:45 EW (Rec: 12/22/24 12:47 EW [id number]) 6 Minute Walk Test Date Performed 12/22/24 Time Performed 12:30 Height 5 ft 6 in Weight: 170 lb Weight in Pounds 170.0 lbs Assistive device None used: Pre-test Oxygen Delivery Room Air Method Pulse Ox (%) 98 Pulse Rate (60-100 80 beats/min) Dyspnea Carrie Scale ( 0 0-10) Exertion Carrie Scale 12 (6-20) 1st minute Oxygen Delivery Room Air Method Pulse Ox (%) 97 Pulse Rate (60-100 85 beats/min) 2nd minute Oxygen Delivery Room Air Method Pulse Ox (%) 96 Pulse Rate (60-100 95 beats/min) 3rd minute Oxygen Delivery Room Air Method Pulse Ox (%) 97 Pulse Rate (60-100 97 beats/min) 4th minute Oxygen Delivery Room Air Method Pulse Ox (%) 97 Pulse Rate (60-100 104 H beats/min) 5th minute Oxygen Delivery Room Air Method Pulse Ox (%) 98 Pulse Rate (60-100 105 H beats/min) 6th minute Oxygen Delivery Room Air Method Pulse Ox (%) 96 Pulse Rate (60-100 105 H beats/min) Post-test Oxygen Delivery Room Air Method Pulse Ox (%) 98 Pulse Rate (60-100 98 beats/min) Dyspnea Carrie Scale ( 0 0-10) Exertion Carrie Scale 13 (6-20) Full Laps Walked 15 Partial Lap, Number 34 of Tiles Walked Total Distance 919 Walked (ft) Interpretation Interpretation: The patient ambulated 919 feet over the course of 6 minutes beginning on room air without assistive devices. Pretesting oxygen saturation was noted to be 98% on room air. With ambulation, the cee oxygen saturation was 96%. There was no significant exertional oxygen desaturation. Recommendations Recommendations: There is no indication for the use of supplemental oxygen at this time.
== END | disposition home or self-care (01) ==
LOC: PSN 12:24
PROVIDERS: PCP Family Medicine; Referring Provider Nurse Practitioner Acute Care; Visit Provider Nurse Practitioner Acute Care
DX: R06.02 Shortness of breath (principal)
CPT/HCPCS: 94618

== ENCOUNTER → 2025-03-02 | Outpatient (CLI) | payer MEDICARE, OTHER, SELFPAY | END | disposition home or self-care (01) | LOC: SL 10:09 | PROVIDERS: PCP Family Medicine; Visit Provider Nurse Practitioner Acute Care | DX: Z00.00 Encounter for general adult medical examination without abnormal findings (principal) ==

== ENCOUNTER → 2025-07-27 | Outpatient (CLI) | payer MEDICARE, OTHER, SELFPAY | END | disposition home or self-care (01) | LOC: SL 19:50 | PROVIDERS: PCP Family Medicine | DX: G47.33 Obstructive sleep apnea (adult) (pediatric) (principal) | CPT/HCPCS: 95811 ==

== ENCOUNTER → 2025-07-28 | Outpatient (CLI) | payer MEDICARE, OTHER, SELFPAY ==
[2025-07-28] MEDS: Aspirin E.C. 81 MG Tablet PO (07:43)
== END | disposition home or self-care (01) ==
LOC: SL 07:10
PROVIDERS: PCP Family Medicine
DX: G47.419 Narcolepsy without cataplexy (principal); F51.11 Primary hypersomnia
CPT/HCPCS: 95805

== ENCOUNTER 2025-08-10 10:23 | Outpatient (CLI) | payer MEDICARE, OTHER, SELFPAY ==
[2025-08-10 13:12] LABS: Ferritin 73 ng/mL (37-417); Iron Binding Capacity,Total 361 ug/dL (250-450); Vitamin B12 533 pg/mL (180-914)
[2025-08-10 13:32] LABS: CRP 12.10 mg/L (0.0-3.0); Iron 63 ug/dL (65-175); Iron Binding Capacity,Unsat 298 ug/dL (228-428); Magnesium 2.2 mg/dL (1.5-2.2)
[2025-08-11 16:09] LABS: Folate, Hemolysate Test 468.0 ng/mL (Not Estab.); Folate, RBC (Hct) Test 36.6 % (37.5-51.0); Folates, RBC Test 1279 ng/mL (>498)
[2025-08-11 17:08] LABS: ANTINUCLEAR ANTIBODIES DIRECT Negative (Negative)
== END 2025-08-10 23:59 | disposition home or self-care (01) ==
PROVIDERS: PCP Family Medicine
DX: R51.9 Headache, unspecified (principal); G25.81 Restless legs syndrome
CPT/HCPCS: 36415; 82607; 82728; 82747; 83540; 83550; 83735; 85014; 85652; 86038; 86140; 86225; 86235

== ENCOUNTER → 2025-08-30 | Outpatient (CLI) | payer MEDICARE, OTHER, SELFPAY ==
--- NOTE | 2025-08-30 12:32 | CT_ITS ---
PROCEDURE: SPINE LUMBAR WITH CONTRAST 08/30/2025 REASON FOR EXAM: LUMBAR SPINE PAIN TECHNIQUE: Procedure Code: CTSPLW Modality: CT Procedure: SPINE LUMBAR WITH CONTRAST CONTRAST: Isovue M 200 VOLUME: 15 mL One or more dose reduction techniques were used (e.g., Automated exposure control, adjustment of the mA and/or kV according to patient size, use of iterative reconstruction technique). RADIATION DOSE SUMMARY: CTDlvol: 15.47 mGy DLP: 488.16 mGycm COMPARISON: Prior lumbar myelogram done earlier in the day. FINDINGS: Vertebrae: The patient is status post laminectomy and intrapedicular screw and tressa fixation at the L2-L3, L3-L4 and L4-L5 levels. Alignment: Straightening of the normal lumbar lordosis. L1-2: Marked degree of disc space narrowing. Spondylosis. Subchondral sclerosis. Marked degree of spinal stenosis secondary to facet joint osteoarthritis and hypertrophy as well as hypertrophy of the ligamentum flava. Posterior spondylosis. L2-3: Minimal anterior listhesis of L2 on L3. Status post laminectomy and intrapedicular screw fixation. There is evidence of bony spur formation arising from the right facet joint causing moderate degree of stenosis along the posterior aspect of the thecal sac worse on the right side. L3-4: Mild degree of disc space narrowing. Status post laminectomy and intrapedicular screw fixation. No evidence of spinal or neural foraminal stenosis. L4-5: Status post laminectomy and intrapedicular screw fixation. Facet joint osteoarthritis and hypertrophy. There is evidence of bilateral neural foraminal stenosis worse on the right side. L5-S1: Moderate degree of disc space narrowing and disc degeneration. Facet joint osteoarthritis. No significant stenosis seen. Sacrum: Unremarkable The patient is status post endoluminal stent grafting of the infrarenal abdominal aorta. CT/Spine Lumbar WITH Contrast IMPRESSION: Status post laminectomy and fusion at the L2-L3, L3-L4 and L4-L5 levels. Marked degree of spinal stenosis and canal stenosis at the L1-L2 level. [employer] ior spinal canal stenosis on the right side at the L2-L3 level. Reading Location: [place] [id number]
[2025-08-30 12:51] VITALS: BP 155/96; PULSE 76; RESP 16; TEMP 36.8; O2SAT 97; BMI 27.4
--- NOTE | 2025-08-30 13:03 | RAD_ITS ---
PROCEDURE: LUMBAR MYELOGRAM 08/30/2025 REASON FOR EXAM: LUMBAR SPINE PAIN TECHNIQUE: Procedure Code: RADMY Modality: DX Procedure: LUMBAR MYELOGRAM The procedure as well as the benefits and possible complications including infection and bleeding were explained to the patient. Informed consent was obtained. Radiation dose: 201.7 mGy. Fluoroscopy: 33 seconds. The patient was in the prone position. The overlying skin was prepped and draped in the usual sterile fashion. Following local anesthetic application, a lumbar puncture was performed at the L3-L4 level. 20 cc of Isovue M 200 was injected for the myelogram. COMPARISON: None FINDINGS: The patient is status post multilevel laminectomy with intrapedicular screw fixation at the L2-L3, L3-L4, L4-L5 levels. There is good opacification of the thecal sac. No significant abnormality seen at this time. The patient will have a CT scan as follow-up. RAD/Lumbar Myelogram IMPRESSION: Successful lumbar myelogram as described. CT scan will follow. The patient tolerated the procedure well. Reading Location: [place] [id number]
[2025-08-30] MEDS: Lidocaine 2% (5ml sdv) 5 ML VIAL.MPF INFILT (13:27)
[2025-08-30 13:58] VITALS: BP 155/76; PULSE 68; RESP 18; O2SAT 100
[2025-08-30 14:37] VITALS: BP 159/71; PULSE 66; RESP 18; O2SAT 99
== END | disposition home or self-care (01) ==
PROVIDERS: PCP Family Medicine; Referring Provider Orthopaedic Surgery Orthopaedic Surgery of the Spine; Visit Provider Orthopaedic Surgery Orthopaedic Surgery of the Spine
DX: M54.16 Radiculopathy, lumbar region (principal); Z96.89 Presence of other specified functional implants; M51.369 Other intervertebral disc degeneration, lumbar region without mention of lumbar back pain or lower extremity pain; Z98.1 Arthrodesis status
CPT/HCPCS: 62304; 72132; Q9965

== ENCOUNTER → 2025-09-06 | Outpatient (CLI) | payer MEDICARE, OTHER, SELFPAY ==
--- NOTE | 2025-09-06 06:21 | CT_ITS ---
PROCEDURE: LOW DOSE CT LUNG SCREENING 09/06/2025 REASON FOR EXAM: SMOKING QUIT 02/2023 Patient has smoked half pack of cigarettes per day for 51 years. TECHNIQUE: Procedure Code: [id number] Modality: CT Procedure: LOW DOSE CT LUNG SCREENING Coronal and Sagittal reconstruction series were provided. One or more dose reduction techniques were used (e.g., Automated exposure control, adjustment of the mA and/or kV according to patient size, use of iterative reconstruction technique). REFERENCE LINK: [facility] Lung-RADS RADIATION DOSE SUMMARY: CTDlvol: 3.02 mGy DLP: 104.20 mGycm COMPARISON: Low-dose CT lung screen, 09/02/2024. FINDINGS: PULMONARY NODULES: (Only nodules >3mm are reported) Lower neck:Prior cervical fusion. Mediastinum:Unremarkable Heart and thoracic aorta:Atherosclerotic plaque formation. Coronary artery calcification. Calcification of the mitral valve annulus. Esophagus:Unremarkable Upper Abdomen:Unremarkable Chest wall:Unremarkable Lungs, airways and pleura: Mild degree of emphysematous changes. No significant infiltration or mass lesion. No suspicious pulmonary nodule. CT/Low Dose CT Lung Screening IMPRESSION: Stable examination. Coronary artery calcification (CAC) is is present Lung-RADS Category: 2 BENIGN (BASED ON IMAGING FEATURES OR INDOLENT BEHAVIOR). RECOMMEND 12-MONTH SCREENING LDCT. Other Significant Findings: Reading Location: [place] [id number]
--- OUTSIDE RECORDS SUMMARY | 2025-09-06 06:25 | XMS RPT_ITS | CCD ---
Author Organization [facility] Care Team Providers Care Life Specialist Name Role Phone Dr. Juan Antonio Bacon Primary Care Provider Jared, Dr. Shyla Irving Admit Provider Jared, Dr. Shyla Irving Attending Provider Jared, Dr. Shyla Irving Other Provider Dr. Rishi Brooks Attending Provider [phone] Dr. Carlos Castillo Chi Referring Provider Dr. Juan Antonio Bacon Referring Provider Lola SURGICAL AIDES TEACHER, SURGICAL AIDES TEACHER-C Gisselle Attending Provider Dr. Juan Antonio Bacon Primary Care Provider Dr. Juan Antonio Bacon Referring Provider Lola SURGICAL AIDES TEACHER, SURGICAL AIDES TEACHER-C Gisselle Attending Provider Dr. Misael Rae Attending Provider Dr. Juan Antonio Bacon Primary Care Provider Dr. Juan Antonio Bacon Referring Provider Juan Antonio Bacon MD Unavailable [facility], . [facility] Unavailable Wendy Corley, Dr. Elias Unavailable [phone] Dr Federico Valente MD Unavailable [facility] Unavailable [facility] Unavailable Mackenzie BEASLEY, Dr. Escalera Unavailable Sesar BEASLEY, Dr. Vigil [facility]available [facility]/Jeffy Hancock Unavaila ble Jarrod BEASLEY, Dr. Dee ([facility]) A Unavail able Dr. Sheri Kingston MD Unavailable [facility] Unavailable [facility] Unavailable Paris BEASLEY, Joceline Marshall Unavailable Terry CAMOUFLAGE SPECIALIST, Caroline Unavailable Chandan ROSALES, Leila Velazquez Unavailable [phone] Chi CAMOUFLAGE SPECIALIST, Kirsten Marshall Unavailable Unavailable Gogoi (scribe), Hemanta Unavailable Unavaila ble Harrison CAMOUFLAGE SPECIALIST, Margaret Unavailable Unavailable Rishi Street MD Unavailable David ROSALES, Polly Chao Unavailable Sushila Zavala Unavailable Unavailable Sally GARZA, Kimberly Farias Unavailable Unavail able Juan RUBALCAVAN, Rachel Unavailable Unavailable Faisal GARZA, Polly Perez Unavailable Unavaila ble Thea CAMOUFLAGE SPECIALIST, Brooklyn Unavailable Unavailable Fab CAMOUFLAGE SPECIALIST, Rony Unavailable Unavailable Khloe RN, Marilu Y Unavailable Unavailable Brandon CAMOUFLAGE SPECIALIST, Farheen Unavailable Unavailable Ruth CAMOUFLAGE SPECIALIST, Valorie K Unavailable Unavai joshua Sanchez PA-C, Haven Velazquez Unavailable Tha CAMOUFLAGE SPECIALIST, Joceline Grissom Unavailable Unavailab louise Satnana LPN, Jayashree Unavailable Unavailab louise Phillips MA, Rachel Unavailable Unavailable Wilmar Braga MD Unavailable Vess CAMOUFLAGE SPECIALIST, Kamala L Unavailable Unavailable Francierjessee CAMOUFLAGE SPECIALIST, Patricia Unavailable Unavailsekou e Eloy CAMOUFLAGE SPECIALIST, Alis Lees Unavailable Unavaila ble Unavailable Unavailable Sally ROSALES, Colton Marshall Unavailable [facility] Unavailable [facility] Unavailable FEDERICO CASTAÑEDA Attending Unavailable FEDERICO CASTAÑEDA Admitting Unavailable JUAN ANTONIO BACON Primary Care Unavailable HARTNADIRA, FEDERICO Attending Unavailable JUAN ANTONIO BACON Primary Care Unavailable HARTNADIRA, FEDERICO Attending Unavailable JUAN ANTONIO BACON Primary Care Unavailable HARTNADIRA, FEDERICO Attending Unavailable JORDI, JUAN ANTONIO Primary Care Unavailable MADDY, FEDERICO Attending Unavailable JUAN ANTONIO BACON Primary Care Unavailable Jordi BEASLEY, Dr. Romano Primary Care Provider Lola SURGICAL AIDES TEACHER-C, Gisselle Attending Provider Lola SURGICAL AIDES TEACHER-C, Gisselle Referring Provider Jordi BEASLEY, Dr. Romano Referring Provider Wendy BEASLEY, Dr. Curt Perez Attending Provider Wendy BEASLEY, Dr. Curt Perez Referring Provider Lola SURGICAL AIDES TEACHER-C, Gisselle Other Provider Jordi ULLAO, Dr. Stewart Attending Provider [phone] Dr Francisco Magallanes MD Unavailable Jordi BEASLEY, Dr. Romano Primary Care Provider Lola SURGICAL AIDES TEACHER-C, Gisselle Attending Provider Lola SURGICAL AIDES TEACHER-C, Gisselle Referring Provider Jordi BEASLEY, Dr. Romano Referring Provider Jordi BEASLEY, Dr. Romano Primary Care Provider Lola SURGICAL AIDES TEACHER-C, Gisselle Attending Provider Lola SURGICAL AIDES TEACHER-C, Gisselle Referring Provider Marcella Blackwell Unavailable Unavailabl e Unavailable Primary Care Provider Unavailabl e Jordi BEASLEY, Dr. Romano Primary Care Physician Dr. Juan Antonio Bacon MD Referring Provider Lola SURGICAL AIDES TEACHER-C, Gisselle Attending Physician Rio BEASLEY, Dr. Meza Attending Physician [phone] Lise BEASLEY, Dr. Osman Attending Physician [phone] JUAN ANTONIO BACON Referring Unavailable JUAN ANTONIO BACON Consulting Unavailable CSERNYIK, NELL DO Attending Unavailable CSERNYIK, NELL DO Primary Care Unavailable CSERNYIK, NELL DO Admitting Unavailable PROVIDER, UNKNOWN Consulting Unavailable PROVIDER, UNKNOWN Consulting Unavailable PROVIDER, UNKNOWN Consulting Unavailable JUAN ANTONIO BACON Consulting Unavailable GAYLA, GAURAV Attending Unavailable GAYLA, GAURAV Primary Care Unavailable GAYLA, GAURAV Admitting Unavailable PROVIDER, UNKNOWN Consulting Unavailable PROVIDER, UNKNOWN Consulting Unavailable PROVIDER, UNKNOWN Consulting Unavailable JUAN FRANCISCO OJEDA Attending Unavailable EDITH PALM Attending Unavailable PAULETTE HARDY Attending Unavailable SELF Referring Unavailable [facility], Juan Antonio Primary Care Unavailable Curt Nguyen Referring Unavailable Curt Nguyen Attending Unavailable [facility], Juan Antonio Primary Care Unavailable Brown, Juan Antonio Referring Unavailable Derrick Pate Attending Unavailable [facility], Juan Antonio Primary Care Unavailable Dawson Lezama Attending Unavailable [facility], Juan Antonio Primary Care Unavailable Brown, Juan Antonio Referring Unavailable Lianne Burns Attending Unavailable Brown, Juan Antonio Primary Care Unavailable Brown, Juan Antonio Referring Unavailable Davila SURGICAL AIDES TEACHER, Gisselle Attending Unavailable [facility], Juan Antonio Primary Care Unavailable Brown, Juan Antonio Referring Unavailable Davila SURGICAL AIDES TEACHER, Gisselle Attending Unavailable [facility], Juan Antonio Primary Care Unavailable Brown, Juan Antonio Referring Unavailable Davila SURGICAL AIDES TEACHER, Gisselle Attending Unavailable [facility], Juan Antonio Primary Care Unavailable Brown, Juan Antonio Referring Unavailable Davila SURGICAL AIDES TEACHER, Gisselle Attending Unavailable Terry Bacno Attending Unavailable [facility], Juan Antonio Primary Care Unavailable Davila SURGICAL AIDES TEACHER, Gisselle Referring Unavailable Brown, Terry Attending Unavailable [facility], Juan Antonio Primary Care Unavailable Davila SURGICAL AIDES TEACHER, Gisselle Consulting Unavailable Davila SURGICAL AIDES TEACHER, Gisselle Referring Unavailable [facility], Juan Antonio Primary Care Unavailable Davila SURGICAL AIDES TEACHER, Gisselle Referring Unavailable Davila SURGICAL AIDES TEACHER, Gisselle Attending Unavailable Alexis Jarrett Attending Unavailable [facility], Juan Antonio Primary Care Unavailable JarrettAlexis Referring Unavailable [facility], Juana Ntonio Primary Care Unavailable Davila SURGICAL AIDES TEACHER, Gisselle Attending Unavailable Alexis Jarrett Referring Unavailable Alexis Jarrett Attending Unavailable [facility], Juan Antonio Primary Care Unavailable [facility], Juan Antonio Primary Care Unavailable Davila SURGICAL AIDES TEACHER, Gisselle Referring Unavailable Davila SURGICAL AIDES TEACHER, Gisselle Attending Unavailable [facility], Juan Atnonio Primary Care Unavailable Davila SURGICAL AIDES TEACHER, Gisselle Referring Unavailable Davila SURGICAL AIDES TEACHER, Gisselle Attending Unavailable [facility], Juan Antonio Primary Care Unavailable Lianne Burns Referring Unavailable Lianne Burns Attending Unavailable [facility], Juan Antonio Primary Care Unavailable Derrick Pate Referring Unavailable Derrick Pate Attending Unavailable Medications Current Medications Medication Drug Class(es) Dates Sig (Normalized) Sig (Original) aspirin 81 mg delayed release oral tablet (20 sources) Platelet Aggregation Inhibitor, Nonsteroidal Anti-inflammatory Drug Start: 08-15-2023 take 1 tablet by mouth once daily Start: 05-03-2015 End: 05-06-2023 take 1 tablet by mouth once daily Aspirin 81 MG tablet,chewable Discontinued 81 mg PO DAILY@0800 May 03, 2015 12:00am May 06, 2023 7:18pm heart DULoxetine 30 mg delayed release oral capsule (20 sources) Serotonin and Norepinephrine Reuptake Inhibitor Start: 06-22-2024 take 1 capsule by mouth twice daily Start: 05-27-2024 Start: 05-27-2024 Start: 04-12-2023 End: 08-15-2023 take 2 capsules by mouth once daily Duloxetine 20 mg Capsule,Delayed Release(Dr/Ec) Discontinued 40 mg PO DAILY 60 30 0 May 06, 2023 12:00am August 15, 2023 10:45am Start: 04-12-2023 End: 08-15-2023 take 40 mg by mouth once daily Duloxetine Discontinued 40 MG PO DAILY 60 30 May 06, 2023 12:00am August 15, 2023 10:45am Start: 04-17-2021 End: 08-01-2021 fenofibrate 160 mg oral tablet (20 sources) Peroxisome Proliferator Receptor alpha Agonist Start: 12-23-2024 take 1 tablet by mouth once daily Start: 06-13-2023 gabapentin 600 mg oral tablet (20 sources) Anti-epileptic Agent Start: 04-15-2025 take 1 tablet by mouth twice daily Start: 01-14-2025 End: 04-15-2025 take 1 tablet by mouth three times daily Gabapentin 600 mg tablet Discontinued 600 mg PO THREE TIMES A DAY January 14, 2025 12:00am April 15, 2025 7:52am Start: 09-08-2024 End: 01-14-2025 Gabapentin 400 mg capsule Discontinued mg PO September 08, 2024 1:00am January 14, 2025 7:53am Start: 04-01-2023 End: 09-08-2024 take 1 capsule by mouth twice daily Gabapentin 300 mg Capsule Discontinued 300 mg PO TWICE A DAY 60 30 0 May 06, 2023 12:00am September 08, 2024 8:59am Start: 11-24-2012 End: 06-04-2013 ketoconazole 200 mg oral tablet (2 sources) Azole Antifungal Start: 04-23-2007 ketoconazole 200 mg ORAL Tab Indications: Other seborrheic dermatitis ii now; ii at 7 & 14 days--with orange juice or carbonated beverage 6 0 04/23/2007 Active Start: 04-23-2007 End: 06-15-2025 apply 15 g topically twice daily ketoconazole 2 % TOPICAL Crea Indications: Dermatophytosis of scalp and winters bid to cm past involved scalp area--continue even if quiets 15 gm 2 04/23/2007 06/15/2025 Discontinued lisinopril 5 mg oral tablet (20 sources) Angiotensin Converting Enzyme Inhibitor Start: 04-26-2025 Start: 11-08-2023 take 1 tablet by mouth once da jeromy magnesium oxide 400 mg oral tablet (20 sources) Hctlxvei-Wyo-Bwvpu-Vit K-Lyc op 400-20-370 mcg tablet (4 sources) Start: 01-14-2025 Start: 01-14-2025 Jdmhpgcb-Pbn-U olic-Vit K-Lycop 400-20-370 mcg tablet Active 1 {tbl} PO daily January 14, 2025 12:00am Multivital-M (20 sources) Multivitamin (DAILY MULTIPLE) ORAL Tab (1 source) Start: 04-23-20 take 1 tablet by mouth once daily Multivitamin (DAILY MULTIPLE) ORAL Tab Take one(1) tablet daily. 0 04/23/2007 Active naproxen 375 mg delayed release oral tablet (20 sources) Nonsteroidal Anti-inflammatory Drug Start: 05-27-20 take 1 tablet by mouth twice daily at mealtime Naproxen 375 mg TbEC TAKE 1 TABLET BY MOUTH TWICE DAILY WITH FOOD OR MILK 05/27/2025 Active Start: 09-08-2024 rOPINIRole 1 mg oral tablet (20 sources) Nonergot Dopamine Agonist Start: 05-26-2025 take 0.5-1 tablets by mouth twice daily rOPINIRole (REQUIP) 1 mg tablet TAKE 1/2 TO 1 (ONE-HALF TO ONE) TABLET BY MOUTH TWICE DAILY 05/26/2025 Active Start: 01-14-2025 take 1 tablet by mouth three t imes daily sildenafil 100 mg oral tablet (3 sources) Phosphodiesterase 5 Inhibitor Start: 04-20-2025 take 1 tablet by mouth every hour sildenafil (VIAGRA) 100 mg tablet TAKE 1 TABLET BY MOUTH 1 HOUR PRIOR TO INTERCOURSE 04/20/2025 Active Completed/Discontinued Medications Medication Drug Class(es) Dates Sig (Normalized) Sig (Original) acetaminophen 500 mg oral tablet (20 sources) Start: 05-06-2023 End: 09-08-2024 take 2 tablets by mouth every six hours as needed for pain Acetaminophen 500 mg Tablet Discontinued 1000 mg PO EVERY 6 HOURS NEEDED as needed for Pain Score 1-4 0 0 May 06, 2023 12:00am September 08, 2024 8:58am Start: 05-06-2023 take 1000 mg by mout h every six hours as needed Acetaminophen Active 1000 MG PO EVERY 6 HOURS NEEDED 0 May 06, 2023 12:00am Start: 04-12-2023 End: 05-06-2023 take 2 tablets by mouth every six hours as needed for pain Acetaminophen 325 mg Tablet Discontinued 650 mg PO EVERY 6 HOURS NEEDED as needed for Pain Score 1-4 1 0 April 12, 2023 12:00am May 06, 2023 7:17pm Start: 04-12-2023 End: 05-06-2023 take 650 mg by mouth every six hours as needed Acetaminophen Discontinued 650 MG PO EVERY 6 HOURS NEEDED 1 April 12, 2023 12:00am May 06, 2023 7:17pm acetaminophen 325 mg / oxyCO DONE hydrochloride 5 mg oral tablet (20 sources) Opioid Agonist Start: 07-07-2016 End: 08-10-2016 ALPRAZolam 0.25 mg oral tabl et (20 sources) Benzodiazepine Start: 10-24-2021 End: 11-08-2023 Start: 05-03-2015 End: 04-12-2023 take 1 tablet by mouth once daily Alprazolam (Xanax Xr) 0.5 MG tablet extended release 24 hr Discontinued 0.5 mg PO DAILY May 03, 2015 12:00am April 12, 2023 11:21am nn amitriptyline hydrochloride 50 mg oral tablet (20 sources) Tricyclic Antidepressant Start: 06-12-2013 End: 11-25-2013 amoxicillin 500 mg oral tabl et (20 sources) Penicillin-class Antibacterial Start: 06-10-2023 End: 06-11-2023 amoxicillin 875 mg / clavula jazmin 125 mg oral tablet (20 sources) Penicillin-class Antibacterial Start: 09-17-2023 End: 09-26-2023 Start: 08-02-2014 End: 08-12-2014 apixaban 5 mg oral tablet (20 sources) Factor Xa Inhibitor Start: 05-06-2023 End: 08-15-2023 take 1 tablet by mouth twice daily Apixaban (Eliquis) 5 mg Tablet Discontinued 5 mg PO TWICE A DAY 60 30 0 May 06, 2023 12:00am August 15, 2023 10:46am ARIPiprazole 5 mg oral tablet (20 sources) Atypical Antipsychotic Start: 04-01-2023 End: 04-12-2023 take 1 tablet by mouth once daily Aripiprazole (Abilify) 5 mg tablet Discontinued 5 mg PO DAILY April 01, 2023 12:00am April 12, 2023 11:21am mood Start: 09-04-2021 End: 02-20-2022 atorvastatin 20 mg oral tabl et (20 sources) HMG-CoA Reductase Inhibitor Start: 11-02-2019 End: 12-02-2020 Start: 05-03-2015 End: 05-06-2023 take 1 tablet by mouth at bedtime Atorvastatin 20 MG tablet Discontinued 20 mg PO AT BEDTIME May 03, 2015 12:00am May 06, 2023 7:17pm cholesterol On Hold: Patient stated not taking azithromycin 250 mg oral tablet (20 sources) Macrolide Antimicrobial Start: 09-08-2024 End: 07-06-2025 Azithromycin 250 mg tablet Discontinued 250 mg PO As Directed September 08, 2024 1:00am July 06, 2025 9:51am Start: 09-07-2024 End: 09-12-2024 Start: 08-21-2021 End: 08-24-2021 baclofen 10 mg oral tablet (20 sources) gamma-Aminobutyric Acid-ergic Agonist Start: 05-06-2023 End: 09-08-2024 take 5 mg by mouth every eight hours as needed for muscle spasms Baclofen 10 mg Tablet Discontinued 5 mg PO EVERY 8 HOURS NEEDED as needed for muscle spasm 90 30 0 May 06, 2023 12:00am September 08, 2024 8:58am On Hold: Order Changed Start: 05-06-2023 take 5 mg by mouth e very eight hours as needed Baclofen Active 5 MG PO EVERY 8 HOURS NEEDED 30 May 06, 2023 12:00am Start: 04-01-2023 End: 04-20-2025 take 1 tablet by mouth every eight hours as needed for muscle spasms Baclofen 5 mg tablet Discontinued 5 mg PO Q8H as needed for muscle spasm April 01, 2023 12:00am May 06, 2023 7:18pm betamethasone 0.5 mg/ml topical lotion (1 source) Corticosteroid Start: 03-05-2007 End: 06-15-2025 Betamethasone Dipropionate 0.05 % TOPICAL Lotn bid affected areas scalp prn itch bottle 1 03/05/2007 06/15/2025 Discontinued bisacodyl 10 mg rectal suppository (20 sources) Stimulant Laxative Start: 05-09-2023 End: 08-15-2023 Bisacodyl 10 mg suppository Discontinued 10 mg RC DAILY as needed May 09, 2023 12:00am August 15, 2023 10:45am Start: 04-12-2023 End: 05-06-2023 Bisacodyl 10 mg Suppository Discontinued 10 mg RC .PRN X 1 as needed for Constipation 12 April 12, 2023 12:00am May 06, 2023 7:18pm 12 hr buPROPion hydrochloride 150 mg extended release oral tablet (20 sources) Aminoketone Start: 06-03-2013 End: 06-12-2013 cephalexin 500 mg oral capsule (20 sources) Cephalosporin Antibacterial Start: 10-12-2019 End: 10-22-2019 citalopram 10 mg oral tablet (20 sources) Serotonin Reuptake Inhibitor clopidogrel 75 mg oral tablet (20 sources) P2Y12 Platelet Inhibitor codeine phosphate 2 mg/ml / promethazine hydrochloride 1.25 mg/ml oral solution (20 sources) Opioid Agonist, Phenothiazine Start: 08-15-2021 End: 05-17-2022 cyclobenzaprine hydrochloride 10 mg oral tablet (20 sources) Muscle Relaxant Start: 12-15-2018 End: 01-09-2019 docusate sodium 50 mg / sennosides, long term 8.6 mg oral tablet (20 sources) Start: 05-09-2023 End: 08-15-2023 Sennosides-Docusate Sodium (Senokot-S) 8.6-50 mg tablet Discontinued 2 NMA PO TWICE A DAY as needed May 09, 2023 12:00am August 15, 2023 10:46am Start: 04-12-2023 End: 05-06-2023 Sennosides-Docusate Sodium ( Stool Softener-Stimulant Laxat) 8.6-50 mg Tablet Discontinued 2 {tbl} PO TWICE A DAY as needed for constipation 1 0 April 12, 2023 11:32am May 06, 2023 7:19pm doxycycline monohydrate 100 mg oral tablet (20 sources) Tetracycline-class Drug Start: 09-26-2023 End: 10-06-2023 etodolac 400 mg oral tablet (20 sources) Nonsteroidal Anti-inflammatory Drug Start: 05-10-2017 End: 07-10-2017 famciclovir 500 mg oral tablet (20 sources) Herpes Simplex Virus Nucleoside Analog DNA Polymerase Inhibitor Start: 09-11-2022 End: 09-18-2022 fluconazole 100 mg oral tablet (20 sources) Azole Antifungal Start: 10-07-2023 End: 10-17-2023 FLUoxetine 10 mg oral capsule (20 sources) Serotonin Reuptake Inhibitor Start: 11-25-2013 End: 12-02-2013 fluticasone propionate 0.05 mg/actuat metered dose nasal spray (20 sources) Corticosteroid Start: 07-04-2020 End: 04-13-2021 folic acid 1 mg oral tablet (20 sources) gemfibrozil 600 mg oral tablet (20 sources) Peroxisome Proliferator Receptor alpha Agonist Start: 05-02-2012 End: 06-04-2013 hydrocortisone 25 mg/ml topical cream (20 sources) Corticosteroid Start: 01-26-2019 End: 07-10-2019 hydroxychloroquine sulfate 200 mg oral tablet (20 sources) Antimalarial, Antirheumatic Agent ibuprofen 400 mg oral tablet (15 sources) Nonsteroidal Anti-inflammatory Drug Start: 05-03-2015 End: 05-06-2023 take 2 tablets by mouth every six hours as needed for pain Ibuprofen 400 MG tablet Discontinued 800 mg PO EVERY 6 HOURS NEEDED as needed for Mild/Moderate Pain May 03, 2015 12:00am May 06, 2023 7:17pm On Hold: Order Changed Start: 05-03-2015 End: 05-06-2023 take 800 mg by mouth every six hours as needed Ibuprofen Discontinued 800 MG PO EVERY 6 HOURS NEEDED May 03, 2015 12:00am May 06, 2023 7:17pm ammonium lactate 120 mg/ml topical lotion (20 sources) Start: 04-12-2023 End: 08-15-2023 Ammonium Lactate 12 % Lotion Discontinued 1 NMA TOPICAL BID@1000,2200 400 30 0 May 06, 2023 12:00am August 15, 2023 10:46am Please contact the information source for Protocol details. levoFLOXacin 500 mg oral tablet (20 sources) Quinolone Antimicrobial Start: 10-27-2019 End: 11-06-2019 LIPIDIN-HP CAP (1 source) Start: 12-05-2005 End: 06-15-2025 LIPIDIN-HP CAP Take one(1) tablet two(2) times daily. 0 12/05/2005 06/15/2025 Discontinued meloxicam 15 mg oral tablet (20 sources) Nonsteroidal Anti-inflammatory Drug Start: 12-13-2023 End: 09-08-2024 take 1 tablet by mouth once daily as needed for pain Meloxicam 15 mg tablet Discontinued 15 mg PO DAILY as needed for pain December 13, 2023 12:00am September 08, 2024 8:58am Start: 07-17-2023 End: 11-28-2023 menthol 0.0044 mg/mg / zinc oxide 0.206 mg/mg topical ointment (13 sources) Start: 04-13-2023 End: 05-06-2023 Menthol-Zinc Oxide (Calmosep george) 0.44-20.6 % ointment Discontinued 1 NMA TOPICAL TWICE A DAY April 13, 2023 12:00am May 06, 2023 7:18pm Redness Apply to bilateral buttocks Start: 04-13-2023 End: 05-06-2023 Menthol-Zinc Oxide (Calmosep george) 0.44-20.6 % ointment Discontinued 1 NMA TOPICAL TWICE A DAY April 13, 2023 12:00am May 06, 2023 7:18pm Redness Apply to bilateral buttocks Start: 04-13-2023 End: 05-06-2023 Menthol-Zinc Oxide (Calmosep george) 0.44-20.6 % ointment Discontinued 1 NMA TOPICAL TWICE A DAY April 13, 2023 12:00am May 06, 2023 7:18pm Apply to bilateral buttocks Start: 04-13-2023 End: 05-06-2023 Menthol-Zinc Oxide (Calmosep george) 0.44-20.6 % ointment Discontinued 1 APPLIC TOPICAL TWICE A DAY April 12, 2023 11:00pm [place] 7th, 2023 6:18pm Apply to bilateral buttocks Start: 04-13-2023 End: 05-06-2023 Menthol-Zinc Oxide (Calmosep george) 0.44-20.6 % ointment Discontinued 1 APPLIC TOPICAL TWICE A DAY April 13, 2023 12:00am May 06, 2023 7:18pm Apply to bilateral buttocks Start: 04-13-2023 Menthol-Zinc O xide (Calmoseptine) 0.44-20.6 % ointment Active 1 APPLIC TOPICAL TWICE A DAY April 13, 2023 12:00am Apply to bilateral buttocks methotrexate 2.5 mg oral tablet (20 sources) Folate Analog Metabolic Inhibitor methylPREDNISolone (20 sources) Corticosteroid Start: 013 End: nabumetone 500 mg oral tablet (20 sources) Nonsteroidal Anti-inflammatory Drug oxyCODONE hydrochloride 5 mg oral tablet (20 sources) Opioid Agonist Start: End: take 5-10 mg by mouth every six hours as needed for pain Oxycodone 5 mg Tablet Discontinued 5 - 10 mg PO EVERY 6 HOURS NEEDED as needed for Pain Score 4-10 28 7 0 May 06, 2023 August 15, 2023 10:46am History of laminectomy Other specified postprocedural states Start: 03-18-2023 End: 03-18-2023 predniSONE 5 mg oral tablet (20 sources) Start: 11-12-2023 End: 04-15-2024 Start: 07-19-2023 End: 11-08-2023 Start: 04-12-2023 End: 05-06-2023 Prednisone 5 mg Tablet Disco ntinued 0 .ROUTE .COMPLEX 1 0 April 12, 2023 12:00am May 06, 2023 7:19pm Inflammation Prednisone 7.5 mg daily X 3 days then alternate 6 mg and 7 mg for 7 days then 6 mg daily for 7 days then alternate 5 mg and 6 mg for 7 days then 5 mg daily for 7 days then alternate 4 mg and 5 mg for 7 days then 4 mg daily for 7 days them alternate 3 mg and 4 mg for 7 days then 3 mg daily for 7 days then 2.5 mg daily for 14 days and discontinue Prednisone Start: 04-12-2023 End: 05-06-2023 Prednisone Discontinued 0 .R OUTE .COMPLEX 1 April 12, 2023 12:00am May 06, 2023 7:19pm Prednisone 7.5 mg daily X 3 days then alternate 6 mg and 7 mg for 7 days then 6 mg daily for 7 days then alternate 5 mg and 6 mg for 7 days then 5 mg daily for 7 days then alternate 4 mg and 5 mg for 7 days then 4 mg daily for 7 days them alternate 3 mg and 4 mg for 7 days then 3 mg daily for 7 days then 2.5 mg daily for 14 days and discontinue Prednisone Start: 03-04-2023 End: 10-17-2023 take 1 tablet by mouth once daily Prednisone 10 mg tablet Discontinued 10 mg PO DAILY April 01, 2023 12:00am April 12, 2023 11:25am pain pregabalin 50 mg oral capsule (20 sources) Start: 01-18-2021 End: 04-13-2021 selenium sulfide 25 mg/ml medicated shampoo (1 source) Start: 04-23-2007 End: 06-15-2025 apply 4 [oz_av] topically every other day selenium sulfide 2.5 % TOPICAL Sham Indications: Other seborrheic dermatitis qod face, chest, back, scalp as second lather--lather, wait 5 minutes, rinse off 4 oz x 2 bottle 3 04/23/2007 06/15/2025 Discontinued sulfamethoxazole 800 mg / trimethoprim 160 mg oral tablet (20 sources) Dihydrofolate Reductase Inhibitor Antibacterial, Sulfonamide Antimicrobial Start: 08-18-2014 End: 09-01-2014 Syringe Luer Lock (20 sources) Start: 12-03-2022 End: 11-08-2023 Start: 12-03-2022 1 ml testosterone cypionate 200 mg/ml injection (20 sources) Androgen Start: 12-10-2022 End: 11-08-2023 tiZANidine 4 mg oral capsule (20 sources) Central alpha-2 Adrenergic Agonist traMADol hydrochloride 50 mg oral tablet (20 sources) Opioid Agonist Start: 05-10-2017 End: 07-10-2017 triamcinolone acetonide 1 mg /ml topical cream (20 sources) Corticosteroid Start: 09-15-2012 End: 06-04-2013 Start: 04-04-2011 End: 10-11-2011 varenicline 0.5 mg oral tabl et (20 sources) Partial Cholinergic Nicotinic Agonist Start: 11-24-2012 End: 06-04-2013 Start: 11-24-2012 End: 06-04-2013 Problems Active Problems Problem Classification Problem Date Documented Da te Episodic/Chronic Abdominal hernia (14 sources) Hernia of anterior abdominal wall; Translations: [Ventral hernia without obstruction or gangrene] 04-02-2023 Episodic Acute bronchitis (20 sources) Acute bronchitis; Translations: [Acute bronchitis, unspecified] 10-30-2013 Episodic Adjustment disorders (20 sources) Adjustment disorder with depressed mood 10-30-2013 Chronic Administrative/social admission (20 sources) Issue of repeat prescriptions 09-06-2017 Episodic Allergic reactions (20 sources) Allergic condition; Translations: [Allergy, unspecified, initial encounter] 09-17-2023 Episodic Anxiety disorders (20 sources) Anxiety; Translations: [Anxiety disorder, unspecified] 09-17-2023 Chronic Aortic; peripheral; and visceral artery aneurysms (20 sources) Abdominal aortic aneurysm; Translations: [Abdominal aortic aneurysm (AAA)] 04-02-2023 Chronic Comment on above: Follows with Dr. Alisson Nguyen. Chronic obstructive pulmonary disease and bronchiectasis (20 sources) Bronchitis; Translations: [Bronchitis, not specified as acute or chronic] 09-26-2023 Episodic Coagulation and hemorrhagic disorders (20 sources) Easy bruising; Translations: [Spontaneous ecchymoses] 08-10-2016 Episodic Diseases of mouth; excluding dental (20 sources) Glossitis; Translations: [Glossitis] 05-29-2019 Episodic Disorders of lipid metabolism (20 sources) Hyperlipidemia; Translations: [Hyperlipidemia, unspecified] 04-12-2023 Chronic Esophageal disorders (20 sources) Gastroesophageal reflux disease; Translations: [Gastro-esophageal reflux disease without esophagitis] 09-17-2023 Chronic Essential hypertension (20 sources) Hypertensive disorder; Translations: [Essential (primary) hypertension] 11-08-2023 Chronic Fluid and electrolyte disorders (20 sources) Dehydration; Translations: [Dehydration] 04-12-2023 Episodic Comment on above: He continues to limi t fluid intake despite instruction to increase fluids. more likely than not due to dehydration. Headache; including migraine (1 source) Headache; including migraine; Translations: [Headache, unspecified] Onset: Hemorrhoids (20 sources) Hemorrhoids; Translations: [Unspecified hemorrhoids] 09-17-2017 Episodic Immunizations and screening for infectious disease (20 sources) Needs influenza immunization; Translations: [Encounter for immunization] 07-10-2017 Episodic Intestinal infection (20 sources) Colitis, enteritis, and gastroenteritis of presumed infectious origin 06-30-2010 Episodic Malaise and fatigue (20 sources) Asthenia; Translations: [Other malaise] 04-02-2023 Episodic Mood disorders (20 sources) Depressive disorder; Translations: [Depression] 04-12-2023 Chronic Comment on above: Denisse weaned off b ecause of weight gain and he has been transitioned to Duloxetine for depression and chronic pain S. Mycoses (20 sources) Candidiasis of mouth; Translations: [Candidal stomatitis] 10-10-2023 Episodic Nonspecific chest pain (20 sources) Chest pain; Translations: [Chest pain, unspecified] 10-10-2023 Episodic Occlusion or stenosis of precerebral arteries (1 source) Occlusion and stenosis of bilateral carotid arteries; Translations: [Occlusion and stenosis of bilateral carotid arteries] Onset: Chronic Osteoarthritis (20 sources) Osteoarthritis; Translations: [Unspecified osteoarthritis, unspecified site] 04-13-2023 Chronic Other aftercare (20 sources) Long-term current use of steroid; Translations: [MCFP (current) use of systemic steroids] 04-12-2023 Episodic Comment on above: Tapering these off. See protocol on DC medication. Started in November for radiculopathy. Other aftercare (4 sources) MCFP (current) use of systemic steroids; Translations: [Long-term (current) use of steroids] 04-12-2023 Episodic Other aftercare (20 sources) Antibiotic prophylaxis indicated; Translations: [meterman (current) use of antibiotics] 09-17-2023 Episodic Other aftercare (20 sources) Long-term (current) use of other medications 06-18-2011 Episodic Other aftercare (2 sources) Long-term current use of systemic steroid; Translations: [MCFP (current) use of systemic steroids] 04-12-2023 Episodic Comment on above: Tapering these off. See protocol on DC medication. Started in November for radiculopathy. Other circulatory disease (20 sources) Elevated blood pressure; Translations: [Elevated blood-pressure reading, without diagnosis of hypertension] 09-17-2023 Episodic Other connective tissue disease (20 sources) Polymyalgia rheumatica; Translations: [Polymyalgia rheumatica] 09-17-2023 Chronic Other connective tissue disease (13 sources) Spasm; Translations: [Other muscle spasm] 04-13-2023 Episodic Other connective tissue disease (4 sources) Other muscle spasm; Translations: [Spasm of muscle] 04-13-2023 Episodic Other connective tissue disease (20 sources) Pain in bilateral legs; Translations: [Pain in right leg] 09-17-2023 Episodic Other connective tissue disease (20 sources) Muscle pain; Translations: [Myalgia, unspecified site] 09-17-2023 Episodic Other connective tissue disease (20 sources) Olecranon bursitis; Translations: [Olecranon bursitis, unspecified elbow] 09-17-2023 Episodic Other connective tissue disease (20 sources) Pain in lower limb; Translations: [Pain in right leg] 01-05-2014 Episodic Other connective tissue disease (2 sources) History of lumbar fusion; Translations: [Arthrodesis status] 07-06-2025 Episodic Other ear and sense organ disorders (20 sources) Impacted cerumen; Translations: [Impacted cerumen, right ear] 07-08-2018 Episodic Other ear and sense organ disorders (20 sources) Pain of ear structure; Translations: [Otalgia, unspecified ear] 09-15-2012 Episodic Other gastrointestinal disorders (20 sources) Abdominal bloating; Translations: [Abdominal distension (gaseous)] 09-17-2023 Episodic Other gastrointestinal disorders (20 sources) Stool DNA-based colorectal cancer screening positive; Translations: [Other fecal abnormalities] 03-06-2019 Episodic Other hereditary and degenerative nervous system conditions (14 sources) Restless legs; Translations: [Restless legs syndrome] 04-12-2023 Chronic Comment on above: Suspect due to obstr uctive sleep apnea. While on oxygen had no restless leg. Other hereditary and degenerative nervous system conditions (5 sources) Restless legs syndrome; Translations: [Restless legs syndrome (RLS)] Onset: 5 04-12-2023 Chronic Other inflammatory condition of skin (20 sources) Other psoriasis 06-30-2010 Chronic Other lower respiratory disease (20 sources) Cough; Translations: [Cough] 01-16-2017 Episodic Other lower respiratory disease (12 sources) Dyspnea on exertion; Translations: [Shortness of breath] 09-08-2024 Episodic Other male genital disorders (4 sources) Male erectile dysfunction, unspecified; Translations: [Impotence of organic origin] 04-20-2025 Chronic Other nervous system disorders (14 sources) Disorder of muscle; Translations: [Myopathy, unspecified] 04-02-2023 Chronic Other nervous system disorders (4 sources) Myopathy, unspecified; Translations: [Myopathy, unspecified] 04-12-2023 Chronic Other nervous system disorders (20 sources) Myelomalacia; Translations: [Other specified diseases of spinal cord] 09-17-2023 Chronic Other nervous system disorders (20 sources) Peripheral nerve entrapment syndrome; Translations: [Mononeuropathy, unspecified] 09-17-2023 Chronic Other nervous system disorders (20 sources) Spinal cord disease; Translations: [Disease of spinal cord, unspecified] 11-28-2023 Chronic Other nervous system disorders (20 sources) Chronic pain; Translations: [Other chronic pain] 05-27-2024 Chronic Other nervous system disorders (2 sources) Chronic pain syndrome; Translations: [Chronic pain syndrome] Onset: Chronic Other nervous system disorders (2 sources) Narcolepsy; 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] 04-20-2025 Chronic Other nervous system disorders (1 source) Narcolepsy without cataplexy; 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] Onset: 5 Chronic Other nervous system disorders (20 sources) Paresthesia; Translations: [Paresthesia of skin] 09-17-2023 Episodic Other non-traumatic joint disorders (20 sources) Pain in right hip joint; Translations: [Pain in right hip] 09-17-2023 Episodic Other non-traumatic joint disorders (20 sources) Pain in left knee; Translations: [Pain in joint, lower leg] 02-16-2019 Episodic Other non-traumatic joint disorders (20 sources) Multiple joint pain; Translations: [Pain in unspecified joint] 11-08-2023 Episodic Other non-traumatic joint disorders (20 sources) Hip pain; Translations: [Pain in right hip] 04-14-2024 Episodic Other nutritional; endocrine; and metabolic disorders (20 sources) Overweight in adulthood with body mass index of 25 or more but less than 30; Translations: [Body mass index (BMI) 27.0-27.9, adult] 09-17-2023 Episodic Other nutritional; endocrine; and metabolic disorders (20 sources) Weight loss; Translations: [Abnormal weight loss] 09-17-2023 Episodic Other nutritional; endocrine; and metabolic disorders (20 sources) Anorexia 06-30-2010 Episodic Other nutritional; endocrine; and metabolic disorders (12 sources) Body mass index 25-29 - overweight; Translations: [Body mass index (BMI) 27.0-27.9, adult] 11-28-2023 Episodic Other nutritional; endocrine; and metabolic disorders (20 sources) Weight decreased; Translations: [Abnormal weight loss] 04-14-2024 Episodic Other screening for suspected conditions (not mental disorders or infectious disease) (20 sources) Decreased testosterone level ; Translations: [Other specified abnormal findings of blood chemistry] 09-17-2023 Episodic Other upper respiratory infections (20 sources) Sinusitis; Translations: [Chronic sinusitis, unspecified] 06-26-2022 Chronic Other upper respiratory infections (20 sources) Acute sinusitis; Translations: [Acute sinusitis, unspecified] 11-24-2012 Episodic Paralysis (18 sources) Right hemiparesis; Translations: [Hemiplegia, unspecified affecting right dominant side] 04-12-2023 Chronic Comment on above: Due to cervical cord compression. Peripheral and visceral atherosclerosis (20 sources) Peripheral vascular disease; Translations: [Peripheral vascular disease, unspecified] 04-13-2023 Chronic Residual codes; unclassified (20 sources) Obstructive sleep apnea syndrome; Translations: [Obstructive sleep apnea (adult) (pediatric)] 04-29-2023 Chronic Comment on above: AHI 45.7 controlled on BiPAP AHI 45.7 controlled on BiPAP 12/8 Residual codes; unclassified (13 sources) Obstructive sleep apnea (adult) (pediatric); Translations: [Obstructive sleep apnea (adult)(pediatric)] Onset: 04-12-2023 Chronic Residual codes; unclassified (4 sources) Daytime somnolence; Translations: [Other hypersomnia] 04-20-2025 Chronic Residual codes; unclassified (1 source) Hypersomnia; Translations: [Hypersomnia, unspecified] 06-15-2025 Chronic Residual codes; unclassified (1 source) Hypersomnia, unspecified; Translations: [Hypersomnia] Onset: 5 Chronic Residual codes; unclassified (8 sources) H/O Spinal surgery; Translations: [Other specified postprocedural states] 04-01-2023 Episodic Residual codes; unclassified (14 sources) Other specified postprocedural states; Translations: [Other postprocedural status] 04-12-2023 Episodic Comment on above: Cervical laminectomy and fusion of C2-[address] Johnson in February of 2023. Residual codes; unclassified (20 sources) Insomnia; Translations: [Insomnia, unspecified] 09-17-2023 Episodic Residual codes; unclassified (20 sources) Tobacco user; Translations: [Tobacco use] 09-17-2023 Episodic Residual codes; unclassified (20 sources) Altered mental status; Translations: [Altered mental status, unspecified] 03-07-2020 Episodic Rheumatoid arthritis and related disease (18 sources) Rheumatoid arthritis; Translations: [Rheumatoid arthritis, unspecified] 04-01-2023 Chronic Comment on above: Doubt. Not on any me dication used to treat RA? Has had 3 negative RF's at [facility] over the years. CCP normal X2. GUNJAN negative and HLA B-27 negative also. Spondylosis; intervertebral disc disorders; other back problems (20 sources) Nerve root disorder; Translations: [Radiculopathy, site unspecified] Onset: 5 04-05-2023 Episodic Substance-related disorders (20 sources) Cigarette smoker ; Translations: [Nicotine dependence, cigarettes, uncomplicated] Onset: 5 05-09-2023 Chronic Comment on above: 10/01 ppd 50 years, qu it 02/2023 repeat LDCT ordered for August 2025 Systemic lupus erythematosus and connective tissue disorders (20 sources) Temporal arteritis; Translations: [Other giant cell arteritis] 01-05-2014 Chronic Unclassified (2 sources) Post-op; Translations: [Post-op] Onset: 4 Unclassified (2 sources) New Patient; Translations: [New Patient] Onset: 4 Past or Other Problems Problem Classification Problem Date Documented Da te Episodic/Chronic Other lower respiratory disease (2 sources) Shortness of breath; Translations: [Shortness of breath] Onset: 12-30-2024 Episodic Results Test Name Value Interpretation Reference Range Facility GUNJAN w/ Reflex Mult Confirmon 08-10-2025 GUNJAN-D See below TNP Normal [facility] Comment on above: Performed By: #### L 503.6030, L501.5200, L501.6710, L503.6550, L503.0106, L101.9900, L3100.5450 #### [facility] [address] [place], [address] CRPon 08-10-2025 C-REACTIVE PROT 12.10 mg/L High 0.0-3.0 [facility] Comment on above: Performed By: #### L 503.6030, L501.5200, L501.6710, L503.6550, L503.0106, L101.9900, L3100.5450 ####[facility] [id number] [place], [place], [id number] Erythrocyte Sed Rateon 08-10 SED RATE 14 mm/hr Normal 0-20 [facility] Comment on above: Performed By: #### L 503.6030, L501.5200, L501.6710, L503.6550, L503.0106, L101.9900, L3100.5450 #### [facility] [address] [place], [place], [id number] Ferritinon 08-10-2025 Ferritin [Mass/Vol] 73 ng/mL Normal 37-417 [facility] Comment on above: Performed By: #### L 503.6030, L501.5200, L501.6710, L503.6550, L503.0106, L101.9900, L3100.5450 #### [facility] [address] [place], [place], [id number] Iron+Iron Binding Capacityon 08-10-2025 Iron [Mass/Vol] 63 ug/dL Low 65-175 [facility] Comment on above: Performed By: #### L 503.6030, L501.5200, L501.6710, L503.6550, L503.0106, L101.9900, L3100.5450 #### [facility] [address] [place], [place], [id number] UIBC 298 ug/dL Normal 228-428 [facility] Comment on above: Performed By: #### L 503.6030, L501.5200, L501.6710, L503.6550, L503.0106, L101.9900, L3100.5450 #### [facility] [address] [place], [address] Magnesiumon 08-10-2025 Magnesium [Mass/Vol] 2.2 mg/dL Normal 1.5-2.2 [facility] Comment on above: Performed By: #### L 503.6030, L501.5200, L501.6710, L503.6550, L503.0106, L101.9900, L3100.5450 #### [facility] [address] [place], [place], [id number] Neurology Visit Reporton Neurology Visit Report [facility] [address] [place] [address], [address] [place], [place] [id number] OFFICE VISIT Date of Service: 08/10/25 MR#: [id number] Acct: [id number] Name: SADIE ESTRADA Rep #: [id number] : 1955 Provider: RITU umanzor Age/Sex: 70/M [place] [facility] [place] S[place] [facility] Chief Complaint: Establish Care Details: History of present illness: Mr. Estrada is a 70-year-old right-handed male who presents unaccompanied to neurology today 08/10/2025 to establish care for acute onset headaches. Patient has several comorbid conditions. Most notable is his history of several spinal surgeries including his cervical and lumbar spine with persistent pain and radicular symptoms. Approximately 3 weeks ago, patient had acute onset of throbbing headache and bilateral temporal pain that awoke him from sleep around 4:30 AM. Other symptoms included photophobia and nausea. He does not have a history of migraine headaches and has never been prone to headaches in the past. Later that day he was evaluated in [facility] ED. Workup was grossly negative. CT brain radiologist report did not appreciate any acute intracranial abnormalities. CTA head/neck demonstrated bilateral internal carotid artery stenosis, but degree cannot be classified due to artifact from cervical hardware. Vertebral arteries were reported patent. There is no report of aneurysm. Of note, he does follow with vascular surgery for his bilateral carotid stenosis and his carotid ultrasound from October 2024 demonstrated mild (<50%) stenosis of the right ICA and moderate (50-69%) stenosis of the left ICA. He was treated with a migraine with moderate relief; however, temporal headache persisted for several days. He still experiences daily headaches in the right temporal region extending above the right eyebrow. It is described as throbbing and rather intense. The pain is evident on today's office exam. He is very photophobic. With the lights turned down, headache will dissipate. There is no pain, tenderness, or nodularities upon palpitation of the temporal artery region. Bilateral temporal pulses are normal. He denies any visual changes or loss aside from the photophobia. He is afebrile. There is no jaw claudication. ROS: General: No fatigue. No recent weight loss/gain. No recent illness. No fevers. No recent falls. Neuro: New temporal headaches x3 weeks. Positive for photophobia. No dizziness. No weakness. No tremors. Psych: No insomnia or hypersomnia. No agitation. No depressive symptoms. No memory difficulties. Cardio: No palpitations. No chest pain or discomfort. No edema. Respiratory: Current smoker. No cough. No shortness of breath. No wheezing. Musculoskeletal: No use of assistive devices. Chronic pain, multiple surgeries. Has spinal cord stimulator. HEENT: No hearing loss. No blurry vision. No diplopia. No dysphagia. GI: No hematochezia. No NVD. No constipation. No abdominal pain or discomfort. : No hematuria. No frequency or urgency. No incontinence. No dysuria. Skin: No ecchymosis. No wounds, rashes, or lesions. PHYSICAL EXAM: Constitutional: Well-developed, well-nourished right-handed male. He is restless/fidgety and appears to be in pain. He is squinting at the overhead light. Psych: Cooperative and pleasant. Judgement and insight good. HEENT: Normocephalic. Atraumatic. Hearing grossly normal bilaterally. Periorbital findings are normal. There is no pain, tenderness, or nodularities upon palpitation of the temporal artery region. Temporal pulses normal. Respiratory: Normal effort. Symmetric chest movement. Clear to auscultation bilaterally. Cardio: Regular rate and rhythm. No auscultated murmurs. BP 155/79; HR 57 bpm GI: Abdomen is soft, rounded. Nontender. Bowel sounds normal. Musculoskeletal: No focal muscle weakness. No difficulties with ROM. Extremities: Absence of edema. No peripheral cyanosis. Skin: No visible wounds or lesions. No visible ecchymosis. Normal skin turgor. Neurological exam: Mental status: Alert, awake, oriented x 4. Speech is fluent with good comprehension. Cranial nerves II-XII: PERRL 4 mm in size bilaterally, some clouding of the lenses bilaterally. There is photophobia present. EOM intact. Ocular pursuit is smooth. There are no visual field deficits. Facial sensation is intact aside from the pain present in the right temporal region. Face is symmetric at rest and with activation. No jaw claudication. No ptosis. Tongue is midline. Phonation is normal. Swallowing is intact. Cerebellum: No nystagmus. No dysmetria; normal [id number] maneuvers. Reflexes: Triceps, biceps, brachioradialis, patellar, and Achilles deep (more content not included)... Normal [facility] Vitamin B12on 08-10-2025 Cobalamin (Vitamin B12) [Mass/Vol] 533 pg/mL Normal 180-914 [facility] Comment on above: Performed By: #### L 503.6030, L501.5200, L501.6710, L503.6550, L503.0106, L101.9900, L3100.5450 #### [facility] [address], [address] [facility] 07-22-2025 [facility] Telephone ([facility] SADIE ESTRADA ([id number]) 1955 M Date Time Provider Department 07/22/25 JUAN FRANCISCO OJEDA During your visit today, we recorded the following information about you: Fortunato Peterson RN 07/22/2025 11:37 AM Signed Called Margaret spaulding at [facility] and got voicemail. Left message with my call back number. Allergies As of Date: 07/22/2025 (No Known Allergies) Date Reviewed: 06/15/2025 Reviewed by: Yareli Brandt MA - Fully Assessed Prescriptions as of 07/22/2025 - gabapentin (NEURONTIN) 600 mg tablet Take 600 mg by mouth two times a day. - Fenofibrate (LOFIBRA) 160 mg tablet Take 160 mg by mouth once daily. - DULoxetine DR (CYMBALTA) 30 mg capsule Take 30 mg by mouth. - aspirin, enteric coated (ASPIRIN, ENTERIC COATED) 81 mg EC tablet Take 81 mg by mouth. - lisinopril (ZESTRIL) 5 mg tablet Take 5 mg by mouth once daily. - Naproxen 375 mg TbEC TAKE 1 TABLET BY MOUTH TWICE DAILY WITH FOOD OR MILK - rOPINIRole (REQUIP) 1 mg tablet TAKE 1/2 TO 1 (ONE-HALF TO ONE) TABLET BY MOUTH TWICE DAILY - sildenafil (VIAGRA) 100 mg tablet TAKE 1 TABLET BY MOUTH 1 HOUR PRIOR TO INTERCOURSE - Multivitamin (DAILY MULTIPLE) ORAL Tab Take one(1) tablet daily. - ketoconazole 200 mg ORAL Tab ii now; ii at 7 AND 14 days--with orange juice or carbonated beverage Problem List As Of Date: 07/22/2025 (None) Encounter Status:Closed by FORTUNATO PETERSON on 07/22/25 [facility] ED MED ADMINISTRATION DETAIL on 07-19-2025 ED MED ADMINISTRATION DETAIL Gun [employer] - SADIE ESTRADA, : 1955, , Medication Administration Record [address] [place] [address] [id number] 07/18/2025 Patient: SADIE ESTRADA Sex: Male : 1955 Age: 70y MEASUREMENTS: Wt: 77.1 kg, Ht/Issac: 66.0 in, BMI: 27.44 ALLERGIES: No known drug allergies Medication Ordered Medication Administration IV NS 0.9 % 1000 mL at 100 20:24 07/18 IV NS 0.9 % 1000 mL started in bag#1 1000 mL at 100 mL/ mL/hr (NOW x1) and confirmed 5 rights. IV patency established. IV site checked: no pain, thoroughly pre-medication administration. Information reviewed with pat this medication, signs of allergic reaction and precautions. Verbalizes un 07/18/2025 BP: 93/73 MAP: 76 mmHg. HR: 61 bpm. Completed per maria victoria E.M.T.-P. 00:48 07/19 Medication Discontinued: bag #1 infused. Total amount infu established. IV site checked: no pain, redness, or swelling. IV flushed tho administration. - 00:53 Anushka Dominguez R.N. HYDROmorphone (Dilaudid) 20:25 07/18 HYDROmorphone (Dilaudid) IVP 0.5 mg given via Site# 1. A IVP 0.5 mg (NOW x1, HIGH rights. IV patency established. IV site checked: no pain, redness, or swell ALERT MEDICATION) medication administration. IVP given by EMT-P. Information reviewed with taking this medication, signs of allergic reaction, precautions and sedativ understanding. - 20:25 Marty Sterling E.M.T.-P. 21:30 07/18 Medication Response: No adverse reaction. Pain is improvin The patient feels better. - 23:04 Anushka Dominguez R.N. 1 of 2 Gun [employer] - SADIE ESTRADA, : 1955, , Ondansetron IVP 4 mg (NOW 20:25 07/18 Ondansetron IVP 4 mg given via Site# 1. Allergies verified a x1) patency established. IV site checked: no pain, redness, or swelling. IV flu administration. IVP given by EMT-P. Information reviewed with patient inc medication, signs of allergic reaction and precautions. Verbalizes unders AashishP. OxyCODONE-APAP 5-325 00:46 10 OxyCODONE-APAP 5-325 (Percocet) PO 1 tab given. Allergie (Percocet) PO 1 tab (NOW x1, rights. Information reviewed with patient. (sent home with pt). - 00:46 D HIGH ALERT MEDICATION) 00:53 07/19 Medication Response: The patient feels the same. - 00:53 Order 00:34 07/19/2025 (to go. take when get home) Todd Comments: Navneet Roberts 2 of 2 [facility] ED NURSES CLINICAL NOTEon ED NURSES CLINICAL NOTE Nurse Surekha - SADIE ESTRADA, : 1955, , Nurse Clinical [address] [address] [id number] 07/18/2025 18:49:00 Patient: SADIE ESTRADA Sex: Male : 1955 Age: 70y Disposition: Discharge to Home Disposition Decision Time: 00:31 07/19/2025 Departure Time: 00:51 07/19/2025 TRIAGE Arrived by private vehicle, and from home. Historian: (patient). Patient has a primary care physician. Primary physician (Juan Antonio Bacon). Triage time: 19:04 07/18/2025. Acuity: LEVEL 3. Chief Complaint: HEADACHE and BLURRED VISION and DIZZINESS (light sensitivity). This started 0430 AM. SEPSIS SCREEN: NEGATIVE. SIRS criteria negative. No possible sources of infection. -- 19:24 07/18/25 EDT oMunika Saez R.N. 19:23 07/18/25. BP: 145/81 MAP: 102. HR: 67. RR: 16. O2 saturation: 97% Temperature: 98.2 F. Pain level now 7/10. -- 19:23 07/18/25 EDT Mounika Saez R.N. Measurements: 19:22 07/18/25 Wt: 77.1 kg, Ht/Issac: 66.0 in, BMI: 27.44 -- 19:22 07/18/25 MARIAT Mounika Saez R.N. Medications: fenofibrate 160 mg tablet: 160 mg once a day . -- 19:08 07/18/25 MARIAT Mounika Saez R.N. lisinopriL 5 mg tablet -- 19:09 07/18/25 MARIAT Mounika Saez R.N. 1 of 5 Nurse Narrative - SADIE ESTRADA, : 1955, , gabapentin 600 mg tablet: 600 mg at bedtime. -- 19:09 07/18/25 MARIAT Mounika Saez R.N. gabapentin 300 mg capsule: 300 mg once a day every AM. -- 19:10 07/18/25 EDT Mounika Saez R.N. rOPINIRole 1 mg tablet: 1 mg twice a day . -- 19:12 07/18/25 MARIAT Mounika Saez R.N. naproxen 375 mg tablet: 375 mg twice a day . -- 19:13 07/18/25 GREG Saez R.N. aspirin 81 mg tablet: 81 mg once a day . -- 19:13 07/18/25 GREG Saez R.N. 19:04 07/18/25. Preferred Pharmacy: [facility] -- 19:24 07/18/25 MARIAT Mounika Saez R.N. Allergies: no known drug allergies -- 19:01 07/18/25 GREG Saez R.N. Problems: Hypercholesterolemia -- 19:13 07/18/25 GREG Saez R.N. Hypertension -- 19:13 07/18/25 GREG Saez R.N. Arthritis -- 19:14 07/18/25 GREG Saez R.N. Restless Legs Syndrome -- 19:14 07/18/25 GREG Saez R.N. Back Pain -- 19:14 07/18/25 GREG Saez R.N. Surgeries: Back Surgery -- 19:15 07/18/25 GREG Saez R.N. spinal cord stimulator -- 19:15 07/18/25 GREG Saez R.N. Neck Surgery -- 19:17 07/18/25 GREG Saez R.N. Hip Surgery. right -- 19:17 07/18/25 GREG Saez R.N. Shoulder Surgery. right -- 19:17 07/18/25 GREG Saez R.N. right knee -- 19:18 07/18/25 GREG Saez R.N. History 19:04 07/18/25. PAST MEDICAL HX: Immunizations: up-to-date. SOCIAL HX: Light tobacco smoker- less than 1/2 a pack per day. Occasional alcohol use. No drug use. The patient has not traveled outside the [place] Infectious disease exposure: No infectious disease exposure. 2 of 5 Nurse Narrative - SADIE ESTRADA, : 1955, , ABUSE ASSESSMENT: The patient answered yes to the question(s) Do you feel safe in your home? and no to the question(s) Are you afraid to go home?. SELF HARM ASSESSMENT: Self harm assessment was performed. The patient answered no to the question(s) Have you recently felt down, depressed, or hopeless? and Do you have thoughts of harming or killing yourself?. FALL RISK ASSESSMENT: Fall risk assessment completed. Risk factors identified include patient age greater than 65 years and impairment of sight. -- 19:24 07/18/25 EDT Mounika Saez R.N. Interventions 19:04 07/18/25. Advanced care plan discussed with patient. Patient has a living will and medical power of attorney recruiter (Tracey). -- 19:24 07/18/25 EDT Mounika Saez R.N. PHYSICAL ASSESSMENT 20:09 07/18/25. BP: 155/75 MAP: 86 mmHg. HR: 61 bpm. -- 21:05 07/18/25 EDT Anushka Dominguez R.N. 20:10 07/18/25. HR: 64 bpm. RR: 13 rpm. O2 saturation: 96%. -- 21:05 07/18/25 EDT Anushka Dominguez R.N. 20:15 07/18/25. HR: 61 bpm. RR: 13 rpm. O2 saturation: 95%. -- 21:05 07/18/25 EDT Anushka Dominguez R.N. 20:23 07/18/25. BP: 93/73 MAP: 76 mmHg. HR: 61 bpm. -- 21:05 07/18/25 EDT Anushka Dominguez R.N. 21:01 07/18/25. Ambulatory to room. Patient gowned. GENERAL / NEURO / PSYCH: Oriented X 4. Speech within normal limits. Pupillary exam: Right pupil round. Left pupil: round and briskly reactive to light directly. HEENT: No facial asymmetry noted. Pupils equal, round and reactive to light. RESPIRATORY: Respirations not labored. GI / : Abdomen soft. SKIN: Skin is warm and dry. -- 21:06 07/18/25 EDT Anushka Dominguez R.N. NURSING PROGRESS NOTES 20:15 07/18/25. Site #1 started in the right antecubital space with an 18g needle with aseptic technique and good blood return; 1 atte (more content not included)... Normal [facility] ED ORDER SHEET (CPOE ONLY)on 07-19-2025 ED ORDER SHEET (CPOE ONLY) Order Sheet - SADIE ESTRADA : 1955, , Order Sheet [address] [address] [id number] 07/18/2025 Patient: SADIE ESTRADA Sex: Male : 1955 Age: 70y MEASUREMENTS: Wt: 77.1 kg, Ht/Issac: 66.0 in, BMI: 27.44 ALLERGIES: No known drug allergies MEDICATION/IV/DRIP/FLUID ORDERS Acknowledge Order Description Priority Entered d Completed IV NS 0.9 %1000 mL at 100 19:42 07/18/2025 20:11 20:24 mL/hr (NOW x1) Todd Roberts D.O. 07/18/2025 07/18/2025 Marty Butler E.M.T.-PNeftaly DavilaM.T.-P. HYDROmorphone 19:42 07/18/2025 20:11 20:25 (Dilaudid) IVP0.5 mg (NOW Todd Roberts D.O. 07/18/2025 07/18/2025 x1, HIGH ALERT MEDICATION) Marty Butler E.M.TNeftaly-P. ENeftalyM.T.-P. Reason for ordering with Clinical consideration given --19:42 07/18/2025 Todd alerts: Navneet Roberts Ondansetron IVP4 mg 19:42 07/18/2025 20:11 20:25 (NOW x1) Todd Roberts D.O. 07/18/2025 07/18/2025 Marty Butler E.M.T.-PNeftaly DavilaM.T.-P. OxyCODONE-APAP 5-325 00:34 07/19/2025 00:40 00:46 (Percocet) PO1 tab (NOW Todd Roberts D.O. 07/19/2025 07/19/2025 1 of 4 Order Sheet - SADIE ESTRADA, : 1955, , x1, HIGH ALERT MEDICATION) Shalini Burton R.N. Order 00:34 (to go. take when get home) Todd Roberts D.O. Comments: 07/19/2025: Reason for ordering with Clinical consideration given --00:34 07/19/2025 Todd alerts: Navneet Roberts LAB ORDERS Acknowledge Order Description Priority Entered d Collected Completed CBC w Diff Stat Stat 19:42 20:00 20:19 07/18/2025 07/18/2025 07/18/2025 Marty Sevilla Bryan Parker, D.O. E.M.T.-P. E.M.T.-P. CMP Stat Stat 19:42 20:00 20:19 07/18/2025 07/18/2025 07/18/2025 Marty Sevilla Bryan Parker, D.O. E.M.T.-P. E.M.T.-P. EKG - ED Stat Stat 19:42 20:00 20:11 07/18/2025 07/18/2025 07/18/2025 Marty Sevilla Bryan Parker, D.O. E.MNeftalyT.-P. E.M.T.-P. Troponin-I Stat Stat 19:42 20:00 20:19 07/18/2025 07/18/2025 07/18/2025 Marty Sevilla Bryan Parker, D.O. E.MNeftalyT.-P. E.M.T.-P. CRP Stat Stat 20:49 20:56 20:57 07/18/2025 07/18/2025 07/18/2025 Anushka Sevilla, Anushka Dominguez, 2 of 4 Order Sheet - SADIE ESTRADA, : 1955, , D.O. R.N. R.N. ESR Stat Stat 20:49 20:56 20:57 07/18/2025 07/18/2025 07/18/2025 Anushka Sevilla Debra Schrock, D.O. R.N. R.N. Flu Swab Stat 20:52 20:56 00:40 (Influenzae AAg) 07/18/2025 07/18/2025 07/19/2025 Stat Anushka Sevilla Debra Schrock, D.O. R.N. R.N. Rapid COVID (SARS) Stat 20:52 20:56 00:40 ANTIGEN TEST Stat 07/18/2025 07/18/2025 07/19/2025 Anushka Sevilla Debra Schrock, D.O. R.N. R.N. TSH Stat Stat 20:53 20:57 20:57 07/18/2025 07/18/2025 07/18/2025 Anushka Sevilla Debra Schrock, D.O. R.NNeftaly R.N. DIAGNOSTIC STUDY ORDERS Acknowledge Order Description Priority Entered d Completed CT Brain wo Cont Stat Stat 19:42 07/18/2025 20:00 20:11 Todd Roberts D.O. 07/18/2025 07/18/2025 Marty Butler, E.M.T.-P. E.M.T.-P. Reason for Study: Headache CTA Carotids w IVC Recons Stat 20:50 07/18/2025 20:56 00:40 3 of 4 Order Sheet - ALLI SADIE, : 1955, , Stat Todd Roberts D.O. 07/18/2025 07/19/2025 Shalini Burton, R.N. Reason for Study: Poor Circulation CTA Head [place] w Stat 20:50 07/18/2025 20:56 00:40 Recons Stat Todd Roberts D.O. 07/18/2025 07/19/2025 Shalini Burton, R.N. Reason for Study: Poor Circulation STAFF ORDERS Acknowledge Order Description Priority Entered d Collected Completed [employer] Chain Systems Manager 19:42 20:00 20:11 07/18/2025 07/18/2025 07/18/2025 Marty Sevilla Bryan Parker, D.O. E.M.T.-PNeftaly EricksonT.-P. Vital signs every 15 19:42 20:00 20:11 minutes 07/18/2025 07/18/2025 07/18/2025 Marty Sevilla Bryan Parker, D.O. E.M.T.-P. DreT.-P. IV Saline Lock 19:42 20:00 20:19 07/18/2025 07/18/2025 07/18/2025 Marty Sevilla Bryan Parker, D.O. E.M.T.-PNeftaly EricksonT.-P. [Electronically signed by Todd Roberts D.O. (07/19/2025 01:44 EDT)] 4 of 4 Normal [facility] ED PHYSICIAN CLINICAL REPORT on 07-19-2025 ED PHYSICIAN CLINICAL REPORT Narrative - SADIE ESTRADA, : 1955, , Physician Clinical Narrative [address] [address] [id number] 07/18/2025 18:49:00 Patient: SADIE ESTRADA Sex: Male : 1955 Age: 70y Disposition: Discharge to Home Disposition Decision Time: 00:31 07/19/2025 Departure Time: 00:51 07/19/2025 Measurements Wt: 77.1 kg, Ht/Issac: 66.0 in, BMI: 27.44 Initial Vital Sign Measured Roma Time BP MAP HR RR O2Sat ETCO2 Temp n GCS RTS 19:23 145/81 102 67 16 97% 98.2 F 7 07/18/2025 Time Seen: 19:30 07/18/2025. Arrived- By private vehicle. Historian- patient. HISTORY OF PRESENT ILLNESS Chief Complaint: HEADACHE. Is still present. This started today 430 AM. It is described as throbbing. Located in the right temporal and left temporal region. No neck pain. The patient has had photophobia and nausea. No preceding symptoms, blurred vision, numbness, weakness or vomiting. Similar symptoms previously. None. Recent medical care: Not recently seen/assessed. 1 of 12 SADIE Jackson, : 1955, , REVIEW OF SYSTEMS EARS: No ear pain. CONSTITUTIONAL: No fever or muscle aches. RESPIRATORY: No carbon monoxide exposure, difficulty breathing or cough. NEUROLOGICAL: No head injury. NOSE: No sinus pressure. CVS: No chest pain. GI: No abdominal pain or diarrhea. : No pain with urination. ENDO/HEME/LYMPH: No enlarged lymph nodes. MUSCULOSKELETAL: No back pain. Complaining of some dizziness off and on. Not worse with head movement. Has been having the dizziness off-and-on for the past couple of months. So it is not a new symptom today. The headache is. SKIN: No tick bite or skin rash. THROAT: No sore throat. PAST HISTORY See nurses notes. Arthritis Back Pain Hypercholesterolemia Hypertension Restless Legs Syndrome Surgeries: Back Surgery Hip Surgery: Body Site right Neck Surgery right knee Shoulder Surgery: Body Site right spinal cord stimulator Medications: aspirin 81 mg tablet: 81 mg once a day . fenofibrate 160 mg tablet: 160 mg once a day . gabapentin 300 mg capsule: 300 mg once a day every AM. gabapentin 600 mg tablet: 600 mg at bedtime. lisinopriL 5 mg tablet naproxen 375 mg tablet: 375 mg twice a day . rOPINIRole 1 mg tablet: 1 mg twice a day . Allergies: 2 of 12 SADIE Jackson, : 1955, , no known drug allergies SOCIAL HISTORY Heavy tobacco smoker- less than 1 pack per day. Occasional alcohol use. No drug use. ADDITIONAL NOTES The nursing notes have been reviewed. PHYSICAL EXAM Appearance: Alert. Appears to be in pain. Eyes: Pupils equal, round and reactive to light. Eyes normal inspection. ENT: Ears normal. Nose normal. Pharynx normal. Neck: Normal inspection. Neck supple. CVS: Normal heart rate and rhythm. Heart sounds normal. Pulses normal. Respiratory: No respiratory distress. Painless inspiration. Breath sounds normal. Abdomen: Soft and nontender. No organomegaly. Back: Normal inspection. Skin: Skin warm and dry. No rash. Extremities: Extremities exhibit normal ROM. No lower extremity edema. Neuro: Oriented X 3. Alert. Mood/affect normal. Speech normal. No motor deficit. No sensory deficit. LABS, X-RAYS, AND EKG CTA Head: The basilar artery is quite diminutive, likely developmental in nature. Both posterior cerebral arteries are supplied by posterior communicating arteries. The distal internal carotid arteries are widely patent. The anterior cerebral arteries are symmetric and unremarkable. The middle cerebral arteries are widely patent. No hemodynamically significant stenosis or aneurysmal dilatation is identified within the major vessels of the anterior or posterior intracranial circulation. Head CTA performed with contrast. The study was interpreted by the radiologist. Interpretation time: 23:42 07/19/2025. CT Neck - Soft Tissue: (No focal airspace disease within the lung apices. Changes of emphysema. Extensive calcified and noncalcified plaque are noted at both carotid bifurcations. There is less than 50% stenosis however. No dissection. The left vertebral artery is markedly diminutive throughout the cervical portion. However the vertebral arteries remain patent). Neck CT (soft tissue) performed with contrast. The study was interpreted by the radiologist. Interpretation time: 23:42 07/19/2025. CT Head: No acute disease. (Brain volume is normal for age. There is no acute intracranial hemorrhage. No 3 of 12 Narrative - SADIE ESTRADA, : 1955, , acute territorial infarct. No extra-axial collection. No shift of midline structures. No acute calvarial fracture. Rightward nasal septal deviation noted. Postsurgica (more content not included)... Normal [facility] ED SUPER BILLon 07-19-2025 ED [facility] BILL [facility] - SADIE ESTRADA, : 1955, , [address] [place] [address] [id number] 07/18/2025 Patient: SADIE ESTRADA Sex: Male : 1955 Age: 70y Item Facility Profession Category Description Code al Code Quantity Fee Total Drugs Normal 167823 1 $0.00 $0.00 Saline 1000cc (197996) Nurse/E/M EMERGENCY 158903 1 $0.00 $0.00 DEPARTMEN T VISIT HIGH/URGEN T SEVERITY (58874-10) Nurse/IV/IM/ Hydration 402531 4 $0.00 $0.00 Infusions additional hour (36502) Nurse/IV/IM/ IVP 914642 1 $0.00 $0.00 Infusions additional push (82324) Nurse/IV/IM/ IVP initial 195810 1 $0.00 $0.00 Infusions (82304) 1 of 2 Superbill - SADIE ESTRADA, : 1955, , Grand Total $0.00 Providers Todd Roberts D.O. Chief Complaint HEADACHE. Principal Diagnosis Acute migraine headache without aura- poorly controlled. No status migrainosus. ICD-10 Codes G43.019: Migraine without aura, intractable, without status migrainosus 2 of 2 Normal [facility] ED VISIT SUMMARYon ED VISIT SUMMARY Visit Overview - SADIE PENDLETON : 1955, , Visit Overview [address] [address] [id number] 07/18/2025 Patient: SADIE ESTRADA Sex: Male : 1955 Age: 70y 07/19/2025 01:52 AM EDT ED Arrival:18:49 07/18/2025 Status: Recent Travel:no EDT Language:eng Adv Directive:Yes Isolation Status: Infectious Disease Ethnicity:N Fall Risk:risk Exposure:no Measurements:5'6 / 167.6 Self-Harm Status:risk Sepsis Screen:negative cm 170.0 lb / 77.1 kg Chief Complaint:BLURRED VISION, DIZZINESS, HEADACHE, (0430 AM), (light sensitivity ), and (Juan Antonio Brown) ALLERGIES No Known Drug Allergies HOME MEDICATIONS aspirin 81 mg tablet: 81 mg once a day . fenofibrate 160 mg tablet: 160 mg once a day . 1 of 4 Visit Overview - SADIE ESTRADA, : 1955, , gabapentin 300 mg capsule: 300 mg once a day every AM. gabapentin 600 mg tablet: 600 mg at bedtime. lisinopriL 5 mg tablet naproxen 375 mg tablet: 375 mg twice a day . rOPINIRole 1 mg tablet: 1 mg twice a day . PAST MEDICAL HISTORY / PROBLEMS Arthritis Back Pain Hypercholesterolemia Hypertension Immunizations: up-to-date Restless Legs Syndrome See nurses notes PAST SURGICAL HISTORY Back Surgery Hip Surgery. right Neck Surgery Shoulder Surgery. right spinal cord stimulator SOCIAL HISTORY Smoking status: Yes Alcohol use: Yes Drug use: No ED COURSE MEDICATIONS GIVEN IN EMERGENCY DEPARTMENT 20:24 07/18/25 IV NS 0.9 % 1000 mL 100 mL/hr 20:25 07/18/25 Ondansetron IVP 4 mg 20:25 07/18/25 HYDROmorphone (Dilaudid) IVP 0.5 mg 00:46 07/19/25 OxyCODONE-APAP 5-325 (Percocet) PO 1 tab IV SITE INFORMATION 2 of 4 Visit Overview - SADIE ESTRADA, : 1955, , INTAKE OUTPUT REASSESMENT (most recent) 21:01 07/18/25. Ambulatory to room. Patient gowned. GENERAL / NEURO / PSYCH: Oriented X 4. Speech within normal limits. Pupillary exam: Right pupil round. Left pupil: round and briskly reactive to light directly. HEENT: No facial asymmetry noted. Pupils equal, round and reactive to light. RESPIRATORY: Respirations not labored. GI / : Abdomen soft. SKIN: Skin is warm and dry. VITAL SIGNS First Vitals Last Vitals Temp 19:23 07/18/25 98.2 F Temp 23:22 07/18/25 BP 19:23 07/18/25 145/81 BP 23:22 07/18/25 146/50 HR 19:23 07/18/25 67 HR 23:22 07/18/25 63 RR 19:23 07/18/25 16 RR 23:22 07/18/25 O2 Sat 19:23 07/18/25 97% O2 Sat 23:22 07/18/25 Pain 19:23 07/18/25 7 Pain 23:22 07/18/25 ETCO2 19:23 07/18/25 ETCO2 23:22 07/18/25 GCS 19:23 07/18/25 GCS 23:22 07/18/25 RTS 19:23 07/18/25 RTS 23:22 07/18/25 PROCEDURES NURSING INTERVENTIONS LABS / STUDIES LABS / STUDIES ORDERED CBC w Diff CMP CRP CT Brain wo Cont CTA Carotids w IVC Recons CTA Head [place] w Recons EKG - ED ESR 3 of 4 Visit Overview - SADIE ESTRADA, : 1955, , Flu Swab (Influenzae AAg) Rapid COVID (SARS) ANTIGEN TEST Troponin-I TSH CLINICAL IMPRESSION ACUTE MIGRAINE HEADACHE WITHOUT AURA- POORLY CONTROLLED. NO STATUS MIGRAINOSUS 4 of 4 Normal [facility] ED VITALS FLOW SHEETon 07-19 ED VITALS FLOW SHEET Vitals - SADIE ESTRADA, : 1955, , Vital Sign [place] [address] [id number] 07/18/2025 Patient: SADIE ESTRADA Sex: Male : 1955 Age: 70y Measurements Wt: 77.1 kg, Ht/Issac: 66.0 in, BMI: 27.44 Measured Roma Time BP MAP HR RR O2Sat ETCO2 Temp n GCS RTS 23:22 146/50 83 63 07/18/2025 22:20 68 22 94% 07/18/2025 22:15 67 14 96% 07/18/2025 22:10 64 13 94% 07/18/2025 22:05 67 16 95% 07/18/2025 22:00 62 19 97% 07/18/2025 21:55 58 23 97% 07/18/2025 21:53 162/113 120 58 07/18/2025 1 of 3 Vitals - SADIE ESTRADA, : 1955, , 21:50 60 18 96% 07/18/2025 21:45 68 20 96% 07/18/2025 21:40 60 20 97% 07/18/2025 21:38 158/79 105 56 07/18/2025 21:35 58 26 97% 07/18/2025 21:30 60 20 97% 07/18/2025 21:25 60 17 97% 07/18/2025 21:23 158/126 132 55 07/18/2025 21:20 69 24 97% 07/18/2025 21:15 61 25 97% 07/18/2025 21:10 59 13 97% 07/18/2025 21:08 133/116 120 74 07/18/2025 21:05 58 12 97% 07/18/2025 21:00 61 11 98% 07/18/2025 20:55 73 16 97% 07/18/2025 2 of 3 Vitals - ALLISADIE SALAZAR, : 1955, , 20:53 156/83 107 67 07/18/2025 20:50 66 12 98% 07/18/2025 20:45 62 14 97% 07/18/2025 20:40 64 11 97% 07/18/2025 20:39 159/99 119 67 07/18/2025 20:35 64 17 95% 07/18/2025 20:30 63 12 94% 07/18/2025 20:25 64 11 96% 07/18/2025 20:23 93/73 76 61 07/18/2025 20:20 61 13 95% 07/18/2025 20:15 61 13 95% 07/18/2025 20:10 64 13 96% 07/18/2025 20:09 155/75 86 61 07/18/2025 19:23 145/81 102 67 16 97% 98.2 F 7 07/18/2025 3 of 3 Normal [facility] C-REACTIVE PROTEINon 07-18- 025 CRP 0.67 mg/dl Normal 0.00 - 0.90 [facility] Comment on above: Performed By: #### 2 [id number] #### [facility],[address] [place] [address] CBC + DIFFon 07-18-2025 Baso # 0.02 x10EE3/UL Normal 0.00 - 0.10 [facility] Comment on above: Performed By: #### 2 [id number] ####[facility],[address] [place] [address] Basophils/100 WBC (Bld) 0.4 % Normal 0.0 - 2.0 [facility] Comment on above: Performed By: #### 2 34048 ####[facility],[address] [place] [address] CBC + DIFF Normal [facility] Comment on above: Result Comment: CBC- COMPLETE BLOOD COUNT Performed By: #### 2 47902 ####[facility],[address] [place] [address] EO # 0.37 x10EE3/UL Normal 0.00 - 0.50 [facility] Comment on above: Performed By: #### 2 11524 ####[facility],[address] [place] [address] Eosinophils/100 WBC (Bld) 5.8 % Normal 0.0 - 7.0 [facility] Comment on above: Performed By: #### 2 20666 ####[facility],[address] [place] [address] Erythrocyte distribution width (RBC) [Ratio] 13.3 % Normal 12.0 - 15.6 [facility] Comment on above: Performed By: #### 2 23414 ####[facility],[address] [place] [address] Hematocrit (Bld) [Volume fraction] 33.1 % Low 40.0 - 52.0 [facility] Comment on above: Performed By: #### 2 53090 ####[facility],[address] [place] [address] Hemoglobin (Bld) [Mass/Vol] 11.2 g/dL Low 13.0 - 17.5 [facility] Comment on above: Performed By: #### 2 [address]1854 ####[place] [address] Lymph # 1.44 x10EE3/UL Normal 0.80 - 2.80 [facility] Comment on above: Performed By: #### 2 68701 ####[place] [address] Lymphocytes/100 WBC (Bld) 22.6 % Normal 20.0 - 45.0 [facility] Comment on above: Performed By: #### 2 15991 ####[place] [address] MANUAL DIFF N/A Normal [facility] Comment on above: Performed By: #### 2 23920 ####[place] [address] MCH (RBC) [Entitic mass] 32 pg Normal 27 - 33 [facility] Comment on above: Performed By: #### 2 77981 ####[place] [address] MCHC 34 X10 3 Normal 32 - 36 [facility] Comment on above: Performed By: #### 2 49008 ####[place] [address] MCV (RBC) [Entitic vol] 95 fL Normal 81 - 98 [facility] Comment on above: Performed By: #### 2 82527 ####[place] [address] [place] # 0.56 x10EE3/UL Normal 0.20 - 1.00 [facility] Comment on above: Performed By: #### 2 19799 ####[place] [address] MONOS % 8.8 % Normal 0.0 - 10.0 [facility] Comment on above: Performed By: #### 2 47854 ####[facility],[address] [place] [address] Morphology Neftali (Bld) [Interp] N/A Normal [facility] Comment on above: Performed By: #### 2 71541 ####[facility],[address] [place] [address] Neut # 4.00 x10EE3/UL Normal 1.50 - 7.10 [facility] Comment on above: Performed By: #### 2 35757 ####[place] [address] Neutrophils/100 WBC (Bld) 62.6 % Normal 46.0 - 76.0 [facility] Comment on above: Performed By: #### 2 64740 ####[place] [address] PLATELET 285 x10EE3/UL Normal 150 - 450 [facility] Comment on above: Performed By: #### 2 31293 ####[place] [address] Platelet mean volume (Bld) [Entitic vol] 7.2 fL Normal 6.4 - 10.5 [facility] Comment on above: Result Comment: AUTO MATED DIFFERENTIAL Performed By: #### 2 62073 ####[facility],[address] [place] [address] RBC 3.49 x 10EE6/UL Low 4.50 - 6.00 [facility] Comment on above: Performed By: #### 2 74646 ####[place] [address] WBC 6.4 x 10EE3/UL Normal 4.5 - 10.8 [facility] Comment on above: Performed By: #### 2 57993 ####[place] [address] CMP with eGFRon 07-18-2025 AGE 70 years Normal [facility] Comment on above: Performed By: #### 2 45626 #### [facility],[address] [place] [address]842 Albumin [Mass/Vol] 3.4 g/dL Normal 3.4 - 5.0 [facility] Comment on above: Performed By: #### 2 64619 #### [facility] [facility],[address] [place] [address] 82805 Albumin/Globulin [Mass ratio] 1.2 {ratio} Normal 0.9 - 1.6 [facility] Comment on above: Performed By: #### 2 [id number] #### [facility],[address] [place] [address] 82950 ALK PHOS 56 U/L Normal 46 - 116 [facility] Comment on above: Performed By: #### 2 42804 #### [facility],[address] [place] [address] 96669 ALT [Catalytic activity/Vol] 26 U/L Normal 16 - 63 [facility] Comment on above: Performed By: #### 2 86570 #### [facility],[address] [place] [address] 61103 Anion gap [Moles/Vol] 12 mmol/L Normal 10 - 20 [facility] Comment on above: Performed By: #### 2 64307 #### [facility],[address] [place] [address] 12837 AST [Catalytic activity/Vol] 31 U/L Normal 15 - 37 [facility] Comment on above: Performed By: #### 2 28474 #### [facility],[address] [place] [address] 75150 B/C RATIO 26 ratio Normal 0 - 30 [facility] Comment on above: Performed By: #### 2 62123 #### [facility],[address] [place] [address] 43844 Bilirubin [Mass/Vol] 0.4 mg/dL Normal 0.2 - 1.0 [facility] Comment on above: Performed By: #### 2 39963 #### [facility],[address] [place] [address] 81781 Calcium [Mass/Vol] 8.3 mg/dL Low 8.5 - 10.1 [facility] Comment on above: Performed By: #### 2 58758 #### [facility],[address] [place] [address] 57338 Chloride [Moles/Vol] 108 mmol/L High 98 - 107 [facility] Comment on above: Performed By: #### 2 89837 #### [facility],[address] [place], [place] [id number] CMP with eGFR Normal [facility] Comment on above: Result Comment: COMP REHENSIVE METABOLIC PANEL Performed By: #### 2 88450 #### [facility],[address] [place] [address] 28123 CO2 [Moles/Vol] 27.0 mmol/L Normal 21.0 - 32.0 [facility] Comment on above: Performed By: #### 2 74178 #### [facility],[address] [place] [address] 00754 Creatinine [Mass/Vol] 1.41 mg/dL High 0.70 - 1.30 [facility] Comment on above: Performed By: #### 2 99267 #### [facility],[address] [place] [address] 14765 eGFR 49 ML/MINUTE Low 60 - 999 [facility] Comment on above: Performed By: #### 2 64108 #### [facility],[address] [place] [address] 31119 eGFR(AA) 60 ML/MINUTE Normal 60 - 999 [facility] Comment on above: Result Comment: ACCO RDING TO THE NATIONAL KIDNEY DISEASE EDUCATION PROGRAM(NKDE), A NORMAL eGFR IS A VALUE GREATER THAN OR EQUAL TO 60 ML/MIN/1.73 SQ METERS. CHRONIC KIDNEY DISEASE: <60mL/MIN/1.73 SQ METERS KIDNEY FAILURE: <15mL/MIN/1.73 SQ METERS THIS TEST SHOULD ONLY BE USED FOR PATIENTS 18 YEARS OF AGE AND OLDER. Performed By: #### 2 09120 #### [facility],[address] [place] [address] 12118 Globulin (S) [Mass/Vol] 2.8 g/dL Normal 1.5 - 3.8 [facility] Comment on above: Performed By: #### 2 51324 #### [facility],[address] [place] [address] 71100 Glucose [Mass/Vol] 107 mg/dL High 74 - 106 [facility] Comment on above: Performed By: #### 2 69081 #### [facility],[address] [place] [address] 90137 Potassium [Moles/Vol] 4.8 mmol/L Normal 3.5 - 5.1 [facility] Comment on above: Performed By: #### 2 00676 #### [facility],[address] [place] [address] 44367 Protein [Mass/Vol] 6.2 g/dL Low 6.4 - 8.2 [facility] Comment on above: Performed By: #### 2 49748 #### [facility],[address] [place] [address] 13281 Sodium [Moles/Vol] 142 mmol/L Normal 136 - 145 [facility] Comment on above: Performed By: #### 2 71412 #### [facility],[address] [place] [address] 45843 Urea nitrogen [Mass/Vol] 36 mg/dL High 7 - 18 [facility] Comment on above: Performed By: #### 2 21162 #### [facility],[address] [place] [address] 55305 CORONAVIRUS (SARS) ANTIGEN T ESTon 10-19-2025 EXTERNAL QC DONE? YES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 is agreeable. Evaluate response at his 3-month follow-up. Plan Details Additional Comments: This note was generated with FONU2 dictation software. It may contain incorrect words, spelling, and punctuation that were not noted in checking the note before signing. Follow Up: 3 Months HPI HPI Comments Details: This patient presents to the office today for follow-up of his obstructive sleep apnea. He is ambulatory and on room air. He has not recently been seen in the ED or urgent care for any respiratory illness. He has not been prescribed antibiotics or prednisone for any breathing problems. He is not currently on any maintenance inhalers. He does not utilize albuterol. He is not on supplemental oxygen. He is currently smoking 1/2 pack daily. He he would really like to try to quit smoking but has been unsuccessful with nicotine replacement, Wellbutrin and Chantix. He reports shortness of breath on exertion. He has a cough that is productive of clear-colored sputum. He denies any hemoptysis. He denies any wheezing, chest tightness, chest pain or palpitations. He has not had any fever, chills or body aches. He reports feeling rested refreshed with the use of his PAP device. He has used it approximately 27 out of the last 30 days. He denies any difficulty with morning headaches. He is not having dry mouth. He is not having excessive nocturia. He is not pleased with his [employer] company at this time. He states that the machine was not functioning properly. He took it into them to be evaluated. They notified him that he was outside of his warrantee, and unfortunately the warrantee started the day that the machine was manufactured. This was actually 6 months before the patient received the device. Therefore the warrantee had been in effect 6 months before he was started on therapy. He was told that even though he had only had the device for 18 months it had exceeded the manufacture warranty. They provided him with a substitute. He describes it as a used old machine. It has an SD card that must be downloaded. Unfortunately, we were not able to download his compliance report t (more content not included)... Normal [facility] DORSAL SPINE 2 VIEWSon 03-19 DORSAL SPINE 2 VIEWS [place] [address] Patient: SADIE ESTRADA Phone#: : 1955 Age: 70 Gender: M Pt. Type: Out Account: [id number] Location: [facility] Ordering: GAURAV SHUKLA Exam Date: 03/19/2025/17:52 Family Phys: Charge Code: 505950 Physician: [place] Order #: [id number] Dose#: PROCEDURE: X-RAY DORSAL SPINE 2 VIEWS COMPARISON: [facility], XR, DORSAL SPINE 2 VIEWS, 04/09/2024, 7:48. INDICATIONS: Intervertebral disc degeneration. FINDINGS: BONES: Partially imaged anterior and posterior cervical fusion hardware present. Partially imaged posterior lumbar fusion hardware present. Degenerative changes of the lumbar spine with multilevel osteophytes present. DISC SPACES: Interval progression of disc height loss throughout the 6 spine, most pronounced at T5-6, T8-9, and T9-10 PARASPINOUS: Negative. No paraspinous abnormality is seen. OTHER: Interval placement of spinal leads, tip terminating at T6. CONCLUSION: 1. Progression of multilevel disc height loss. Dictated by: Trinidad Horner MD on 03/19/2025 at 18:34 Approved by: Trinidad Horner MD on 03/19/2025 at 18:38 Normal [facility] LUMBO SACRAL COMPLETE MIN 4 VIEWSon 03-19-2025 LUMBO SACRAL COMPLETE MIN [address] [address] Patient: SADIE ESTRADA Phone#: : 1955 Age: 70 Gender: M Pt. Type: Out Account: [id number] Location: 2 Ordering: GAURAV SHUKLA Exam Date: 03/19/2025/17:53 Family Phys: Charge Code: 523781 Physician: [place] Order #: [id number] Dose#: PROCEDURE: X-RAY LUMBAR SPINE COMPLETE MIN 4 VIEWS COMPARISON: [facility], XR, LUMBAR SPINE COMPLETE, 04/09/2024, 7:49. INDICATIONS: Intervertebral disc degeneration. FINDINGS: BONES: Posterior spinal fusion hardware from L2 through L5 with pedicle screws and rods. Vertebral bodies are maintained in height. Osseous structures somewhat limited by implanted device projecting over the mid lumbar spine patient motion also limits the exam. Diffuse bony demineralization. Mild rightward curvature of the lumbar spine. No listhesis with flexion or extension views. There is osseous foraminal narrowing at L1-2, L2-3, L3-4 and L5-S1 DISC SPACES: Stable vertebral body height loss at L2-3, L3-4 and L4-5. Stable disc height loss at L1-2. Mildly progressive disc height loss at L5-S1. PARASPINOUS: Negative. No paraspinous abnormality is seen. OTHER: Calcified abdominal aortic aneurysm visualized and measures 5.7 cm in AP dimension. Iliac stent material noted. Partially imaged right hip arthroplasty. CONCLUSION: 1. Posterior spinal fusion 2. Multilevel disc height loss and osseous foraminal narrowing 3. Abdominal aortic aneurysm measuring up to 5.7 cm Dictated by: Trinidad Horner MD on 03/19/2025 at 18:38 Approved by: Trinidad Horner MD on 03/19/2025 at 18:46 Normal [facility] Pulmonary Visit Reporton Pulmonary Visit Report [facility] of [address] [place] [address] OFFICE VISIT Date of Service: 01/14/25 MR#: [id number] Acct: [id number] Name: SADIE ESTRADA Rep #: [id number] : 1955 Provider: RITU Davila Age/Sex: 69/M [facility] Status: Signed Assessment and Plan Assessment and Plan (1) ISMA (obstructive sleep apnea): Status: Chronic Comment: AHI 45.7 controlled on BiPAP 09/06 Plan: He is using and benefiting from Pap therapy. No indication for titration study at this time. I am ordering a chinstrap, 1 was ordered previously but never provided by the [employer] company. I have asked the patient to contact the office if he does not receive a chinstrap in the next 2 weeks. He conveys understanding and is agreeable. I also encouraged him to be compliant at least 80% of the time. Contact the office for any new or worsening symptoms in the meantime. Follow-up in 3 months to evaluate for better compliance. (2) Smoking greater than 20 pack years: Status: Chronic Comment: 10/01 ppd 50 years, quit 02/2023 repeat LDCT ordered for August 2025 Plan: Encourage ongoing smoking cessation. He remains appropriate for repeat LDCT in 12 months, ordered previously. The patient is wondering if all this testing is necessary annually. He feels as though all he does is go to medical testing and doctors appointments. I took the time to explain to him the importance of screening for lung cancer and at risk patients so that the patient has a higher risk of cure with low complications. He conveys understanding. Follow-up in September 2025 to discuss test results. (3) Shortness of breath on exertion: Status: Chronic Plan: PFT does not indicate COPD at this point. I did make the patient aware that with ongoing smoking he should ideally be tested every 6 months, however I would be agreeable to doing it annually since he is not showing COPD at this time. Plan Details Follow Up: 3 Months ([facility]) 09/30/25 ([facility]) HPI 4 M FU Chief Complaint: Test results HPI Comments Details: This patient presents to the office today for follow-up of his obstructive sleep apnea and to discuss test results.. He is ambulatory and currently on room air. He has not recently been seen in the ED or urgent care for any respiratory illness. He has not been prescribed antibiotics or prednisone for any breathing problems. He is not currently on any maintenance inhalers. He does not utilize albuterol. He is not on supplemental oxygen. Unfortunately, he has started smoking again. He is currently smoking 5 cigarettes daily. He reports that he closet smokes, his is not aware that he is currently smoking. He admits to shortness of breath on exertion. He has an occasional cough that can be productive of clear-colored sputum. He denies any hemoptysis. He denies any wheezing, chest tightness, chest pain or palpitations. He has not had any fever, chills or body aches. He has not recently been able to be compliant with PAP therapy because he has been sleeping in the recliner secondary to chronic back pain and arm pain. However, he reports feeling rested refreshed with the use of his PAP device. He denies any difficulty with morning headaches. He is not having dry mouth. He does not admit to an occasional nap, however he does utilize his PAP device for napping. He is not having excessive nocturia. Compliance report for the past 90 days shows 43 % compliance. Average use is 3 hours and 32 minutes per night. Current setting is 12/8 cmH2O with residual AHI of 1.5 events per hour. Leaks continue to be problematic. Test results personally reviewed with the patient: Pulmonary function test completed on December 08, 2024. Impression is isolated mild reduction in diffusing capacity. Otherwise normal PFTs. Walking oximetry completed on December 22, 2024. The patient was able to ambulate total of 919 feet over the course of 6 minutes. Did not become hypoxic and does not currently require any supplemental oxygen. Intake Vital Signs 09/08/24 07:51 12/22/24 12:45 01/14/25 07:42 Height 5 ft 6 in 5 ft 6 in 5 ft 6 in Weight: 172 lb BMI 27.7 BP 162/76 H Blood Pressure Location Lt brachial Position Sitting Respiration 18 Pulse 61 Pulse Source Monitor Temp 97.9 F Temperature Source Temporal Artery Pulse Oximetry (%) 97 Oxygen Delivery Method room air Intake Visit Reasons: 4 M FU Chief Complaint: myelogram [facility]door Emergency Care Technician Required: No DME Vendor: Justin Accompanied by: Self Allergies No Known Allergies Allergy (Verified 01/14/25 07:50) Medications ???Medication ???Instructions ???Recorded ???Confirmed ???Type aspirin 81 mg tablet,delayed 81 mg PO DAILY 08/15/23 01/14/25 H istory release lisinopril 5 mg tablet 5 mg (more content not included)... Normal [facility] 6 Minute Walk Teston 025 6 Minute Walk Test y [facility] Pulmonary Services/Neurology [address] [place] [address] MR#: [id number] Acct: [id number] Name: SADIE ESTRADA Rep #: [id number] : 1955 69 From: Terry Bacon DO Referring Dr: Gisselle Davila SURGICAL AIDES TEACHER SURGICAL AIDES TEACHER-C Status: REG CLI Location: PSN Date: Sex: M C PSN 6 Minute Walk Test 6 Minute Walk Test 6 Minute Walk Test: 6 Minute Walk Test PSN:6-Minute Walk Test Start: 12/22/24 12:45 Freq: Status: Active Protocol: [id number] Document 12/22/24 12:45 EW (Rec: 12/22/24 12:47 EW [id number]) 6 Minute Walk Test Date Performed 12/22/24 Time Performed 12:30 Height 5 ft 6 in Weight: 170 lb Weight in Pounds 170.0 lbs Assistive device None used: Pre-test Oxygen Delivery Room Air Method Pulse Ox (%) 98 Pulse Rate (60-100 80 beats/min) Dyspnea Carrie Scale ( 0 0-10) Exertion Carrie Scale 12 (6-20) 1st minute Oxygen Delivery Room Air Method Pulse Ox (%) 97 Pulse Rate (60-100 85 beats/min) 2nd minute Oxygen Delivery Room Air Method Pulse Ox (%) 96 Pulse Rate (60-100 95 beats/min) 3rd minute Oxygen Delivery Room Air Method Pulse Ox (%) 97 Pulse Rate (60-100 97 beats/min) 4th minute Oxygen Delivery Room Air Method Pulse Ox (%) 97 Pulse Rate (60-100 104 H beats/min) 5th minute Oxygen Delivery Room Air Method Pulse Ox (%) 98 Pulse Rate (60-100 105 H beats/min) 6th minute Oxygen Delivery Room Air Method Pulse Ox (%) 96 Pulse Rate (60-100 105 H beats/min) Post-test Oxygen Delivery Room Air Method Pulse Ox (%) 98 Pulse Rate (60-100 98 beats/min) Dyspnea Carrie Scale ( 0 0-10) Exertion Carrie Scale 13 (6-20) Full Laps Walked 15 Partial Lap, Number 34 of Tiles Walked Total Distance 919 Walked (ft) Interpretation Interpretation: The patient ambulated 919 feet over the course of 6 minutes beginning on room air without assistive devices. Pretesting oxygen saturation was noted to be 98% on room air. With ambulation, the cee oxygen saturation was 96%. There was no significant exertional oxygen desaturation. Recommendations Recommendations: There is no indication for the use of supplemental oxygen at this time. 12/23/245 Date Terry Bacon DO CC: Date Dictated: 12/23/241104 Date Transcribed: 12/23/241104 Kindergarten Tutor: Dr. Terry Bacon, DO Signed Normal [facility] COMPREHENSIVE METABOLIC PANE Boby 11-26-2024 Albumin [Mass/Vol] 4.4 g/dL Normal 3.6-5.1 [facility] Comment on above: Performed By: #### 5 363, 35797, 7600 #### [facility] [place] [address] Lifestyle Consultant: Reginaldo Bletre MD Albumin/Globulin [Mass ratio] 1.8 {ratio} Normal 1.0-2.5 [facility] Comment on above: Performed By: #### 5 363, 95064, 7600 #### [facility] [place] [address] Lifestyle Consultant: Reginaldo Beltre MD ALP [Catalytic activity/Vol] 56 U/L Normal 35-144 [facility] Comment on above: Performed By: #### 5 363, 61475, 7600 #### [facility] [place] [address] Lifestyle Consultant: Reginaldo Beltre MD ALT [Catalytic activity/Vol] 17 U/L Normal 9-46 [facility] Comment on above: Performed By: #### 5 363, 33950, 7600 #### [facility] [place] [address] Lifestyle Consultant: Reginaldo Beltre MD AST [Catalytic activity/Vol] 29 U/L Normal 10-35 [facility] Comment on above: Performed By: #### 5 363, 43054, 7600 #### [facility] [place] [address] Lifestyle Consultant: Reginaldo Beltre MD Bilirubin [Mass/Vol] 0.6 mg/dL Normal 0.2-1.2 [facility] Comment on above: Performed By: #### 5 363, 80573, 7600 #### [facility] [place] [address] Lifestyle Consultant: Reginaldo Beltre MD BUN/CREATININE RATIO SEE NOTE: Normal 6-22 [facility] Comment on above: Result Comment: Not Reported: BUN and Creatinine are within reference range. Performed By: #### 5 363, 72360, 7600 #### [facility] [place] [address] Lifestyle Consultant: Reginaldo Beltre MD Calcium [Mass/Vol] 9.2 mg/dL Normal 8.6-10.3 [facility] Comment on above: Performed By: #### 5 363, 20082, 7600 #### [facility] [place] [address] Lifestyle Consultant: Reginaldo Beltre MD Chloride [Moles/Vol] 104 mmol/L Normal 98-110 [facility] Comment on above: Performed By: #### 5 363, 92162, 7600 #### [facility] [place] [address] Lifestyle Consultant: Reginaldo Beltre MD CO2 [Moles/Vol] 29 mmol/L Normal 20-32 [facility] Comment on above: Performed By: #### 5 363, 77035, 7600 #### [facility] [place] [address] Lifestyle Consultant: Reginaldo Beltre MD Creatinine [Mass/Vol] 1.10 mg/dL Normal 0.70-1.28 [facility] Comment on above: Performed By: #### 5 363, 12536, 7600 #### [facility] of [address], [address] [place] [address] Lifestyle Consultant: Reginaldo Beltre MD GFR/1.73 sq M.predicted among non-blacks MDRD (S/P/Bld) [Vol rate/Area] 72 mL/min/{1.73_m2} Normal > OR = 60 [facility] Comment on above: Performed By: #### 5 363, 32390, 0 #### [facility] [place] [address] Lifestyle Consultant: Reginaldo Beltre MD Globulin (S) [Mass/Vol] 2.4 g/dL Normal 1.9-3.7 [facility] Comment on above: Performed By: #### 5 363, 92490, 0 #### [facility] [place] [address] Lifestyle Consultant: Reginaldo Beltre MD Glucose [Mass/Vol] 109 mg/dL High 65-99 [facility] Comment on above: Result Comment: Fasting reference interval For someone without known diabetes, a glucose value between 100 and 125 mg/dL is consistent with prediabetes and should be confirmed with a follow-up test. Performed By: #### 5 363, 17670, 0 #### [facility] [place] [address] Lifestyle Consultant: Reginaldo Beltre MD Potassium [Moles/Vol] 4.7 mmol/L Normal 3.5-5.3 [facility] Comment on above: Performed By: #### 5 363, 14613, 0 #### [facility] [place] [address] Lifestyle Consultant: Reginaldo Beltre MD Protein [Mass/Vol] 6.8 g/dL Normal 6.1-8.1 [facility] Comment on above: Performed By: #### 5 363, 71074, 7600 #### [facility] [place] [address] Lifestyle Consultant: Reginaldo Beltre MD Sodium [Moles/Vol] 138 mmol/L Normal 135-146 [facility] Comment on above: Performed By: #### 5 363, 58720, 7600 #### [facility] [address], [address] [place] [address] Lifestyle Consultant: Reginaldo Beltre MD Urea nitrogen [Mass/Vol] 25 mg/dL Normal 7-25 [facility] Comment on above: Performed By: #### 5 363, 94546, 7600 #### [facility] of [address], [address] [place] [address] Lifestyle Consultant: Reginaldo Beltre MD LIPID PANEL, [facility] 11-01 Cholesterol [Mass/Vol] 178 mg/dL Normal <200 [facility] Comment on above: Performed By: #### 5 363, 28546, 7600 #### [facility] of [address], [address] [place] [address] Lifestyle Consultant: Reginaldo Beltre MD Cholesterol in HDL [Mass/Vol] 44 mg/dL Normal > OR = 40 [facility] Comment on above: Performed By: #### 5 363, 88180, 7600 #### [facility] [address], [address] [place] [address] Lifestyle Consultant: Reginaldo Beltre MD Cholesterol in LDL [Mass/Vol] 115 mg/dL High [facility] Comment on above: Result Comment: Refe rence range: <100 Desirable range <100 mg/dL for primary prevention; <70 mg/dL for patients with CHD or diabetic patients with > or = 2 CHD risk factors. LDL-C is now calculated using the Mason-Angela calculation, which is a validated novel method providing better accuracy than the Friedewald equation in the estimation of LDL-C. Mason JULIAN et al. CM. 2013;310(19): 4537-2198 (http://education.Jackrabbit.[employer]/faq/LWX987) Performed By: #### 5 363, [id number], 7600 #### [facility] [address], [address] [place] [address] Lifestyle Consultant: Reginaldo Beltre MD Cholesterol.total/C holesterol in HDL [Mass ratio] 4.0 {ratio} Normal <5.0 [facility] Comment on above: Performed By: #### 5 363, [id number], 7600 #### [facility] [place] [address] Lifestyle Consultant: Reginaldo Beltre MD NON HDL CHOLESTEROL 134 mg/dL (calc) High <130 [facility] Comment on above: Result Comment: For patients with diabetes plus 1 major ASCVD risk factor, treating to a non-HDL-C goal of <100 mg/dL (LDL-C of <70 mg/dL) is considered a therapeutic option. Performed By: #### 5 363, 99813, 7600 #### [facility] [address], [address] [place] [address] Lifestyle Consultant: Reginaldo Beltre MD Triglyceride [Mass/Vol] 89 mg/dL Normal <150 [facility] Comment on above: Performed By: #### 5 363, 71366, 7600 #### [facility] [place] [address] Lifestyle Consultant: Reginaldo Beltre MD PSA, TOTALon 11-26-2024 PSA, TOTAL 0.72 ng/mL Normal < OR = 4.00 [facility] Comment on above: Result Comment: The total PSA value from this assay system is standardized against the WHO standard. The test result will be approximately 20% lower when compared to the equimolar-standardized total PSA (Tatiana Lakshmi). Comparison of serial PSA results should be interpreted with this fact in mind. This test was performed using the Siemens chemiluminescent method. Values obtained from different assay methods cannot be used interchangeably. PSA levels, regardless of value, should not be interpreted as absolute evidence of the presence or absence of disease. Performed By: #### 5 363, 59819, 7600 #### [facility] [address], [address] [place] [address] Lifestyle Consultant: Reginaldo Beltre MD No Panel Informationon 11-25 178 mg/dL Normal [facility] 44 mg/dL Normal [facility] 89 mg/dL Normal [facility] 115 Abnormal [facility]. 4.0 Normal [facility] 134 Abnormal [facility] 109 mg/dL Abnormal 65 - 99 mg/dL [facility] 25 mg/dL Normal 7 - 25 mg/dL [facility] 1.10 mg/dL Normal 0.70 - 1.28 mg/dL [facility] 72 Normal [facility] SEE NOTE: Normal 6 - 22 [facility] 138 mmol/L Normal 135 - 146 mmol/L [facility] 4.7 mmol/L Normal 3.5 - 5.3 mmol/L [facility] 104 mmol/L Normal 98 - 110 mmol/L [facility] 29 mmol/L Normal 20 - 32 mmol/L [facility] 9.2 mg/dL Normal 8.6 - 10.3 mg/dL [facility] 6.8 g/dL Normal 6.1 - 8.1 g/dL [facility] 4.4 g/dL Normal 3.6 - 5.1 g/dL [facility] 2.4 Normal 1.9 - 3.7 [facility] 1.8 Normal 1.0 - 2.5 [facility] 0.6 mg/dL Normal 0.2 - 1.2 mg/dL [facility] 56 U/L Normal 35 - 144 U/L [facility] 29 U/L Normal 10 - 35 U/L [facility], [facility] 17 U/L Normal 9 - 46 U/L [facility], [facility], [facility]. 0.72 ng/mL Normal [facility], [facility].; [facility] Abd Aortic/IVC Duplex scanon 11-12-2024 Abd Aortic/IVC Duplex scan [facility] [address] [place] [address] Abd Aortic/IVC Duplex scan 11/12/24 0900 MR#: [id number] Acct: [id number] Name: SADIE ESTRADA Rep #: [id number] : 1955 69 From: Curt Nguyen MD Attending Dr: Dr. Curt Nguyen MD Status: DE P CLI Ordering Dr: Curt Nguyen MD Date: 11/12/24 Location: [facility] Sex: M C Admitted: Reason For Study Reason For Study: AAA w/o rupture Aorta Measurements Aorta Doppler Measurements Proximal aorta measures2.12 x 2.15cm. in cross-sectional Peak systolic flow velocities within the proximal aorta axis. measure 81.4 cm/sec. Proximal aorta measures2.17cm. in longitudinal axis. Peak systolic flow velocities within the mid aorta measure Mid aorta measures3.99 x 4.02cm. in cross-sectional axis. 52.4 cm/sec. Mid aorta measures3.99cm. in longitudinal axis. Peak systolic flow velocities within the distal aorta Distal aorta measures3.01 x 3.05cm. in cross-sectional axis.measure 54.8 cm/sec. Distal aorta measures3.04cm. in longitudinal axis. Left Iliac Artery Left iliac artery measures 0.78 x 0.73 cm. in the cross-sectional axis. Left iliac artery measures 0.68 cm. in the longitudinal axis. Peak systolic velocity in the left iliac artery measures 236.2 cm/sec. Right Iliac Artery Stent noted within Rt Iliac Artery. Residual sac measures 2.04 x 2.17 cm in transverse view. Stent measures 0.84 x 0.85 cm in transverse view. Residual sac measures 2.04 cm in longitudinal view. Stent measures 0.84 cm in longitudinal view. Peak systolic velocity in the right iliac artery measures 171.1 cm/sec. Procedure Aorta IVC Iliac vasculature or bypass grafts 47667. Exam performed in department. VL/Abd Aortic/IVC Duplex scan Interpretation Summary Aortic aneurysm 4cm. Right iliac stent patent with residual iliac 2cm. Ordering Physician: Curt Nguyen Referring Physician: Juan Antonio Bacon MD Performed By: Harleen Maurer RVT 12/03/242100 Date Curt Nguyen MD CC: Dr. Curt Nguyen MD; Dr. Juan Antonio Bacon MD Date Dictated: 11/12/24 09 Date Transcribed: 12/03/242100 Kindergarten Tutor: Signed Normal [facility] Ankle Brachial Indexon 11-12 Ankle Brachial Index [facility] [address] [place] [address] Ankle Brachial Index 11/12/24 0927 MR#: [id number] Acct: [id number] Name: SADIE ESTRADA Rep #: [id number] : 1955 69 From: Curt Nguyen MD Attending Dr: Dr. Curt Nguyen MD Status: DE P CLI Ordering Dr: Curt Nguyen MD Date: 11/12/24 Location: [facility] Sex: M C Admitted: Reason For Study Reason For Study: Atherosclerosis Procedure A bilateral lower extremity continuous wave Doppler with analog waveform analysis and ankle brachial indexes. Left Segmental Pressures Left brachial= 116mmHg. Left posterior tibial artery = 147mmHg. Left dorsalis pedis artery = 137mmHg. Left digit = 91 mmHg. The left dorsalis pedis waveforms are triphasic. The left posterior tibial artery waveforms are triphasic. Right Segmental Pressures Right brachial= 132mmHg. Right posterior tibial artery = 149mmHg. Right dorsalis pedis artery = 154mmHg. Right digit = 85 mmHg. The right dorsalis pedis waveforms are triphasic. The right posterior tibial artery waveforms are triphasic. Indices The right ankle brachial index by the dorsalis pedis is 1.17. The right ankle brachial index by the posterior tibial artery is 1.13. The right digital-brachial index is 0.64. The left ankle brachial index by the dorsalis pedis is 1.04. The left ankle brachial index by the posterior tibial artery is 1.11. The left digital-brachial index is 0.69. VL/Ankle Brachial Index Interpretation Summary Resting ankle-brachial indices appear bilaterally normal. Ordering Physician: Curt Nguyen Referring Physician: Juan Antonio Bacon MD Performed By: Harleen Maurer RVT 12/03/242057 Date Curt Nguyen MD CC: Dr. Curt Nguyen MD; Dr. Juan Antonio Bacon MD Date Dictated: 11/12/24926 Date Transcribed: 12/03/242057 Kindergarten Tutor: Signed Normal [facility] Carotid Duplex Ultrasoundon 11-12-2024 Carotid Duplex Ultrasound [facility] Cardi[facility] [place] [address] Carotid Duplex Ultrasound 11/12/24912 MR#: [id number] Acct: [id number] Name: SADIE ESTRADA Rep #: [id number] : 1955 69 From: Curt Nguyen MD Attending Dr: Dr. Curt Nguyen MD Status: DE P CLI Ordering Dr: Curt Nguyen MD Date: 11/12/24 Location: [facility] Sex: M C Admitted: Reason For Study Reason For Study: Carptid stenosis Rt. Velocities/BP Lt. Velocities/BP Prox CCA 69.2/11.6 cm/sec. Prox CCA 67.4/22 cm/sec. Mid CCA 75.1/24.6 cm/sec. Mid CCA 70.2/23 cm/sec. Dist CCA 85.3/24.8 cm/sec. Dist CCA 80.6/25.8 cm/sec. Prox ICA 81.5/28.6 cm/sec. Prox ICA 155.8/42.6 cm/sec. Mid ICA 80.6/26.7 cm/sec. Mid ICA 135.7/38.9 cm/sec. Dist ICA 80.6/25.8 cm/sec. Dist ICA 124.7/35.3 cm/sec. Rt. ICA/CCA = 1.09. Lt. ICA/CCA = 2.22. Prox ECA 99.5/23.9 cm/sec. Prox ECA 92.7/6.9 cm/sec. Rt. Vert. 46.6/15.4 cm/sec. Lt. Vert. 36/9.9 cm/sec. Right Extracranial There is heterogeneous, irregular atherosclerotic plaque noted in the right common carotid artery. There is heterogeneous, irregular atherosclerotic plaque noted in the right internal carotid artery. There is heterogeneous, irregular atherosclerotic plaque noted in the right external carotid artery. Antegrade flow is noted in the right vertebral artery. Left Extracranial There is heterogeneous, irregular atherosclerotic plaque noted in the left common carotid artery. There is heterogeneous, irregular atherosclerotic plaque noted in the left internal carotid artery. There is heterogeneous, irregular atherosclerotic plaque noted in the left external carotid artery. Antegrade flow is noted in the left vertebral artery. Procedure Carotid Duplex 41108. This is a Carotid Duplex examination using B-mode, color flow and specral Doppler. Exam performed in department. VL/Carotid Duplex Ultrasound Interpretation Summary Mild (<50%) stenosis right extracranial internal carotid. Moderate (50-69%) stenosis left extracranial internal carotid. Flow within the vertebral arteries is antegrade bilaterally. Ordering Physician: Curt Nguyen Referring Physician: Juan Antonio Bacon MD Performed By: Harleen Maurer RVT 12/03/242058 Date Curt Nguyen MD CC: Dr. Curt Nguyen MD; Dr. Juan Antonio Bacon MD Date Dictated: 11/12/24912 Date Transcribed: 12/03/242058 Kindergarten Tutor: Signed Normal [facility] Pulmonary Visit Reporton Pulmonary Visit Report [facility] [place] [address] [place] [address]. [address] [place] [address] OFFICE VISIT Date of Service: 09/08/24 MR#: [id number] Acct: [id number] Name: SADIE ESTRADA Rep #: [id number] : 1955 Provider: RITU Davila Age/Sex: 69/M Location: [facility] Status: Signed Assessment and Plan Assessment and Plan (1) ISMA (obstructive sleep apnea): Status: Chronic Comment: AHI 45.7 controlled on BiPAP Plan: He is using and benefiting from Pap therapy. No indication for titration study at this time. Contact the office for any new or worsening symptoms in the meantime. Follow-up in 4 months. (2) Smoking greater than 20 pack years: Status: Chronic Comment: 1/2 ppd 50 years, quit 02/2023 repeat LDCT ordered for August 2025 Plan: Encourage ongoing smoking cessation. He remains appropriate for repeat LDCT in 12 months, ordered accordingly. (3) Shortness of breath on exertion: Status: Chronic Plan: Recent LDCT revealed emphysema. The patient does have a significant smoking history. He is agreeable to repeating his pulmonary function test and a walking oximetry. Return to the office a fter test results are available for review. Will hold off on ordering any inhalers until the PFT is available for review. Orders: Orders Low Dose CT Lung Screening 08/30/25 F17.200 - Nicotine dependence, unspecified, uncomplicated, F17.210 - Nicotine dependence, cigarettes, uncomplicated PFT Complete: DLCO, Spirometry b/a bronchodilators, lung volumes 12/01/24 R06.02 - Shortness of breath Simple Pulmonary Exercise Test 12/03/24 R06.02 - Shortness of breath Plan Details Follow Up: 4 Months ([facility]) HPI 1 Y FU Chief Complaint: Routine follow-up HPI Comments Details: This patient presents to the office today for follow-up of his obstructive sleep apnea. He is ambulatory and currently on room air. He has not recently been seen in the ED or urgent care for any respiratory illness. He was recently treated for bronchitis by his primary care doctor, in early July. He was treated with a course of azithromycin. He did not require prednisone. He is not currently on any maintenance inhalers. He does not utilize albuterol. He is not on supplemental oxygen. He continues complete smoking cessation, if you recall, he quit smoking in February 2023. He does have a greater than 63-wsuo-tmsu smoking history. He admits to shortness of breath on exertion. He has an occasional cough productive of clear- colored sputum. He denies any hemoptysis. He has not had any fever, chills or body aches. He denies any wheezing, chest tightness, chest pain or palpitations. He reports feeling rested refreshed with the use of his PAP device. He denies any difficulty with morning headaches. He is not having dry mouth. He does not admit to an occasional nap, however he does utilize his PAP device for napping. He is not having excessive nocturia. Compliance report for the past 30 days shows 93% compliance. Average use is 7 hours and 1 minute per night. Current setting is 12/8 cmH2O with residual AHI of 0.7 events per hour. Leaks continue to be problematic. Intake Vital Signs 08/15/23 05:48 12/13/23 12:27 09/08/24 07:51 Height 5 ft 6.93 in 5 ft 6 in 5 ft 6 in Weight: 172 lb BMI 27.7 BP 169/90 H Blood Pressure Location Lt brachial Position Sitting Respiration 18 Pulse 63 Pulse Source Monitor Temp 97.2 F L Temperature Source Temporal Artery Pulse Oximetry (%) 96 Oxygen Delivery Method room air Intake Visit Reasons: 1 Y FU Outdoor Emergency Care Technician Required: No DME Vendor: [employer] Accompanied by: Self Is patient in pain?: No Allergies No Known Allergies Allergy (Verified 09/08/24 07:52) Medications ???Medication ???Instructions ???Recorded ???Confirmed ???Type aspirin 81 mg tablet,delayed 81 mg PO DAILY 08/15/23 09/08/24 History release lisinopril 5 mg tablet 5 mg PO DAILY 12/13/23 09/08/24 History azithromycin 250 mg tablet 250 mg PO DIRECTED 09/08/24 09/08/24 History duloxetine 30 mg capsule,delayed 30 mg PO BID 09/08/24 09/08/24 History release gabapentin 400 mg capsule mg PO 09/08/24 09/08/24 History naproxen 500 mg tablet mg PO 09/08/24 09/08/24 History Have you fallen in the past year?: No PFSH Medical History Hypertension Chronic steroid use Palmoplantar keratoderma Hyperlipidemia Ventral hernia Abdominal aortic aneurysm Rheumatoid arthritis PAD (peripheral artery disease) Rotator cuff arthropathy of right shoulder Anxiety Depression Former smoker Surgical History (Reviewed 09/08/24 @ 08:02 by Gisselle Davila SURGICAL AIDES TEACHER, SURGICAL AIDES TEACHER-C) S/P insertion of spinal cord stimulator Status post right rotator cuff repair H/O microdiscectomy History of lumbar laminectomy S (more content not included)... Normal [facility] Low Dose CT Lung Screeningon 09-02-[address] Lung Screening [facility] Imaging Services [address] [place], [place] [address] Low Dose CT Lung Screening MR#: [id number] Acct: [id number] Name: SADIE ESTRADA Rep #: [id number] : 1955 M 69 From: Dez nicole MD PCP: Dr. Juan Antonio Bacon MD Status: REG CLI Study: Low Dose CT Lung Screening Date of Exam: 09/02 Exam# [id number] Ordering Dr: Gisselle Davila NP SURGICAL AIDES TEACHER-C [id number] STUDY: LOW DOSE CT LUNG CANCER SCREENING REASON FOR EXAM: Male, 69 years old. Smoker and gt; 20 pack history RADIATION DOSAGE (If Supplied By Facility): CTDIvol = ( 3.02 ) mGy, DLP = ( 117.02 ) mGycm TECHNIQUE: No contrast was administered. Low dose technique was utilized (average mAS-38 and kVp 120). 1.25 mm axial source images with a slice interval of 1.25-mm were reconstructed in lung windows. 2.5 mm axial source images with a slice interval of 2.5-mm were reconstructed in lung windows. 5.0 mm axial source images with a slice interval of 5.0-mm were reconstructed in soft tissue windows. COMPARISON: Comparison is made with prior study dated August 27, 2023. NODULES: No suspicious nodules are seen. Emphysema: Hyperinflation. Stable emphysematous changes with bullous formation more prominent in the upper lobes. Stable linear scarring in the posterior aspect of the lingular segment of the left upper lobe. Endobronchial lesion: None Aorta: Atherosclerotic plaque formation of the aortic arch and descending thoracic aorta. CORONARY ARTERIES: Coronary artery calcification is seen. Heart: Calcification of the mitral valve annulus. Pulmonary artery: Unremarkable Mediastinal nodes: Small mediastinal lymph nodes. Other chest and abdominal findings: CT/Low Dose CT Lung Screening IMPRESSION: Lung-RADS category 2 - Continue annual screening with LDCT in 12 months. IMPORTANT NOTES FOR USE: ACR Lung-RADS Version 1.1 Assessment Categories Release Date: 2018 Category: Coded 0-4 bases on nodule(s) with highest degree of suspicion. Negative screen is defined as categories 1 and 2; a positive screen is defined as categories 3 and 4. Category 3 and 4A nodules that are unchanged on interval CT should be coded as category 2, and individuals returned to screening in 12 months. Category 4X: Category 3 or 4 nodules with additional imaging findings that increase the suspicion of lung cancer, such as spiculation, GGN that doubles in size in 1 year, enlarged lymph notes, etc. Category Modifiers: S (significant finding unrelated to lung cancer) Electronically Signed: Dez Ibrahim MD at 13:32 EST , CC: RITU Davila; Dr. Juan Antonio Bacon MD Kindergarten Tutor: Signed Normal [facility] Office Visiton 09-02-2024 Follow-up visit [id number] Tyron Estrada 1955 M Date Provider Department Center 09/02/2024 [id number]-RKTOPYTKEFEDERICO CASTA[facility]A [facility] None No family history on file Level of Service:58300 MI POSTOP FOLLOW UP VISIT RELATED TO ORIGINAL PX Reason for Visit and Comments: Follow-up [144123] - Incision check [facility] Progress Noteon 09-02-2024 Progress Note NEUROSURGERY and SPI NE POST-OP NOTE Patient Name: Sadie Estrada Patient : 1955 PCP: Juan Antonio Bacon MD History of Present Ilness: Patient is post-op SCS placement performed on 08/06/24. He returns today for an incision check. He was here last week and the battery pocket looked questionable so he was placed on a course of antibiotics as well as Bactroban ointment to the incision site. He returns today for evaluation. The thoracic incision has completely healed, the battery site incision remains scabbed over with minimal redness around the edges. He reports that he has had no drainage and no fevers or chills. Past Medical History: Past Medical History: Diagnosis Date AAA (abdominal aortic aneurysm) (HCC) Anxiety Arthritis Claudication of right lower extremity (HCC) Colon polyps Depression Hyperlipidemia Hypertension Joint pain Osteoarthritis Restless legs Sleep apnea does not use cpap Past Surgical History: Past Surgical History: Procedure Laterality Date BACK SURGERY CERVICAL FUSION x2 COLONOSCOPY FEMORAL ARTERY STENT Right LUMBAR FUSION ROTATOR CUFF REPAIR Right SPINAL CORD STIMULATOR IMPLANTATION (HISTORICAL) 08/06/2024 TOTAL HIP ARTHROPLASTY Right TOTAL KNEE ARTHROPLASTY Right VASECTOMY Home Medications: Prior to Admission medications Medication Sig Start Date End Date Taking? Authorizing Provider aspirin 81 MG EC tablet Take 81 mg by mouth daily. Yes Historical Provider, DULoxetine (Cymbalta) [address] capsule Take 30 mg by mouth 2 times daily. 06/22/24 Yes Historical Provider, fenofibrate (Triglide) 160 MG tablet Take 160 mg by mouth daily. 06/13/23 Yes Historical Provider, gabapentin (Neurontin) 400 MG capsule Take 400 mg by mouth 3 times daily. Patient taking differently: Take 400 mg by mouth 3 times daily. Normally takes BID 06/10/24 Yes Historical Provider, lisinopril 5 MG tablet Take 5 mg by mouth daily. 06/01/24 Yes Historical Provider, MAGNESIUM PO Take by mouth daily. Yes Historical Provider, Multiple Vitamins-Minerals (men's 50+ multivitamin w/min) tablet Take 1 tablet by mouth daily. Yes Historical Provider, naproxen (Naprosyn) 500 MG tablet TAKE 1 TABLET BY MOUTH TWICE DAILY FOR 30 DAYS WITH FOOD OR MILK 06/27/24 Yes Historical Provider, oxyCODONE-acetaminophen (Percocet) 5-325 MG tablet Take 1 tablet by mouth every 6 hours as needed for severe pain (7-10) (pain) for up to 7 days. 08/06/24 08/13/24 Fab Wagner PA-C tiZANidine (Zanaflex) 4 MG tablet Take 1 tablet (4 mg) by mouth every 8 hours as needed for muscle spasms for up to 10 days. 08/06/24 08/16/24 Fab Wagner PA-C Allergies: Patient has no known allergies. Physical Examination: Vitals: 09/02/24 1418 BP: (!) 170/84 Pulse: 64 Physical Exam Constitutional: Appearance: Normal appearance. HENT: Head: Normocephalic. Eyes: General: Lids are normal. Extraocular Movements: Extraocular movements intact. Pupils: Pupils are equal, round, and reactive to light. Cardiovascular: Rate and Rhythm: Normal rate. Pulmonary: Effort: Pulmonary effort is normal. Abdominal: Palpations: Abdomen is soft. Musculoskeletal: General: Normal range of motion. Cervical back: Normal range of motion and neck supple. Skin: General: Skin is warm and dry. Neurological: General: No focal deficit present. Mental Status: He is alert. Motor: Motor strength is normal. Coordination: Coordination is intact. Deep Tendon Reflexes: Reflex Scores: Brachioradialis reflexes are 1+ on the right side and 1+ on the left side. Patellar reflexes are 1+ on the right side and 1+ on the left side. Psychiatric: Mood and Affect: Mood normal. Judgment: Judgment normal. Neurological Exam Mental Status Alert. Cranial Nerves CN II: Visual acuity is normal. Visual guadalupe full to confrontation. CN III, IV, : Extraocular movements intact bilaterally. Normal lids and orbits bilaterally. Pupils equal round and reactive to light bilaterally. CN V: Facial sensation is normal. CN VII: Full and symmetric facial movement. CN VIII: Hearing is normal. CN IX, X: Palate elevates symmetrically. Normal gag reflex. CN XI: Shoulder shrug strength is normal. CN XII: Tongue midline without atrophy or fasciculations. Motor Normal muscle bulk throughout. Normal muscle tone. Strength is 5/5 throughout all four extremities. Sensory Sensation is intact to light touch, pinprick, vibration and proprioception in all four extremities. Reflexes Right Left Brachioradialis 1+ 1+ Patellar 1+ 1+ Coordination Kiipaj-fv-[id number], rapid alternating movements and yxba-[id number] normal bilaterally without dysmetria. Gait Normal casual, toe, heel and tandem gait. Thoracic incision is completely healed, battery site on the right with thick scabbing and mild erythema around the edges. No expressible drainage or swelling. Asses (more content not included)... [facility] 36on 09-01-2024 36 Spoke wit pt and he has SCS sx on 08/06. He states his lower incision where battery pack is has a gap and doesn't seem to be healing up. Scheduled him an appt. [facility] Office Visiton 08-19-2024 Follow-up visit [id number] Tyron Estrada 1955 M Date Provider Department Center 08/19/2024 [id number] CASTAÑEDA [facility] [place] No family history on file Level of Service:03108 [place] POSTOP FOLLOW UP VISIT RELATED TO ORIGINAL PX Reason for Visit and Comments: Post-op [483] - SX POST-OP---SCS [facility] Progress Noteon 08-19-2024 Progress Note NEUROSURGERY and SPI NE POST-OP NOTE Patient Name: Sadie Estrada Patient : 1955 PCP: Juan Antonio Bacon MD History of Present Ilness: Patient is post-op SCS placement performed on 08/06/24. He returns today for his 2-week postoperative appointment. He reports that he is recovering very well and is very happy with his stimulator and its function. He does note some increased itching and there is evidence of erythema, scabbing and redness around the battery site. His thoracic incision is healing very nicely. Past Medical History: Past Medical History: Diagnosis Date AAA (abdominal aortic aneurysm) (HCC) Anxiety Arthritis Claudication of right lower extremity (HCC) Colon polyps Depression Hyperlipidemia Hypertension Joint pain Osteoarthritis Restless legs Sleep apnea does not use cpap Past Surgical History: Past Surgical History: Procedure Laterality Date BACK SURGERY CERVICAL FUSION x2 COLONOSCOPY FEMORAL ARTERY STENT Right LUMBAR FUSION ROTATOR CUFF REPAIR Right SPINAL CORD STIMULATOR IMPLANTATION (HISTORICAL) 08/06/2024 TOTAL HIP ARTHROPLASTY Right TOTAL KNEE ARTHROPLASTY Right VASECTOMY Home Medications: Prior to Admission medications Medication Sig Start Date End Date Taking? Authorizing Provider aspirin 81 MG EC tablet Take 81 mg by mouth daily. Yes Historical Provider, DULoxetine (Cymbalta) [address] capsule Take 30 mg by mouth 2 times daily. 06/22/24 Yes Historical Provider, fenofibrate (Triglide) 160 MG tablet Take 160 mg by mouth daily. 06/13/23 Yes Historical Provider, gabapentin (Neurontin) 400 MG capsule Take 400 mg by mouth 3 times daily. Patient taking differently: Take 400 mg by mouth 3 times daily. Normally takes BID 06/10/24 Yes Historical Provider, lisinopril 5 MG tablet Take 5 mg by mouth daily. 06/01/24 Yes Historical Provider, MAGNESIUM PO Take by mouth daily. Yes Historical Provider, Multiple Vitamins-Minerals (men's 50+ multivitamin w/min) tablet Take 1 tablet by mouth daily. Yes Historical Provider, naproxen (Naprosyn) 500 MG tablet TAKE 1 TABLET BY MOUTH TWICE DAILY FOR 30 DAYS WITH FOOD OR MILK 06/27/24 Yes Historical Provider, oxyCODONE-acetaminophen (Percocet) 5-325 MG tablet Take 1 tablet by mouth every 6 hours as needed for severe pain (7-10) (pain) for up to 7 days. 08/06/24 08/13/24 Fab Wagner PA-C tiZANidine (Zanaflex) 4 MG tablet Take 1 tablet (4 mg) by mouth every 8 hours as needed for muscle spasms for up to 10 days. 08/06/24 08/16/24 Fab Wagner PA-C Allergies: Patient has no known allergies. Physical Examination: Vitals: 08/19/24 1302 BP: (!) 147/74 Pulse: 52 Physical Exam Constitutional: Appearance: Normal appearance. HENT: Head: Normocephalic. Eyes: General: Lids are normal. Extraocular Movements: Extraocular movements intact. Pupils: Pupils are equal, round, and reactive to light. Cardiovascular: Rate and Rhythm: Normal rate. Pulmonary: Effort: Pulmonary effort is normal. Abdominal: Palpations: Abdomen is soft. Musculoskeletal: General: Normal range of motion. Cervical back: Normal range of motion and neck supple. Skin: General: Skin is warm and dry. Neurological: General: No focal deficit present. Mental Status: He is alert. Motor: Motor strength is normal. Coordination: Coordination is intact. Deep Tendon Reflexes: Reflex Scores: Brachioradialis reflexes are 1+ on the right side and 1+ on the left side. Patellar reflexes are 1+ on the right side and 1+ on the left side. Psychiatric: Mood and Affect: Mood normal. Judgment: Judgment normal. Neurological Exam Mental Status Alert. Cranial Nerves CN II: Visual acuity is normal. Visual guadalupe full to confrontation. CN III, IV, : Extraocular movements intact bilaterally. Normal lids and orbits bilaterally. Pupils equal round and reactive to light bilaterally. CN V: Facial sensation is normal. CN VII: Full and symmetric facial movement. CN VIII: Hearing is normal. CN IX, X: Palate elevates symmetrically. Normal gag reflex. CN XI: Shoulder shrug strength is normal. CN XII: Tongue midline without atrophy or fasciculations. Motor Normal muscle bulk throughout. Normal muscle tone. Strength is 5/5 throughout all four extremities. Sensory Sensation is intact to light touch, pinprick, vibration and proprioception in all four extremities. Reflexes Right Left Brachioradialis 1+ 1+ Patellar 1+ 1+ Coordination [id number], rapid alternating movements and dcps-bf-lobs normal bilaterally without dysmetria. Gait Normal casual, toe, heel and tandem gait. Incision thoracic incision is well-approximated with minimal scabbing and no redness or drainage. The battery site has moderate amount of scabbing, erythema around the incision site with easily blanching skin. Assessment/Plan: He is status post spinal cord stimulator plac (more content not included)... Normal [facility] Nursing Noteon 08-06-2024 Nursing Note Pt was seen by repre sentative for implant, rep stated that it is programmed and they will touch base over the phone tomorrow with patient and spouse. Pt tolerating PO fluids and crackers, pain controlled, ambulatory to restroom, spouse at bedside with all personal belongings, discharge instructions given. Pt getting dressed and wheelchair escort to [facility]. Normal [facility] Nursing Note Patient complaining of pain but no oral pain medications ordered at this time. Dr. Melara gave order for oxycodone at this time. Normal [facility] Nursing Note Family/visitor at be dside with patient. Normal [facility] Op Noteon 08-06-2024 Op Note OPERATIVE NOTE Patient Name: Sadie Estrada : 1955 DATE OF PROCEDURE: 08/06/2024 SURGEON: Federico Castañeda MD QUALITY COMPLIANCE MANAGER: RACHEL Seaman PREOPERATIVE DIAGNOSES: Chronic pain syndrome POSTOPERATIVE DIAGNOSES: Same PROCEDURE: Spinal cord stimulator paddle lead and battery placement ANESTHESIA: General ESTIMATED BLOOD LOSS: 20 INDICATION FOR PROCEDURE: Mr. Godoy is a 69-year-old gentleman with a chronic pain syndrome. He had a successful spinal cord stimulator trial, he wished to have it permanently implanted. Risks and benefits of the procedure were discussed with him including infection spinal cord injury and abdominal pain postoperatively, he wished to proceed. DESCRIPTION OF PROCEDURE: Patient was brought to the operative room general endotracheal seizure was induced. He had spinal cord monitoring leads placed. He was turned prone on a spinal Truman table, his face chest hips arms legs feet were all padded appropriately. C-arm was brought in field approximately at the level of the T9 rib this is marked surgical marker he was prepped and draped in the normal sterile fashion. After appropriate timeout identifying the patient, the type surgery point 5% Marcaine with epinephrine was instilled future incision. Skin incision was made dissection carried out to expose the T8 lamina overlying the T8-T9 disc space. Levels confirmed intraoperative via C arm. When the levels confirmed exposure complete the rongeur was used to remove the inferior portion of the T8 spinous process. Pneumatic Pitman drill was used to thin the inferior portion of the T8 lamina to level ligamentum flavum combination of 2 and 3 mm Kerrisons were used to remove the remaining bone the ligamentum flavum underneath. The epidural space was identified. It was dissected with an epidural dissector. Then the paddle lead was slid into the epidural space. A C-arm shot was taken to confirm it was in good midline position. The lead was tested and it was giving good coverage down bilateral low back and bilateral lower extremities to the feet. When he was in good midline position the wound was juanpablo irrigated out and DuraSeal used to temporarily glue the lead in place. The muscle fascia was then closed with interrupted 0 Vicryl sutures. The leads were anchored to the muscle fascia with special anchors and 3-0 silk suture. A battery pocket was created on the patient's right side at his request. The leads were tunneled to the battery pocket they were cleaned and dried and plugged into the battery. When impedances were good they were plugged into the battery. Battery was then implanted in the battery pocket remainder of the thoracic incision was then closed with interrupted 2-0 Vicryl sutures. The battery pocket was closed with subcuticular 2-0 Vicryl sutures with birgit on the skin. Sterile dressing was placed. He was extubated taken recovery room in stable fashion to be discharged home. There was no neurosurgical resident available to assist the case, the physician transition assistant assisted to provide suction retraction assistance with opening and closing allow the case to be performed safely. All of his spinal cord signals were the same at the end of the case compared to beginning. [employer] was the company manufacture were for the spinal cord stimulator paddle lead and battery. [facility] ECG 12-LEADon 07-31-2024 ECG 12-LEAD IMPRESSION: Sinus rhythm Electronically Signed On 07-31-2024 11:52:09 EDT by Gabriella Rocha [facility] 36on 07-30-2024 36 Spoke with patient a nd instructed him to CONTINUE his 81 mg ASA per protocol due to his medical history. Pt verbalized understanding. I also reviewed his lab results with him during the call because he had questions. Pt feeling great today. [facility] [id number] 07-29-2024 [id number] Medication List Accurate as of July 29, 2024 3:39 PM. Always use your most recent med list. aspirin 81 MG EC tablet Medication Adjustments for Surgery: Other (Comment) Notes to patient: Hold 7 days prior to surgery, last dose 07/29/[address] capsule Commonly known as: Cymbalta Medication Adjustments for Surgery: Take morning of surgery fenofibrate 160 MG tablet Commonly known as: Triglide Medication Adjustments for Surgery: Hold morning of surgery gabapentin 400 MG capsule Commonly known as: Neurontin Medication Adjustments for Surgery: Take morning of surgery lisinopril 5 MG tablet Medication Adjustments for Surgery: Hold morning of surgery MAGNESIUM PO Medication Adjustments for Surgery: Hold morning of surgery men's 50+ multivitamin w/min tablet Medication Adjustments for Surgery: Hold morning of surgery naproxen 500 MG tablet Commonly known as: Naprosyn Medication Adjustments for Surgery: Other (Comment) Notes to patient: Stop 7 days prior to surgery Additional Instructions: You may take Tylenol for pain. NO Motrin, ibuprofen or Advil for 7 days prior to surgery or longer if instructed by your surgeon. NO Aleve or Naprosyn for 7 days prior to surgery or longer if instructed by your surgeon. DO NOT take aspirin or aspirin containing products for 7 days before surgery, or longer if instructed by your surgeon. Follow any instructions given to you by Dr. MADDY Poole with the shower kit provided to you before coming to the hospital. No lotion, powder, deodorant or body spays. No hair products. Remove all jewelry and leave it at home. Wear loose comfortable clothing to go home in. You may brush your teeth morning of surgery. Do not wear contacts day of surgery. No marijuana (THC), smoking or alcohol for 24 hours prior to surgery. Please arrange for a responsible adult to drive you home after your surgery and that there is a responsible adult with you for 24 hours post discharge. If you have specific questions, please call your surgeon. You will receive a call the day before your surgery to verify your arrival time and date. You will be asked to arrive at least two hours prior to your scheduled surgery time. Please bring your [facility] Surgical folder and medication list with you day of surgery. We encourage you to write down any questions you may have for the surgeon, anesthesiologist, or other members of the surgical team and bring it with you the day of surgery. Please bring photo ID and insurance information. You may use the physician representative parking located at the main entrance on [address] and take the H elevator to the first floor for same day surgery. Take a left after exiting the elevator and check in at the desk. You may use the parking in the Main deck. Take the level one bridge to the building and follow the signs for same day surgery. Check in at the desk. Normal [facility] BASIC METABOLIC PANELon 10-3 0-2023 Anion gap [Moles/Vol] 7 mmol/L Normal 3-13 [facility] Comment on above: Performed By: #### L AB15 #### Lifestyle Consultant: SILVANA ALVAREZ ([id number]) [facility]) [address] [place] [address] Calcium [Mass/Vol] 9.7 mg/dL Normal 8.4-10.4 [facility] Comment on above: Performed By: #### L AB15 #### Lifestyle Consultant: SILVANA ALVAREZ ([id number]) [facility]) [address] [place] [address] Chloride [Moles/Vol] 102 mmol/L Normal 98-107 [facility] Comment on above: Performed By: #### L AB15 #### Lifestyle Consultant: SILVANA ALVAREZ ([phone]) [facility]) [address] [place] [address] CO2 [Moles/Vol] 26 mmol/L Normal 22-30 [facility] Comment on above: Performed By: #### L AB15 #### Lifestyle Consultant: SILVANA ALVAREZ ([phone]) [facility]) [address] [place] [address] Creatinine [Mass/Vol] 1.14 mg/dL Normal 0.66-1.25 [facility] Comment on above: Performed By: #### L AB15 #### Lifestyle Consultant: SILVANA ALVAREZ ([id number]) [facility] ([facility]) [address] [place] [address] GLOMERULAR FILTRATION RATE ML/MIN/1.73 SQ M.PREDICTED 68.8 mL/min/1.73m*2 Normal >60.0 [facility] Comment on above: Result Comment: Calc ulation based on the Chronic Kidney Disease Epidemiology Collaboration (CKD-EPI) equation refit without adjustment for race Performed By: #### L AB15 #### Lifestyle Consultant: SILVANA ALVAREZ ([phone]) [facility] ([facility]) [address] [place] [address] Glucose [Mass/Vol] 77 mg/dL Normal 70-100 [facility] Comment on above: Performed By: #### L AB15 #### Lifestyle Consultant: SILVANA ALVAREZ ([id number]) [facility] ([facility]) [address] [place] [address] Potassium [Moles/Vol] 5.2 mmol/L High 3.5-5.1 [facility] Comment on above: Performed By: #### L AB15 #### Lifestyle Consultant: SILVANA ALVAREZ ([id number]) [facility] ([facility]) [address] [place] [address] Sodium [Moles/Vol] 135 mmol/L Normal 135-145 [facility] Comment on above: Performed By: #### L AB15 #### Lifestyle Consultant: SILVANA ALVAREZ ([id number]) [facility]) [address] [place] [address] Urea nitrogen [Mass/Vol] 26 mg/dL High 9-20 [facility] Comment on above: Performed By: #### L AB15 #### Lifestyle Consultant: SILVANA ALVAREZ ([id number]) [facility]) [address] [place] [address] CBC (HEMOGRAM)on 07-29-2024 Erythrocyte distribution width (RBC) [Ratio] 13.2 % Normal 11.5-15.0 [facility] Comment on above: Performed By: #### L AB294 ####Lifestyle Consultant: SILVANA ALVAREZ ([id number])[facility])[address] [place] [address] Hematocrit (Bld) [Volume fraction] 37.6 % Low 40.0-52.0 [facility] Comment on above: Performed By: #### L AB294 ####Lifestyle Consultant: SILVANA ALVAREZ ([id number])[facility])[address] [place] [address] Hemoglobin (Bld) [Mass/Vol] 12.4 g/dL Low 13.0-18.0 [facility] Comment on above: Performed By: #### L AB294 ####Lifestyle Consultant: SILVANA ALVAREZ ([id number])[facility])[address] [place] [address] MCH (RBC) [Entitic mass] 31.9 pg Normal 26.0-34.0 [facility] Comment on above: Performed By: #### L AB294 ####Lifestyle Consultant: SILVANA ALVAREZ ([id number])[facility])[address] [place] [address] MCHC 33.0 % Normal 30.5-36.0 [facility] Comment on above: Performed By: #### L AB294 ####Lifestyle Consultant: SILVANA ALVAREZ ([id number])[facility])[address] [place] [address] MCV (RBC) [Entitic vol] 96.7 fL Normal 77.0-99.0 [facility] Comment on above: Performed By: #### L AB294 ####Lifestyle Consultant: SILVANA ALVAREZ ([id number])[facility])[address] [place] [address] Platelet mean volume (Bld) [Entitic vol] 9.4 fL Normal 9.0-12.7 [facility] Comment on above: Performed By: #### L AB294 ####Lifestyle Consultant: SILVANA ALVAREZ ([id number])[facility])[address] [place] [address] Platelets (Bld) [#/Vol] 311 10*3/uL Normal 140-440 [facility] Comment on above: Performed By: #### L AB294 ####Lifestyle Consultant: SILVANA ALVAREZ ([id number])[facility])[address] [place] [address] RBC (Bld) [#/Vol] 3.89 10*6/uL Low 4.40-5.90 [facility] Comment on above: Performed By: #### L AB294 ####Lifestyle Consultant: SILVANA ALVAREZ ([id number])[facility])[address] [place] [address] WBC (Bld) [#/Vol] 6.0 10*3/uL Normal 3.6-10.7 [facility] Comment on above: Performed By: #### L AB294 ####Lifestyle Consultant: SILVANA ALVAREZ ([id number])[facility])[address] [place] [address] Progress Noteon 07-29-2024 Progress Note [facility]ARE PLANNI KOBY Estrada : 1955 Primary Care Physician: Juan Antonio Bacon MD The patient and/or family/surrogate voluntarily agreed to participate in ACP services. Patient?s cognitive capacity: A&Ox3 Code Status: [x] [FULL CODE - Continue all advanced life support: CPR,intubation,invasive procedures] [_] [DNR-CCA - DO NOT do CPR, intubation] [_] [DNR-DIRECTOR OF CULTURE - Comfort care only] [_] DNR form [was/was not] signed Summary of discussion: The patient health care POA/ surrogate is the following: Tracey Estrada . [Condition that instigated the ACP on this DOS, relevant PMH, functional status, goals of care, and whom this was discussed with including names and relationship to the patient, and any relevant advance care documentation discussion] I answered all the patient/family questions that I could within the range and scope of the current medical situation. We discussed the medical conditions, risks, benefits, outcomes, and goals of care at this time for the patient's medical issues at hand in the face of the patient's chronic issues and current presentation. Total time spent: 3 minutes were spent discussing the patient's resuscitation status, advance care planning, and end of life care, with patient and/or family/surrogate. Agata Valdes APRN - [employer] 07/29/2024, 3:32 PM [facility] 36on 07-09-2024 36 Surgery is approved- -approval scanned into media. PAT:07/29 SX:08/06 POST-OP:08/19 Called pt: advised of all information. Patient verbalized understanding. Packet was given at office visit and letter with all information sent via mail per patient request. [facility] 36on 07-06-2024 36 Sx scheduling proces s reviewed at office visit. Pt given a tentative sx date 08/06, but advised due to insurance and physician needs this date could change. Pt verbalized understanding. Per Patient: PT: yes--Promotions--located in [facility]. PM: yes-Dr. Shukla Chiropractor: no [facility] Office Visiton 07-01-2024 Follow-up visit [id number] Armen Estrada 1955 M Date Provider Department Center 07/01/2024 [id number]-[id number] CASTAÑEDA [facility] None No family history on file Level of Service:42257 [place] OFFICE/OUTPATIENT NEW MODERATE MDM 45 MINUTES Reason for Visit and Comments: New Patient [542] - Patient referred by Dr. Shukla for spinal cord stimulator. He reports he had a trial 2 weeks ago, and reports he was pain free for about 4.5 days. He reports the last 2.5 days he had mild pain, but thinks this could be related to sitting on a wooden chair at a birthday constitution party. They did adjust the trial stimulator, he never had relief. The financial services sales representative believes this could be due to a malfunction. [facility] Progress Noteon 07-01-2024 Progress Note NEUROSURGERY CONSULT NOTE Patient Name: Minh Estrada Patient : 1955 PCP: Juan Antonio Bacon MD History of Present Ilness: 69 y.o. presents with a chronic pain syndrome. He has had a successful spinal cord stimulator trial that helped significantly with his low back pain. He would like to have 1 permanently implanted. Chief Complaint Patient presents with New Patient Patient referred by Dr. Shukla for spinal cord stimulator. He reports he had a trial 2 weeks ago, and reports he was pain free for about 4.5 days. He reports the last 2.5 days he had mild pain, but thinks this could be related to sitting on a wooden chair at a birthday constitution party. They did adjust the trial stimulator, he never had relief. The financial services sales representative believes this could be due to a malfunction. Conservative Treatments: Physical Therapy: NSAID's: Narcotics: Muscle relaxants: Epidural injections: Chiropractor: Past Medical History: History reviewed. No pertinent past medical history. Past Surgical History: History reviewed. No pertinent surgical history. Home Medications: Prior to Admission medications Medication Sig Start Date End Date Taking? Authorizing Provider DULoxetine (Cymbalta) [address] capsule Take 30 mg by mouth 2 times daily. 06/22/24 Yes Historical Provider, gabapentin (Neurontin) 400 MG capsule Take 400 mg by mouth 3 times daily. 06/10/24 Yes Historical Provider, lisinopril 5 MG tablet Take 5 mg by mouth daily. 06/01/24 Yes Historical Provider, naproxen (Naprosyn) 500 MG tablet TAKE 1 TABLET BY MOUTH TWICE DAILY FOR 30 DAYS WITH FOOD OR MILK 06/27/24 Yes Historical Provider, Allergies: Patient has no known allergies. Social History: TOBACCO: reports that he has been smoking cigarettes. He has never used smokeless tobacco. ETOH: reports current alcohol use. RECREATIONAL DRUG USE: Social History Substance and Sexual Activity Drug Use Never Family History: No family history on file. Review of Systems Physical Examination: Vitals: 07/01/24 1409 BP: 133/73 Pulse: 76 Physical Exam Neurological Exam /5 B LE Radiology Personal review: Plain films of the lumbar spine show postop changes with pedicle screws in place L2, L3, L4, L5 ASSESSMENT / PLAN : Chronic pain syndrome. He has had a successful spinal cord stimulator trial, he would like to have 1 permanently implanted. Risks and benefits of the procedure were discussed with him and his , they would like to proceed with surgery. We will schedule him for surgery at his convenience. Diagnosis Plan 1. Chronic pain syndrome Procedure: SCS Anesthesia: GET Time: 2 Positioning/Frame: [employer]/Implants: Pool O-Arm: N C-Arm: Y Stealth Navigation: N Corbin: Microscope: N Brace: Pre-Op Imaging:N Intranerve: Y Inpatient/Outpatient: Out Medications to DC: Other: [id number], [id number] Normal [facility] 36on 06-22-2024 36 LM on VM reminding p t to bring any recent imaging with them to their appt next week and left office # for any questions. Normal [facility] No Panel Informationon 11-13 262 mg/dL Abnormal [employer] 62 mg/dL Normal [employer] 112 mg/dL Normal [employer] 176 Abnormal [employer] 4.2 Normal [employer] 200 Abnormal [employer] 36.7 pg/mL Normal 6.0 - 73.0 pg/mL [employer] 105 mg/dL Abnormal 65 - 99 mg/dL [employer] [facility] 23 mg/dL Normal 7 - 25 mg/dL [employer] 0.87 mg/dL Normal 0.70 - 1.28 mg/dL [employer] 93 Normal [employer] SEE NOTE: Normal 6 - 22 [facility] [employer] [facility] 139 mmol/L Normal 135 - 146 mmol/L [employer] 4.3 mmol/L Normal 3.5 - 5.3 mmol/L [employer] 103 mmol/L Normal 98 - 110 mmol/L [employer] 28 mmol/L Normal 20 - 32 mmol/L [facility] [employer] [facility] 9.6 mg/dL Normal 8.6 - 10.3 mg/dL [facility] [employer] 6.9 g/dL Normal 6.1 - 8.1 g/dL [facility] [employer] 4.6 g/dL Normal 3.6 - 5.1 g/dL [facility] [employer] 2.3 Normal 1.9 - 3.7 [facility] [employer] 2.0 Normal 1.0 - 2.5 [facility] [employer] 0.7 mg/dL Normal 0.2 - 1.2 mg/dL [facility] [employer] 83 U/L Normal 35 - 144 U/L [facility] [employer] 27 U/L Normal 10 - 35 U/L [facility] [employer] 17 U/L Normal 9 - 46 U/L [employer] 5.7 Abnormal [facility] [employer] Basophil percentageOrdered B y: Curt Nguyen on 11-07-2023 Creatinine [Mass/Vol] 1.1 mg/dL 0.70-1.30 [facility] No Panel InformationOrdered By: Curt Nguyen on 11-07-2023 Bedside Estimated GFR (eGFR) > 60.0000 mL/min >60 [facility] Laboratory - Microbiology an d Antimicrobial susceptibilityon 09-17-2023 FLUAV Ag IA Ql (Throat) Negative Normal [facility] [employer] No Panel Informationon 09-17 Negative Normal [facility] [employer] No Panel Informationon 08-20 43.6 pg/mL Normal 6.0 - 73.0 pg/mL [facility] [employer] [facility] No Panel Informationon 05-16 24.2 pg/mL Normal 6.0 - 73.0 pg/mL [facility] Absolute lymphocyte countOrd ered By: Carlos Castillo on 05-12-2023 Lymphocytes Auto (Unsp spec) [#/Vol] 1.78 10*3/uL 0.83-4.51 [facility] Basophil percentageOrdered B y: Carlos Castillo on 05-12-2023 Basophils/100 WBC (Bld) 0.9 % 0-1 [facility] Chloride [Moles/Vol] 105 mmol/L 98-107 [facility] Eosinophils/100 WBC (Bld) 5.0 % 0-5 [facility] Glucose [Mass/Vol] 95 mg/dL 74-106 [facility] Neutrophils (Bld) [#/Vol] 2.0 10*3/uL 2.0-7.7 [facility] Neutrophils/100 WBC (Bld) 43.9 % 47-70 [facility] Potassium [Moles/Vol] 4.4 mmol/L 3.5-5.1 [facility] Sodium [Moles/Vol] 140 mmol/L 136-145 [facility] WBC (Bld) [#/Vol] 4.6 10*3/uL 4.4-11.0 [facility] Blood erythrocytes count (nu mber/volume)Ordered By: Carlos Castillo on 05-12-2023 RBC (Bld) [#/Vol] 4.19 10*6/uL 4.6-6.2 [facility] Blood hemoglobin measurement (mass/volume)Ordered By: Carlos Castillo on 05-12-2023 Hemoglobin (Bld) [Mass/Vol] 13.0 g/dL 13.0-16.5 [facility] Blood lymphocytes/100 leukoc ytesOrdered By: Carlos Castillo on 05-12-2023 Lymphocytes/100 WBC (Bld) 38.4 % 19-41 [facility] Blood monocytes/100 leukocyt esOrdered By: Carlos Castillo on 05-12-2023 Monocytes/100 WBC (Bld) 11.6 % 0-10 [facility] Blood platelet mean volumeOr dered By: Carlos Castillo on 05-12-2023 Platelet mean volume (Bld) [Entitic vol] 9.2 fL 6.2-12.0 [facility] Determination of erythrocyte mean corpuscular volume (MCV)Ordered By: Carlos Castillo on 05-12-2023 MCV (RBC) [Entitic vol] 95.7 fL 80-94 [facility] Hematocrit Auto (Bld) [Volum e fraction]Ordered By: Carlos Castillo on 05-12-2023 Hematocrit (Bld) [Volume fraction] 40.1 % 40-54 [facility] Laboratory - Chemistry and C hemistry - challengeOrdered By: Carlos Jonathan 05-12-2023 CO2 [Moles/Vol] 30.0 mmol/L 21.0-32.0 [facility] Urea nitrogen/Creatinine [Mass ratio] 22.4 mg/mg 10-20 [facility] Laboratory - Hematology and Cell countsOrdered By: Carlos Castillo 05-12-2023 Erythrocyte distribution width (RBC) [Entitic vol] 44.6 fL 35.1-43.9 [facility] Erythrocyte distribution width (RBC) [Ratio] 12.8 % 11.6-14.6 [facility] Immature granulocytes/100 WBC (Bld) 0.200 % 0.0-0.9 [facility] Comment on above: IG% - Immature Granu locytes (promyelocytes, myelocytes and metamyelocytes) > 1% indicates that a LEFT SHIFT is Present. MCH (RBC) [Entitic mass] 31.0 pg 27.0-32.0 [facility] Nucleated RBC/100 WBC (Bld) [Ratio] 0 % 0-5 [facility] MCHC Auto (RBC) [Mass/Vol]Or dered By: Carlos Castillo on 05-12-2023 MCHC (RBC) [Mass/Vol] 32.4 g/dL 32-36 [facility] No Panel InformationOrdered By: Carlos Castillo on 05-12-2023 Estimated Creatinine Clearance Calc 77.53 ml/min [facility] Estimated GFR (MDRD) Amer 122 mL/min >60 [facility] Comment on above: GFR Calc Estimated GFR (MDRD) Non-Af Amer 101 mL/min >60 [facility] Comment on above: Non- GFR Calc Platelets bldOrdered By: Carlos Jansenok on 05-12-2023 Platelets (Bld) [#/Vol] 244 10*3/uL 150-450 [facility] Serum or plasma calcium maria esther urement (mass/volume)Ordered By: Carlos Castillo on 05-12-2023 Calcium [Mass/Vol] 8.9 mg/dL 8.5-10.1 [facility] Serum or plasma creatinine m easurement (mass/volume)Ordered By: Carlos Castillo on 05-12-2023 Creatinine [Mass/Vol] 0.80 mg/dL 0.70-1.30 [facility] Comment on above: The validity of the calculated GFR & GFRAA in patients over 70 years has not been determined. Clinical correlation is essential. Serum or plasma urea nitroge n measurement (mass/volume)Ordered By: Carlos Jonathan on 05-12-2023 Urea nitrogen [Mass/Vol] 18 mg/dL 7-18 [facility] Thin prep Papanicolaou smear with manual screeningOrdered By: Carlos Castillo on 05-12-2023 Thin prep Papanicolaou smear with manual screening 5 5-15 [facility] Absolute lymphocyte countOrd ered By: Carlos Jonathan on 04-14-2023 Lymphocytes Auto (Unsp spec) [#/Vol] 1.06 10*3/uL 0.83-4.51 [facility] Basophil percentageOrdered B y: Carlos Jansenok on 04-14-2023 Basophils/100 WBC (Bld) 0.8 % 0-1 [facility] Chloride [Moles/Vol] 103 mmol/L 98-107 [facility] Eosinophils/100 WBC (Bld) 3.8 % 0-5 [facility] Glucose [Mass/Vol] 100 mg/dL 74-106 [facility] Comment on above: Fasting Glucose resu lt from 100 to 125 mg/dL suggests IMPAIRED HOMEOSTASIS per A.D.A. criteria. Neutrophils (Bld) [#/Vol] 2.9 10*3/uL 2.0-7.7 [facility] Neutrophils/100 WBC (Bld) 61.0 % 47-70 [facility] Potassium [Moles/Vol] 4.2 mmol/L 3.5-5.1 [facility] Sodium [Moles/Vol] 138 mmol/L 136-145 [facility] WBC (Bld) [#/Vol] 4.8 10*3/uL 4.4-11.0 [facility] Blood erythrocytes count (nu mber/volume)Ordered By: Carlos Castillo on 04-14-2023 RBC (Bld) [#/Vol] 3.93 10*6/uL 4.6-6.2 [facility] Blood hemoglobin measurement (mass/volume)Ordered By: Carlos Castillo on 04-14-2023 Hemoglobin (Bld) [Mass/Vol] 12.4 g/dL 13.0-16.5 [facility] Blood lymphocytes/100 leukoc ytesOrdered By: Carlos Castillo on 04-14-2023 Lymphocytes/100 WBC (Bld) 22.1 % 19-41 [facility] Blood monocytes/100 leukocyt esOrdered By: Carlos Castillo on 04-14-2023 Monocytes/100 WBC (Bld) 11.9 % 0-10 [facility] Blood platelet mean volumeOr dered By: Carlos Castillo on 04-14-2023 Platelet mean volume (Bld) [Entitic vol] 9.0 fL 6.2-12.0 [facility] Determination of erythrocyte mean corpuscular volume (MCV)Ordered By: Carlos Castillo 04-14-2023 MCV (RBC) [Entitic vol] 97.2 fL 80-94 [facility] Hematocrit Auto (Bld) [Volum e fraction]Ordered By: Carlos Castillo 04-14-2023 Hematocrit (Bld) [Volume fraction] 38.2 % 40-54 [facility] Laboratory - Chemistry and C hemistry - challengeOrdered By: Carlos Castillo 04-14-2023 CO2 [Moles/Vol] 33.0 mmol/L 21.0-32.0 [facility] Urea nitrogen/Creatinine [Mass ratio] 24.5 mg/mg 10-20 [facility] Laboratory - Hematology and Cell countsOrdered By: Carlos Castillo 04-14-2023 Erythrocyte distribution width (RBC) [Entitic vol] 46.7 fL 35.1-43.9 [facility] Erythrocyte distribution width (RBC) [Ratio] 13.0 % 11.6-14.6 [facility] Immature granulocytes/100 WBC (Bld) 0.400 % 0.0-0.9 [facility] Comment on above: IG% - Immature Granu locytes (promyelocytes, myelocytes and metamyelocytes) > 1% indicates that a LEFT SHIFT is Present. MCH (RBC) [Entitic mass] 31.6 pg 27.0-32.0 [facility] Nucleated RBC/100 WBC (Bld) [Ratio] 0 % 0-5 [facility] MCHC Auto (RBC) [Mass/Vol]Or dered By: Carlos Castillo on 04-14-2023 MCHC (RBC) [Mass/Vol] 32.5 g/dL 32-36 [facility] No Panel InformationOrdered By: Carlos Castillo on 04-14-2023 Estimated Creatinine Clearance Calc 72.13 ml/min [facility] Estimated GFR (MDRD) Amer 114 mL/min >60 [facility] Comment on above: GFR Calc Estimated GFR (MDRD) Non-Af Amer 94 mL/min >60 [facility] Comment on above: Non- GFR Calc Platelets bldOrdered By: Carlos Castillo on 04-14-2023 Platelets (Bld) [#/Vol] 215 10*3/uL 150-450 [facility] Serum or plasma calcium maria esther urement (mass/volume)Ordered By: Carlos Castillo on 04-14-2023 Calcium [Mass/Vol] 8.3 mg/dL 8.5-10.1 [facility] Serum or plasma creatinine m easurement (mass/volume)Ordered By: Carlos Castillo on 04-14-2023 Creatinine [Mass/Vol] 0.86 mg/dL 0.70-1.30 [facility] Comment on above: The validity of the calculated GFR & GFRAA in patients over 70 years has not been determined. Clinical correlation is essential. Serum or plasma urea nitroge n measurement (mass/volume)Ordered By: Carlos Catsillo on 04-14-2023 Urea nitrogen [Mass/Vol] 21 mg/dL 7-18 [facility] Thin prep Papanicolaou smear with manual screeningOrdered By: Carlos Castillo 04-14-2023 Thin prep Papanicolaou smear with manual screening 2 5-15 [facility] Basophil percentageOrdered B y: Shyla Coleman on 04-08-2023 Chloride [Moles/Vol] 105 mmol/L 98-107 [facility] Glucose [Mass/Vol] 97 mg/dL 74-106 [facility] Potassium [Moles/Vol] 4.0 mmol/L 3.5-5.1 [facility] Sodium [Moles/Vol] 138 mmol/L 136-145 [facility] Laboratory - Chemistry and C hemistry - challengeOrdered By: Shyla Jared on 04-08-2023 CO2 [Moles/Vol] 31.0 mmol/L 21.0-32.0 [facility] Urea nitrogen/Creatinine [Mass ratio] 29.0 mg/mg 10-20 [facility] No Panel InformationOrdered By: Shyla Jared on 04-08-2023 Estimated Creatinine Clearance Calc 62.03 ml/min [facility] Estimated GFR (MDRD) Amer 131 mL/min >60 [facility] Comment on above: GFR Calc Estimated GFR (MDRD) Non-Af Amer 108 mL/min >60 [facility] Comment on above: Non- GFR Calc Serum or plasma albumin maria esther urement (mass/volume)Ordered By: Shyla Jared on 04-08-2023 Albumin [Mass/Vol] 2.7 g/dL 3.2-5.0 [facility] Serum or plasma calcium maria esther urement (mass/volume)Ordered By: Shyla Coleman on 04-08-2023 Calcium [Mass/Vol] 8.0 mg/dL 8.5-10.1 [facility] Serum or plasma creatinine m easurement (mass/volume)Ordered By: Shyla Coleman on 04-08-2023 Creatinine [Mass/Vol] 0.76 mg/dL 0.70-1.30 [facility] Comment on above: The validity of the calculated GFR & GFRAA in patients over 70 years has not been determined. Clinical correlation is essential. Serum or plasma urea nitroge n measurement (mass/volume)Ordered By: Shyla Coleman on 04-08-2023 Urea nitrogen [Mass/Vol] 22 mg/dL 7-18 [facility] Thin prep Papanicolaou smear with manual screeningOrdered By: Shyla Coleman on 04-08-2023 Thin prep Papanicolaou smear with manual screening 2 5-15 [facility] Basophil percentageOrdered B y: Shyla Nyalyson on 04-02-2023 Basophil percentage 2.7 mg/dL 2.5-4.9 [facility] Bilirubin [Mass/Vol] 0.70 mg/dL 0.20-1.00 [facility] Comment on above: For patients on eltr ombopag therapy, use of Dimension [place] TBIL is not recommended. Protein [Mass/Vol] 6.4 g/dL 6.4-8.2 [facility] WBC (Bld) [#/Vol] 8.5 10*3/uL 4.4-11.0 [facility] Blood erythrocytes count (nu mber/volume)Ordered By: Shyla Jared on 04-02-2023 RBC (Bld) [#/Vol] 4.56 10*6/uL 4.6-6.2 [facility] Blood hemoglobin measurement (mass/volume)Ordered By: Shyla Coleman on 04-02-2023 Hemoglobin (Bld) [Mass/Vol] 14.5 g/dL 13.0-16.5 [facility] Blood platelet mean volumeOr dered By: Shyla Coleman on 04-02-2023 Platelet mean volume (Bld) [Entitic vol] 9.5 fL 6.2-12.0 [facility] Determination of erythrocyte mean corpuscular volume (MCV)Ordered By: Shyla Coleman on 04-02-2023 MCV (RBC) [Entitic vol] 98.2 fL 80-94 [facility] Hematocrit Auto (Bld) [Volum e fraction]Ordered By: Shyla Coleman on 04-02-2023 Hematocrit (Bld) [Volume fraction] 44.8 % 40-54 [facility] Laboratory - Chemistry and C hemistry - challengeOrdered By: Shyla Coleman on 04-02-2023 ALP [Catalytic activity/Vol] 62 U/L 45-117 [facility] ALT [Catalytic activity/Vol] 29 U/L 16-61 [facility] Globulin (S) [Mass/Vol] 3.3 g/dL 2.2-4.2 [facility] Magnesium [Mass/Vol] 2.5 mg/dL 1.6-2.6 [facility] Laboratory - Hematology and Cell countsOrdered By: Shyla Jared on 04-02-2023 Erythrocyte distribution width (RBC) [Entitic vol] 51.2 fL 35.1-43.9 [facility] Erythrocyte distribution width (RBC) [Ratio] 14.1 % 11.6-14.6 [facility] MCH (RBC) [Entitic mass] 31.8 pg 27.0-32.0 [facility] MCHC Auto (RBC) [Mass/Vol]Or dered By: Shyla Coleman on 04-02-2023 MCHC (RBC) [Mass/Vol] 32.4 g/dL 32-36 [facility] Platelets bldOrdered By: Phuong blunt Jared on 04-02-2023 Platelets (Bld) [#/Vol] 177 10*3/uL 150-450 [facility] Serum or plasma albumin/glob ulin mass ratioOrdered By: Shyla Coleman on 04-02-2023 Albumin/Globulin [Mass ratio] 0.9 {ratio} 0.9-2.4 [facility] Thin prep Papanicolaou smear with manual screeningOrdered By: Shyla Coleman on 04-02-2023 Thin prep Papanicolaou smear with manual screening 99 U/L 15-37 [facility] No Panel Informationon 11-13 27.3 pg/mL Abnormal 46.0 - 224.0 pg/mL [employer] 6.5 Normal 3.8 - 10.8 [employer] 4.31 {Million/uL} Normal 4.20 - 5.80 {Million/u L} [employer] 13.5 g/dL Normal 13.2 - 17.1 g/dL [employer] 40.0 % Normal 38.5 - 50.0 % [employer] 92.8 fL Normal 80.0 - 100.0 fL [employer] 31.3 pg Normal 27.0 - 33.0 pg [employer] 33.8 g/dL Normal 32.0 - 36.0 g/dL [employer] 12.4 % Normal 11.0 - 15.0 % [employer] 238 Normal 140 - 400 [employer] 9.9 fL Normal 7.5 - 12.5 fL [employer] 4888 {cells/uL} Normal 1500 - 7800 {cells/uL} [employer] [facility] 1287 {cells/uL} Normal 850 - 3900 {cells/uL} [employer] 247 {cells/uL} Normal 200 - 950 {cells/uL} [employer] 59 {cells/uL} Normal 15 - 500 {cells/uL} [employer] 20 {cells/uL} Normal 0 - 200 {cells/uL} [employer] 75.2 % Normal [employer] 19.8 % Normal [employer] 3.8 % Normal [employer] 0.9 % Normal [employer] 0.3 % Normal [employer] 0.59 {mIU/L} Normal 0.40 - 4.50 {mIU/L} [employer] Final Surgical Pathology Rep [facility] 06-05-2022 Final Surgical Pathology Report . Pathology Reports Accession: Collected Date/Time: Received Date/Time: Pathologist: [id number] 05/31/2022 08:31 EDT 06/01/2022 08:31 EDT MD RENY LOVE Final Surgical Pathology Report DIAGNOSIS: A. SIGMOID COLON, BIOPSY: HYPERPLASTIC POLYP. B. RECTOSIGMOID COLON, 20 CM, BIOPSY: HYPERPLASTIC POLYP. COMMENT: JP - [id number] CLINICAL INFORMATION: SCREENING Procedure: COLONOSCOPY SPECIMEN: A SIGMOID B RECTOSIGMOID TATTOO 20 CM GROSS DESCRIPTION: A. Received in formalin, labeled with the patients name, Case #[id number], and sigmoid BX 1 michelle tissue fragment measuring 0.2 cm. TS -1 B. Received in formalin labeled rectosigmoid BX tattoo 20 cm are 4 michelle tissue fragments ranging from 0.1 to 0.2 cm. TS -1 Dictated by RISHI OMALLEY Electronically Signed by Pathology Report verified by [facility] Electronically signed by RENY LOVE MD Sign out Date: 06/05/2022 07:42 Performing Lab: [facility], [address] [place] [address] Normal [facility] [place] No Panel Informationon 05-08 256 mg/dL Abnormal [facility] 56 mg/dL Normal [facility] 116 mg/dL Normal [facility] 176 Abnormal [facility] 4.6 Normal [facility] 200 Abnormal [facility] 93 mg/dL Normal 65 - 99 mg/dL [facility] 21 mg/dL Normal 7 - 25 mg/dL [facility] 0.88 mg/dL Normal 0.70 - 1.35 mg/dL [facility] 93 Normal [facility] [employer] NOT APPLICABLE Normal 6 - 22 [facility] 141 mmol/L Normal 135 - 146 mmol/L [facility] 4.2 mmol/L Normal 3.5 - 5.3 mmol/L [facility] 106 mmol/L Normal 98 - 110 mmol/L [facility] [employer] 30 mmol/L Normal 20 - 32 mmol/L [employer] [facility] [employer] 8.9 mg/dL Normal 8.6 - 10.3 mg/dL [employer] [facility] [employer] 6.3 g/dL Normal 6.1 - 8.1 g/dL [employer] [facility] 4.2 g/dL Normal 3.6 - 5.1 g/dL [employer] [facility] 2.1 Normal 1.9 - 3.7 [employer] [facility] 2.0 Normal 1.0 - 2.5 [employer] 0.6 mg/dL Normal 0.2 - 1.2 mg/dL [employer] 75 U/L Normal 35 - 144 U/L [employer] 15 U/L Normal 10 - 35 U/L [employer] 16 U/L Normal 9 - 46 U/L [employer] Final Surgical Pathology Rep [facility] 12-14-2021 Final Surgical Pathology Report . Pathology Reports Accession: Collected Date/Time: Received Date/Time: Pathologist: [id number] 12/11/2021 09:18 EDT 12/12/2021 09:18 EDT DO MITCH BORRERO Final Surgical Pathology Report DIAGNOSIS: FEMORAL HEAD WITH DEGENERATED OSTEOARTHRITIS, CLINICALLY RIGHT,. COMMENT: JP - [id number] CLINICAL INFORMATION: UNILATERAL PRIMARY OSTEOARTHRITIS RIGHT HIP SPECIMEN: A RIGHT HIP BONE GROSS DESCRIPTION: A. Received in formalin, labeled with the patients name, Case #[id number], and right hip bone is a slightly oblong portion of right hip bone measuring 5.5 x 5.5 x 5.5 cm. The articular surface is remarkable for an area of eburnation measuring 2.5 x 1 cm. The femoral head also remarkable for marginal osteophyte formation. The femoral head is cleanly transected at the femoral head neck. The femoral head is sectioned to reveal yellow fatty bone marrow with no identified masses. RS -1 following decalcification. Dictated by RISHI OMALLEY MICROSCOPIC DESCRIPTION: Slides reviewed. Electronically Signed by Pathology Report verified by [facility] Electronically signed by MITCH BORRERO DO Sign out Date: 12/14/2021 14:04 Performing Lab: [facility], [address] [place] [address] Normal [facility] ([place]) No Panel Informationon 11-24 202 mg/dL Abnormal [facility] 44 mg/dL Normal [facility] 115 mg/dL Normal [facility] 135 Abnormal [facility] 4.6 Normal [facility] 158 Abnormal [facility] 101 mg/dL Abnormal 65 - 99 mg/dL [facility] 22 mg/dL Normal 7 - 25 mg/dL [facility] 0.96 mg/dL Normal 0.70 - 1.25 mg/dL [facility] 81 Normal [facility] 94 Normal [facility]. NOT APPLICABLE Normal 6 - 22 [facility] 139 mmol/L Normal 135 - 146 mmol/L [facility] 4.3 mmol/L Normal 3.5 - 5.3 mmol/L [facility] 106 mmol/L Normal 98 - 110 mmol/L [facility] [facility] 28 mmol/L Normal 20 - 32 mmol/L [facility] 8.9 mg/dL Normal 8.6 - 10.3 mg/dL [facility] 6.5 g/dL Normal 6.1 - 8.1 g/dL [facility], [facility]. 4.3 g/dL Normal 3.6 - 5.1 g/dL [facility], [facility].; [facility] 2.2 Normal 1.9 - 3.7 [facility], [facility].; [facility] 2.0 Normal 1.0 - 2.5 [facility], [facility].; [facility] 0.8 mg/dL Normal 0.2 - 1.2 mg/dL [facility], [facility].; [facility] 80 U/L Normal 35 - 144 U/L [facility], [facility].; [facility] 23 U/L Normal 10 - 35 U/L [facility], [facility].; [facility] [employer], [facility]. 17 U/L Normal 9 - 46 U/L [facility], [facility].; [facility], [facility]. 0.6 ng/mL Normal [facility].; [facility], [facility]. Laboratory - Chemistry and C hemistry - challengeon 05-29-2019 Albumin [Mass/Vol] 4.5 g/dL Normal 3.6 - 5.1 g/dL [facility], [facility].; [facility] Albumin/Globulin [Mass ratio] 2.1 {ratio} Normal 1.0 - 2.5 [facility], [facility].; [facility], [facility]. ALP [Catalytic activity/Vol] 95 U/L Normal 40 - 115 U/L [facility], [facility].; [facility] ALT [Catalytic activity/Vol] 15 U/L Normal 9 - 46 U/L [facility].; [facility] AST [Catalytic activity/Vol] 21 U/L Normal 10 - 35 U/L [facility], [facility].; [facility], [facility]. Bilirubin [Mass/Vol] 0.8 mg/dL Normal 0.2 - 1.2 mg/dL [facility], [facility].; [facility] [employer] Calcium [Mass/Vol] 9.4 mg/dL Normal 8.6 - 10. 3 mg/dL [facility].; [facility], [facility]. Chloride [Moles/Vol] 104 mmol/L Normal 98 - 110 mmol/L [facility].; [facility]. CO2 [Moles/Vol] 29 mmol/L Normal 20 - 32 mmol/L [facility].; [facility], [facility]. Cobalamin (Vitamin B12) [Mass/Vol] 518 pg/mL Normal 200 - 1100 pg/mL [facility].; [facility], [facility] Creatinine [Mass/Vol] 0.96 mg/dL Normal 0.70 - 1.25 mg/dL [facility].; [facility], [facility]. GFR/1.73 sq M.predicted among blacks MDRD (S/P/Bld) [Vol rate/Area] 95 {ML/MIN/1.73M2} Normal [facility].; [facility], [facility]. GFR/1.73 sq M.predicted MDRD (S/P/Bld) [Vol rate/Area] 82 {ML/MIN/1.73M2} Normal [facility].; [facility], [facility]. Globulin (S) [Mass/Vol] 2.2 g/dL Normal 1.9 - 3.7 g/dL [facility].; [facility], [facility]. Glucose [Mass/Vol] 122 mg/dL Abnormal 65 - 99 mg/dL [facility], [facility].; [facility], [facility]. Potassium [Moles/Vol] 3.9 mmol/L Normal 3.5 - 5.3 mmol/L [facility], [facility].; [facility], [facility]. Protein [Mass/Vol] 6.7 g/dL Normal 6.1 - 8.1 g/dL [facility], [facility].; [facility], [facility]. Sodium [Moles/Vol] 139 mmol/L Normal 135 - 146 mmol/L [facility], [facility].; [facility], [facility]. TSH Qn 0.85 m[IU]/L Normal 0.40 - 4.50 {mIU/L} [facility], [facility].; [facility], [facility]. Urea nitrogen [Mass/Vol] 20 mg/dL Normal 7 - 25 mg/dL [facility].; [facility], [facility]. Urea nitrogen/Creatinine [Mass ratio] 21.0 mg/mg Normal 6 - 22 [facility] [email or web address] Laboratory - Hematology and Cell countson 05-29-2019 Basophils (Bld) [#/Vol] 40 {Cells}/uL Normal 0 - 200 {Cells}/uL [facility], [facility].; [facility] [employer] Basophils/100 WBC (Bld) 0.7 % Normal 0 - 1 % [facility] [employer] [employer] [employer] Eosinophils (Bld) [#/Vol] 120 {Cells}/uL Normal 15 - 500 {Cells}/uL [facility] [employer].; [employer], [facility]. Eosinophils/100 WBC (Bld) 2.1 % Normal 0 - 4 % [facility] [employer].; [facility], [facility]. Erythrocyte distribution width (RBC) [Ratio] 12.3 % Normal 11.0 - 15.0 % [facility], [facility].; [facility], [facility]. Hematocrit (Bld) [Volume fraction] 41.7 % Normal 38.5 - 50.0 % [email or web address] [employer], [facility]. Hemoglobin (Bld) [Mass/Vol] 14.1 g/dL Normal 13.2 - 17.1 g/dL [facility] [employer] [employer] [employer] Lymphocytes (Bld) [#/Vol] 1860 {Cells}/uL Normal 850 - 3900 {Cells}/uL [facility], [facility].; [employer], [facility]. Lymphocytes/100 WBC (Bld) 32.7 % Normal 12 - 47 % [employer], [facility].; [employer] [employer] MCH (RBC) [Entitic mass] 31.9 pg Normal 27.0 - 33.0 PG [employer].; [employer], [facility]. MCHC (RBC) [Mass/Vol] 33.8 g/dL Normal 32.0 - 36.0 g/dL [facility], [facility].; [employer] [employer] MCV (RBC) [Entitic vol] 94.3 fL Normal 80.0 - 100.0 fL [facility] [employer] [employer] Monocytes (Bld) [#/Vol] 460 {Cells}/uL Normal 200 - 950 {Cells}/uL [employer] [facility] Monocytes/100 WBC (Bld) 8.1 % Normal 4 - 12 % [employer], [facility]. Neutrophils (Bld) [#/Vol] 3200 {Cells}/uL Normal 1500 - 7800 {Cells}/uL [employer] Neutrophils/100 WBC (Bld) 56.4 % Normal 40 - 75 % [employer] Platelet mean volume (Bld) [Entitic vol] 9.8 fL Normal 7.5 - 12.5 fL [employer] Platelets (Bld) [#/Vol] 223 10*3/uL Normal 140 - 400 10*3/uL [employer] RBC (Bld) [#/Vol] 4.42 10*6/uL Normal 4.20 - 5.80 10*6/uL [employer] WBC (Bld) [#/Vol] 5.7 10*3/uL Normal 3.8 - 10.8 10*3/uL [employer] CBCon 02-27-2019 Erythrocyte distribution width Ratio (RBC) 13.6 % Normal 11-14.5 [facility] Comment on above: Order Comment: Luke s: M Performed By: #### L [id number] #### [facility] [address] [place], [place] [id number] Hematocrit Volume Fraction (Bld) 42.6 % Normal 41.0-53.0 [facility] Comment on above: Order Comment: Luke s: M Performed By: #### L [id number] #### [facility] [address] [place], [place] [id number] Hemoglobin mass conc (Bld) 13.8 g/dL Normal 13.5-17.5 [facility] Comment on above: Order Comment: Campu s: M Performed By: #### L [id number] #### [facility] [address] [place] [address] MCHC mass conc (RBC) 32.4 g/dL Normal 32.0-36.0 [facility] Comment on above: Order Comment: Campu s: M Performed By: #### L [id number] #### [facility] [address] [place] [address] MCV Entitic volume (RBC) 97.9 fL Normal 80.0-99.0 [facility] Comment on above: Order Comment: Campu s: M Performed By: #### L [id number] #### [facility] [address] [place] [address] Nucleated RBC/100 WBC Ratio (Bld) 0.0 % Normal Less than 1 [facility] Comment on above: Order Comment: Campu s: M Performed By: #### L [id number] #### [facility] [address] [place] [address] Platelet mean volume Entitic volume (Bld) 9.0 fL Low 9.4-12.4 [facility] Comment on above: Order Comment: Campu s: M Performed By: #### L [id number] #### [facility] [address] [place] [address] Platelets #/vol (Bld) 202 K/CU MM Normal 150-450 [facility] Comment on above: Order Comment: Campu s: M Performed By: #### L [id number] #### [facility] [address] [place] [address] RBC #/vol (Bld) 4.35 M/CU MM Low 4.50-6.00 [facility] Comment on above: Order Comment: Campu s: M Performed By: #### L [id number] #### [facility] [place] [address] WBC #/vol (Bld) 9.9 K/CUMM Normal 4.5-11.0 [facility] Comment on above: Order Comment: Campu s: M Performed By: #### L [id number] #### [facility] [address] [place] [address] GFR ESTon 02-27-2019 IF AMER Greater than 60 Normal [facility] Comment on above: Order Comment: Campu s: M Performed By: #### L [id number], L500.41243 #### [facility] [address] [place] [address] IF non-AFR AMER Greater than 60 Normal [facility] Comment on above: Order Comment: Campu s: M Performed By: #### L [id number], L500.36361 #### [facility] [address] [place], [place] [address] ORon 02-27-2019 OPERATIVE REPORT Normal [facility] OR DATE OF SERVICE: PREOPERATIVE DIAGNOSIS: Peripheral arterial disease. POSTOPERATIVE DIAGNOSIS: Peripheral arterial disease. OPERATION: 1. Ultrasound-guided access retrograde right common femoral artery. 2. Aortogram with right iliofemoral imaging. 3. Balloon angioplasty of the right common iliac stent with a 7 x 60 drug-coated balloon and then post balloon with a 9 x 80 Windham balloon and then focally at the proximal stent into the aorta with a 9 x 2 Windham. 4. Closure with Vascade. SURGEON: Curt Nguyen MD INDICATIONS: A patient with previous right iliac stenting in 2014. He has had some recurrent claudication symptoms here. He is not always followed up. He is still smoking. Discussed that we would do angioplasty through these lesions. The risks, benefits, and alternatives discussed and he agreed to proceed. DESCRIPTION OF OPERATION: The patient was brought to the operating room. He underwent the appropriate time-out and consent. He underwent sedation. He was prepped and draped in a sterile fashion. We did ultrasound-guided access retrograde in the right common femoral artery. Put a glidewire up and then a 6-Bhutanese sheath. We put a sheath over the glidewire after giving 3000 units of heparin. We did an aortogram that showed what appeared to be consistent with the narrowing on the ultrasound into the iliac stent. We then replaced the long stiff glidewire and then we ballooned through this area first with a 7 x 60 drug-coated balloon. This was for over 2-minute inflation. We then removed the 7 x 60 balloon and did with a 9 x 80 Windham through the 2 iliac stents and into the aorta for over 2 to 3 minutes. Completion angiogram with injected retrograde from the sheath showed it to be improved with maybe still some proximal stenosis at the proximal stent right at the area of the aorta. We then ballooned focally here with a 9 x 2 Windham for over 2 minutes. Completion was much improved and there was better flow noted. We put in a Vascade and removed out the sheath and deployed this with good hemostasis. He was brought to recovery in stable condition. SEDATION: This 64-year-old gentleman underwent moderate sedation given by Dr. Curt Nguyen. He was monitored with EKG, blood pressure, and pulse oximetry for over the 30 minutes of the procedure. See the EMR for the complete record of this. Curt Nguyen MD [facility] PATIENT NAME: SADIE ESTRADA [address] Mcdaniel MEDICAL REC #: [id number] [place] [address] ADMIT DATE: DISCHARGE DATE: OPERATIVE REPORT ATTENDING PHY: Curt Nguyen [id number] SSI File#: [id number] Verified/Reviewed by 02/27/19 1425 BUTBR [facility] PATIENT NAME: SADIE ESTRADA [address] [facility] [address] Mcdaniel MEDICAL REC #: [id number] [place] [address] ADMIT DATE: DISCHARGE DATE: OPERATIVE REPORT ATTENDING PHY: Curt Nguyen MD Normal [facility] RENALon 02-27-2019 Albumin mass conc 3.9 g/dL Normal 3.2-5.0 [facility] Comment on above: Order Comment: Campu s: M Performed By: #### L [id number], L500.26478 #### [facility] [address] [place] [address] Anion gap molar conc 4 mmol/L Low 5-16 [facility] Comment on above: Order Comment: Campu s: M Performed By: #### L [id number], L500.38599 #### [facility] [address] [place] [address] Calcium mass conc 8.5 mg/dL Normal 8.5-10.1 [facility] Comment on above: Order Comment: Campu s: M Performed By: #### L 500.87753, L500.61377 #### [facility] [address] [place] [address] Chloride molar conc 106 mmol/L Normal 98-107 [facility] Comment on above: Order Comment: Campu s: M Performed By: #### L 500.79273, L500.15570 #### [facility] [address] [place], [place] [address] CO2 molar conc 30 mmol/L Normal 21-32 [facility] Comment on above: Order Comment: Campu s: M Performed By: #### L 500.60024, L500.48592 #### [facility] [place] [id number] Creatinine mass conc 0.822 mg/dL Normal 0.670-1.17 0 [facility] Comment on above: Order Comment: Campu s: M Result Comment: Luz Elena ents receiving either N-Acetylcysteine (NAC) or Metamizole prior to venipuncture, may have falsely depressed results. Performed By: #### L 500.56514, L500.74100 #### [facility] [address] [place] [address] Glucose mass conc 101 mg/dL High 70-100 [facility] Comment on above: Order Comment: Campu s: M Result Comment: 70-1 00- Normal Fasting; 100-125 Impaired Fasting; greater than 126 on more than one result- Diabetes. ADA guidelines. Results may be falsely elevated after the administration of Sulfapyridine. Results may be falsely depressed after the administration of Sulfasalazine. Performed By: #### L 500.93432, L500.22008 #### [facility] [address] [place] [address] Phosphate mass conc 2.9 mg/dL Normal 2.5-4.9 [facility] Comment on above: Order Comment: Campu s: M Performed By: #### L 500.98594, L500.32719 #### [facility] [place] [address] Potassium molar conc 4.4 mmol/L Normal 3.5-5.1 [facility] Comment on above: Order Comment: Campu s: M Performed By: #### L 500.97514, L500.30159 #### [facility] [place] [address] Sodium molar conc 140 mmol/L Normal 136-145 [facility] Comment on above: Order Comment: Campu s: M Performed By: #### L 500.10659, [id number] #### [facility] [address] [place], [place] [address] Urea nitrogen mass conc 22 mg/dL Normal 7-26 [facility] Comment on above: Order Comment: Campu s: M Performed By: #### L 500.80309, L500.75236 #### [facility] [address] [place], [place] [address] Urea nitrogen/Creatinine mass ratio 27 mg/mg High 15-24 [facility] Comment on above: Order Comment: Campu s: M Performed By: #### L 500.69347, L500.51493 #### [facility] [address] [place] [address] Laboratory - Chemistry and C hemistry - challengeon 01-02-2019 Albumin [Mass/Vol] 4.4 g/dL Normal 3.6 - 5.1 g/dL [facility], [facility] [employer], [facility]. Albumin/Globulin [Mass ratio] 2.1 {ratio} Normal 1.0 - 2.5 [facility], [facility].; [employer], [facility]. ALP [Catalytic activity/Vol] 95 U/L Normal 40 - 115 U/L [facility], [facility].; [employer], [facility]. ALT [Catalytic activity/Vol] 21 U/L Normal 9 - 46 U/L [facility], [facility].; [employer], [facility]. AST [Catalytic activity/Vol] 23 U/L Normal 10 - 35 U/L [facility], [facility].; [facility], [facility]. Bilirubin [Mass/Vol] 0.6 mg/dL Normal 0.2 - 1.2 mg/dL [facility], [facility].; [facility], [facility]. Calcium [Mass/Vol] 9.2 mg/dL Normal 8.6 - 10. 3 mg/dL [facility], [facility].; [facility], [facility]. Chloride [Moles/Vol] 105 mmol/L Normal 98 - 110 mmol/L [facility].; [facility], [facility]. Cholesterol [Mass/Vol] 178 mg/dL Normal [facility].; [facility], [facility]. Cholesterol in HDL [Mass/Vol] 51 mg/dL Normal [facility].; [facility], [facility]. Cholesterol in LDL [Mass/Vol] 106 mg/dL Abnormal 0 - 100 mg/dL [facility].; [facility], [facility]. Cholesterol non HDL [Mass/Vol] 127 mg/dL Normal [facility].; [facility], [facility]. Cholesterol.total/C holesterol in HDL [Mass ratio] 3.5 {ratio} Normal [facility].; [facility], [facility] CO2 [Moles/Vol] 30 mmol/L Normal 20 - 32 mmol/L [facility].; [facility], [facility]. Creatinine [Mass/Vol] 0.90 mg/dL Normal 0.70 - 1.25 mg/dL [facility], [facility].; [facility], [facility]. GFR/1.73 sq M.predicted among blacks MDRD (S/P/Bld) [Vol rate/Area] 104 {ML/MIN/1.73M2} Normal [facility], [facility].; [facility], [facility]. GFR/1.73 sq M.predicted MDRD (S/P/Bld) [Vol rate/Area] 89 {ML/MIN/1.73M2} Normal [facility], [facility].; [facility], [facility]. Globulin (S) [Mass/Vol] 2.1 g/dL Normal 1.9 - 3.7 g/dL [facility], [facility].; [facility], [facility]. Glucose [Mass/Vol] 104 mg/dL Abnormal 65 - 99 mg/dL [facility], [facility].; [facility], [facility]. Potassium [Moles/Vol] 4.3 mmol/L Normal 3.5 - 5.3 mmol/L [facility], [facility].; [facility], [facility]. Prostate specific Ag [Mass/Vol] 0.7 ng/mL Normal [facility].; [facility], [facility]. Protein [Mass/Vol] 6.5 g/dL Normal 6.1 - 8.1 g/dL [facility], [facility].; [facility], [facility]. Sodium [Moles/Vol] 140 mmol/L Normal 135 - 146 mmol/L [facility].; [facility], [facility]. Triglyceride [Mass/Vol] 109 mg/dL Normal [facility], [facility].; [facility], [facility] Urea nitrogen [Mass/Vol] 22 mg/dL Normal 7 - 25 mg/dL [facility].; [facility], [facility] Urea nitrogen/Creatinine [Mass ratio] 24.2 mg/mg Abnormal 6 - 22 [facility].; [facility] Laboratory - Drug toxicology on 09-18-2017 Nicotine [Moles/Vol] NICOTINE AND METABOLITE SERUM [QUEST] Normal [facility].; [facility], [facility] Laboratory - Chemistry and C hemistry - challengeon 07-05-2017 Albumin [Mass/Vol] 4.5 g/dL Normal 3.4 - 4.8 g/dL [facility].; [facility], [facility]. Albumin [Mass/Vol] 2.1 g/dL Abnormal 0.9 - 1.6 [facility].; [facility], [facility]. ALP [Catalytic activity/Vol] 94 U/L Normal 38 - 126 U/L [facility].; [facility], [facility]. ALT [Catalytic activity/Vol] 21 U/L Normal 10 - 40 U/L [facility].; [facility], [facility]. ALT No additional P-5'-P [Catalytic activity/Vol] 21 U/L Normal 10 - 40 U/L [facility].; [facility]. AST [Catalytic activity/Vol] 23 U/L Normal 13 - 39 U/L [facility].; [facility], [facility]. Bilirubin [Mass/Vol] 0.5 mg/dL Normal 0.0 - 1.5 mg/dL [facility], [facility].; [facility], [facility]. Calcium [Mass/Vol] 9.2 mg/dL Normal 8.6 - 10. 2 mg/dL [facility].; [facility], [facility]. Chloride [Moles/Vol] 103 mmol/L Normal 98 - 107 mmol/L [facility].; [facility], [facility]. Cholesterol [Mass/Vol] 181 mg/dL Normal 0 - 200 mg/dL [facility].; [facility], [facility]. Cholesterol in HDL [Mass or moles/Vol] 49 mg/dL Normal 40 - 60 mg/dL [facility].; [facility], [facility] Cholesterol in LDL [Mass/Vol] 107 mg/dL Normal 0 - 129 mg/dL [facility].; [facility], [facility] Cholesterol.total/C holesterol in HDL [Mass ratio] 3.7 {ratio} Normal 0.0 - 5.0 [facility]; [facility], [facility] CO2 [Moles/Vol] 27.1 mmol/L Normal 21.0 - 31.0 mmol/L [facility].; [facility], [facility] Comprehensive metabolic 2000 panel CMP with eGFR Normal [facility]; [facility], [facility] Creatinine [Mass/Vol] 0.8 mg/dL Normal 0.7 - 1.3 mg/dL [facility].; [facility], [facility]. GFR/1.73 sq M.predicted among blacks MDRD (S/P/Bld) [Vol rate/Area] mL/min/{1.73_m2} Normal 60 - 999 {ML/MINUTE } [facility], [facility].; [facility] [facility], [facility]. GFR/1.73 sq M.predicted MDRD (S/P/Bld) [Vol rate/Area] mL/min/{1.73_m2} Normal 60 - 999 {ML/MINUTE } [facility], [facility].; [facility], [facility]. Globulin (S) [Mass/Vol] 2.1 g/dL Normal 1.5 - 3.8 g/dL [facility].; [facility], [facility]. Glucose [Mass/Vol] 95 mg/dL Normal 74 - 106 mg/dL [facility], [facility].; [facility], [facility] Lipid 1996 panel LIPID PROFILE Normal [facility]; [facility], [facility] Potassium [Moles/Vol] 4.2 mmol/L Normal 3.5 - 5.1 mmol/L [facility] [email or web address]. Protein [Mass/Vol] 6.6 g/dL Normal 6.4 - 8.3 g/dL [facility] [employer] [employer], [facility]. Sodium [Moles/Vol] 138 mmol/L Normal 136 - 145 mmol/L [facility], [facility].; [employer], [facility]. Triglyceride [Mass/Vol] 124 mg/dL Normal 0 - 150 mg/dL [facility] [employer] [employer], [facility]. Urea nitrogen [Mass/Vol] 25 mg/dL Abnormal 6 - 20 mg/dL [facility] [employer].; [employer], [facility]. Urea nitrogen/Creatinine [Mass ratio] 31 {ratio} Abnormal 0 - 30 {ratio} [facility] [employer].; [employer], [facility]. No Panel Informationon 07-05 12 mmol/L Normal 10 - 20 mmol/L [facility] [employer].; [employer], [facility]. 62 {years} Normal [facility] [employer] [employer], [facility]. Laboratory - Chemistry and C hemistry - challengeon 01-28-2017 Basic metabolic 2000 panel BMP with eGFR Normal [email or web address] [employer], [facility]. Calcium [Mass/Vol] 9.2 mg/dL Normal 8.6 - 10. 2 mg/dL [facility] [employer], [facility].; [employer], [facility]. Chloride [Moles/Vol] 103 mmol/L Normal 98 - 107 mmol/L [facility] [employer].; [employer], [facility]. CO2 [Moles/Vol] 25.9 mmol/L Normal 21.0 - 31.0 mmol/L [facility] [employer].; [employer], [facility]. Creatinine [Mass/Vol] 0.9 mg/dL Normal 0.7 - 1.3 mg/dL [facility] [employer].; [employer], [facility]. GFR/1.73 sq M.predicted among blacks MDRD (S/P/Bld) [Vol rate/Area] mL/min/{1.73_m2} Normal 60 - 999 {ML/MINUTE } [facility] [employer] [email or web address]. GFR/1.73 sq M.predicted MDRD (S/P/Bld) [Vol rate/Area] mL/min/{1.73_m2} Normal 60 - 999 {ML/MINUTE } [facility] [email or web address]. Glucose [Mass/Vol] 88 mg/dL Normal 74 - 106 mg/dL [facility].; [email or web address] Potassium [Moles/Vol] 4.0 mmol/L Normal 3.5 - 5.1 mmol/L [facility] [email or web address]. Sodium [Moles/Vol] 136 mmol/L Normal 136 - 145 mmol/L [facility] [employer].; [email or web address]. Urea nitrogen [Mass/Vol] 27 mg/dL Abnormal 6 - 20 mg/dL [facility].; [email or web address]. No Panel Informationon 01-28 11 mmol/L Normal 10 - 20 mmol/L [facility] [employer].; [email or web address] 61 {years} Normal [facility] [employer] [email or web address] Laboratory - Chemistry and C hemistry - challengeon 08-24-2016 Albumin [Mass/Vol] 4.3 g/dL Normal 3.4 - 4.8 g/dL [facility] [employer].; [email or web address]. Albumin [Mass/Vol] 1.8 g/dL Abnormal 0.9 - 1.6 [facility].; [email or web address]. ALP [Catalytic activity/Vol] 84 U/L Normal 38 - 126 U/L [facility] [employer].; [email or web address]. ALT [Catalytic activity/Vol] 22 U/L Normal 10 - 40 U/L [email or web address].; [email or web address]. ALT No additional P-5'-P [Catalytic activity/Vol] 22 U/L Normal 10 - 40 U/L [facility] [employer].; [email or web address]. AST [Catalytic activity/Vol] 24 U/L Normal 13 - 39 U/L [email or web address].; [email or web address]. Bilirubin [Mass/Vol] 0.4 mg/dL Normal 0.0 - 1.5 mg/dL [facility], [facility].; [facility], [facility]. Calcium [Mass/Vol] 8.9 mg/dL Normal 8.6 - 10. 2 mg/dL [facility].; [facility], [facility]. Chloride [Moles/Vol] 101 mmol/L Normal 98 - 107 mmol/L [facility], [facility].; [facility], [facility] Cholesterol [Mass/Vol] 165 mg/dL Normal 0 - 200 mg/dL [facility], [facility].; [facility], [facility]. Cholesterol in HDL [Mass or moles/Vol] 48 mg/dL Normal 40 - 60 mg/dL [facility], [facility].; [facility], [facility] Cholesterol in LDL [Mass/Vol] 97 mg/dL Normal 0 - 129 mg/dL [facility], [facility].; [facility], [facility] Cholesterol.total/C holesterol in HDL [Mass ratio] 3.4 {ratio} Normal 0.0 - 5.0 [facility].; [facility], [facility]. CO2 [Moles/Vol] 29.0 mmol/L Normal 21.0 - 31.0 mmol/L [facility], [facility].; [facility], [facility]. Comprehensive metabolic 2000 panel CMP with eGFR Normal [facility]; [facility], [facility] Creatinine [Mass/Vol] 0.7 mg/dL Normal 0.7 - 1.3 mg/dL [facility], [facility].; [facility], [facility]. GFR/1.73 sq M.predicted among blacks MDRD (S/P/Bld) [Vol rate/Area] mL/min/{1.73_m2} Normal 60 - 999 {ML/MINUTE } [facility], [facility].; [facility], [facility]. GFR/1.73 sq M.predicted MDRD (S/P/Bld) [Vol rate/Area] mL/min/{1.73_m2} Normal 60 - 999 {ML/MINUTE } [facility], [facility].; [facility], [facility]. Globulin (S) [Mass/Vol] 2.4 g/dL Normal 1.5 - 3.8 g/dL [facility], [facility].; [facility], [facility]. Glucose [Mass/Vol] 106 mg/dL Normal 74 - 106 mg/dL [facility].; [facility] Lipid 1996 panel LIPID PROFILE Normal [facility].; [facility], [facility] Potassium [Moles/Vol] 4.1 mmol/L Normal 3.5 - 5.1 mmol/L [facility].; [facility], [facility] Protein [Mass/Vol] 6.7 g/dL Normal 6.4 - 8.3 g/dL [facility].; [facility] [employer] [facility]. Sodium [Moles/Vol] 137 mmol/L Normal 136 - 145 mmol/L [facility].; [facility], [facility]. Triglyceride [Mass/Vol] 101 mg/dL Normal 0 - 150 mg/dL [facility].; [facility] [employer], [facility]. Urea nitrogen [Mass/Vol] 23 mg/dL Abnormal 6 - 20 mg/dL [facility].; [facility] [employer]. Urea nitrogen/Creatinine [Mass ratio] 33 {ratio} Abnormal 0 - 30 {ratio} [facility].; [email or web address]. No Panel Informationon 08-24 11 mmol/L Normal 10 - 20 mmol/L [facility].; [facility] [employer]. 61 {years} Normal [facility].; [facility] [employer], [facility]. No Panel Informationon 06-23 22 mg/dL Abnormal 7 - 18 mg/dL [facility].; [employer], [facility]. 0.84 mg/dL Normal 0.70 - 1.30 mg/dL [facility].; [facility] [employer]. 98 mL/min Normal [facility] [employer] [facility].; [facility] [employer]. 119 mL/min Normal [facility] [employer].; [email or web address]. Laboratory - Chemistry and C hemistry - challengeon 09-07-2015 Albumin [Mass/Vol] 4.6 g/dL Normal 3.4 - 4.8 g/dL [facility].; [facility] [employer], [facility]. Albumin [Mass/Vol] 2.1 g/dL Abnormal 0.9 - 1.6 [facility].; [facility]. ALP [Catalytic activity/Vol] 83 U/L Normal 38 - 126 U/L [facility].; [facility]. ALT [Catalytic activity/Vol] 21 U/L Normal 10 - 40 U/L [facility].; [facility], [facility] ALT No additional P-5'-P [Catalytic activity/Vol] 21 U/L Normal 10 - 40 U/L [facility].; [facility]. AST [Catalytic activity/Vol] 21 U/L Normal 13 - 39 U/L [facility].; [facility]. Bilirubin [Mass/Vol] 0.9 mg/dL Normal 0.0 - 1.5 mg/dL [facility].; [facility], [facility]. Calcium [Mass/Vol] 9.2 mg/dL Normal 8.6 - 10. 2 mg/dL [facility].; [facility]. Chloride [Moles/Vol] 101 mmol/L Normal 98 - 107 mmol/L [facility].; [facility], [facility]. Cholesterol [Mass/Vol] 172 mg/dL Normal 0 - 200 mg/dL [facility].; [facility], [facility]. Cholesterol in HDL [Mass or moles/Vol] 50 mg/dL Normal 40 - 60 mg/dL [facility].; [facility], [facility]. Cholesterol in LDL [Mass/Vol] 104 mg/dL Normal 0 - 129 mg/dL [facility].; [facility], [facility]. Cholesterol.total/C holesterol in HDL [Mass ratio] 3.4 {ratio} Normal 0.0 - 5.0 [facility].; [facility] CO2 [Moles/Vol] 30.0 mmol/L Abnormal 13.0 - 29.0 mmol/L [facility].; [facility], [facility]. Comprehensive metabolic 2000 panel CMP with eGFR Normal [facility]; [facility], [facility] Creatinine [Mass/Vol] 0.8 mg/dL Normal 0.7 - 1.3 mg/dL [facility]. GFR/1.73 sq M.predicted among blacks MDRD (S/P/Bld) [Vol rate/Area] mL/min/{1.73_m2} Normal 60 - 999 {ML/MINUTE } [facility], [facility].; [facility], [facility]. GFR/1.73 sq M.predicted MDRD (S/P/Bld) [Vol rate/Area] mL/min/{1.73_m2} Normal 60 - 999 {ML/MINUTE } [facility].; [facility] [employer] [facility]. Globulin (S) [Mass/Vol] 2.2 g/dL Normal 1.5 - 3.8 g/dL [facility].; [facility] [employer], [facility]. Glucose [Mass/Vol] 114 mg/dL Abnormal 74 - 106 mg/dL [facility].; [employer], [facility]. Lipid 1996 panel LIPID PROFILE Normal [facility].; [facility], [facility] Potassium [Moles/Vol] 3.8 mmol/L Normal 3.5 - 5.1 mmol/L [facility].; [facility], [facility]. Protein [Mass/Vol] 6.8 g/dL Normal 6.4 - 8.3 g/dL [facility], [facility].; [facility] [employer], [facility]. Sodium [Moles/Vol] 136 mmol/L Normal 136 - 145 mmol/L [facility], [facility].; [facility] [employer], [facility]. Triglyceride [Mass/Vol] 88 mg/dL Normal 0 - 150 mg/dL [facility].; [facility] [employer], [facility]. Urea nitrogen [Mass/Vol] 21 mg/dL Abnormal 6 - 20 mg/dL [facility].; [facility] [employer], [facility]. Urea nitrogen/Creatinine [Mass ratio] 26 {ratio} Normal 0 - 30 {ratio} [facility].; [employer], [facility]. No Panel Informationon 09-07 9 mmol/L Abnormal 10 - 20 mmol/L [facility].; [employer], [facility]. 60 {years} Normal [facility].; [facility] [employer], [facility]. Laboratory - Chemistry and C hemistry - challengeon 12-17-2014 Albumin [Mass/Vol] 4.5 g/dL Normal 3.4 - 4.8 g/dL [facility]; [facility] Albumin [Mass/Vol] 2.0 g/dL Abnormal 0.9 - 1.6 [facility].; [facility], [facility] ALP [Catalytic activity/Vol] 98 U/L Normal 38 - 126 U/L [facility].; [facility], [facility]. ALT [Catalytic activity/Vol] 16 U/L Normal 10 - 40 U/L [facility].; [facility], [facility] ALT No additional P-5'-P [Catalytic activity/Vol] 16 U/L Normal 10 - 40 U/L [facility]; [facility], [facility]. AST [Catalytic activity/Vol] 21 U/L Normal 13 - 39 U/L [facility].; [facility] Bilirubin [Mass/Vol] 0.5 mg/dL Normal 0.0 - 1.5 mg/dL [facility]; [facility] Calcium [Mass/Vol] 9.2 mg/dL Normal 8.6 - 10. 2 mg/dL [facility]; [facility], [facility]. Chloride [Moles/Vol] 105 mmol/L Normal 98 - 107 mmol/L [facility]; [facility], [facility] Cholesterol [Mass/Vol] 243 mg/dL Abnormal 0 - 200 mg/dL [facility].; [facility], [facility] Cholesterol in HDL [Mass or moles/Vol] 35 mg/dL Abnormal 40 - 60 mg/dL [facility].; [facility], [facility] Cholesterol in LDL [Mass/Vol] 179 mg/dL Abnormal 0 - 129 mg/dL [facility].; [facility], [facility] Cholesterol.total/C holesterol in HDL [Mass ratio] 6.9 {ratio} Abnormal 0.0 - 5.0 [facility].; [facility], [facility] CO2 [Moles/Vol] 30.0 mmol/L Abnormal 13.0 - 29.0 mmol/L [facility]; [facility], [facility]. Comprehensive metabolic 2000 panel CMP with eGFR Normal [facility]; [facility], [facility] Creatinine [Mass/Vol] 1.0 mg/dL Normal 0.7 - 1.3 mg/dL [facility].; [facility], [facility]. GFR/1.73 sq M.predicted among blacks MDRD (S/P/Bld) [Vol rate/Area] mL/min/{1.73_m2} Normal 60 - 999 {ML/MINUTE } [facility].; [facility], [facility]. GFR/1.73 sq M.predicted MDRD (S/P/Bld) [Vol rate/Area] mL/min/{1.73_m2} Normal 60 - 999 {ML/MINUTE } [facility], [facility].; [facility], [facility]. Globulin (S) [Mass/Vol] 2.3 g/dL Normal 1.5 - 3.8 g/dL [facility].; [facility], [facility]. Glucose [Mass/Vol] 101 mg/dL Normal 74 - 106 mg/dL [facility].; [facility], [facility] Lipid 1996 panel LIPID PROFILE Normal [facility]; [facility], [facility] Potassium [Moles/Vol] 4.2 mmol/L Normal 3.5 - 5.1 mmol/L [facility].; [facility], [facility]. Prostate specific Ag [Mass/Vol] 0.5 ng/mL Normal 0.0 - 4.0 ng/mL [facility].; [facility], [facility]. Protein [Mass/Vol] 6.8 g/dL Normal 6.4 - 8.3 g/dL [facility].; [facility]. Sodium [Moles/Vol] 135 mmol/L Abnormal 136 - 145 mmol/L [facility].; [facility], [facility]. Triglyceride [Mass/Vol] 146 mg/dL Normal 0 - 150 mg/dL [facility].; [facility], [facility] Urea nitrogen [Mass/Vol] 19 mg/dL Normal 6 - 20 mg/dL [facility].; [facility] Urea nitrogen/Creatinine [Mass ratio] 19 {ratio} Normal 0 - 30 {ratio} [facility]; [facility] No Panel Informationon 12-17 59 {years} Normal [facility]; [facility] Laboratory - Chemistry and C hemistry - challengeon 09-15-2014 Cholesterol [Mass/Vol] 228 mg/dL Abnormal 0 - 200 mg/dL [facility]; [facility] Cholesterol in HDL [Mass or moles/Vol] 35 mg/dL Abnormal 40 - 60 mg/dL [facility]; [facility] Cholesterol in LDL [Mass/Vol] 162 mg/dL Abnormal 0 - 129 mg/dL [facility]; [facility] Cholesterol.total/C holesterol in HDL [Mass ratio] 6.5 {ratio} Abnormal 0.0 - 5.0 [facility]; [facility] Lipid 1996 panel LIPID PROFILE Normal [facility]; [facility] Triglyceride [Mass/Vol] 154 mg/dL Abnormal 0 - 150 mg/dL [facility]; [facility] Laboratory - Chemistry and C hemistry - challengeon 01-05-2014 CRP [Mass/Vol] 0.60 mg/dL Normal 0.00 - 1.00 mg/dL [facility]; [facility] Laboratory - Serology - non- microon 01-05-2014 Nuclear Ab IF Ql (S) ANTI NUCLEAR AB GUNJAN W/ REFLEX TITER Normal [facility]; [facility] Rheumatoid factor Qn RHEUMATOID FACTOR Normal [facility]; [facility] Laboratory - Chemistry and C hemistry - challengeon 04-22-2012 Cholesterol [Mass/Vol] 220 mg/dL Abnormal 0 - 200 mg/dL [facility]; [facility] Cholesterol in HDL [Mass/Vol] 38 mg/dL Abnormal 40 - 60 mg/dL [facility]; [facility] Cholesterol in LDL [Mass/Vol] 158 mg/dL Abnormal 50.0 - 130.0 mg/dL [facility].; [facility]. Cholesterol.total/C holesterol in HDL [Mass ratio] 5.8 {ratio} Abnormal 0 - 5.0 [facility].; [facility], [facility]. Triglyceride [Mass/Vol] 122 mg/dL Normal 40 - 150 mg/dL [facility], [facility].; [facility], [facility]. Laboratory - Chemistry and C hemistry - challengeon 06-15-2011 Albumin [Mass/Vol] 4.4 g/dL Normal 3.6 - 5.1 g/dL [facility].; [facility], [facility]. Albumin/Globulin [Mass ratio] 1.9 {ratio} Normal 1.0 - 2.1 [facility].; [facility], [facility]. ALP [Catalytic activity/Vol] 106 U/L Normal 40 - 115 U/L [facility].; [facility], [facility]. ALT [Catalytic activity/Vol] 13 U/L Normal 9 - 60 U/L [facility].; [facility], [facility]. AST [Catalytic activity/Vol] 22 U/L Normal 10 - 35 U/L [facility], [facility].; [facility], [facility]. Bilirubin [Mass/Vol] 0.7 mg/dL Normal 0.2 - 1.2 mg/dL [facility].; [facility], [facility]. Calcium [Mass/Vol] 9.4 mg/dL Normal 8.6 - 10. 2 mg/dL [facility].; [facility], [facility]. Chloride [Moles/Vol] 105 mmol/L Normal 98 - 110 mmol/L [facility].; [facility] [employer], [facility]. Cholesterol [Mass/Vol] 234 mg/dL Abnormal 125 - 200 mg/dL [facility].; [facility]. Cholesterol in HDL [Mass/Vol] 39 mg/dL Abnormal [facility].; [facility], [facility]. Cholesterol in LDL [Mass/Vol] 170 mg/dL Abnormal [facility], [facility].; [facility], [facility]. Cholesterol.total/C holesterol in HDL [Mass ratio] 6.0 {ratio} Abnormal [facility].; [facility], [facility] CO2 [Moles/Vol] 26 mmol/L Normal 21 - 33 mmol/L [facility].; [facility], [facility]. Creatinine [Mass/Vol] 0.89 mg/dL Normal 0.76 - 1.46 mg/dL [facility].; [facility], [facility]. GFR/1.73 sq M.predicted among blacks MDRD (S/P/Bld) [Vol rate/Area] 109 {ML/MIN/1.73M2} Normal [facility].; [facility], [facility]. GFR/1.73 sq M.predicted MDRD (S/P/Bld) [Vol rate/Area] 94 {ML/MIN/1.73M2} Normal [facility] [facility], [facility].; [facility]. Globulin (S) [Mass/Vol] 2.3 g/dL Normal 2.1 - 3.7 g/dL [facility].; [facility], [facility]. Glucose [Mass/Vol] 96 mg/dL Normal 65 - 99 mg/dL [facility].; [facility]. Potassium [Moles/Vol] 4.6 mmol/L Normal 3.5 - 5.3 mmol/L [facility].; [facility], [facility]. Protein [Mass/Vol] 6.7 g/dL Normal 6.2 - 8.3 g/dL [facility], [facility].; [facility]. Sodium [Moles/Vol] 140 mmol/L Normal 135 - 146 mmol/L [facility].; [facility]. Triglyceride [Mass/Vol] 125 mg/dL Normal [facility], [facility].; [facility], [facility]. TSH Qn 0.91 m[IU]/L Normal 0.40 - 4.50 {mIU/L} [facility].; [facility], [facility]. Urea nitrogen [Mass/Vol] 21 mg/dL Normal 7 - 25 mg/dL [facility], [facility].; [facility]. Urea nitrogen/Creatinine [Mass ratio] 23.9 mg/mg Abnormal 6 - 22 [facility].; [email or web address] Laboratory - Hematology and Cell countson 06-15-2011 Basophils (Bld) [#/Vol] 10 {Cells}/uL Normal 0 - 200 {Cells}/uL [facility].; [facility] [employer] Basophils/100 WBC (Bld) 0 % Normal 0 - 2 % [facility] [employer].; [facility], [facility] Eosinophils (Bld) [#/Vol] 170 {Cells}/uL Normal 15 - 500 {Cells}/uL [facility] [employer] [facility].; [email or web address] Eosinophils/100 WBC (Bld) 2 % Normal 0 - 8 % [facility] [employer].; [email or web address] Erythrocyte distribution width (RBC) [Ratio] 13.5 % Normal 11.0 - 15.0 % [facility] [employer].; [email or web address] Hematocrit (Bld) [Volume fraction] 40.5 % Normal 38.5 - 50.0 % [facility] [employer].; [email or web address] Hemoglobin (Bld) [Mass/Vol] 14.3 g/dL Normal 13.2 - 17.1 g/dL [facility] [employer] [facility].; [employer]. Lymphocytes (Bld) [#/Vol] 1730 {Cells}/uL Normal 850 - 3900 {Cells}/uL [facility].; [email or web address] Lymphocytes/100 WBC (Bld) 22 % Normal 15 - 49 % [facility] [employer].; [employer], [facility]. MCH (RBC) [Entitic mass] 34.9 pg Abnormal 27.0 - 33.0 PG [facility] [employer] [facility].; [employer], [facility]. MCHC (RBC) [Mass/Vol] 35.2 g/dL Normal 32.0 - 36.0 g/dL [facility] [employer].; [employer], [facility]. MCV (RBC) [Entitic vol] 99.1 fL Normal 80.0 - 100.0 fL [facility] [employer].; [employer], [facility]. Monocytes (Bld) [#/Vol] 420 {Cells}/uL Normal 200 - 950 {Cells}/uL [email or web address].; [email or web address] Monocytes/100 WBC (Bld) 5 % Normal 0 - 13 % [facility] [employer] [facility].; [facility] [employer], [facility]. Neutrophils (Bld) [#/Vol] 5720 {Cells}/uL Normal 1500 - 7800 {Cells}/uL [facility] [employer] [facility].; [facility] [employer]. Neutrophils/100 WBC (Bld) 71 % Normal 38 - 80 % [facility] [employer] [facility].; [facility] [employer], [facility]. Platelets (Bld) [#/Vol] 241 10*3/uL Normal 140 - 400 10*3/uL [facility] [employer] [facility].; [employer], [facility]. RBC (Bld) [#/Vol] 4.09 10*6/uL Abnormal 4.20 - 5.80 10*6/uL [facility] [employer].; [employer], [facility]. WBC (Bld) [#/Vol] 8.0 10*3/uL Normal 3.8 - 10.8 10*3/uL [facility] [employer].; [employer], [facility]. Laboratory - Chemistry and C hemistry - challengeon 06-30-2010 Cholesterol [Mass/Vol] 215 mg/dL Abnormal 0 - 200.0 mg/dL [facility] [employer] [facility].; [employer]. Cholesterol in HDL [Mass/Vol] 34 mg/dL Normal 30.0 - 40.0 mg/dL [facility] [employer] [facility].; [employer], [facility]. Cholesterol in LDL [Mass/Vol] 151 mg/dL Abnormal 50.0 - 130.0 mg/dL [facility] [employer] [facility].; [employer], [facility]. Cholesterol.total/C holesterol in HDL [Mass ratio] 6.3 {ratio} Abnormal 0 - 5.0 [facility] [employer].; [employer], [facility]. Triglyceride [Mass/Vol] 153 mg/dL Abnormal 40 - 150 mg/dL [facility] [employer].; [employer], [facility]. No Panel Informationon 06-30 181 Normal [facility] [employer].; [email or web address]. Vital Signs Date Time Vital Sign Value Performing Clinician Faci lity 07-06-2025 09:42-0400 Body height 167.[address] Juan Antonio Bacon MD Work Phone: [facility] 07-06-2025 09:42-0400 Body mass index (BMI) [Ratio] 27.6 kg/m2 Dr. Juan Antonio Bacon MD Work Phone: [facility] 07-06-2025 09:42-0400 Body weight 77.[address] Juan Antonio Bacon MD Work Phone: [facility] 06-15-2025 09:31-0400 Body height 167.6 cm Juan Francisco Ojeda MD Work Phone: [facility] 06-15-2025 09:31-0400 Body mass index (BMI) [Ratio] 27.44 kg/m2 Juan Francisco Ojeda MD Work Phone: [facility] 06-15-2025 09:31-0400 Body temperature 98.01 [degF] Juan Francisco Ojeda MD Work Phone: [facility] 06-15-2025 09:31-0400 Body weight 77.11 kg Juan Francisco Ojeda MD Work Phone: [facility] 06-15-2025 09:31-0400 Diastolic blood pressure 85 mm[Hg] Juan Francisco Ojeda MD Work Phone: [facility] 06-15-2025 09:31-0400 Heart rate 59 /min Juan Francisco Ojeda MD Work Phone: [facility] 06-15-2025 09:31-0400 SaO2% (BldA) [Mass fraction] 99 % Juan Francisco Ojeda MD Work Phone: [facility] 06-15-2025 09:31-0400 Systolic blood pressure 164 mm[Hg] Juan Francisco Ojeda MD Work Phone: [facility] 04-20-2025 09:35-0400 Body weight 76.66 kg Marcella [facility], [facility].; [facility]. 04-20-2025 09:35-0400 Diastolic blood pressure 68 mm[Hg] Marcella Blackwell [facility]; [facility] 04-20-2025 09:35-0400 Heart rate 68 /min [facility]; [facility] 04-20-2025 09:35-0400 Systolic blood pressure 150 mm[Hg] Marcella Nabeel [facility].; [facility] 04-15-2025 07:42-0400 Body height 167.[address] Juan Antonio Bacon MD Work Phone: 7(134)785-524200 [address] 04-15-2025 07:42-0400 Body mass index (BMI) [Ratio] 27.2 kg/m2 Dr. Juan Antonio Bacon MD Work Phone: 2(748)905-318147 [place] [address] 04-15-2025 07:42-0400 Body temperature 97.2 [degF] Dr. Juan Antonio Bacon MD Work Phone: 9(421)111-957400 [address] 04-15-2025 07:42-0400 Body weight 76.[address] Juan Antonio Bacon MD Work Phone: 9(183)821-082400 [address] 04-15-2025 07:42-0400 Diastolic blood pressure 82 mm[Hg] Dr. Juan Antonio Bacon MD Work Phone: 5(883)079-026400 [address] 04-15-2025 07:42-0400 Heart rate 53 /min Dr. Juan Antonio Bacon MD Work Phone: 0(029)902-484644 [place] [address] 04-15-2025 07:42-0400 Respiratory rate 16 /min Dr. Juan Antonio Bacon MD Work Phone: 2(280)908-688000 [address] 04-15-2025 07:42-0400 SaO2% (BldA) [Mass fraction] 99 % Dr. Juan Antonio Bacon MD Work Phone: 7(336)201-309600 [address] 04-15-2025 07:42-0400 Systolic blood pressure 156 mm[Hg] Dr. Juan Antonio Bacon MD Work Phone: 0(446)089-432344 [place] [address] 01-14-2025 07:42-0400 Body height 167.[address] Juan Antonio Bacon MD Work Phone: 5(691)057-863944 [place] [address] 01-14-2025 07:42-0400 Body mass index (BMI) [Ratio] 27.7 kg/m2 Dr. Juan Antonio Bacon MD Work Phone: 5(821)584-848244 [place] [address] 01-14-2025 07:42-0400 Body temperature 97.9 [degF] Dr. Juan Antonio Bacon MD Work Phone: 8(415)012-048100 [address] 01-14-2025 07:42-0400 Body weight 78.[address] Juan Antonio Bacon MD Work Phone: 8(422)671-081747 [place] [address] 01-14-2025 07:42-0400 Diastolic blood pressure 76 mm[Hg] Dr. Juan Antonio Bacon MD Work Phone: 0(723)823-872047 [place] [address] 01-14-2025 07:42-0400 Heart rate 61 /min Dr. Juan Antonio Bacon MD Work Phone: 8(350)821-159347 [place] [address] 01-14-2025 07:42-0400 Respiratory rate 18 /min Dr. Juan Antonio Bacon MD Work Phone: 6(170)573-236047 [place] [address] 01-14-2025 07:42-0400 SaO2% (BldA) [Mass fraction] 97 % Dr. Juan Antonio Bacon MD Work Phone: 3(245)031-941800 [address] 01-14-2025 07:42-0400 Systolic blood pressure 162 mm[Hg] Dr. Juan Antonio Bacon MD Work Phone: 3(619)371-558800 [address] 12-22-2024 12:45-0400 Body height 167.[address] Juan Antonio Bacon MD Work Phone: 9(915)903-655200 [address] 12-22-2024 12:45-0400 Body weight 77.[address] Juan Antonio Bacon MD Work Phone: 9(137)799-095044 [place] [address] 12-22-2024 12:45-0400 Heart rate 80 /min Dr. Juan Antonio Bacon MD Work Phone: 0(177)524-658700 [address] 12-22-2024 12:45-0400 SaO2% (BldA) [Mass fraction] 98 % Dr. Juan Antonio Bacon MD Work Phone: 5(369)182-431600 [address] 12-02-2024 07:26-0500 Body height 167.64 cm Rachel Martinez LPN [facility].; [facility]. 12-02-2024 07:26-0500 Body mass index (BMI) [Ratio] 28.25 kg/m2 Rachel Martinez [employer] [facility].; [facility]. 12-02-2024 07:26-0500 Body surface area Derived from formula 1.89 m2 Rachel Martinez [employer] [facility].; [facility]. 12-02-2024 07:26-0500 Body weight 79.38 kg Rachel Martinez [facility].; [facility]. 12-02-2024 07:26-0500 Diastolic blood pressure 60 mm[Hg] Juan Antonio Bacon MD Work Phone: [facility].; [facility]. 12-02-2024 07:26-0500 Heart rate 66 /min Juan Antonio Bacon MD Work Phone: [facility].; [facility]. 12-02-2024 07:26-0500 Inhaled oxygen concentration 21 % Rachel Martinez [facility].; [facility] 12-02-2024 07:26-0500 SaO2% (BldA) [Mass fraction] 97 % Rachel Juan [facility].; [facility]. 12-02-2024 07:26-0500 Systolic blood pressure 122 mm[Hg] Juan Antonio Bacon MD Work Phone: [facility].; [facility]. 09-08-2024 07:51-0500 Body height 167.[address] Juan Antonio Bacon MD Work Phone: [facility] 09-08-2024 07:51-0500 Body mass index (BMI) [Ratio] 27.7 kg/m2 Dr. Juan Antonio Bacon MD Work Phone: [facility] 09-08-2024 07:51-0500 Body temperature 97.2 [degF] Dr. Juan Antonio Bacon MD Work Phone: [facility] 09-08-2024 07:51-0500 Body weight 78.[address] Juan Antonio Bacon MD Work Phone: [facility] 09-08-2024 07:51-0500 Diastolic blood pressure 90 mm[Hg] Dr. Juan Antonio Bacon MD Work Phone: [facility] 09-08-2024 07:51-0500 Heart rate 63 /min Dr. Juan Antonio Bacon MD Work Phone: [facility] 09-08-2024 07:51-0500 Respiratory rate 18 /min Dr. Juan Antonio Bacon MD Work Phone: [facility] 09-08-2024 07:51-0500 SaO2% (BldA) [Mass fraction] 96 % Dr. Juan Antonio Bacon MD Work Phone: [facility] 09-08-2024 07:51-0500 Systolic blood pressure 169 mm[Hg] Dr. Juan Antonio Bacon MD Work Phone: [facility] 09-07-2024 15:27-0500 Body temperature 96.5 [degF] Juan Antonio Bacon MD Work Phone: [facility] [employer] [facility]. 09-07-2024 15:27-0500 Body weight 78.47 kg Juan Antonio Bacon MD Work Phone: [email or web address].; [employer] [facility]. 09-07-2024 15:27-0500 Diastolic blood pressure 73 mm[Hg] Juan Antonio Bacon MD Work Phone: [email or web address].; [employer] [facility]. 09-07-2024 15:27-0500 Heart rate 69 /min Juan Antonio Bacon MD Work Phone: [email or web address].; [email or web address] 09-07-2024 15:27-0500 Inhaled oxygen concentration 21 % Juan Antonio Bacon MD Work Phone: [email or web address].; [email or web address] 09-07-2024 15:27-0500 SaO2% (BldA) [Mass fraction] 96 % Juan Antonio Bacon MD Work Phone: [facility], [facility].; [facility]. 09-07-2024 15:27-0500 Systolic blood pressure 138 mm[Hg] Juan Antonio Bacon MD Work Phone: [facility], [facility].; [facility] 05-27-2024 06:56-0400 Body height 167.64 cm Rony Sanon [employer] [facility], [facility].; [facility], [facility]. 05-27-2024 06:56-0400 Body mass index (BMI) [Ratio] 26.63 kg/m2 Rony Fab [facility], [facility]. 05-27-2024 06:56-0400 Body surface area Derived from formula 1.84 m2 Rony Sanon [employer] [facility], [facility]. 05-27-2024 06:56-0400 Body weight 74.84 kg Ronykieran Sanon [facility], [facility].; [facility], [facility]. 05-27-2024 06:56-0400 Diastolic blood pressure 72 mm[Hg] Ronykieran Sanon [facility], [facility].; [facility], [facility]. 05-27-2024 06:56-0400 Heart rate 72 /min Rony Fab [employer] [facility], [facility]. 05-27-2024 06:56-0400 Systolic blood pressure 130 mm[Hg] Rony Sanon [employer] [facility], [facility]. 04-15-2024 09:12-0400 Body height 167.64 cm Rachel Martinez [employer] [facility], [facility].; [facility], [facility]. 04-15-2024 09:12-0400 Body mass index (BMI) [Ratio] 27.44 kg/m2 Rachel Martinez LPN [facility], [facility].; [facility], [facility]. 04-15-2024 09:12-0400 Body surface area Derived from formula 1.87 m2 Rachel Martinez LPN [facility], [facility].; [facility]. 04-15-2024 09:12-0400 Body temperature 97.3 [degF] Rachel Martinez LPN [facility], [facility].; [facility]. 04-15-2024 09:12-0400 Body weight 77.11 kg Rachel Martinez LPN [facility], [facility].; [facility]. 04-15-2024 09:12-0400 Diastolic blood pressure 74 mm[Hg] Rachel Martinez LPN [facility], [facility].; [facility]. 04-15-2024 09:12-0400 Heart rate 66 /min Rachel Martinez LPN [facility], [facility].; [facility]. 04-15-2024 09:12-0400 Systolic blood pressure 139 mm[Hg] Rachel Martinez LPN [facility], [facility].; [facility]. 12-13-2023 13:40-0400 Diastolic blood pressure 76 mm[Hg] [facility] 12-13-2023 13:40-0400 Heart rate 52 /min [facility] 12-13-2023 13:40-0400 Respiratory rate 14 /min [facility] 12-13-2023 13:40-0400 SaO2% (BldA) [Mass fraction] 99 % [facility] 12-13-2023 13:40-0400 Systolic blood pressure 130 mm[Hg] [facility] 12-13-2023 12:27-0400 Body height 167.64 cm [facility] 12-13-2023 12:27-0400 Body mass index (BMI) [Ratio] 29 kg/m2 [facility] 12-13-2023 12:27-0400 Body weight 81.64 kg [facility] 11-28-2023 08:10-0500 Body height 167.64 cm Rony Sanon LPN [facility], [facility].; [facility]. 11-28-2023 08:10-0500 Body mass index (BMI) [Ratio] 29.21 kg/m2 Rony Sanon LPN [facility], [facility].; [facility]. 11-28-2023 08:10-0500 Body surface area Derived from formula 1.92 m2 Ronykieran Sanon [employer] [facility], [facility].; [facility]. 11-28-2023 08:10-0500 Body weight 82.1 kg Rony Sanon [employer] [facility], [facility].; [facility]. 11-28-2023 08:10-0500 Diastolic blood pressure 78 mm[Hg] Rony Sanon [employer] [facility], [facility].; [facility]. 11-28-2023 08:10-0500 Heart rate 56 /min Ronykieran Sanon [facility], [facility].; [facility], [facility]. 11-28-2023 08:10-0500 Systolic blood pressure 154 mm[Hg] Ronykieran Sanon [employer] [facility], [facility].; [facility], [facility]. 11-28-2023 08:10-0500 Systolic blood pressure 134 mm[Hg] Juan Antonio Bacon MD Work Phone: [facility].; [facility], [facility]. 11-08-2023 08:19-0500 Diastolic blood pressure 74 mm[Hg] Polly Malone RN [facility], [facility].; [facility], [facility]. 11-08-2023 08:19-0500 Heart rate 84 /min Polly Malone RN [facility], [facility].; [employer] [facility], [facility]. 11-08-2023 08:19-0500 Systolic blood pressure 149 mm[Hg] Polly Malone RN [facility], [facility].; [facility], [facility]. 11-08-2023 07:58-0500 Body height 167.64 cm Polly Malone RN [facility], [facility].; [facility], [facility]. 11-08-2023 07:58-0500 Body mass index (BMI) [Ratio] 29.7 kg/m2 Polly Malone RN [facility], [facility].; [facility] [facility], [facility]. 11-08-2023 07:58-0500 Body surface area Derived from formula 1.93 m2 Polly Malone RN [facility].; [employer] [facility]. 11-08-2023 07:58-0500 Body weight 83.46 kg Polly Malone RN [facility].; [facility]. 11-08-2023 07:58-0500 Diastolic blood pressure 78 mm[Hg] Polly Malone RN [facility].; [facility]. 11-08-2023 07:58-0500 Heart rate 86 /min Polly Malone RN [facility].; [facility]. 11-08-2023 07:58-0500 Systolic blood pressure 169 mm[Hg] Polly Malone RN [facility].; [facility], [facility]. 10-17-2023 14:19-0500 Body weight 85.28 kg Rony Sanon LPN [facility].; [facility]. 10-17-2023 14:19-0500 Diastolic blood pressure 79 mm[Hg] Rony Sanon LPN [facility].; [facility]. 10-17-2023 14:19-0500 Heart rate 76 /min Rony Sanon LPN [facility].; [facility], [facility]. 10-17-2023 14:19-0500 Systolic blood pressure 162 mm[Hg] Rony Sanon LPN [facility].; [employer] [facility]. 10-10-2023 07:13-0500 Body temperature 97.6 [degF] Juan Antonio Bacon MD Work Phone: [facility].; [employer] [facility]. 10-10-2023 07:13-0500 Body weight 85.28 kg Juan Antonio Bacon MD Work Phone: [employer] [facility].; [facility] [employer] [facility]. 10-10-2023 07:13-0500 Heart rate 62 /min Juan Antonio Bacon MD Work Phone: [facility].; [employer] [facility]. 10-10-2023 07:13-0500 Inhaled oxygen concentration 20 % Juan Antonio Bacon MD Work Phone: [facility].; [facility]. 10-10-2023 07:13-0500 Inhaled oxygen concentration 21 % Juan Antonio Bacon MD Work Phone: [facility].; [facility] [employer]. 10-10-2023 07:13-0500 SaO2% (BldA) [Mass fraction] 99 % Juan Antonio Bacon MD Work Phone: [facility] [email or web address] 09-17-2023 14:16-0500 Body height 167.64 cm [facility], [facility].; [facility]. 09-17-2023 14:16-0500 Body mass index (BMI) [Ratio] 30.18 kg/m2 [facility], [facility]. 09-17-2023 14:16-0500 Body surface area Derived from formula 1.94 m2 [facility], [facility].; [employer]. 09-17-2023 14:16-0500 Body temperature 100.2 [degF] [facility], [facility].; [employer] 09-17-2023 14:16-0500 Body weight 84.82 kg [facility] [employer]. 09-17-2023 14:16-0500 Diastolic blood pressure 64 mm[Hg] [facility], [facility].; [employer]. 09-17-2023 14:16-0500 Heart rate 66 /min [facility], [facility].; [facility] [employer]. 09-17-2023 14:16-0500 Inhaled oxygen concentration 20 % [facility] [employer]. 09-17-2023 14:16-0500 Inhaled oxygen concentration 21 % [facility].; [facility] 09-17-2023 14:16-0500 SaO2% (BldA) [Mass fraction] 96 % Jayashree [facility]; [facility] 09-17-2023 14:16-0500 Systolic blood pressure 118 mm[Hg] [facility]ree [facility].; [facility] 08-15-2023 05:48-0500 Body height [address] Juan Antonio Bacon Work Phone: 2(929)058-550200 [address] 08-15-2023 05:48-0500 Body mass index (BMI) [Ratio] 29.6 kg/m2 Dr. Juan Antonio Bacon Work Phone: 3(220)416-997047 [place] [address] 08-15-2023 05:48-0500 Body temperature 98.1 [degF] Dr. Juan Antonio Bacon Work Phone: 3(415)960-688847 [place] [address] 08-15-2023 05:48-0500 Body weight 85.[address] Juan Antonio Bacon Work Phone: 5(772)707-100400 [address] 08-15-2023 05:48-0500 Diastolic blood pressure 91 mm[Hg] Dr. Juan Antonio Bacon Work Phone: 7(422)897-973500 [address] 08-15-2023 05:48-0500 Heart rate 94 /min Dr. Juan Antonio Bacon Work Phone: 6(427)313-580600 [address] 08-15-2023 05:48-0500 Respiratory rate 17 /min Dr. Juan Antonio Bacon Work Phone: 2(778)648-983300 [address] 08-15-2023 05:48-0500 SaO2% (BldA) [Mass fraction] 94 % Dr. Juan Antonio Bacon Work Phone: 0(504)011-165644 [place] [address] 08-15-2023 05:48-0500 Systolic blood pressure 164 mm[Hg] Dr. Juan Antonio Bacon Work Phone: 6(842)188-968200 [address] 07-17-2023 09:31-0400 Body height 167.64 cm Joceline Almazan [facility].; [facility] 07-17-2023 09:31-0400 Body mass index (BMI) [Ratio] 29.54 kg/m2 Joceline Grissom Tha CAMOUFLAGE SPECIALIST [facility], [facility].; [facility], [facility]. 07-17-2023 09:31-0400 Body surface area Derived from formula 1.93 m2 Joceline Praveena Almazan CAMOUFLAGE SPECIALIST [facility], [facility].; [employer] Online [employer] [facility]. 07-17-2023 09:31-0400 Body weight 83.01 kg Joceline Patellabach [facility], [facility].; [employer] [facility]. 07-17-2023 09:31-0400 Diastolic blood pressure 75 mm[Hg] Joceline Grissom Tha [facility], [facility].; [facility], [facility]. 07-17-2023 09:31-0400 Heart rate 74 /min Joceline Praveena Almazan [facility] [employer] [facility]. 07-17-2023 09:31-0400 Systolic blood pressure 133 mm[Hg] Joceline Praveena Almazan [facility], [facility].; [employer] [facility], [facility]. 05-16-2023 09:05-0400 Body weight 81.65 kg Rony Fab [facility], [facility].; [employer] 05-16-2023 09:05-0400 Diastolic blood pressure 78 mm[Hg] Rony Fab [facility] [employer] [facility]. 05-16-2023 09:05-0400 Heart rate 71 /min Rony Fab [facility], [facility].; [employer], [facility]. 05-16-2023 09:05-0400 Systolic blood pressure 144 mm[Hg] Rony Sanon [facility] [employer], [facility]. 05-12-2023 09:38-0400 Body temperature 97.5 [degF] Dr. Juan Antonio Bacon Work Phone: [facility] 05-12-2023 09:38-0400 Diastolic blood pressure 63 mm[Hg] Dr. Juan Antonio Bacon Work Phone: [facility] 05-12-2023 09:38-0400 Heart rate 75 /min Dr. Juan Antonio Bacon Work Phone: 1(729)032-012200 [address] 05-12-2023 09:38-0400 Respiratory rate 14 /min Dr. Juan Antonio Bacon Work Phone: 3(586)856-451344 [place] [address] 05-12-2023 09:38-0400 SaO2% (BldA) [Mass fraction] 96 % Dr. Juan Antonio Bacon Work Phone: 3(026)660-622947 [place] [address] 05-12-2023 09:38-0400 Systolic blood pressure 124 mm[Hg] Dr. Juan Antonio Bacon Work Phone: 8(357)710-697947 [place] [address] 05-12-2023 03:58-0400 Inhaled oxygen concentration 21 % Dr. Juan Antonio Bacon Work Phone: 8(277)729-447147 [place] [address] 05-09-2023 07:52-0400 Body height [address] Juan Antonio Bacon Work Phone: 4(992)061-914147 [place] [address] 05-09-2023 07:52-0400 Body mass index (BMI) [Ratio] 28.2 kg/m2 Dr. Juan Antonio Bacon Work Phone: 2(113)866-195747 [place] [address] 05-09-2023 07:52-0400 Body temperature 97.3 [degF] Dr. Juan Antonio Bacon Work Phone: 6(814)247-742447 [place] [address] 05-09-2023 07:52-0400 Body weight 81.[address] Juan Antonio Bacon Work Phone: 9(635)648-313047 [place] [address] 05-09-2023 07:52-0400 Diastolic blood pressure 77 mm[Hg] Dr. Juan Antonio Bacon Work Phone: 1(991)887-430700 [address] 05-09-2023 07:52-0400 Heart rate 72 /min Dr. Juan Antonio Bacon Work Phone: 0(526)531-667147 [place] [address] 05-09-2023 07:52-0400 Respiratory rate 20 /min Dr. Juan Antonio Bacon Work Phone: 3(873)627-198200 [address] 05-09-2023 07:52-0400 SaO2% (BldA) [Mass fraction] 97 % Dr. Juan Antonio Bacon Work Phone: 9(442)189-922947 [place] [address] 05-09-2023 07:52-0400 Systolic blood pressure 142 mm[Hg] Dr. Juan Antonio Bacon Work Phone: 5(963)113-775247 [place] [address] 05-08-2023 15:11-0400 Body weight 81.[address] Juan Antonio Bacon Work Phone: 8(493)347-733147 [place] [address] 05-07-2023 07:00-0400 Body mass index (BMI) [Ratio] 28.3 kg/m2 Dr. Juan Antonio Bacon Work Phone: 9(525)189-211847 [place] [address] 05-04-2023 15:51-0400 Inhaled oxygen flow rate 2 L/min Dr. Juan Antonio Bacon Work Phone: 9(266)767-477447 [place] [address] 04-16-2023 21:11-0400 Respiratory rate 18 /min Dr. Juan Antonio Bacon Work Phone: 6(191)481-746947 [place] [address] 04-16-2023 09:23-0400 Body temperature 97.3 [degF] Dr. Juan Antonio Bacon Work Phone: 9(895)807-943447 [place] [address] 04-16-2023 09:23-0400 Diastolic blood pressure 67 mm[Hg] Dr. Juan Antonio Bacon Work Phone: 2(420)664-352747 [place] [address] 04-16-2023 09:23-0400 Heart rate 83 /min Dr. Juan Antonio Bacon Work Phone: 8(238)888-005547 [place] [address] 04-16-2023 09:23-0400 SaO2% (BldA) [Mass fraction] 95 % Dr. Juan Antonio Bacon Work Phone: 7(516)584-522247 [place] [address] 04-16-2023 09:23-0400 Systolic blood pressure 116 mm[Hg] Dr. Juan Antonio Bacon Work Phone: 4(375)970-375747 [place] [address] 04-16-2023 07:00-0400 Body mass index (BMI) [Ratio] 29.5 kg/m2 Dr. Juan Antonio Bacon Work Phone: 2(850)372-458047 [place] [address] 04-16-2023 07:00-0400 Body weight 82.[address] Juan Antonio Bacon Work Phone: 9(576)751-721247 [place] [address] 04-13-2023 13:03-0400 Body height 167.[address] Juan Antonio Bacon Work Phone: 7(875)517-540044 [place] [address] 04-12-2023 19:33-0400 Respiratory rate 16 /min Dr. Juan Antonio Bacon Work Phone: 0(228)861-253044 [place] [address] 04-12-2023 19:33-0400 SaO2% (BldA) [Mass fraction] 96 % Dr. Juan Antonio Bacon Work Phone: 7(118)812-952200 [address] 04-12-2023 19:31-0400 Body temperature 98.2 [degF] Dr. Juan Antonio Bacon Work Phone: 3(386)085-791500 [address] 04-12-2023 19:31-0400 Diastolic blood pressure 64 mm[Hg] Dr. Juan Antonio Bacon Work Phone: 5(571)509-802700 [address] 04-12-2023 19:31-0400 Heart rate 64 /min Dr. Juan Antonio Bacon Work Phone: 5(303)854-645347 [place] [address] 04-12-2023 19:31-0400 Systolic blood pressure 139 mm[Hg] Dr. Juan Antonio Bacon Work Phone: 5(809)233-978644 [place] [address] 04-12-2023 05:39-0400 Body mass index (BMI) [Ratio] 32.4 kg/m2 Dr. Juan Antonio Bacon Work Phone: 1(088)237-427747 [place] [address] 04-12-2023 05:39-0400 Body weight 93.[address] Juan Antonio Bacon Work Phone: 4(336)231-289844 [place] [address] 04-02-2023 22:08-0400 Inhaled oxygen concentration 21 % Dr. Juan Antonio Bacon Work Phone: 0(522)266-266400 [address] 04-02-2023 22:08-0400 Inhaled oxygen flow rate 0 L/min Dr. Juan Antonio Bacon Work Phone: 6(611)586-633547 [place] [address] 04-02-2023 11:48-0400 Body height [address] Juan Antonio Bacon Work Phone: 0(245)979-323247 [place] [address] 02-19-2023 13:04-0400 Body weight 84.82 kg Rony Sanon LPN [facility], [facility]. 02-19-2023 13:04-0400 Diastolic blood pressure 88 mm[Hg] Rony Sanon LPN [facility], [facility].; [facility]. 02-19-2023 13:04-0400 Heart rate 76 /min Rony Sanon LPN [facility], [facility].; [facility], [facility]. 02-19-2023 13:04-0400 Systolic blood pressure 156 mm[Hg] Rony Sanon LPN [facility], [facility].; [facility]. 01-03-2023 09:37-0400 Body height 167.64 cm Rachel Phillips MA [facility].; [facility]. 01-03-2023 09:37-0400 Body mass index (BMI) [Ratio] 30.51 kg/m2 Rachel Phillips MA [facility], [facility].; [facility]. 01-03-2023 09:37-0400 Body surface area Derived from formula 1.95 m2 Rachel Phillips MA [facility], [facility].; [facility]. 01-03-2023 09:37-0400 Body weight 85.73 kg Rachel Phillips MA [facility], [facility].; [facility], [facility]. 01-03-2023 09:37-0400 Diastolic blood pressure 88 mm[Hg] Rachel Phillips MA [facility], [facility].; [facility], [facility]. 01-03-2023 09:37-0400 Heart rate 84 /min Rachel Phillips MA [facility], [facility].; [facility]. 01-03-2023 09:37-0400 Systolic blood pressure 153 mm[Hg] Rachel Phillips MA [facility].; [facility]. 11-29-2022 09:32-0500 Body height 167.64 cm Rachel Martinez LPN [facility], [facility].; [facility], [facility]. 11-29-2022 09:32-0500 Body mass index (BMI) [Ratio] 30.34 kg/m2 Rachel Martinez LPN [facility], [facility].; [place] [facility], [facility]. 11-29-2022 09:32-0500 Body surface area Derived from formula 1.95 m2 Rachel Martinez LPN [facility], [facility].; [facility]. 11-29-2022 09:32-0500 Body temperature 96.2 [degF] Rachel Martinez LPN [facility].; [facility]. 11-29-2022 09:32-0500 Body weight 85.28 kg Rachel Martinez LPN [facility], [facility].; [facility]. 11-29-2022 09:32-0500 Diastolic blood pressure 79 mm[Hg] [facility].; [facility]. 11-29-2022 09:32-0500 Heart rate 71 /min Rachel Martinez [facility], [facility].; [facility]. 11-29-2022 09:32-0500 Inhaled oxygen concentration 20 % Rachel [facility].; [facility]. 11-29-2022 09:32-0500 Inhaled oxygen concentration 21 % Rachel Martinez [facility].; [facility], [facility]. 11-29-2022 09:32-0500 SaO2% (BldA) [Mass fraction] 97 % Rachel Martinez [facility].; [facility], [facility]. 11-29-2022 09:32-0500 Systolic blood pressure 135 mm[Hg] Rachel Martinez LPN [facility].; [facility]. 11-13-2022 08:03-0500 Body height 167.64 cm Juan Antonio Bacon MD Work Phone: [facility].; [facility]. 11-13-2022 08:03-0500 Body mass index (BMI) [Ratio] 30.99 kg/m2 Juan Antonio Bacon MD Work Phone: [facility].; [facility]. 11-13-2022 08:03-0500 Body surface area Derived from formula 1.97 m2 Juan Antonio Bacon MD Work Phone: [facility].; [facility]. 11-13-2022 08:03-0500 Body weight 87.09 kg Juan Antonio Bacon MD Work Phone: [facility].; [facility] Emergency[facility] Media Inc[employer] 11-13-2022 08:03-0500 Diastolic blood pressure 80 mm[Hg] Juan Antonio Bacon MD Work Phone: [facility] [employer].; [facility] [employer] 11-13-2022 08:03-0500 Heart rate 59 /min Juan Antonio Bacon MD Work Phone: [facility].; [facility] [employer] 11-13-2022 08:03-0500 Systolic blood pressure 132 mm[Hg] Juan Antonio Bacon MD Work Phone: [facility].; [employer] 09-11-2022 09:42-0500 Body height 167.64 cm Rachel Phillips MA [facility].; [facility] [employer], [facility]. 09-11-2022 09:42-0500 Body mass index (BMI) [Ratio] 30.34 kg/m2 Rachel Phillips MA [facility].; [facility], [facility]. 09-11-2022 09:42-0500 Body surface area Derived from formula 1.95 m2 Rachel Phillips MA [facility].; [place] [employer], [facility]. 09-11-2022 09:42-0500 Body temperature 96.6 [degF] Rachel Phillips MA [facility].; [place] [employer] [facility]. 09-11-2022 09:42-0500 Body weight 85.28 kg Rachel Phillips MA [facility].; [employer], [facility]. 09-11-2022 09:42-0500 Diastolic blood pressure 81 mm[Hg] Rachel Phillips MA [facility].; [facility] [employer], [facility]. 09-11-2022 09:42-0500 Heart rate 71 /min Rachel Phillips MA [facility].; [place] [employer]. 09-11-2022 09:42-0500 Systolic blood pressure 136 mm[Hg] Rachel Phillips MA [facility], [facility].; [facility]. 06-26-2022 10:50-0400 Body height 167.64 cm Shyla Santana [facility], [facility].; [facility], [facility]. 06-26-2022 10:50-0400 Body mass index (BMI) [Ratio] 29.86 kg/m2 [facility], [facility].; [place] [facility] [facility], [facility]. 06-26-2022 10:50-0400 Body surface area Derived from formula 1.94 m2 Jayashree Esther [facility], [facility].; [facility] [employer] [facility], [facility]. 06-26-2022 10:50-0400 Body temperature 97.8 [degF] Jayashree Stuckey [facility], [facility].; [facility] [facility] [facility], [employer]. 06-26-2022 10:50-0400 Body weight 83.92 kg Jayashree Esther [facility], [facility].; [employer] Online [employer] [facility], [facility]. 06-26-2022 10:50-0400 Diastolic blood pressure 88 mm[Hg] JayashreeSherley Santana [facility], [facility].; [facility] [facility], [facility]. 06-26-2022 10:50-0400 Heart rate 62 /min [facility].; [facility], [facility]. 06-26-2022 10:50-0400 Inhaled oxygen concentration 20 % [facility].; [facility], [facility]. 06-26-2022 10:50-0400 Inhaled oxygen concentration 21 % Jayashree Stuckey [facility], [facility].; [employer], [facility]. 06-26-2022 10:50-0400 SaO2% (BldA) [Mass fraction] 96 % [facility], [facility].; [employer], [facility]. 06-26-2022 10:50-0400 Systolic blood pressure 131 mm[Hg] Jayashree Esther [facility], [facility].; [email or web address]. 05-17-2022 08:02-0400 Body height 167.64 cm Juan Antonio Bacon MD Work Phone: [employer]. 05-17-2022 08:02-0400 Body mass index (BMI) [Ratio] 29.38 kg/m2 Juan Antonio Bacon MD Work Phone: [employer].; [employer]. 05-17-2022 08:02-0400 Body surface area Derived from formula 1.92 m2 Juan Antonio Bacon MD Work Phone: [employer].; [employer]. 05-17-2022 08:02-0400 Body weight 82.56 kg Juan Antonio Bacon MD Work Phone: [employer].; [employer]. 05-17-2022 08:02-0400 Diastolic blood pressure 72 mm[Hg] Juan Antonio Bacon MD Work Phone: [employer].; [employer]. 05-17-2022 08:02-0400 Heart rate 81 /min Juan Antonio Bacon MD Work Phone: [employer].; [employer]. 05-17-2022 08:02-0400 Systolic blood pressure 130 mm[Hg] Juan Antonio Bacon MD Work Phone: [employer].; [employer]. 02-20-2022 10:50-0400 Body height 167.64 cm [facility], [facility].; [employer]. 02-20-2022 10:50-0400 Body mass index (BMI) [Ratio] 29.21 kg/m2 [facility] [employer], [facility].; [employer], [facility]. 02-20-2022 10:50-0400 Body surface area Derived from formula 1.92 m2 [facility] CAMOUFLAGE SPECIALIST [employer]. 02-20-2022 10:50-0400 Body weight 82.1 kg Shyla Santana LPN [facility] [facility] 02-20-2022 10:50-0400 Diastolic blood pressure 83 mm[Hg] Shyla Santana [facility] [facility] 02-20-2022 10:50-0400 Heart rate 69 /min Shyla Santana [facility] [facility] [facility] 02-20-2022 10:50-0400 Systolic blood pressure 151 mm[Hg] Shyla Santana [facility].; [employer] Online [employer] [facility], [facility] 08-15-2021 11:30-0500 Body height 167.64 cm Shyla Santana [facility].; [employer] 08-15-2021 11:30-0500 Body mass index (BMI) [Ratio] 26.47 kg/m2 Shyla Santana [facility].; [employer] 08-15-2021 11:30-0500 Body surface area Derived from formula 1.84 m2 Shyla Santana [facility].; [employer] 08-15-2021 11:30-0500 Body temperature 97.9 [degF] Shyla Santana CAMOUFLAGE SPECIALIST [facility].; [employer] 08-15-2021 11:30-0500 Body weight 74.39 kg Shyla Santana CAMOUFLAGE SPECIALIST [facility].; [employer] 08-15-2021 11:30-0500 Diastolic blood pressure 87 mm[Hg] Shyla Santana [facility].; [employer] 08-15-2021 11:30-0500 Heart rate 85 /min Shyla Santana [facility].; [employer] 08-15-2021 11:30-0500 Inhaled oxygen concentration 20 % Jayashree Esther [facility].; [employer] 08-15-2021 11:30-0500 Inhaled oxygen concentration 21 % JayashreeSherley Santana [facility].; [facility], [facility]. 08-15-2021 11:30-0500 SaO2% (BldA) [Mass fraction] 99 % [facility].; [facility] [facility] 08-15-2021 11:30-0500 Systolic blood pressure 166 mm[Hg] [facility]igator [facility].; [place] [facility] [facility], [facility] 08-01-2021 09:30-0400 Body height 167.64 cm [facility].; [place] [employer] [facility], [facility] 08-01-2021 09:30-0400 Body mass index (BMI) [Ratio] 26.47 kg/m2 [facility] [place] [facility] [facility] 08-01-2021 09:30-0400 Body surface area Derived from formula 1.84 m2 [facility] Alligator [facility], [facility].; [facility] [facility] [facility] 08-01-2021 09:30-0400 Body weight 74.39 kg [facility] Alligator [facility].; [facility] [facility] [facility] 08-01-2021 09:30-0400 Diastolic blood pressure 91 mm[Hg] [facility]igator [facility] [place] [facility] [facility], [facility]. 08-01-2021 09:30-0400 Heart rate 71 /min [facility] Alligator [facility].; [place] [employer], [facility]. 08-01-2021 09:30-0400 Systolic blood pressure 180 mm[Hg] [facility] Alligator [facility] Dem[place] [employer], [facility]. 04-13-2021 09:27-0400 Body height 167.64 cm Farheen Taylor [facility].; [employer] [employer], [facility]. 04-13-2021 09:27-0400 Body mass index (BMI) [Ratio] 26.63 kg/m2 Farheen Taylor [facility].; [employer] [facility]. 04-13-2021 09:27-0400 Body surface area Derived from formula 1.84 m2 Farheen Taylor LPN [place] [facility], [facility].; [employer], [facility]. 04-13-2021 09:27-0400 Body weight 74.84 kg Farheen Taylor LPN [facility], [facility].; [employer], [facility]. 04-13-2021 09:27-0400 Diastolic blood pressure 79 mm[Hg] Farheen Taylor LPN [facility] [facility], [facility].; [employer], [facility]. 04-13-2021 09:27-0400 Heart rate 79 /min Farheen Taylor [facility] Lif[facility]ander [facility], [facility].; [employer], [facility]. 04-13-2021 09:27-0400 Systolic blood pressure 145 mm[Hg] Farheen Taylor LPN [facility], [facility].; [employer], [facility]. 01-19-2021 10:51-0400 Diastolic blood pressure 71 mm[Hg] Farheen Taylor LPN [place] [facility], [facility].; [employer], [facility] [facility] 01-19-2021 10:51-0400 Systolic blood pressure 123 mm[Hg] Farheen Taylor LPN [facility], [facility].; [employer], [facility]. 01-18-2021 07:08-0400 Body height 167.64 cm JayashreeSherley Santana LPN [facility], [facility].; [employer], [facility]. 01-18-2021 07:08-0400 Body mass index (BMI) [Ratio] 28.57 kg/m2 JayashreeSherley Santana CAMOUFLAGE SPECIALIST [facility], [facility].; [employer], [facility]. 01-18-2021 07:08-0400 Body surface area Derived from formula 1.9 m2 Shyla Santana CAMOUFLAGE SPECIALIST [facility], [facility].; [employer], [facility]. 01-18-2021 07:08-0400 Body weight 80.29 kg Shyla Santana CAMOUFLAGE SPECIALIST [facility], [facility].; [employer], [facility]. 01-18-2021 07:08-0400 Diastolic blood pressure 77 mm[Hg] Shyla Santana LPN [facility], [facility].; [employer]. 01-18-2021 07:08-0400 Heart rate 82 /min Shyla Santana CAMOUFLAGE SPECIALIST [facility], [facility].; [employer], Inc. 01-18-2021 07:08-0400 Systolic blood pressure 154 mm[Hg] Shyla Santana LPN [facility], [facility].; [employer], Inc. 01-02-2021 10:41-0400 Body height 167.64 cm Shyla Santana [facility], [facility].; [employer], Inc. 01-02-2021 10:41-0400 Body mass index (BMI) [Ratio] 28.57 kg/m2 Jayashree Esther [facility], [facility].; [employer], Inc. 01-02-2021 10:41-0400 Body surface area Derived from formula 1.9 m2 Jayashree Esther [facility], [facility].; [employer], Inc. 01-02-2021 10:41-0400 Body weight 80.29 kg Shyla Santana CAMOUFLAGE SPECIALIST [facility], [facility].; [employer], Inc. 01-02-2021 10:41-0400 Diastolic blood pressure 92 mm[Hg] Shyla Santana CAMOUFLAGE SPECIALIST [facility].; [employer], Inc. 01-02-2021 10:41-0400 Heart rate 85 /min Shyla Santana CAMOUFLAGE SPECIALIST [facility], [facility].; [employer], Inc. 01-02-2021 10:41-0400 Systolic blood pressure 154 mm[Hg] Shyla Santana CAMOUFLAGE SPECIALIST [facility], [facility].; [employer], Inc. 12-02-2020 07:45-0500 Body height 167.64 cm Juan Antonio Bacon MD Work Phone: [employer], [facility].; [employer], Inc. 12-02-2020 07:45-0500 Body mass index (BMI) [Ratio] 30.02 kg/m2 Juan Antonio Bacon MD Work Phone: [facility] [employer].; [employer], Inc. 12-02-2020 07:45-0500 Body surface area Derived from formula 1.94 m2 Juan Antonio Bacon MD Work Phone: [email or web address].; [employer] 12-02-2020 07:45-0500 Body weight 84.37 kg Juan Antonio Bacon MD Work Phone: [email or web address].; [employer] 12-02-2020 07:45-0500 Diastolic blood pressure 63 mm[Hg] Juan Antonio Bacon MD Work Phone: [email or web address].; [employer]. 12-02-2020 07:45-0500 Heart rate 56 /min Juan Antonio Bacon MD Work Phone: [email or web address].; [employer]. 12-02-2020 07:45-0500 Systolic blood pressure 136 mm[Hg] Juan Antonio Bacon MD Work Phone: [email or web address].; [employer], [facility]. 07-04-2020 14:08-0400 Body height 167.64 cm [facility] [employer], [facility]. 07-04-2020 14:08-0400 Body mass index (BMI) [Ratio] 29.38 kg/m2 [facility], [facility].; [employer], Inc. 07-04-2020 14:08-0400 Body surface area Derived from formula 1.92 m2 [facility].; [employer], [facility]. 07-04-2020 14:08-0400 Body temperature 96.7 [degF] [facility].; [employer], [facility]. 07-04-2020 14:08-0400 Body weight 82.56 kg [facility].; [employer], [facility]. 07-04-2020 14:08-0400 Diastolic blood pressure 88 mm[Hg] [facility].; [employer]. 07-04-2020 14:08-0400 Heart rate 96 /min [facility], [facility].; [facility] [employer]. 07-04-2020 14:08-0400 Inhaled oxygen concentration 20 % Jayashree Esther [facility], [facility].; [email or web address]. 07-04-2020 14:08-0400 Inhaled oxygen concentration 21 % Jayashree Esther [facility], [facility].; [employer] 07-04-2020 14:08-0400 SaO2% (BldA) [Mass fraction] 98 % [facility], [facility].; [email or web address]. 07-04-2020 14:08-0400 Systolic blood pressure 155 mm[Hg] Shyla Santana [facility], [facility].; [employer]. 03-07-2020 09:07-0400 Body height 167.64 cm Polly Malone RN [facility] System[facility].; [email or web address]. 03-07-2020 09:07-0400 Body mass index (BMI) [Ratio] 28.08 kg/m2 Polly Malone RN [facility].; [email or web address]. 03-07-2020 09:07-0400 Body surface area Derived from formula 1.89 m2 Polly Malone RN [facility].; [email or web address]. 03-07-2020 09:07-0400 Body temperature 97.1 [degF] Polly Malone RN [facility].; [employer]. 03-07-2020 09:07-0400 Body weight 78.93 kg Polly Malone RN [facility].; [employer]. 03-07-2020 09:07-0400 Diastolic blood pressure 74 mm[Hg] Polly Malone RN [facility] Inc.; [employer]. 03-07-2020 09:07-0400 Heart rate 87 /min Polly Malone RN [facility] [employer].; [employer]. 03-07-2020 09:07-0400 Systolic blood pressure 124 mm[Hg] Polly Malone RN [facility], [facility].; [place] [facility], [facility]. 10-12-2019 10:38-0500 Body height 167.64 cm Shyla Santana [facility], [facility].; [facility], Inc. 10-12-2019 10:38-0500 Body mass index (BMI) [Ratio] 28.25 kg/m2 [facility], [facility].; [facility], Inc. 10-12-2019 10:38-0500 Body surface area Derived from formula 1.89 m2 [facility], [facility].; [facility], Inc. 10-12-2019 10:38-0500 Body temperature 96.7 [degF] [facility], [facility].; [facility], Inc[facility] 10-12-2019 10:38-0500 Body weight 79.38 kg Shyla Santana [facility], [facility].; [facility], [facility]. 10-12-2019 10:38-0500 Diastolic blood pressure 89 mm[Hg] Shyla Santana [facility], [facility].; [facility], Inc[facility] 10-12-2019 10:38-0500 Heart rate 81 /min [facility], [facility].; [facility], [facility]. 10-12-2019 10:38-0500 Inhaled oxygen concentration 20 % [facility], [facility].; [facility], [facility]. 10-12-2019 10:38-0500 Inhaled oxygen concentration 21 % [facility], [facility].; [employer], [facility]. 10-12-2019 10:38-0500 SaO2% (BldA) [Mass fraction] 97 % [facility], [facility].; [employer], [facility]. 10-12-2019 10:38-0500 Systolic blood pressure 148 mm[Hg] Shyla Santana CAMOUFLAGE SPECIALIST [employer], Inc.; [employer] 07-10-2019 06:55-0400 Body height 167.64 cm Polly Malone RN [facility], [employer].; [employer], Inc. 07-10-2019 06:55-0400 Body mass index (BMI) [Ratio] 27.6 kg/m2 Polly Malone RN [employer], Inc.; [employer], Inc. 07-10-2019 06:55-0400 Body surface area Derived from formula 1.87 m2 Polly Malone RN [employer], Inc.; [employer], Inc. 07-10-2019 06:55-0400 Body weight 77.57 kg Polly Malone RN [employer], Inc.; [employer], Inc. 07-10-2019 06:55-0400 Diastolic blood pressure 67 mm[Hg] Polly Malone RN [employer], [employer].; [employer], Inc. 07-10-2019 06:55-0400 Heart rate 57 /min Polly Malone RN [employer], [employer].; [employer], [facility]. 07-10-2019 06:55-0400 Systolic blood pressure 123 mm[Hg] Polly Malone RN [employer], Inc.; [employer], Inc. 06-09-2019 11:44-0400 Body height 167.64 cm Shyla Santana LPN [employer], Inc.; [employer], Inc. 06-09-2019 11:44-0400 Body mass index (BMI) [Ratio] 27.12 kg/m2 Shyla Santana LPN [employer], Inc.; [employer], Inc. 06-09-2019 11:44-0400 Body surface area Derived from formula 1.86 m2 Shyla Santana LPN [employer], Inc.; [employer], Inc. 06-09-2019 11:44-0400 Body temperature 97.8 [degF] Shyla Santana LPN [employer], Inc.; [employer], Inc. 06-09-2019 11:44-0400 Body weight 76.2 kg Shyla Santana CAMOUFLAGE SPECIALIST [employer], Inc.; [employer]. 06-09-2019 11:44-0400 Diastolic blood pressure 71 mm[Hg] [facility]yla [facility] [employer], Inc. 06-09-2019 11:44-0400 Heart rate 73 /min Jayashree Esther [facility].; [employer], Inc. 06-09-2019 11:44-0400 Inhaled oxygen concentration 20 % Shyla Santana [facility].; [employer], Inc. 06-09-2019 11:44-0400 Inhaled oxygen concentration 21 % Shyla Santana [facility].; [employer], Inc. 06-09-2019 11:44-0400 SaO2% (BldA) [Mass fraction] 98 % Jayashree Esther [facility].; [employer], Inc. 06-09-2019 11:44-0400 Systolic blood pressure 150 mm[Hg] Shyla Santana CAMOUFLAGE SPECIALIST [employer], Inc.; [employer], Inc. 05-29-2019 15:29-0400 Body height 167.64 cm Joceline Almazan LPN [employer], [employer].; [employer], Inc. 05-29-2019 15:29-0400 Body mass index (BMI) [Ratio] 26.79 kg/m2 Joceline Almazan CAMOUFLAGE SPECIALIST [employer], [employer].; [employer]. 05-29-2019 15:29-0400 Body surface area Derived from formula 1.85 m2 Joceline Almazan LPN [employer], Inc.; [employer]. 05-29-2019 15:29-0400 Body weight 75.3 kg Joceline Almazan LPN [employer], [employer].; [employer]. 05-29-2019 15:29-0400 Diastolic blood pressure 80 mm[Hg] Joceline Almazan LPN [employer], [employer].; [employer]. 05-29-2019 15:29-0400 Heart rate 84 /min Joceline Almazan LPN [employer]. 05-29-2019 15:29-0400 Systolic blood pressure 135 mm[Hg] Joceline Almazan LPN [employer], [employer].; [employer] 02-16-2019 07:55-0400 Body height 167.64 cm Polly Malone RN [email or web address].; [employer]. 02-16-2019 07:55-0400 Body mass index (BMI) [Ratio] 28.57 kg/m2 Polly Malone RN [email or web address].; [employer]. 02-16-2019 07:55-0400 Body surface area Derived from formula 1.9 m2 Polly Malone RN [email or web address].; [employer]. 02-16-2019 07:55-0400 Body temperature 97.2 [degF] Polly Malone RN [email or web address].; [employer]. 02-16-2019 07:55-0400 Body weight 80.29 kg Polly Malone RN [email or web address].; [employer]. 02-16-2019 07:55-0400 Diastolic blood pressure 78 mm[Hg] Polly Malone RN [employer].; [employer]. 02-16-2019 07:55-0400 Heart rate 82 /min Polly Malone RN [email or web address].; [employer]. 02-16-2019 07:55-0400 Systolic blood pressure 149 mm[Hg] Polly Malone RN [employer].; [employer]. 01-26-2019 14:07-0400 Body height 167.64 cm Kamala Eason LPN [employer].; [employer]. 01-26-2019 14:07-0400 Body mass index (BMI) [Ratio] 28.57 kg/m2 Kamala Eason LPN [employer].; [employer]. 01-26-2019 14:07-0400 Body surface area Derived from formula 1.9 m2 Neilee L Vess CAMOUFLAGE SPECIALIST [employer], [employer].; [employer]. 01-26-2019 14:07-0400 Body temperature 97.6 [degF] Neilee L Vess CAMOUFLAGE SPECIALIST [employer], Inc.; [employer], Inc. 01-26-2019 14:07-0400 Body weight 80.29 kg Neilee L Vess CAMOUFLAGE SPECIALIST [employer], Inc.; [employer]. 01-26-2019 14:07-0400 Diastolic blood pressure 73 mm[Hg] Neilee L Vess CAMOUFLAGE SPECIALIST [employer], Inc.; [employer]. 01-26-2019 14:07-0400 Heart rate 79 /min Neilee L Vess CAMOUFLAGE SPECIALIST [employer], Inc.; [employer]. 01-26-2019 14:07-0400 Systolic blood pressure 136 mm[Hg] Neilee L Vess CAMOUFLAGE SPECIALIST [employer], Inc.; [employer]. 01-09-2019 07:20-0400 Body height 167.64 cm Joceline Grissom Tha [facility] [employer], Inc.; [employer]. 01-09-2019 07:20-0400 Body mass index (BMI) [Ratio] 28.41 kg/m2 Joceline Grissom Tha CAMOUFLAGE SPECIALIST [employer], Inc.; [employer], [facility]. 01-09-2019 07:20-0400 Body surface area Derived from formula 1.89 m2 Joceline Praveena RebolledoTha CAMOUFLAGE SPECIALIST [employer], Inc.; [employer], [facility]. 01-09-2019 07:20-0400 Body weight 79.83 kg Joceline Grissom Tah CAMOUFLAGE SPECIALIST [employer], [facility].; [employer]. 01-09-2019 07:20-0400 Diastolic blood pressure 79 mm[Hg] Joceline Rebolledoach CAMOUFLAGE SPECIALIST [employer], Inc.; [employer]. 01-09-2019 07:20-0400 Heart rate 57 /min Joceline Almazan CAMOUFLAGE SPECIALIST [employer], Inc.; [employer]. 01-09-2019 07:20-0400 Systolic blood pressure 133 mm[Hg] Joceline Almazan [facility] [employer], Inc.; [employer], Inc. 12-15-2018 13:42-0400 Body height 170.18 cm Netalia Eason [facility] [employer], Inc.; [employer], Inc. 12-15-2018 13:42-0400 Body mass index (BMI) [Ratio] 27.88 kg/m2 Neilee L Vess CAMOUFLAGE SPECIALIST [employer], Inc.; [employer], Inc. 12-15-2018 13:42-0400 Body surface area Derived from formula 1.92 m2 Neilee L Vess [facility] [employer], Inc.; [employer], Inc. 12-15-2018 13:42-0400 Body weight 80.74 kg Nedimase L Vess CAMOUFLAGE SPECIALIST [employer], Inc.; [employer], Inc. 12-15-2018 13:42-0400 Diastolic blood pressure 83 mm[Hg] Nedimase L Vess [facility] [employer], Inc.; [employer], Inc. 12-15-2018 13:42-0400 Heart rate 84 /min Neilee L Vess [facility] [employer], Inc.; [employer], [facility]. 12-15-2018 13:42-0400 Systolic blood pressure 137 mm[Hg] Neilee L Vess CAMOUFLAGE SPECIALIST [employer], [employer].; [employer], Inc. 11-29-2018 08:07-0500 Body height 170.18 cm Jayashree Esther [facility] [employer], Inc.; [employer] 11-29-2018 08:07-0500 Body mass index (BMI) [Ratio] 28.19 kg/m2 Shyla Lepe Esther [facility] [employer], Inc.; [employer]. 11-29-2018 08:07-0500 Body surface area Derived from formula 1.93 m2 JayashreeSherley Santana [facility] [employer], Inc.; [employer]. 11-29-2018 08:07-0500 Body temperature 97.3 [degF] JayashreeSherley Santana [facility] [employer], Inc.; [employer]. 11-29-2018 08:07-0500 Body weight 81.65 kg Shyla [facility]ana [facility], [facility].; [employer]. 11-29-2018 08:07-0500 Diastolic blood pressure 77 mm[Hg] Shyla Santana [facility], [facility].; [employer], Inc. 11-29-2018 08:07-0500 Heart rate 72 /min Jayashree Esther [facility], [facility].; [employer], Inc. 11-29-2018 08:07-0500 Inhaled oxygen concentration 20 % Shyla Santana [facility].; [employer]. 11-29-2018 08:07-0500 Inhaled oxygen concentration 21 % Shyla Sanatna [facility].; [employer], [facility]. 11-29-2018 08:07-0500 SaO2% (BldA) [Mass fraction] 99 % Jayashree Esther [facility], [facility].; [employer], Inc. 11-29-2018 08:07-0500 Systolic blood pressure 150 mm[Hg] Shyla Santana [facility].; [employer]. 11-12-2018 10:43-0500 Body height 170.18 cm Shyla Santana [facility], [facility].; [employer]. 11-12-2018 10:43-0500 Body mass index (BMI) [Ratio] 28.19 kg/m2 Jayashree Esther [facility], [facility].; [employer]. 11-12-2018 10:43-0500 Body surface area Derived from formula 1.93 m2 [facility].; [employer]. 11-12-2018 10:43-0500 Body temperature 96.5 [degF] Shyla Santana [facility].; [employer]. 11-12-2018 10:43-0500 Body weight 81.65 kg Shyla Santana [facility], [facility].; [employer]. 11-12-2018 10:43-0500 Diastolic blood pressure 81 mm[Hg] Shyla Santana [facility], [facility].; [employer], Inc. 11-12-2018 10:43-0500 Heart rate 79 /min Shyla Santana [facility], [facility].; [employer], Inc. 11-12-2018 10:43-0500 Inhaled oxygen concentration 20 % Jayashree Esther [facility], Inc.; [employer] 11-12-2018 10:43-0500 Inhaled oxygen concentration 21 % Jayashree Esther [facility], Inc.; [employer], Inc. 11-12-2018 10:43-0500 SaO2% (BldA) [Mass fraction] 95 % Shyla Santana [facility], Inc.; [employer], [facility]. 11-12-2018 10:43-0500 Systolic blood pressure 152 mm[Hg] Shyla Santana [facility], [facility].; [employer], Inc. 07-08-2018 11:13-0400 Body height 170.18 cm Jayashree Esther [facility], [facility].; [employer], Inc. 07-08-2018 11:13-0400 Body mass index (BMI) [Ratio] 27.1 kg/m2 [facility], [facility].; [employer], [facility]. 07-08-2018 11:13-0400 Body surface area Derived from formula 1.9 m2 [facility], [facility].; [employer], Inc. 07-08-2018 11:13-0400 Body temperature 97.9 [degF] Jayashree Esther [facility], [facility].; [employer], [facility]. 07-08-2018 11:13-0400 Body weight 78.47 kg Jayashree Esther CAMOUFLAGE SPECIALIST [facility], [facility].; [employer], [facility]. 07-08-2018 11:13-0400 Diastolic blood pressure 68 mm[Hg] Shyla Santana [facility] [employer], Inc.; [employer], Inc. 07-08-2018 11:13-0400 Heart rate 83 /min Shyla Santana CAMOUFLAGE SPECIALIST [employer] [employer].; [employer], Inc. 07-08-2018 11:13-0400 Systolic blood pressure 130 mm[Hg] Shyla Santana CAMOUFLAGE SPECIALIST [employer] [employer].; [employer], Inc. 07-04-2018 06:57-0400 Body height 170.18 cm Polly Malone RN [employer], [employer].; [employer], Inc. 07-04-2018 06:57-0400 Body mass index (BMI) [Ratio] 26.78 kg/m2 Polly Malone RN [employer], [employer].; [employer], Inc. 07-04-2018 06:57-0400 Body surface area Derived from formula 1.89 m2 Polly Malone RN [employer], [employer].; [employer], Inc. 07-04-2018 06:57-0400 Body weight 77.57 kg Polly Malone RN [employer], Inc. 07-04-2018 06:57-0400 Diastolic blood pressure 78 mm[Hg] Polly Malone RN [employer], [employer].; [employer], Inc. 07-04-2018 06:57-0400 Heart rate 61 /min Polly Malone RN [employer], [employer].; [employer], Inc. 07-04-2018 06:57-0400 Systolic blood pressure 129 mm[Hg] Polly Malone RN [employer], [employer].; [employer], Inc. 01-03-2018 07:19-0400 Body height 175.26 cm Kirsten Mireles LPN [employer], [employer].; [employer], Inc. 01-03-2018 07:19-0400 Body mass index (BMI) [Ratio] 27.5 kg/m2 Kirsten Mireles LPN [employer], Inc.; [employer], Inc. 01-03-2018 07:19-0400 Body surface area Derived from formula 2 m2 Kirsten Mireles LPN [employer], Inc.; [employer], Inc. 01-03-2018 07:19-0400 Body weight 84.48 kg Kirsten [facility]les [facility] [employer], Inc. 01-03-2018 07:19-0400 Diastolic blood pressure 71 mm[Hg] Kirsten Mireles CAMOUFLAGE SPECIALIST [employer].; [employer], Inc. 01-03-2018 07:19-0400 Heart rate 75 /min Kirsten [facility]ireles [facility] [employer], Inc. 01-03-2018 07:19-0400 Systolic blood pressure 138 mm[Hg] Kirsten Mireles [facility] [employer], [employer].; [employer], Inc. 09-17-2017 11:54-0500 Body height 170.18 cm Shyla Santana [facility], Inc.; [employer], Inc. 09-17-2017 11:54-0500 Body mass index (BMI) [Ratio] 28.82 kg/m2 [facility], [facility].; [employer], Inc. 09-17-2017 11:54-0500 Body surface area Derived from formula 1.95 m2 [facility] Esther [facility] [employer], [employer].; [employer], Inc. 09-17-2017 11:54-0500 Body weight 83.46 kg Jayashree Stuckey [facility] [employer], [employer].; [employer], Inc. 09-17-2017 11:54-0500 Diastolic blood pressure 76 mm[Hg] JayashreeSherley Santana [facility].; [employer], Inc. 09-17-2017 11:54-0500 Heart rate 73 /min Jayashree Stuckey [facility] [employer], Inc. 09-17-2017 11:54-0500 Systolic blood pressure 117 mm[Hg] JayashreeSherley Santana [facility].; [employer], Inc. 07-10-2017 06:52-0400 Body height 170.18 cm Valorie Miranda [facility] [employer], Inc. 07-10-2017 06:52-0400 Body mass index (BMI) [Ratio] 27.72 kg/m2 Valorie Edmund Mutersbaugh [facility].; [employer], Inc. 07-10-2017 06:52-0400 Body surface area Derived from formula 1.92 m2 Valorie K Mutersbaugh CAMOUFLAGE SPECIALIST [facility] [employer].; [employer], [facility]. 07-10-2017 06:52-0400 Body weight 80.29 kg Valorie Edmund Mutkhaibaugh [facility].; [employer], [facility]. 07-10-2017 06:52-0400 Diastolic blood pressure 70 mm[Hg] Valorie K Mutersbaugh CAMOUFLAGE SPECIALIST [facility] [employer].; [employer], Inc. 07-10-2017 06:52-0400 Heart rate 69 /min Valorie Edmund Drakebaugh [facility].; [employer], [facility]. 07-10-2017 06:52-0400 Systolic blood pressure 111 mm[Hg] Valorie Edmund Mutersbaugh CAMOUFLAGE SPECIALIST [employer] [employer].; [employer], [facility]. 01-16-2017 07:14-0400 Body height 170.18 cm Shyla Santana CAMOUFLAGE SPECIALIST [facility], [facility].; [employer], Inc. 01-16-2017 07:14-0400 Body mass index (BMI) [Ratio] 28.5 kg/m2 Shyla Santana CAMOUFLAGE SPECIALIST [employer] [employer].; [employer], Inc. 01-16-2017 07:14-0400 Body surface area Derived from formula 1.94 m2 Shyla Santana CAMOUFLAGE SPECIALIST [employer] [employer].; [employer], [facility]. 01-16-2017 07:14-0400 Body weight 82.56 kg Shyla Santana CAMOUFLAGE SPECIALIST [employer] [employer].; [employer], [facility]. 01-16-2017 07:14-0400 Diastolic blood pressure 82 mm[Hg] Shyla Santana CAMOUFLAGE SPECIALIST [employer] [employer].; [employer], [facility]. 01-16-2017 07:14-0400 Heart rate 75 /min [facility] [employer].; [employer], Inc. 01-16-2017 07:14-0400 Systolic blood pressure 124 mm[Hg] Shyla Santana [facility] [employer], [employer].; [employer], Inc. 11-16-2016 09:58-0500 Body temperature 98.1 [degF] Kirsten Mireles [facility] [employer], [employer].; [employer], Inc. 11-16-2016 09:58-0500 Body weight 83.01 kg Kirsten Mireles [facility] [employer], [employer].; [employer], Inc. 11-16-2016 09:58-0500 Diastolic blood pressure 85 mm[Hg] Kirsten Mireles [facility] [employer], Inc.; [employer], Inc. 11-16-2016 09:58-0500 Heart rate 73 /min Kirstenaynana Mireles [facility] [employer] 11-16-2016 09:58-0500 Systolic blood pressure 130 mm[Hg] Kirsten Mireles [facility] [employer] 08-10-2016 12:11-0500 Body height 170.18 cm Juan Antonio Bacon MD Work Phone: [employer] 08-10-2016 12:11-0500 Body mass index (BMI) [Ratio] 26.31 kg/m2 Juan Antonio Baocn MD Work Phone: [employer] 08-10-2016 12:11-0500 Body surface area Derived from formula 1.88 m2 Juan Antonio Bacon MD Work Phone: [employer] 08-10-2016 12:11-0500 Body weight 76.2 kg Juan Antonio Bacon MD Work Phone: [employer] 08-10-2016 12:11-0500 Diastolic blood pressure 74 mm[Hg] Juan Antonio Bacon MD Work Phone: [employer] 08-10-2016 12:11-0500 Heart rate 96 /min Juan Antonio Bacon MD Work Phone: [employer] 08-10-2016 12:11-0500 Systolic blood pressure 130 mm[Hg] Juan Antonio Bacon MD Work Phone: [employer], [facility] 05-25-2016 13:28-0400 Body height 170.18 cm Valorie K Mutersbaugh CAMOUFLAGE SPECIALIST [employer] 05-25-2016 13:28-0400 Body mass index (BMI) [Ratio] 25.37 kg/m2 Valorie K Mutersbaugh CAMOUFLAGE SPECIALIST [employer] 05-25-2016 13:28-0400 Body surface area Derived from formula 1.85 m2 Valorie K Mutersbaugh CAMOUFLAGE SPECIALIST [employer] 05-25-2016 13:28-0400 Body weight 73.48 kg Valorie K Mutersbaugh CAMOUFLAGE SPECIALIST [employer] 05-25-2016 13:28-0400 Diastolic blood pressure 74 mm[Hg] Valorie K Mutersbaugh CAMOUFLAGE SPECIALIST [employer] 05-25-2016 13:28-0400 Heart rate 91 /min Valorie K Mutersbaugh CAMOUFLAGE SPECIALIST [employer] 05-25-2016 13:28-0400 Systolic blood pressure 128 mm[Hg] Valorie K Mutersbaugh CAMOUFLAGE SPECIALIST [employer] 01-13-2016 09:07-0400 Body height 170.18 cm [facility] [employer] 01-13-2016 09:07-0400 Body mass index (BMI) [Ratio] 27.1 kg/m2 Jayashree Esther [facility] [employer] 01-13-2016 09:07-0400 Body surface area Derived from formula 1.9 m2 Shyla Santana CAMOUFLAGE SPECIALIST [employer] 01-13-2016 09:07-0400 Body temperature 96.2 [degF] Shyla Santana CAMOUFLAGE SPECIALIST [employer] 01-13-2016 09:07-0400 Body weight 78.47 kg Shyla Santana [facility] [employer] 01-13-2016 09:07-0400 Diastolic blood pressure 85 mm[Hg] Shyla Santana [facility] [employer] 01-13-2016 09:07-0400 Heart rate 68 /min Shyla Santana [employer]OUFLAGE SPECIALIST [employer] 01-13-2016 09:07-0400 Inhaled oxygen concentration 20 % Shyla [facility] [employer] 01-13-2016 09:07-0400 Inhaled oxygen concentration 21 % Shyla Santana [facility] [employer] 01-13-2016 09:07-0400 SaO2% (BldA) [Mass fraction] 99 % Shyla Santana [facility] [employer] 01-13-2016 09:07-0400 Systolic blood pressure 126 mm[Hg] Shyla Santana [facility] [employer] 11-21-2015 15:35-0500 Body weight 79.38 kg Kirsten Mireles [employer]OUFLAGE [employer]IST [employer] 11-21-2015 15:35-0500 Diastolic blood pressure 85 mm[Hg] Kirsten Mireles [employer]OUFLAGE [employer]IST [employer] 11-21-2015 15:35-0500 Heart rate 86 /min Kirsten Mireles [employer]OUFLAGE SPECIALIST [employer] 11-21-2015 15:35-0500 Systolic blood pressure 157 mm[Hg] Kirsten Marshall Chi [facility], Inc.; [employer] 11-15-2015 08:12-0500 Body height 170.18 cm JayashreeSherley Santana [facility] [employer] [facility], Inc.; [employer] 11-15-2015 08:12-0500 Body mass index (BMI) [Ratio] 28.5 kg/m2 [facility] [employer] 11-15-2015 08:12-0500 Body surface area Derived from formula 1.94 m2 [facility] [employer] 11-15-2015 08:12-0500 Body weight 82.56 kg JayashreeSherley Santana [facility] [employer] 11-15-2015 08:12-0500 Diastolic blood pressure 80 mm[Hg] JayashreeSherley Santana [facility], Inc.; [employer] 11-15-2015 08:12-0500 Heart rate 103 /min [facility] [employer] 11-15-2015 08:12-0500 Systolic blood pressure 123 mm[Hg] Shyla Santana [facility] [employer] 09-14-2015 06:58-0500 Body height 170.18 cm Jayashree Stuckey [facility], Inc.; [employer] 09-14-2015 06:58-0500 Body mass index (BMI) [Ratio] 27.57 kg/m2 [facility] [employer] 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 09-14-2015 06:58-0500 Body weight 79.83 kg Jayashree Esther [facility] [employer] 09-14-2015 06:58-0500 Diastolic blood pressure 85 mm[Hg] Shyla Santana [facility], Inc.; [employer] 09-14-2015 06:58-0500 Heart rate 75 /min Shyla Santana [facility], Inc.; [employer] 09-14-2015 06:58-0500 Systolic blood pressure 126 mm[Hg] Shyla Santana [facility] [employer] [facility], Inc.; [employer] 08-10-2015 14:36-0500 Body height 170.18 cm Shyla Santana [facility], Inc.; [employer] 08-10-2015 14:36-0500 Body mass index (BMI) [Ratio] 28.04 kg/m2 Jayashree Stuckey [facility] [employer] [facility], Inc.; [employer] 08-10-2015 14:36-0500 Body surface area Derived from formula 1.93 m2 Jayashree Stuckey [facility], Inc.; [employer] 08-10-2015 14:36-0500 Body weight 81.19 kg Shyla Santana [facility], Inc.; [employer] 08-10-2015 14:36-0500 Diastolic blood pressure 90 mm[Hg] Shyla Santana [facility], Inc.; [employer] 08-10-2015 14:36-0500 Heart rate 64 /min JayashreeSherley Santana [facility], Inc.; [employer], [facility]. 08-10-2015 14:36-0500 Systolic blood pressure 147 mm[Hg] Shyla Santana [facility] [employer] [facility], Inc.; [employer] 03-16-2015 06:59-0400 Body height 170.18 cm Valorie Miranda CAMOUFLAGE SPECIALIST [facility], Inc.; [employer], [facility]. 03-16-2015 06:59-0400 Body mass index (BMI) [Ratio] 26.94 kg/m2 Valorie Miranda CAMOUFLAGE SPECIALIST [facility], Inc.; [employer] 03-16-2015 06:59-0400 Body surface area Derived from formula 1.9 m2 Valorie K Mutersbaugh CAMOUFLAGE SPECIALIST [facility], Inc.; [employer] 03-16-2015 06:59-0400 Body weight 78.02 kg Valorie Edmund Mutkhaibaugh CAMOUFLAGE SPECIALIST [facility], Inc.; [employer] 03-16-2015 06:59-0400 Diastolic blood pressure 72 mm[Hg] Valorie K Mutersbaugh CAMOUFLAGE SPECIALIST [facility], Inc.; [employer] 03-16-2015 06:59-0400 Heart rate 59 /min Valorie K Mutkhaibaugh CAMOUFLAGE SPECIALIST [facility], Inc.; [employer] 03-16-2015 06:59-0400 Systolic blood pressure 114 mm[Hg] Valorie Edmund Mutersbaugh CAMOUFLAGE SPECIALIST [facility], Inc.; [employer] 09-15-2014 07:00-0500 Body height 170.18 cm Shyla Santana CAMOUFLAGE SPECIALIST [facility], Inc.; [employer] 09-15-2014 07:00-0500 Body mass index (BMI) [Ratio] 28.04 kg/m2 Shyla Santana [facility], Inc.; [employer] 09-15-2014 07:00-0500 Body surface area Derived from formula 1.93 m2 Shyla Santana CAMOUFLAGE SPECIALIST [facility], Inc.; [employer] 09-15-2014 07:00-0500 Body weight 81.19 kg Shyla Santana CAMOUFLAGE SPECIALIST [facility], Inc.; [employer], [facility]. 09-15-2014 07:00-0500 Diastolic blood pressure 78 mm[Hg] Shyla Santana SANGITA [facility], Inc.; [employer] 09-15-2014 07:00-0500 Heart rate 87 /min Shyla Santana CAMOUFLAGE SPECIALIST [facility], Inc.; [employer] 09-15-2014 07:00-0500 Systolic blood pressure 125 mm[Hg] Shyla Santana SANGITA [employer] 08-02-2014 18:23-0500 Body temperature 97.4 [degF] Kirsten Rolando Mireles CAMOUFLAGE SPECIALIST [employer] 08-02-2014 18:23-0500 Body weight 81.19 kg Kirsten Mireles CAMOUFLAGE SPECIALIST [employer] 08-02-2014 18:23-0500 Diastolic blood pressure 74 mm[Hg] Kirsten Mireles LPN [employer]. 08-02-2014 18:23-0500 Heart rate 90 /min Kirsten Mireles LPN [employer], [employer] 08-02-2014 18:23-0500 Inhaled oxygen concentration 20 % Kirsten Mireles CAMOUFLAGE SPECIALIST [employer]. 08-02-2014 18:23-0500 Inhaled oxygen concentration 21 % Kirsten Mireles CAMOUFLAGE SPECIALIST [employer]. 08-02-2014 18:23-0500 SaO2% (BldA) [Mass fraction] 98 % Kirsten Rolando Mireles CAMOUFLAGE SPECIALIST [employer], [facility].; [employer] 08-02-2014 18:23-0500 Systolic blood pressure 126 mm[Hg] Kirsten Mireles LPN [employer] 04-16-2014 07:06-0400 Body weight 76.66 kg Kirsten Mireles LPN [employer]. 04-16-2014 07:06-0400 Diastolic blood pressure 78 mm[Hg] Kirsten Mireles LPN [employer]. 04-16-2014 07:06-0400 Heart rate 76 /min Kirsten Mireles CAMOUFLAGE SPECIALIST [employer]. 04-16-2014 07:06-0400 Systolic blood pressure 120 mm[Hg] Kirsten Mireles LPN [employer], [employer].; [employer]. 03-09-2014 15:17-0400 Body height 170.18 cm Shyla Santana CAMOUFLAGE SPECIALIST [facility], Inc.; [employer] 03-09-2014 15:17-0400 Body mass index (BMI) [Ratio] 25.53 kg/m2 Shyla Santana LPN [facility], Inc.; [employer] 03-09-2014 15:17-0400 Body surface area Derived from formula 1.85 m2 Shyla Santana CAMOUFLAGE SPECIALIST [facility], Inc.; [employer] 03-09-2014 15:17-0400 Body weight 73.94 kg Shyla Santana CAMOUFLAGE SPECIALIST [employer] 03-09-2014 15:17-0400 Diastolic blood pressure 87 mm[Hg] Shyla Santana SANGITA [employer].; [employer] 03-09-2014 15:17-0400 Heart rate 87 /min Shyla Santana CAMOUFLAGE SPECIALIST [facility], Inc.; [employer], [employer] 03-09-2014 15:17-0400 Systolic blood pressure 149 mm[Hg] Shyla Santana CAMOUFLAGE SPECIALIST [employer] 01-05-2014 10:14-0400 Body weight 73.94 kg Shyla Santana LPN [employer] 01-05-2014 10:14-0400 Diastolic blood pressure 86 mm[Hg] Shyla Santana CAMOUFLAGE SPECIALIST [facility], Inc.; [employer] 01-05-2014 10:14-0400 Heart rate 68 /min Shyla Santana CAMOUFLAGE SPECIALIST [employer] 01-05-2014 10:14-0400 Systolic blood pressure 142 mm[Hg] Shyla Santana LPN [employer] 12-16-2013 09:21-0400 Body height 170.18 cm Shyla Santana CAMOUFLAGE SPECIALIST [employer] 12-16-2013 09:21-0400 Body mass index (BMI) [Ratio] 24.9 kg/m2 Shyla Santana SANGITA [facility], Inc.; [employer] 12-16-2013 09:21-0400 Body surface area Derived from formula 1.83 m2 Shyla Santana SANGITA [facility], Inc.; [employer] 12-16-2013 09:0400 Body weight 72.12 kg Shyla Santana SANGITA [facility], Inc.; [employer], [employer] 12-16-2013 09:21-0400 Diastolic blood pressure 79 mm[Hg] Shyla Santana CAMOUFLAGE SPECIALIST [facility] Online [facility], Inc.; [employer], [employer] 12-16-2013 09:210400 Heart rate 79 /min Shyla Santana SANGITA [facility], Inc.; [employer], [employer] 12-16-2013 09:210400 Systolic blood pressure 130 mm[Hg] Shyla Santana SANGITA [facility] Online [facility], Inc.; [employer], [employer] 11-25-2013 09:250500 Body height 170.18 cm Patricia Loomis LPN [facility], Inc.; [employer], [employer] 11-25-2013 09:25-0500 Body mass index (BMI) [Ratio] 25.12 kg/m2 Patricia Loomis LPN [facility] Online [facility], Inc.; [employer], [employer] 11-25-2013 09:25-0500 Body surface area Derived from formula 1.84 m2 Patricia Loomis LPN [facility] Online [facility], Inc.; [employer], [employer] 11-25-2013 09:25-0500 Body weight 72.75 kg Patricia Loomis LPN [employer] [facility], Inc.; [employer], [employer] 11-25-2013 09:25-0500 Diastolic blood pressure 76 mm[Hg] Patricia Loomis LPN [facility], Inc.; [employer], [employer] 11-25-2013 09:25-0500 Heart rate 71 /min Patricia Loomis LPN [facility], [facility].; [facility], [facility]. 11-25-2013 09:25-0500 Systolic blood pressure 127 mm[Hg] Patricia Ebonie QUESADA [facility], Inc.; [facility], Inc. 10-30-2013 07:34-0500 Body temperature 96.2 [degF] Kirsten Mireles LPN [facility], Inc.; [facility] Inc. 10-30-2013 07:34-0500 Body weight 70.31 kg Kirsten Mireles LPN [facility], [facility].; [facility], [facility]. 10-30-2013 07:34-0500 Diastolic blood pressure 82 mm[Hg] Kirsten Mireles LPN [facility], Inc.; [facility], Inc. 10-30-2013 07:34-0500 Heart rate 66 /min Kirsten Mireles LPN [facility], Inc.; [facility], [facility]. 10-30-2013 07:34-0500 Inhaled oxygen concentration 20 % Kirsten Mireles CAMOUFLAGE SPECIALIST [facility], [facility].; [facility], [facility]. 10-30-2013 07:34-0500 Inhaled oxygen concentration 21 % Kirsten Mireles CAMOUFLAGE SPECIALIST [facility], Inc.; [facility], [facility]. 10-30-2013 07:34-0500 SaO2% (BldA) [Mass fraction] 97 % Kirsten Mireles CAMOUFLAGE SPECIALIST [facility], Inc.; [facility], Inc. 10-30-2013 07:34-0500 Systolic blood pressure 136 mm[Hg] Kirsten Mireles LPN [facility], [facility].; [facility] [employer] 09-05-2013 09:01-0500 Body height 170.18 cm Marilu Ledbetter RN [facility].; [facility] [employer], [facility]. 09-05-2013 09:01-0500 Body mass index (BMI) [Ratio] 23.57 kg/m2 Marilu Ledbetter RN [facility], Inc.; [facility] [employer], [employer]. 09-05-2013 09:01-0500 Body surface area Derived from formula 1.79 m2 Marilu Ledbetter RN [facility].; [employer] 09-05-2013 09:01-0500 Body temperature 97.8 [degF] Marilu Ledbetter RN [employer] 09-05-2013 09:01-0500 Body weight 68.27 kg Marilu Ledbetter RN [employer].; [employer], [employer] 09-05-2013 09:01-0500 Diastolic blood pressure 67 mm[Hg] Marilu Ledbetter RN [facility], [employer] 09-05-2013 09:01-0500 Heart rate 62 /min Marilu Ledbetter RN [employer].; [employer]. 09-05-2013 09:01-0500 Systolic blood pressure 113 mm[Hg] Marilu Ledbetter RN [employer].; [employer], [facility]. 08-14-2013 07:09-0500 Body weight 68.49 kg Kirsten Mireles LPN [employer] 08-14-2013 07:09-0500 Diastolic blood pressure 66 mm[Hg] Kirsten Mireles LPN [employer]. 08-14-2013 07:09-0500 Heart rate 80 /min Kirsten Mireles LPN [employer]. 08-14-2013 07:09-0500 Systolic blood pressure 114 mm[Hg] Kirsten Mireles LPN [employer]. 07-13-2013 10:51-0400 Body weight 68.95 kg Kirsten Mireles LPN [employer]. 07-13-2013 10:51-0400 Diastolic blood pressure 73 mm[Hg] Kirsten Mireles LPN [employer]. 07-13-2013 10:51-0400 Heart rate 109 /min Kirsten Mireles LPN [employer], [facility]. 07-13-2013 10:51-0400 Systolic blood pressure 123 mm[Hg] Kirsten Mireles LPN [employer], [employer] 06-03-2013 07:58-0400 Body weight 72.58 kg Shyla Santana [facility] [employer] 06-03-2013 07:58-0400 Diastolic blood pressure 80 mm[Hg] Shyla Santana [facility] [employer] 06-03-2013 07:58-0400 Heart rate 66 /min Shyla [facility]ana [facility] [employer] 06-03-2013 07:58-0400 Systolic blood pressure 152 mm[Hg] Shyla Santana [facility] [employer] 11-24-2012 17:49-0500 Body temperature 96.8 [degF] Kirsten Mireles CAMOUFLAGE SPECIALIST [employer] 11-24-2012 17:49-0500 Body weight 75.3 kg Kirsten Mireles LPN [employer] 11-24-2012 17:49-0500 Diastolic blood pressure 82 mm[Hg] Kirsten Mireles LPN [employer].; [employer] 11-24-2012 17:49-0500 Heart rate 85 /min Kirsten Mireles LPN [employer].; [employer] 11-24-2012 17:49-0500 Systolic blood pressure 132 mm[Hg] Kirsten Mireles LPN [employer].; [employer] 09-15-2012 09:20-0500 Body temperature 97.6 [degF] Kirsten Mireles LPN [employer] 09-15-2012 09:20-0500 Body weight 74.84 kg Kirsten Mireles LPN [employer].; [employer] 09-15-2012 09:20-0500 Diastolic blood pressure 84 mm[Hg] Kirsten Mireles LPN [employer].; [employer] 09-15-2012 09:20-0500 Heart rate 76 /min Kirsten Mireles [facility], Inc.; [employer] 09-15-2012 09:20-0500 Systolic blood pressure 134 mm[Hg] Kirsten Mireles [facility], Inc.; [employer] 05-02-2012 08:06-0400 Body height 170.18 cm Jayashree Esther [facility], Inc.; [employer] 05-02-2012 08:06-0400 Body mass index (BMI) [Ratio] 24.9 kg/m2 [facility], Inc.; [employer] 05-02-2012 08:06-0400 Body surface area Derived from formula 1.83 m2 [facility], Inc.; [employer], [employer] 05-02-2012 08:06-0400 Body weight 72.12 kg [facility], Inc.; [employer], [employer]. 05-02-2012 08:06-0400 Diastolic blood pressure 81 mm[Hg] [facility], Inc.; [employer], [employer] 05-02-2012 08:06-0400 Heart rate 64 /min [facility], Inc.; [employer], [employer]. 05-02-2012 08:06-0400 Systolic blood pressure 126 mm[Hg] Jayashree Stuckey [facility], Inc.; [employer], [employer] 10-11-2011 14:53-0500 Body height 170.18 cm Juan Antonio Bacon MD Work Phone: [employer].; [employer] 10-11-2011 14:53-0500 Body mass index (BMI) [Ratio] 25.84 kg/m2 Juan Antonio Bacon MD Work Phone: [employer], [employer].; [employer], [employer] 10-11-2011 14:53-0500 Body surface area Derived from formula 1.86 m2 Juan Antonio Bacon MD Work Phone: [employer] 10-11-2011 14:53-0500 Body weight 74.84 kg Juan Antonio Bacon MD Work Phone: [employer], [employer] 10-11-2011 14:53-0500 Diastolic blood pressure 84 mm[Hg] Juan Antonio Bacon MD Work Phone: [employer], [employer] 10-11-2011 14:53-0500 Heart rate 80 /min Juan Antonio Bacon MD Work Phone: [employer], [employer] 10-11-2011 14:53-0500 Systolic blood pressure 136 mm[Hg] Juan Antonio Bacon MD Work Phone: [employer], [employer] 06-15-2011 07:46-0400 Body weight 73.03 kg Kirsten Mireles LPN [employer], [employer].; [employer], [employer] 06-15-2011 07:46-0400 Diastolic blood pressure 67 mm[Hg] Kirsten Mireles LPN [employer], [employer] 06-15-2011 07:46-0400 Heart rate 61 /min Kirsten Mireles LPN [employer], [employer].; [employer], [employer] 06-15-2011 07:46-0400 Systolic blood pressure 109 mm[Hg] Kirsten Mireles LPN [employer].; [employer], [employer] 06-30-2010 07:14-0400 Body temperature 96 [degF] Kirsten Mireles LPN [employer], [employer].; [employer], [employer] 06-30-2010 07:14-0400 Body weight 69.85 kg Kirsten Mireles LPN [employer], [employer].; [employer], [employer] 06-30-2010 07:14-0400 Diastolic blood pressure 79 mm[Hg] Kirsten Mireles LPN [employer], [employer].; [employer], [employer] 06-30-2010 07:14-0400 Heart rate 74 /min Kirsten Mireles LPN [employer] [facility] 06-30-2010 07:14-0400 Systolic blood pressure 121 mm[Hg] Kirsten Mireles LPN [facility].; [facility] Encounters Encounter Date Encounter Type Care Provider Facility Start: 08-10-2025 ambulatory Juan Antonio Bacon Facility:[facility] Start: 08-10-2025 End: 08-10-2025 ambulatory Juan Antonio Bacon [place] [place]: 08-05-2025 End: 08-05-2025 ambulatory PAULETTE HARDY Facility:[facility] Start: 08-03-2025 End: 08-03-2025 ambulatory EDITH PALM Facility:[facility] Start: 07-28-2025 End: 07-28-2025 ambulatory Alexis Jarrett Facility:[facility] Start: 07-27-2025 End: 07-27-2025 ambulatory Alexis Jarrett Facility:[facility] Start: 07-20-2025 ambulatory Juan Antonio [facility] Facility:[facility] Start: 07-18-2025 End: 07-19-2025 Emergency department patient visit JUAN ANTONIO BACON [facility] Start: 07-06-2025 End: 07-06-[address] Derrick Pate MD -[facility] Work Phone: Start: 07-06-2025 End: 07-06-[address] Juan Antonio Bacon MD Work Phone: -[facility] Start: 06-15-2025 End: 06-15-2025 Patient encounter procedure Juan Francisco Ojeda MD Work Phone: Neurology Comment on above: Hypersomnia (Primary Dx); ISMA on CPAP Start: 06-15-2025 End: 06-15-2025 ambulatory JUAN FRANCISCO OJEDA Facility:[facility] Start: 04-20-2025 End: 04-20-2025 Office outpatient visit 15 minutes Juan Antonio Bacon MD Work Phone: [facility] Start: 04-19-2025 End: 04-19-2025 Juan Antonio Bacon MD Work Phone: [facility] Start: 04-15-2025 End: 04-15-2025 Patient encounter procedure Gisselle Davila NP-C -[facility] Work Phone: Start: 04-15-2025 End: 04-15-[address] Juan Antonio Bacon MD Work Phone: -[facility] Start: 03-19-2025 ambulatory JUAN ANTONIO BACON [place] Start: 03-06-2025 Encounter for genera l adult medical examination without abnormal findings Gisselle Davila NP [facility] Start: 03-02-2025 End: 03-02-[address] Juan Antonio Bacon MD Work Phone: [facility] Work Phone: Start: 03-02-2025 End: 03-02-2025 Patient encounter procedure Gisselle Davila NP-Matthew -Sleep Lab Work Phone: Start: 03-02-2025 End: 03-02-2025 ambulatory Juan Antonio [facility] Facility:[facility] Start: 01-14-2025 End: 01-14-2025 Patient encounter procedure Gisselle Davila NP-C -[facility] Work Phone: Start: 01-14-2025 End: 01-14-2025 ambulatory Juan Antonio Bacon Facility:[facility] Start: 12-23-2024 ambulatory Terry Bacon Facility:[facility] Start: 12-23-2024 Non-patient / Non-visit Dr. Terry villanueva DO -[facility] Start: 12-22-2024 End: 12-22-[address] Juan Antonio Bacon MD Work Phone: [facility] Work Phone: Start: 12-22-2024 End: 12-22-2024 Patient encounter procedure Gisselle Davila NP-Matthew -Pulmonary Services/Neurology Work Phone: Start: 12-22-2024 End: 12-22-2024 ambulatory Juan Antonio [facility] Facility:[facility] Start: 12-08-2024 End: 12-08-[address] Juan Antonio Bacon MD Work Phone: [facility] Work Phone: Start: 12-08-2024 End: 12-08-2024 Patient encounter procedure Gisselle CHANEY -Pulmonary Services/Neurology Work Phone: Start: 12-08-2024 End: 12-08-2024 ambulatory [facility] Start: 12-02-2024 End: 12-02-2024 Patient encounter status Juan Antonio Bacon MD Work Phone: [employer] Start: 12-02-2024 End: 12-02-2024 Periodic preventive med est patient 65yrs& older Juan Antonio Bacon MD Work Phone: [employer] Start: 12-02-2024 Juan Antonio Bacon MD Work Phone: [employer] Start: 11-25-2024 End: 11-26-2024 Juan Antonio Bacon MD Work Phone: [employer] Start: 11-12-2024 End: 11-12-[address] Curt Nguyen MD -Cardiovascular Services Work Phone: Start: 11-12-2024 End: 11-12-2024 ambulatory [facility] Start: 11-02-2024 End: 11-02-2024 Juan Antonio Bacon MD Work Phone: [employer] Start: 09-08-2024 End: 09-08-2024 Patient encounter procedure Gisselle CHANEY -[facility] Work Phone: Start: 09-08-2024 End: 09-08-2024 ambulatory [facility] Start: 09-07-2024 End: 09-07-2024 Office outpatient visit 15 minutes Juan Antonio Bacon MD Work Phone: [employer] Start: 09-02-2024 End: 09-02-2024 ambulatory [facility] Start: 09-02-2024 End: 09-02-2024 Patient encounter procedure Gisselle CHANEY -Cat Scan, [facility] Work Phone: Start: 09-02-2024 End: 09-02-2024 ambulatory Juan Antonio Bacon Facility:[facility] Start: 08-19-2024 End: 08-19-2024 ambulatory [facility] Start: 08-06-2024 End: 08-06-2024 ambulatory [facility] Start: 07-29-2024 End: 07-29-2024 ambulatory [facility] Start: 07-29-2024 End: 07-29-2024 Encounter for other preprocedural examination [facility] Start: 07-01-2024 End: 07-01-2024 ambulatory [facility] Start: 06-22-2024 ambulatory [facility] Start: 05-27-2024 End: 05-27-2024 Office outpatient visit 15 minutes Juan Antonio Bacon MD Work Phone: [employer] Start: 05-27-2024 Juan Antonio Bacon MD Work Phone: [employer] Start: 04-15-2024 End: 04-15-2024 Office outpatient visit 15 minutes Juan Antonio Bacon MD Work Phone: [employer] Start: 12-23-2023 Juan Antonio Bacon MD Work Phone: [employer] Start: 12-13-2023 End: 12-13-2023 ambulatory [facility] Work Phone: Start: 12-13-2023 End: 12-13-2023 Patient encounter procedure [facility]-Radiology, [facility] Work Phone: Start: 11-28-2023 End: 11-28-2023 Patient encounter status Juan Antonio Bacon MD Work Phone: [employer] Start: 11-28-2023 End: 11-28-2023 Periodic preventive med est patient 65yrs& older Juan Antonio Bacon MD Work Phone: [employer]. Start: 11-28-2023 Patient encounter status Juan Antonio Bacon MD Work Phone: [employer] Start: 11-28-2023 Juan Antonio Bacon MD Work Phone: [employer]. Start: 11-13-2023 End: 11-13-2023 Juan Antonio Bacon MD Work Phone: [employer]. Start: 11-12-2023 End: 11-12-2023 Juan Antonio Bacon MD Work Phone: [employer]. Start: 11-11-2023 End: 11-11-2023 Juan Antonio Bacon MD Work Phone: [employer] Start: 11-08-2023 End: 11-08-2023 Office outpatient visit 25 minutes Juan Antonio Bacon MD Work Phone: [employer] Start: 11-08-2023 Juan Antonio Bacon MD Work Phone: [employer]. Start: 11-07-2023 End: 11-07-[address] Juan Antonio Bacon Work Phone: [facility] Work Phone: Start: 11-07-2023 End: 11-07-[address] Juan Antonio Bacon Work Phone: [facility] Work Phone: Start: 10-24-2023 End: 10-24-2023 Juan Antonio Bacon MD Work Phone: [employer] Start: 10-17-2023 End: 10-17-2023 Office outpatient visit 15 minutes Juan Antonio Bacon MD Work Phone: [employer] Start: 10-10-2023 End: 10-10-2023 Office outpatient visit 15 minutes Juna Antonio Bacon MD Work Phone: [employer] Start: 10-07-2023 End: 10-07-2023 Juan Antonio Bacon MD Work Phone: [employer] Start: 09-26-2023 End: 09-26-2023 Juan Antonio Bacon MD Work Phone: [facility] Start: 09-17-2023 End: 09-17-2023 Office outpatient visit 15 minutes Juan Antonio Bacon MD Work Phone: [facility] Start: 09-03-2023 End: 09-03-[address] Juan Antonio Bacon Work Phone: [facility] Work Phone: Start: 09-03-2023 End: 09-03-[address] Juan Antonio Bacon Work Phone: [facility]-Sleep Lab Work Phone: Start: 08-27-2023 End: 08-27-[address] Juan Antonio Bacon Work Phone: [facility] Work Phone: Start: 08-27-2023 End: 08-27-[address] Juan Antonio Bacon Work Phone: [facility]-Cardiovascula r Services Work Phone: Start: 08-15-2023 End: 08-15-[address] Juan Antonio Bacon Work Phone: [facility]-Pulmonary Medicine [facility] Work Phone: Start: 07-17-2023 End: 07-17-2023 Office outpatient visit 15 minutes Juan Antonio Bacon MD Work Phone: [email or web address] Start: 05-23-2023 End: 05-24-2023 Juan Antonio Bacon MD Work Phone: [email or web address] Start: 05-16-2023 End: 05-16-2023 Office outpatient visit 15 minutes Juan Antonio Bacon MD Work Phone: [email or web address] Start: 05-10-2023 End: 05-10-[address] Juan Antonio Bacon Work Phone: [facility] Work Phone: Start: 05-10-2023 End: 05-10-[address] Juan Antonio Bacon Work Phone: [facility]-Sleep Lab Work Phone: Start: 05-09-2023 End: 05-09-[address] Juan Antonio Bacon Work Phone: [facility]-Pulmonary Medicine [facility] Work Phone: Start: 04-23-2023 End: 04-23-2023 Juan Antonio Bacon MD Work Phone: [facility] Start: 04-19-2023 Non-patient / Non-visit Dr. Stef Bacon Work Phone: [facility] Start: 04-19-2023 End: 04-19-[address] Juan Antonio Bacon Work Phone: [facility]-Cardiovascula r Services Work Phone: Start: 04-13-2023 End: 05-12-2023 Evaluation and management of inpatient Dr. Juan Antonio Bacon Work Phone: [facility]-Transitional Care Unit Start: 04-12-2023 End: 04-12-[address] Juan Antonio Bacon Work Phone: [facility] Work Phone: Start: 04-12-2023 End: 04-12-[address] Juan Antonio Bacon Work Phone: [facility]-Sleep Lab Work Phone: Start: 04-12-2023 Non-patient / Non-visit Dr. Stef Bacon Work Phone: [facility] Work Phone: Start: 04-11-2023 Non-patient / Non-visit Dr. Stef Bacon Work Phone: [facility] Work Phone: Start: 04-08-2023 Non-patient / Non-visit Dr. Stef Bacon Work Phone: [facility] Work Phone: Start: 04-05-2023 Non-patient / Non-visit Dr. Stef Bacon Work Phone: [facility] Work Phone: Start: 04-02-2023 Non-patient / Non-visit Dr. Stef Bacon Work Phone: [facility] Work Phone: Start: 04-01-2023 Non-patient / Non-visit Dr. Stef Bacon Work Phone: [facility] Work Phone: Start: 04-01-2023 End: 04-12-2023 Evaluation and management of inpatient Dr. Juan Antonio Bacon Work Phone: [facility]-Rehab Unit Work Phone: Start: 03-18-2023 End: 03-20-2023 Juan Antonio Bacon MD Work Phone: [employer] Start: 03-18-2023 End: 03-18-2023 Juan Antonio Bacon MD Work Phone: [employer] Start: 02-19-2023 End: 02-19-2023 Office outpatient visit 15 minutes Juan Antonio Bacon MD Work Phone: [employer]. Start: 01-03-2023 End: 01-03-2023 Office outpatient visit 15 minutes Juan Antonio Bacon MD Work Phone: [employer]. Start: 12-27-2022 End: 12-27-2022 Juan Antonio Bacon MD Work Phone: [employer]. Start: 11-30-2022 End: 12-03-2022 Juan Antonio Bacon MD Work Phone: [employer]. Start: 11-29-2022 End: 11-29-2022 Office outpatient visit 15 minutes Juan Antonio Bacon MD Work Phone: [employer]. Start: 11-27-2022 End: 11-27-2022 Juan Antonio Bacon MD Work Phone: [employer]. Start: 11-13-2022 End: 11-13-2022 Office outpatient visit 25 minutes Juan Antonio Bacon MD Work Phone: [employer]. Start: 09-11-2022 End: 09-11-2022 Office outpatient visit 15 minutes Juan Antonio Bacon MD Work Phone: [employer]. Start: 06-26-2022 End: 06-26-2022 Office outpatient visit 15 minutes Juan Antonio Bacon MD Work Phone: [employer]. Start: 06-07-2022 End: 06-07-2022 ambulatory [facility] Work Phone: Start: 06-07-2022 End: 06-07-2022 Patient encounter procedure [facility]-Cardiovascula r Services Start: 05-17-2022 End: 05-17-2022 Patient encounter status Juan Antonio Bacon MD Work Phone: [employer] Start: 05-17-2022 End: 05-17-2022 Periodic preventive med est patient 65yrs& older Juan Antonio Bacon MD Work Phone: [employer]. Start: 03-29-2022 End: 04-03-2022 Juan Antonio Bacon MD Work Phone: [employer]. Start: 02-20-2022 End: 02-20-2022 Office outpatient visit 15 minutes Juan Antonio Bacon MD Work Phone: [employer]. Start: 08-25-2021 End: 08-25-2021 Juan Antonio Bacon MD Work Phone: [employer]. Start: 08-21-2021 End: 08-21-2021 Juan Antonio Bacon MD Work Phone: [employer] Start: 08-15-2021 End: 08-15-2021 Office outpatient visit 15 minutes Juan Antonio Bacon MD Work Phone: [employer]. Start: 08-14-2021 End: 08-14-2021 Juan Antonio Bacon MD Work Phone: [employer]. Start: 08-08-2021 End: 08-08-2021 Juan Antonio Bacon MD Work Phone: [employer]. Start: 08-01-2021 End: 08-01-2021 Office outpatient visit 15 minutes Juan Antonio Bacon MD Work Phone: [employer]. Start: 04-17-2021 End: 04-17-2021 Juan Antonio Bacon MD Work Phone: [employer]. Start: 04-13-2021 End: 04-13-2021 Office outpatient visit 15 minutes Juan Antonio Bacon MD Work Phone: [employer]. Start: 01-19-2021 End: 01-19-2021 Juan Antonio Bacon MD Work Phone: [employer]. Start: 01-18-2021 End: 01-18-2021 Office outpatient visit 25 minutes Juan Antonio Bacon MD Work Phone: [employer]. Start: 01-02-2021 End: 01-02-2021 Office outpatient visit 15 minutes Juan Antonio Bacon MD Work Phone: [employer]. Start: 12-02-2020 End: 12-02-2020 Patient encounter status Juan Antonio Bacon MD Work Phone: [employer] Start: 12-02-2020 End: 12-02-2020 Periodic preventive med est patient 65yrs& older Juan Antonio Bacon MD Work Phone: [employer]. Start: 11-24-2020 End: 11-25-2020 Juan Antonio Bacon MD Work Phone: [employer]. Start: 11-21-2020 End: 11-21-2020 Juan Antonio Bacon MD Work Phone: [employer]. Start: 07-18-2020 End: 07-18-2020 Juan Antonio Bacon MD Work Phone: [employer]. Start: 07-04-2020 End: 07-04-2020 Juan Antonio Bacon MD Work Phone: [employer]. Start: 03-07-2020 End: 03-07-2020 Office outpatient visit 15 minutes Juan Antonio Bacon MD Work Phone: [employer]. Start: 10-27-2019 End: 10-27-2019 Juan Antonio Bacon MD Work Phone: [employer]. Start: 10-12-2019 End: 10-12-2019 Office outpatient visit 15 minutes Juan Antonio Bacon MD Work Phone: [employer]. Start: 07-10-2019 End: 07-10-2019 Office outpatient visit 15 minutes Juan Antonio Bacon MD Work Phone: [employer]. Start: 06-09-2019 End: 06-09-2019 Office outpatient visit 15 minutes Juan Antonio Bacon MD Work Phone: [employer]. Start: 05-29-2019 End: 05-29-2019 Office outpatient visit 15 minutes Juan Antonio Bacon MD Work Phone: [employer]. Start: 04-15-2019 End: 04-15-2019 Juan Antonio Bacon MD Work Phone: [employer]. Start: 03-06-2019 End: 03-06-2019 Juan Antonio Bacon MD Work Phone: [employer]. Start: 03-05-2019 End: 03-05-2019 Juan Antonio Bacon MD Work Phone: [employer]. Start: 02-16-2019 End: 02-16-2019 Office outpatient visit 15 minutes Juan Antonio Bacon MD Work Phone: [employer]. Start: 01-26-2019 End: 01-26-2019 Office outpatient visit 15 minutes Juan Antonio Bacon MD Work Phone: [employer]. Start: 01-09-2019 End: 01-09-2019 Patient encounter status Juan Antonio Bacon MD Work Phone: [employer] Start: 01-09-2019 End: 01-09-2019 Periodic preventive med est patient 65yrs& older Juan Antonio Bacon MD Work Phone: [employer]. Start: 01-09-2019 End: 01-07-2019 Juan Antonio Bacon MD Work Phone: [employer]. Start: 01-02-2019 End: 01-02-2019 Juan Antonio Bacon MD Work Phone: [employer]. Start: 12-15-2018 End: 12-15-2018 Office outpatient visit 15 minutes Juan Antonio Bacon MD Work Phone: [employer]. Start: 11-29-2018 End: 11-29-2018 Office outpatient visit 15 minutes Juan Antonio Bacon MD Work Phone: [employer]. Start: 11-12-2018 End: 11-12-2018 Office outpatient visit 15 minutes Juan Antonio Bacon MD Work Phone: [employer]. Start: 07-08-2018 End: 07-08-2018 Office outpatient visit 15 minutes Juan Antonio Bacon MD Work Phone: [employer]. Start: 07-04-2018 End: 07-04-2018 Juan Antonio Bacon MD Work Phone: [employer]. Start: 07-04-2018 End: 07-04-2018 Office outpatient visit 25 minutes Juan Antonio Bacon MD Work Phone: [employer]. Start: 06-19-2018 End: 06-19-2018 Juan Antonio Bacon MD Work Phone: [employer]. Start: 01-03-2018 End: 01-03-2018 Office outpatient visit 15 minutes Juan Antonio Bacon MD Work Phone: [employer]. Start: 12-31-2017 End: 12-31-2017 Juan Antonio Bacon MD Work Phone: [employer]. Start: 09-18-2017 End: 09-20-2017 Juan Antonio Bacon MD Work Phone: [employer]. Start: 09-17-2017 End: 09-17-2017 Office outpatient visit 15 minutes Juan Antonio Bacon MD Work Phone: [employer]. Start: 09-17-2017 End: 09-17-2017 Preprocedural examination done Juan Antonio Bacon MD Work Phone: [employer] Start: 09-06-2017 End: 09-06-2017 Juan Antonio Bacon MD Work Phone: [employer]. Start: 07-10-2017 End: 07-10-2017 Office outpatient visit 15 minutes Juan Antonio Bacon MD Work Phone: [employer]. Start: 07-05-2017 End: 07-05-2017 Juan Antonio Bacon MD Work Phone: [employer]. Start: 05-10-2017 End: 05-10-2017 Juan Antonio Bacon MD Work Phone: [employer]. Start: 01-28-2017 End: 01-28-2017 Patient encounter status Juan Antonio Bacon MD Work Phone: [employer] Start: 01-28-2017 End: 01-28-2017 Juan Antonio Bacon MD Work Phone: [employer]. Start: 01-16-2017 End: 01-16-2017 Juan Antonio Bacon MD Work Phone: [employer]. Start: 01-16-2017 End: 01-16-2017 Juan Antonio Bacon MD Work Phone: [employer]. Start: 11-16-2016 End: 11-16-2016 Office outpatient visit 15 minutes Jua nAntonio Bacon MD Work Phone: [employer]. Start: 08-10-2016 End: 08-10-2016 Juan Antonio Bacon MD Work Phone: [employer]. Start: 07-10-2016 End: 07-10-2016 Juan Antonio Bacon MD Work Phone: [employer]. Start: 06-25-2016 End: 06-25-2016 Juan Antonio Bacon MD Work Phone: [employer]. Start: 06-22-2016 End: 06-22-2016 Evaluation finding Juan Antonio Bacon MD Work Phone: [employer] Start: 06-22-2016 End: 06-22-2016 Juan Antoino Bacon MD Work Phone: [employer]. Start: 06-19-2016 End: 06-19-2016 Juan Antonio Bacon MD Work Phone: [employer]. Start: 05-25-2016 End: 05-25-2016 Office outpatient visit 15 minutes Juan Antonio Bacon MD Work Phone: [employer]. Start: 03-20-2016 End: 03-20-2016 Juan Antonio Bacon MD Work Phone: [employer]. Start: 02-15-2016 End: 02-15-2016 Juan Antonio Bacon MD Work Phone: [employer]. Start: 01-23-2016 End: 01-23-2016 Juan Antonio Bacon MD Work Phone: [employer]. Start: 01-13-2016 End: 01-13-2016 Office outpatient visit 15 minutes Juan Antonio Bacon MD Work Phone: [employer]. Start: 12-22-2015 End: 12-22-2015 Juan Antonio Bacon MD Work Phone: [employer]. Start: 11-30-2015 End: 11-30-2015 Juan Antonio Bacon MD Work Phone: [employer]. Start: 11-21-2015 End: 11-21-2015 Office outpatient visit 15 minutes Juan Antonio Bacon MD Work Phone: [employer]. Start: 11-15-2015 End: 11-15-2015 Office outpatient visit 15 minutes Juan Antonio Bacon MD Work Phone: [employer]. Start: 10-19-2015 End: 10-19-2015 Juan Antonio Bacon MD Work Phone: [employer]. Start: 09-14-2015 End: 09-14-2015 Office outpatient visit 15 minutes Juan Antonio Bacon MD Work Phone: [employer]. Start: 09-07-2015 End: 09-07-2015 Juan Antonio Bacon MD Work Phone: [employer]. Start: 08-10-2015 End: 08-10-2015 Office outpatient visit 15 minutes Juan Antonio Bacon MD Work Phone: [employer]. Start: 07-25-2015 End: 07-25-2015 Juan Antonio Bacon MD Work Phone: [employer]. Start: 06-20-2015 End: 06-20-2015 Juan Antonio Bacon MD Work Phone: [employer]. Start: 04-20-2015 End: 04-20-2015 Juan Antonio Bacon MD Work Phone: [employer]. Start: 03-16-2015 End: 03-16-2015 Office outpatient visit 25 minutes Juan Antonio Bacon MD Work Phone: [employer]. Start: 03-16-2015 End: 03-16-2015 Juan Antonio Bacon MD Work Phone: [employer]. Start: 12-17-2014 End: 12-17-2014 Juan Antonio Bacon MD Work Phone: [employer]. Start: 12-08-2014 End: 12-09-2014 Juan Antonio Bacon MD Work Phone: [employer]. Start: 12-01-2014 End: 12-01-2014 Juan Antonio Bacon MD Work Phone: [employer]. Start: 10-18-2014 End: 10-18-2014 Juan Antonio Bacon MD Work Phone: [employer]. Start: 09-17-2014 End: 09-17-2014 Juan Antonio Bacon MD Work Phone: [employer]. Start: 09-15-2014 End: 09-15-2014 Office outpatient visit 25 minutes Juan Antonio Bacon MD Work Phone: [employer]. Start: 08-18-2014 End: 08-18-2014 Juan Antonio Bacon MD Work Phone: [employer]. Start: 08-02-2014 End: 08-02-2014 Juan Antonio Bacon MD Work Phone: [employer]. Start: 04-23-2014 End: 04-23-2014 Juan Antonio Bacon MD Work Phone: [employer]. Start: 04-22-2014 End: 04-23-2014 Juan Antonio Bacon MD Work Phone: [employer]. Start: 04-16-2014 End: 04-16-2014 Juan Antonio Bacon MD Work Phone: [employer]. Start: 04-16-2014 End: 04-16-2014 Office outpatient visit 15 minutes Juan Antonio Bacon MD Work Phone: [employer]. Start: 04-05-2014 End: 04-05-2014 Juan Antonio Bacon MD Work Phone: [employer]. Start: 03-09-2014 End: 03-09-2014 Juan Antonio Bacon MD Work Phone: [employer]. Start: 01-19-2014 End: 01-19-2014 Juan Antonio Bacon MD Work Phone: [employer]. Start: 01-11-2014 End: 01-11-2014 Juan Antonio Bacon MD Work Phone: [employer]. Start: 01-05-2014 End: 01-05-2014 Juan Antonio Bacon MD Work Phone: [employer]. Start: 12-16-2013 End: 12-16-2013 Juan Antonio Bacon MD Work Phone: [employer]. Start: 12-15-2013 End: 12-15-2013 Juan Antonio Bacon MD Work Phone: [employer]. Start: 12-01-2013 End: 12-01-2013 Juan Antonio Bacon MD Work Phone: [employer]. Start: 11-25-2013 End: 11-25-2013 Juan Antonio Bacon MD Work Phone: [employer]. Start: 10-30-2013 End: 10-30-2013 Juan Antonio Bacon MD Work Phone: [employer]. Start: 10-03-2013 End: 10-03-2013 Juan Antonio Bacon MD Work Phone: [employer]. Start: 09-05-2013 End: 09-05-2013 Juan Antonio Bacon MD Work Phone: [employer]. Start: 08-14-2013 End: 08-14-2013 Juan Antonio Bacon MD Work Phone: [employer]. Start: 08-13-2013 End: 08-13-2013 Juan Antonio Bacon MD Work Phone: [employer]. Start: 07-13-2013 End: 07-13-2013 Juan Antonio Bacon MD Work Phone: [employer]. Start: 06-26-2013 End: 06-26-2013 Juan Antonio Bacon MD Work Phone: [employer]. Start: 06-18-2013 End: 06-18-2013 Juan Antonio Bacon MD Work Phone: [employer]. Start: 06-12-2013 End: 06-12-2013 Juan Antonio Bacon MD Work Phone: [employer]. Start: 06-03-2013 End: 06-03-2013 Juan Antonio Bacon MD Work Phone: [employer] Start: 12-03-2012 End: 12-03-2012 Juan Antonio Bacon MD Work Phone: [employer]. Start: 11-24-2012 End: 11-24-2012 Juan Antonio Bacon MD Work Phone: [employer]. Start: 09-15-2012 End: 09-15-2012 Juan Antonio Bacon MD Work Phone: [employer]. Start: 06-09-2012 End: 06-09-2012 Juan Antonio Bacon MD Work Phone: [employer]. Start: 05-02-2012 End: 05-02-2012 Juan Antonio Bacon MD Work Phone: [employer]. Start: 04-07-2012 End: 04-07-2012 Juan Antonio Bacon MD Work Phone: [employer]. Start: 10-11-2011 End: 10-11-2011 Juan Antonio Bacon MD Work Phone: [employer]. Start: 06-18-2011 End: 06-18-2011 Juan Antonio Bacon MD Work Phone: [employer]. Start: 06-15-2011 End: 06-15-2011 Juan Antonio Bacon MD Work Phone: [employer]. Start: 04-04-2011 End: 04-04-2011 Juan Antonio Bacon MD Work Phone: [employer]. Start: 08-23-2010 End: 08-23-2010 Juan Antonio aBcon MD Work Phone: [employer]. Start: 06-30-2010 End: 06-30-2010 Juan Antonio Bacon MD Work Phone: [employer] Patient encounter status Shyla Valenzuela luis Sierraey SANGITA [facility] [employer] [facility]. Patient encounter status Rony Sanon LPN [employer] [facility] [employer] [facility] Patient encounter status Rony Sanon LPN [facility] [employer] [facility]. Patient encounter status Moncho Malone RN [facility] [employer] [facility] Patient encounter status Rachel ROMANO [facility]. Procedures Date Procedure Procedure Detail Performing Clinician Start: 12-02-2024 End: 12-01-2024 Adv care pln/ no alt dcsn mkr docd or refusal Juan Antonio Bacon MD Work Phone: Start: 12-02-2024 End: 12-01-2024 Depression screening Juan Antonio Bacon MD Work Phone: Start: 12-02-2024 End: 12-01-2024 Falls risk assessment documented Juan Antonio Bacon MD Work Phone: Start: 12-02-2024 End: 12-01-2024 Pos clin depres scrn f/u doc Juan Antonio sharpe MD Work Phone: Start: 12-02-2024 End: 12-01-2024 PPPS, subseq visit Juan Antonio Bacon MD Work Phone: Start: 12-02-2024 End: 12-01-2024 Pt falls assess docd 2/> falls/fall w/injury/yr Juan Antonio Bacon MD Work Phone: Start: 12-02-2024 End: 12-01-2024 Scr dep neg, no plan reqd Juan Antonio Bacon MD Work Phone: Start: 11-25-2024 End: 11-25-2024 Lipid panel results documented & reviewed Rachel Martinez LPN Start: 11-25-2024 End: 11-25-2024 Prostate specific antigen measurement Rachel Martinez LPN Start: 11-25-2024 End: 11-25-2024 Rachel Martinez LPN Start: 09-02-[address] Juan Antonio Bacon MD Work Phone: Start: 12-13-2023 Myelogram Start: 12-13-2023 Computerized axial tomography of lumbar spine with contrast Start: 11-28-2023 End: 11-28-2023 Adv care pln/ no alt dcsn mkr docd or refusal Juan Antonio Bacon MD Work Phone: Start: 11-28-2023 End: 11-28-2023 Depression screening Juan Antonio Bacon MD Work Phone: Start: 11-28-2023 End: 11-28-2023 Falls risk assessment documented Juan Antonio Bacon MD Work Phone: Start: 11-28-2023 End: 11-28-2023 PPPS, subseq visit Juan Antonio Bacon MD Work Phone: Start: 11-28-2023 End: 11-28-2023 Pt falls assess docd 2/> falls/fall w/injury/yr Juan Antonio Bacon MD Work Phone: Start: 11-28-2023 End: 11-28-2023 Scr dep neg, no plan reqd Juan Antonio Bacon MD Work Phone: Start: 11-13-2023 End: 11-13-2023 Lipid panel results documented & reviewed Rony Fab CAMOUFLAGE SPECIALIST Start: 11-13-2023 End: 11-13-2023 Rony Fab [employer]OU[employer] SPECIALIST Start: 11-13-2023 End: 11-13-2023 Rony Fab [employer]OU[employer] SPECIALIST Start: 11-07-2023 Computed tomography angiography of abdominal and/or pelvic blood vessel Dr. Juan Antonio Bacon Work Phone: Start: 10-17-2023 End: 10-17-2023 Dexamethasone sodium phos Juan Antonio Bacon MD Work Phone: Start: 10-10-2023 End: 10-14-2023 Chest x-ray Juan Antonio Bacon MD Work Phone: Start: 08-27-[address] Juan Antonio Bacon Work Phone: Start: 07-17-2023 End: 07-17-2023 Flu immunize order/admin Juan Antonio Chao Work Phone: Start: 02-28-2023 End: 02-28-2023 Rony Fab [employer]OU[employer] SPECIALIST Start: 02-19-2023 End: 03-01-2023 Us abdominal real time w/image documentation Juan Antonio Bacon MD Work Phone: Start: 05-31-2022 End: 05-31-2022 Screening colonoscopy Jayashree Esther [employer] SPECIALIST Start: 05-17-2022 End: 05-17-2022 Adv care pln/ no alt dcsn mkr docd or refusal Juan Antonio Bcaon MD Work Phone: Start: 05-17-2022 End: 05-17-2022 Depression screening Juan Antonio Bacon MD Work Phone: Start: 05-17-2022 End: 05-17-2022 Falls risk assessment documented Juan Antonio Bacon MD Work Phone: Start: 05-17-2022 End: 05-17-2022 PPPS, subseq visit Juan Antonio Bacon MD Work Phone: Start: 05-17-2022 End: 05-17-2022 Pt falls assess docd w/o fall/injury past year Juan Antonio Bacon MD Work Phone: Start: 05-17-2022 End: 05-17-2022 Scr dep neg, no plan reqd Juan Antonio Bacon MD Work Phone: Start: 04-30-2022 End: 04-30-2022 Lipid panel results documented & reviewed Shyla Santana CAMOUFLAGE SPECIALIST Start: 04-30-2022 End: 04-30-2022 Shyla Santana LP N Start: 09-30-2021 End: 09-30-2021 Replacement of total knee joint Rachel Martinez CAMOU[employer] SPECIALIST Start: 08-08-2021 End: 08-14-2021 Radex hip unilateral with pelvis 2-3 views Juan Antonio Bacon MD Work Phone: Start: 12-02-2020 End: 12-02-2020 Depression screening Juan Antonio Bacon MD Work Phone: Start: 12-02-2020 End: 12-02-2020 Falls risk assessment documented Juan Antonio Bacon MD Work Phone: Start: 12-02-2020 End: 12-02-2020 PPPS, subseq visit Juan Antonio Bacon MD Work Phone: Start: 12-02-2020 End: 12-02-2020 Pt falls assess docd 2/> falls/fall w/injury/yr Juan Antonio Bacon MD Work Phone: Start: 12-02-2020 End: 12-02-2020 Scr dep neg, no plan reqd Juan Antonio Bacon MD Work Phone: Start: 11-24-2020 End: 11-24-2020 Prostate specific antigen measurement Shyla Santana CAMOU[employer]AGE SPECIALIST Start: 07-18-2020 End: 07-18-2020 Flu immunize order/admin Juan Antonio Chao Work Phone: Start: 02-19-2019 End: 02-19-2019 Shyla Santana LP N Start: 01-09-2019 End: 01-09-2019 Depression screening Juan Antonio Bacon MD Work Phone: Start: 01-09-2019 End: 01-09-2019 Falls risk assessment documented Juan Antonio Bacon MD Work Phone: Start: 01-09-2019 End: 01-09-2019 Initial preventive exam Juan Antonio Bacon MD Work Phone: Start: 01-09-2019 End: 03-06-2019 Oncology colorectal screening [id number] 10 dna markrs Juan Antonio Bacon MD Work Phone: Start: 01-09-2019 End: 01-09-2019 Pt falls assess docd w/o fall/injury past year Juan Antonio Bacon MD Work Phone: Start: 01-09-2019 End: 01-09-2019 Scr dep neg, no plan reqd Juna Antonio Bacon MD Work Phone: Start: 01-09-2019 End: 01-09-2019 Screening test visual acuity quantitative bilat Juan Antonio Bacon MD Work Phone: Start: 07-08-2018 End: 07-08-2018 Removal impacted cerumen instrumentation unilat Juan Antonio Bacon MD Work Phone: Start: 01-03-2018 End: 01-03-2018 Body mass index documented Juan Antonio Bacon MD Work Phone: Start: 09-17-2017 End: 09-17-2017 Body mass index documented Juan Antonio Bacon MD Work Phone: Start: 01-28-2017 End: 02-04-2020 Ct thorax w/o & w/contrast material Juan Antonio Bacon MD Work Phone: Start: 01-16-2017 End: 01-16-2017 Dexamethasone sodium phos Juan Antonio Bacon MD Work Phone: Start: 06-19-2016 End: 06-25-2016 Mri spinal canal lumbar w/o & w/contr matrl Juan Antonio Bacon MD Work Phone: Start: 05-25-2016 End: 05-25-2016 Dexamethasone sodium phos Juan Antonio Bacon MD Work Phone: Start: 11-15-2015 End: 11-15-2015 Dexamethasone sodium phos Rishi Street MD Work Phone: Start: 08-10-2015 End: 08-10-2015 Dexamethasone sodium corbys Juan Antonio Bacon MD Work Phone: Start: 07-28-2015 End: 07-28-2015 Juan Antonio Bacon MD Work Phone: Start: 04-22-2014 End: 04-23-2014 Ct abdomen w/o & w/contrast material Juan Antonio Bacon MD Work Phone: Start: 04-16-2014 End: 04-23-2014 Ct pelvis w/contrast material Kirsten Mireles LPN Start: 09-05-2013 End: 09-05-2013 Triamcinolone acet inj NOS Joceline Toledo MD Work Phone: Start: 06-03-2013 End: 06-03-2013 Triamcinolone acet inj NOS Juan Antonio Bacon MD Work Phone: Start: 09-15-2012 End: 09-15-2012 Dexamethasone sodium jesse Bacon MD Work Phone: Start: 10-11-2011 End: 10-11-2011 Triamcinolone acet inj NOS Joceline Toledo MD Work Phone: Polly Lees Plan of Treatment Date Care Activity Detail Author Start: 01-22-2029 Urine microalbumin profile DTaP,Tdap,Td Vaccine (2 - Td or Tdap) [facility] Start: 02-18-2028 RSV Vaccine (1 - 1-dose 75+ series) RSV Vaccine (1 - 1-dose 75+ series) [facility] Start: 07-29-2027 Diabetes Screening Diabetes Screening [facility] Start: 07-06-2025 X-ray of lumbosacral spine L/S Spine Min 4 Views [facility] Start: 07-06-2025 XR Spine Lumbar and Sacrum GE 4 Views [facility] Start: 06-03-2025 [employer] Start: 05-31-2025 Influenza vaccination Influenza Vaccine (#1) [facility] Start: 04-20-2025 [employer] Start: 12-22-2024 Walking distance 6 minutes [facility] Start: 12-02-2024 [employer] Start: 11-25-2024 Assay of prostate specific antigen total [employer] Start: 11-25-2024 Comprehensive metabolic panel [employer] Start: 11-25-2024 Lipid panel [employer] Start: 11-25-2024 [employer] Start: 09-30-2024 Advance Directive Discussion Advance Directive Discussion [facility] Start: 05-27-2024 [employer] Start: 11-28-2023 [employer] Start: 11-21-2023 [employer] Start: 11-14-2023 [employer] Start: 11-13-2023 Assay of testosterone free [employer] Start: 11-13-2023 [employer] Start: 11-13-2023 Comprehensive metabolic panel [employer] Start: 11-13-2023 Hemoglobin glycosylated a1c [employer], [facility] Start: 11-13-2023 Lipid panel [employer] Start: 11-11-2023 Assay of prostate specific antigen total [employer] Start: 11-11-2023 Blood count complete auto&auto difrntl wbc [facility].; [employer] Start: 11-11-2023 Comprehensive metabolic panel [facility].; [facility] [employer] Start: 11-11-2023 Lipid panel [facility] [employer] Start: 11-08-2023 [facility] [employer] Start: 10-10-2023 Chest x-ray [facility].; [employer] Start: 09-17-2023 [employer] [facility]. Start: 05-19-2023 Blood chemistry [facility] Start: 05-14-2023 Development of care plan [facility] Start: 05-12-2023 Blood chemistry [facility] Start: 05-12-2023 Patient discharge [facility] Start: 05-09-2023 Assay of testosterone free [facility] [employer]. Start: 05-09-2023 Comprehensive metabolic panel [facility].; [employer] [facility]. Start: 05-09-2023 Hemoglobin glycosylated a1c [facility] [employer]. Start: 05-09-2023 Lipid panel [facility].; [employer]. Start: 05-08-2023 Development of care plan [facility] Start: 05-06-2023 Referral to service [facility] Start: 05-05-2023 Blood chemistry [facility] Start: 04-30-2023 [facility] Start: 04-30-2023 Dual pressure spontaneous ventilation support [facility] Start: 04-28-2023 Blood chemistry [facility] Start: 04-21-2023 Blood chemistry [facility] Start: 04-20-2023 Application of device [facility] Start: 04-13-2023 Development of care plan [facility] Start: 04-13-2023 Developing a treatment plan [facility] Start: 04-13-2023 Admission procedure [facility] Start: 04-13-2023 Measuring intake and output [facility] Start: 04-13-2023 Patient referral to dietitian [facility] Start: 04-13-2023 Referral to occupational therapist [facility] Start: 04-13-2023 Referral to service [facility] Start: 04-13-2023 Verification routine [facility] Start: 04-13-2023 Vital signs measurements [facility] Start: 04-13-2023 End: 04-13-2023 [facility] Start: 04-13-2023 Patient referral to dietitian [facility] Start: 04-12-2023 Patient discharge [facility] Start: 04-09-2023 [facility] Start: 04-04-2023 End: 04-05-2023 [facility] Start: 04-03-2023 [facility] Start: 04-02-2023 [facility] Start: 04-01-2023 Application of intermittent pneumatic compression device [facility] Start: 04-01-2023 Provision of activity privileges [facility] Start: 04-01-2023 Recommendation to continue with treatment [facility] Start: 04-01-2023 Wound care [facility] Start: 04-01-2023 Urinary bladder training [facility] Start: 04-01-2023 Referral to service [facility] Start: 04-01-2023 Admission procedure [facility] Start: 04-01-2023 Patient referral to dietitian [facility] Start: 04-01-2023 Referral to occupational therapist [facility] Start: 04-01-2023 Vital signs measurements [facility] Start: 04-01-2023 [facility] Start: 04-01-2023 Application of ice collar, cap or bag [facility] Start: 02-19-2022 Screening for malignant neoplasm of colon [facility] Start: 01-28-2018 Medicare Annual Wellness Visit Medicare Annual Wellness Visit [facility] Start: 1998 Screening for malignant neoplasm of colon [facility] Start: 02-18-1988 Lipid panel Lipid Screening [facility] Start: 1971 Anxiety Screening Anxiety Screening [facility] Start: 1971 Depression Screening Depression Screening [facility] Start: 1971 Hepatitis C screening Hepatitis C Screening [facility] Start: 1953 Abdominal aortic aneurysm screening Abdominal Aortic Aneurysm Screening [facility] Anion gap measurement [facility] Anion gap measurement [facility] Anion gap measurement [facility] Anion gap measurement [facility] Anion gap measurement [facility] BUN/Creatinine ratio [facility] BUN/Creatinine ratio [facility] BUN/Creatinine ratio [facility] BUN/Creatinine ratio [facility] BUN/Creatinine ratio [facility] Calcium [Mass/volume ] in Serum or Plasma [facility] Calcium [Mass/volume ] in Serum or Plasma [facility] Calcium [Mass/volume ] in Serum or Plasma [facility] Calcium [Mass/volume ] in Serum or Plasma [facility] Calcium [Mass/volume ] in Serum or Plasma [facility] Carbon dioxide, tota l [Moles/volume] in Serum or Plasma [facility] Carbon dioxide, tota l [Moles/volume] in Serum or Plasma [facility] Carbon dioxide, tota l [Moles/volume] in Serum or Plasma [facility] Carbon dioxide, tota l [Moles/volume] in Serum or Plasma [facility] Carbon dioxide, tota l [Moles/volume] in Serum or Plasma [facility] Chloride [Moles/volu me] in Serum or Plasma [facility] Chloride [Moles/volu me] in Serum or Plasma [facility] Chloride [Moles/volu me] in Serum or Plasma [facility] Chloride [Moles/volu me] in Serum or Plasma [facility] Chloride [Moles/volu me] in Serum or Plasma [facility] Creatinine [Moles/vo lume] in Serum or Plasma [facility] Creatinine [Moles/vo lume] in Serum or Plasma [facility] Creatinine [Moles/vo lume] in Serum or Plasma [facility] Creatinine [Moles/vo lume] in Serum or Plasma [facility] Creatinine [Moles/vo lume] in Serum or Plasma [facility] CT Chest [facility] CT Chest [facility] Glucose [Mass/volume ] in Serum or Plasma [facility] Glucose [Mass/volume ] in Serum or Plasma [facility] Glucose [Mass/volume ] in Serum or Plasma [facility] Glucose [Mass/volume ] in Serum or Plasma [facility] Glucose [Mass/volume ] in Serum or Plasma [facility] Hematocrit [Volume Fraction] of Blood [facility] Hematocrit [Volume Fraction] of Blood [facility] Hematocrit [Volume Fraction] of Blood [facility] Hematocrit [Volume Fraction] of Blood [facility] Hematocrit [Volume Fraction] of Blood [facility] Hemoglobin [Mass/vol ume] in Blood [facility] Hemoglobin [Mass/vol ume] in Blood [facility] Hemoglobin [Mass/vol ume] in Blood [facility] Hemoglobin [Mass/vol ume] in Blood [facility] Hemoglobin [Mass/vol ume] in Blood [facility] Leukocytes [#/volume ] in Blood [facility] Leukocytes [#/volume ] in Blood [facility] Leukocytes [#/volume ] in Blood [facility] Leukocytes [#/volume ] in Blood [facility] Leukocytes [#/volume ] in Blood [facility] Mean corpuscular hemoglobin concentration determination [facility] Mean corpuscular hemoglobin concentration determination [facility] Mean corpuscular hemoglobin concentration determination [facility] Mean corpuscular hemoglobin concentration determination [facility] Mean corpuscular hemoglobin concentration determination [facility] Mean corpuscular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 Severe (This means 4 to 5 days a week) (3) Severity of RLS symptoms on an average day Moderate (This means 1 to 3 hours per 24 hour day) (2) Impact of RLS symptoms on daily affairs Moderate (2) Severity of mood disturbance due to RLS symptoms Moderate (2) Total Score SEVERE symptom burden (22) PAST TREATMENTS: CPAP PRIOR SLEEP STUDIES: None on record OTHER RELEVANT LABS AND STUDIES: No past medical history on file. PAST SURGICAL HISTORY Procedure Laterality Date PAST SURGICAL HISTORY OF back PAST SURGICAL HISTORY OF knee There is no problem list on file for this patient. Allergies As of Date: 06/15/2025 (No Known Allergies) Fully Assessed 06/15/2025 CURRENT MEDICATIONS: Fenofibrate (LOFIBRA) 160 mg tablet Take 160 mg by mouth once daily. DULoxetine DR (CYMBALTA) 30 mg capsule Take 30 mg by mouth. aspirin, enteric coated (ASPIRIN, ENTERIC COATED) 81 mg EC tablet Take 81 mg by mouth. lisinopril (ZESTRIL) 5 mg tablet Take 5 mg by mouth once daily. Naproxen 375 mg TbEC TAKE 1 TABLET BY MOUTH TWICE DAILY WITH FOOD OR MILK rOPINIRole (REQUIP) 1 mg tablet TAKE 1/2 TO 1 (ONE-HALF TO ONE) TABLET BY MOUTH TWICE DAILY sildenafil (VIAGRA) 100 mg tablet TAKE 1 TABLET BY MOUTH 1 HOUR PRIOR TO INTERCOURSE ketoconazole 200 mg ORAL Tab ii now; ii at 7 & 14 days--with orange juice or carbonated beverage gabapentin (NEURONTIN) 600 mg tablet Take 600 mg by mouth two times a day. Multivitamin (DAILY MULTIPLE) ORAL Tab Take one(1) tablet daily. Prior Hypersomnia/Narcolepsy Medications (20 years) No data to display Prior RLS Medications (last 20 years) 06/15/2025 09:41 RLS Medications ropinirole HCl TAKE 1/2 TO 1 (ONE-HALF TO ONE) TABLET BY MOUTH TWICE DAILY (1 mg tab) Details Medication marked as long-term Patient-reported Prior Insomnia Medications (last 20 years) No data to display Review of Systems SOCIAL HISTORY: SOCIAL HISTORY[1] FAMILY HISTORY: FAMILY HISTORY Problem Relation Age of Onset Heart Father Diabetes Father Hypertension Mother There is a family history of: Hypersomnia. Relative: Mom and Sister PHYSICAL EXAMINATION: General appearance: NAD Mental status: awake and alert Constitutional: Well groomed Skin: Dry and intact Neuro: Speech fluent OROPHARYNX: narrow O/P opening, dentures hard palate, long soft palate, large tongue, 1+ tonsils, thin, uvula, Bit RUSSELL: IIb IMPRESSION/PLAN: Hypersomnia, primary - Obstructive Sleep Apnea on CPAP Will have to get download from his machine and make sure his pressure is optimized. - Polysomnogram to evaluate for obstructive sleep apnea (and other sleep disorders) and to ensure adequate sleep, followed by a daytime sleep study (Multiple Sleep Latency Test - MSLT) to evaluate for narcolepsy or idiopathic hypersomnia. - Please fill out sleep logs for 2 weeks prior to sleep studies and bring them with you to give to the magnetic testing technician. - A urine tox screen will be done on morning before the daytime sleep study starts. - The MSLT will be canceled if the overnight sleep study shows significant sleep apnea or inadequate sleep. - Stop taking Duloxetine before the sleep studies, for at least two weeks. - Avoid driving if drowsy. Would recommend that if you are dozing off while driving, that you do not drive until your sleepiness is appropriately treated. - Follow up visit in three weeks with first available provider. Recommend scheduling this appointment now to ensure the best time for you. - His preferred site for studies is [facility] Juan Francisco Ojeda MD I spent a total of 45 minutes on the date of the service, which included preparing to see the patient, [id number] patient care, completing clinical documentation, performing a medically appropriate examination, counseling and educating the patient/family/caregiver, ordering medications, tests, or procedures, communicating results to the patient/family/caregiver, and care coordination (not separately reported). Juan Francisco Ojeda MD [1] Social History Tobacco Use Smoking status: Every Day Current packs/day: 0.50 Types: Cigarettes Smokeless tobacco: Never Substance Use Topics Alcohol use: Yes Alcohol/week: 1.0 standard drink of alcohol Types: 1 Shots of liquor per week Comment: occasional Drug use: No documented in this encounter [facility] 04-15-2025 Evaluation note Diagnosis Onset Date Resolution Postnasal drip acute April 15, 2025 7:30am ISMA (obstructive sleep apnea) chronic April 15, 2025 7:30am Shortness of breath on exertion chronic April 15, 2025 7:30am Smoking greater than 20 pack years chronic April 15, 2025 7:30am Cervical vertebral fusion acute July 06 9:22am History of lumbar fusion acute July 06, 2025 9:22am Lumbar radiculopathy acute Juno 2024 9:22am [facility] Work Phone: 1(283) 578-620307-17-2025 Evaluation note* Diagnosis Onset Date Resolution Status Admit Date Postnasal drip acute April 15, 2025 7:30am ISMA (obstructive sleep apnea) chroni c April 15, 2025 7:30am 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 April 15, 2025 7:30am Smoking greater than 20 pack years chronic April 15, 2025 7:30am [facility] Work Phone: 1(806) 265-140704-17-2025 Evaluation note* Diagnosis Onset Date Resolution Status Admit Date ISMA (obstructive sleep apnea) chroni c January 14, 2025 7:31am 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 January 14, 2025 7:31am Smoking greater than 20 pack years chronic January 14, 2025 7:31am [facility] Work Phone: 1(772) 727-877403-26-2025 Procedure notey [facility] Pulmonary Services/Neurology [address] [place] [address] MR#: [id number] Acct: [id number] Name: SADIE ESTRADA Rep #:[id number] : 1955 69 From: Terry Bacon DO Referring Dr: Gisselle Davila SURGICAL AIDES TEACHER SURGICAL AIDES TEACHER-C Status: REG CLI Location: PSN Date: Sex: M C PSN 6 Minute Walk Test 6 Minute Walk Test 6 Minute Walk Test: 6 Minute Walk Test PSN:6-Minute Walk Test Start: 12/22/24 12:45 Freq: Status: Active Protocol: RESP.6MINW Document 12/22/24 12:45 EW (Rec: 12/22/24 12:47 EW [id number]) 6 Minute Walk Test Date Performed 12/22/24 Time Performed 12:30 Height 5 ft 6 in Weight: 170 lb Weight in Pounds 170.0 lbs Assistive device None used: Pre-test Oxygen Delivery Room Air Method Pulse Ox (%) 98 Pulse Rate (60-100 80 beats/min) Dyspnea Carrie Scale ( 0 0-10) Exertion Carrie Scale 12 (6-20) 1st minute Oxygen Delivery Room Air Method Pulse Ox (%) 97 Pulse Rate (60-100 85 beats/min) 2nd minute Oxygen Delivery Room Air Method Pulse Ox (%) 96 Pulse Rate (60-100 95 beats/min) 3rd minute Oxygen Delivery Room Air Method Pulse Ox (%) 97 Pulse Rate (60-100 97 beats/min) 4th minute Oxygen Delivery Room Air Method Pulse Ox (%) 97 Pulse Rate (60-100 104 H beats/min) 5th minute Oxygen Delivery Room Air Method Pulse Ox (%) 98 Pulse Rate (60-100 105 H beats/min) 6th minute Oxygen Delivery Room Air Method Pulse Ox (%) 96 Pulse Rate (60-100 105 H beats/min) Post-test Oxygen Delivery Room Air Method Pulse Ox (%) 98 Pulse Rate (60-100 98 beats/min) Dyspnea Carrie Scale ( 0 0-10) Exertion Carrie Scale 13 (6-20) Full Laps Walked 15 Partial Lap, Number 34 of Tiles Walked Total Distance 919 Walked (ft) Interpretation Interpretation: The patient ambulated 919 feet over the course of 6 minutes beginning on room air without assistivedevices. Pretesting oxygen saturation was noted to be 98%on room air. With ambulation, the cee oxygen saturation was 96%. There was no significant exertional oxygen desaturation. Recommendations Recommendations: There is no indication for the use of supplemental oxygen at this time. 12/23/24 1105 O> Date _ Terry Bacon DO CC: ~ Date Dictated: 12/23/241104 Date Transcribed: 12/23/241104 Kindergarten Tutor: Dr. Terry Bacon DO Signed [facility]12-10-2024 Evaluation note* Diagnosis Onset Date Resolution Status Admit Date ISAM (obstructive sleep apnea) chronic September 08, 024 7:37am Shortness of breath on exertion chronic September 08 024 7:37am Smoking greater than 20 pack years chronic September 08 024 7:37am [facility] Work Phone: 1(346) 945-521411-07-2024 NotePatient: Jean-Pierre Estrada Procedure Summary Date: 08/06/24 Room / Location: [address] Operating Room Anesthesia Start: 939 Anesthesia Stop: 1124 Procedure: SPINAL CORD STIMULATOR SYSTEM IMPLANT (Back) Diagnosis: Chronic pain syndrome Surgeons: Federico Castañeda MD Responsible Provider: Julio César Melara MD Anesthesia Type: general ASA Status: 2 Anesthesia Type: general Vitals Value Taken Time BP 168/73 08/06/24 1245 Temp 36.1 ?C (97 ?F) 08/06/24 1125 Pulse 66 08/06/24 1252 Resp 15 08/06/24 1245 SpO2 96 % 08/06/24 1252 Vitals shown include unfiled device data. Anesthesia Post Evaluation Patient location during evaluation: PACU Patient participation: complete - patient participated Level of consciousness: awake and alert Pain management: satisfactory to patient Airway patency: patent Dental Injury: no Cardiovascular status: acceptable, blood pressure returned to baseline and hemodynamically stable Respiratory status: acceptable and spontaneous ventilation Hydration status: euvolemic Nausea/Vomiting: controlled No notable events documented. Patient can be discharged once all PACU criteria has been met.[facility] [id number] NotePatient: Jean-Pierre Estrada Procedure Summary Date: 08/06/24 Room / Location: [address] Operating Room Anesthesia Start: 939 Anesthesia Stop: 1124 Procedure: SPINAL CORD STIMULATOR SYSTEM IMPLANT (Back) Diagnosis: Chronic pain syndrome Surgeons: Federico Castañeda MD Responsible Provider: Julio César Melara MD Anesthesia Type: general ASA Status: 2 Anesthesia Type: general Vitals Value Taken Time BP 168/73 08/06/24 1245 Temp 36.1 ?C (97 ?F) 08/06/24 1125 Pulse 66 08/06/24 1252 Resp 15 08/06/24 1245 SpO2 96 % 08/06/24 1252 Vitals shown include unfiled device data. Anesthesia Post Evaluation Patient location during evaluation: PACU Patient participation: complete - patient participated Level of consciousness: awake and alert Pain management: satisfactory to patient Multimodal analgesia pain management approach Airway patency: patent Two or more strategies used to mitigate risk of obstructive sleep apnea Cardiovascular status: acceptable and hemodynamically stable Respiratory status: acceptable Hydration status: acceptable No notable events documented. MIPS #430 PONV Patient received an inhalational anesthetic (4554F) Patient exhibits three or more risk factors for PONV (4556F) Patient received at leaset 2 prophylactic Rx PONV anti-emtic agents of different classes preop and/or intraop (G9775) MIPS # 424 Perioperative Temperature Management Anesthesia time was 60 minutes or longer (4255F) Anesthesai administered was General (inhalational or TIVA) or Neuraxial block (X0424) At least one body temperature greater than 95.8F/35.5C achieved within the 30 mins immediately prior to or the 15 minutes immediately following anesthesia end time (G9771) MIPS #477 Multimodal Pain Management Not emergent case Patient was administered multimodal pain management (two or more drugs and/or interventions excluding systemic opioids) in the periopeartive period occurring at some time between 6 hours prior to anesthesia start time until discharged from PACU (G2148) MIPS #404 Anesthesiology Smoking Abstinence The patient is a current smoker (G9642) (e.g. cigarette, cigar, pipe, e-cigarette/vaping/marijuana) The patient underwent an elective surgery or procedure requiring anesthesia (G9643) The patient received preop smoking cessation instructions prior to the day of surgery or procedure by MD, APC supervisor mails proxy staff (G9497) The patient did not smoke the day of the procedure (G9644) I completed my handoff to the receiving clinician during which we: 1. Identified the patient 2. Identified the responsible provider 3. Reviewed the pertinent medical history 4. Discussed the surgical course 5. Reviewed intra-op anesthesia management and issues during anesthesia 6. Set expectations for post-procedure period 7. Allowed opportunity for questions and acknowledgement of understanding.[facility]11-07-2024 NoteAirway Date/Time: 08/06/2024 9:50 AM Urgency: scheduled Airway not difficult General Information and Staff Patient location during procedure: Procedural Resident/RECREATION INSTRUCTOR: Sukhwinder Erazo APRN - RECREATION INSTRUCTOR Performed: RECREATION INSTRUCTOR Indications and Patient Condition Indications for airway management: anesthesia Sedation level: Asleep Preoxygenated: yes Patient position: sniffing Mask difficulty assessment: 1 - vent by mask Final Airway Details Final airway type: endotracheal airway Successful airway: ETT Cuffed: yes Successful intubation technique: direct laryngoscopy Facilitating devices/methods: intubating stylet Endotracheal tube insertion site: oral Blade: Curtis Blade size: #3 ETT size (mm): 8.0 Cormack-Lehane Classification: grade I - full view of glottis Placement verified by: capnometry Measured from: lips ETT to lips (cm): 22 Number of attempts at approach: 1SFormerly [facility] NoteHistory Of Present Illness Jean-Pierre Estrada is a 69 y.o. male presenting with a chronic pain syndrome. He has had a successful spinal cord stimulator trial, he would like to have 1 permanently implanted. Past Medical History He has a past medical history of AAA (abdominal aortic aneurysm) (HCC), Anxiety, Arthritis, Claudication of right lower extremity (HCC), Colon polyps, Depression, Hyperlipidemia, Hypertension, Joint pain, Osteoarthritis, Restless legs, and Sleep apnea. Surgical History He has a past surgical history that includes Vasectomy; Total knee arthroplasty (Right); Total hip arthroplasty (Right); Rotator cuff repair (Right); Femoral artery stent (Right); Cervical fusion; Lumbar fusion; Back surgery; and Colonoscopy. Social History He reports that he has been smoking cigarettes. He started smoking about 55 years ago. He has a 13.8 pack-year smoking history. He has never used smokeless tobacco. He reports current alcohol use of about 1.0 standard drink of alcohol per week. He reports that he does not use drugs. Allergies Patient has no known allergies. Medications No medications prior to admission. Review of Systems + Chronic pain syndrome Physical Exam 01/02 B LE Last Recorded Vitals There were no vitals taken for this visit. Relevant Results Plain films of the lumbar spine show postop changes with pedicle screws in place L2, L3, L4, L5 Assessment/Plan Active Problems: There are no active Hospital Problems. Chronic pain syndrome. He has had a successful spinal cord stimulator trial, plan for permanent implant. Risks/Benefits of the surgery have been discussed with the patient including but not limited to bleeding and hematoma formation, infection, abdominal pain, spinal cord injury, permanent weakness and . Pt and family understand and agree to the procedure.[facility] [id number] NotePatient presented to PAT today prior to upcoming procedure below: Case: [id number] Date/Time: 08/06/24929 Procedure: SPINAL CORD STIMULATOR SYSTEM IMPLANT (Back) [12567 CPT(R)] - 2 HOUR CASE Anesthesia type: General Diagnosis: Chronic pain syndrome [G89.4] Location: [facility] OR [address] [place] [address] Operating Room Surgeons: Federico Castañeda MD Patient follows with Dr Nguyen at [facility]- vascular. Patient has hx of PVD, AAA, on daily 81mg ASA. Also noted, hx of femoral stent, placed >6 weeks ago. I have called and left message on office VM for instructions on holding ASA prior to procedure. Protocol states 5 days; would like to ensure patient can safely hold as he is poor historian and most of his care completed at outside hospital systems. Dr Curt Nguyen [facility]10-30-2024 NotePatient: Jean-Pierre Estrada Procedure Information Date/Time: 08/06/24929 Procedure: SPINAL CORD STIMULATOR SYSTEM IMPLANT (Back) - 2 HOUR CASE Location: [facility] OR [address] [place] [address] Operating Room Surgeons: Federico Castañeda MD Relevant Problems No relevant active problems Past Medical History: Past Medical History: No date: AAA (abdominal aortic aneurysm) (HCC) No date: Anxiety No date: Arthritis No date: Claudication of right lower extremity (HCC) No date: Colon polyps No date: Depression No date: Hyperlipidemia No date: Hypertension No date: Joint pain No date: Osteoarthritis No date: Restless legs No date: Sleep apnea Comment: does not use cpap Past Surgical History: Past Surgical History: No date: BACK SURGERY No date: CERVICAL FUSION Comment: x2 No date: COLONOSCOPY No date: FEMORAL ARTERY STENT; Right No date: LUMBAR FUSION No date: ROTATOR CUFF REPAIR; Right No date: TOTAL HIP ARTHROPLASTY; Right No date: TOTAL KNEE ARTHROPLASTY; Right No date: VASECTOMY Social History: TOBACCO: reports that he has been smoking cigarettes. He started smoking about 55 years ago. He has a 13.8 pack-year smoking history. He has never used smokeless tobacco. ETOH: reports current alcohol use of about 1.0 standard drink of alcohol per week. Social History Substance and Sexual Activity Drug Use Never Family History: No family history on file. Screening: unknown Clinical information reviewed: Tobacco Allergies Meds Med Hx Surg Hx Fam Hx Soc Hx Physical Exam Airway Mallampati: III TM distance: >3 FB Neck ROM: limited Mouth Open: normalendotracheal tube not in place Cardiovascular Dental (+) Upper Dentures Pulmonary Abdominal Anesthesia Plan patient is NPO appropriate Any family history or previous problems with anesthesia no ASA 2 general Any family history or previous problems with anesthesia no The patient is not a current smoker. Anesthetic plan and risks discussed with patient and spouse. ISMA Screening Labs: Lab Results Component Value Date WBC 6.0 07/29/2024 HGB 12.4 (L) 07/29/2024 HCT 37.6 (L) 07/29/2024 MCV 96.7 07/29/2024 PLT 311 07/29/2024 Lab Results Component Value Date NA 135 07/29/2024 K 5.2 (H) 07/29/2024 CL 102 07/29/2024 CO2 26 07/29/2024 BUN 26 (H) 07/29/2024 CREATININE 1.14 07/29/2024 GLUCOSE 77 07/29/2024 CALCIUM 9.7 07/29/2024 EGFR 68.8 07/29/2024 Pain Score: 0 - No pain No echocardiogram results found for the past 14 days 07/29/24 ECG 12-LEAD 07/31/2024 11:52 AM (Final) Impression Sinus rhythm Electronically Signed On 07-31-2024 11:52:09 EDT by Gabriella Rocha Signed by: Gabriella Rocha on 07/31/2024 11:52 AM Equipment Requests: Additional Equipment RequestsKresge Eye Institute10-30-2024 NoteComprehensive Pre Surgical History and Physical ? Name: Sadie Estrada : 1955 (Age-69 y.o.) Date of Service: Pt seen/examined on 07/29/2024 Procedure Information Date/Time: 08/06/24929 Procedure: SPINAL CORD STIMULATOR SYSTEM IMPLANT (Back) - 2 HOUR CASE Location: [facility] OR [address] [place] [address] Operating Room Surgeons: Federico Castañeda MD Chief Complaint: Chronic pain syndrome [G89.4] ASSESSMENT/PLAN: Surgery is considered a(n) intermediate level 1 risk procedure/surgery with no reducible risk factors. Based on the above evaluation, the benefits of the planned procedure likely exceed the risks. The patient is medically optimized to proceed with the planned procedure without any further cardiopulmonary testing. 1) Chronic pain syndrome [G89.4] - Managed per surgery, pain mgmt - MEDS: cymbalta, gabapentin, naprosyn - Labs drawn within 90 days that are WNL do not require repeating per PAT protocol - Orders per PAT Protocol: BMP, CBC, EKG - METS: >4 2) HTN (hypertension) Hyperlipidemia - MEDS: lisinopril, fenofibrate BP Readings from Last 3 Encounters: 07/29/24 (!) 149/83 07/01/24 133/73 - patient denies chest pain, SOB, dizziness, blurred vision - encouraged lifestyle modification - Managed by PCP 3) Anxiety Depression - MEDS: cymbalta - feels controlled on medication - Managed by PCP - Patient may benefit from antianxiety medication DOS 4) AAA PVD - MEDS: 81mg ASA - Femoral artery stent placed ~10 years ago - No sx intervention needed of AAA; pt states last imaging noted it at 4 cm - Managed/surveillance by Dr Nguyen at [facility]; message left on office VM for holding recommendations of ASA prior to procedure as patient has unclear vascular medical history from outside hospital system 5) ISMA (obstructive sleep apnea) Restless Leg Syndrome - Mostly compliant with home device - I would consider higher level of care (continuous pulse ox) with this patient due to ISMA and increased risks Visit Type: Pre-Admission Testing Visit Labs Ordered: YES - PER PAT PROTOCOL Sleep Referral Ordered: NO - ALREADY DIAGNOSED WITH ISMA AND COMPLIANT WITH CPAP Total time spent (which include face to face and non face to face encounters) : 45 minutes Toxic drug monitoring/narrow therapeutic index drug monitoring : # Drug name : 81mg ASA # Route administered : PO # Method of monitoring : labs and EKG PAT Protocol referenced includes: 1. Anesthesia Lab Protocol Orders 2. Perioperative Cardiovascular Risk Assessment 3. Anesthesia Assessment 4. Pain Assessment and Acute Pain Service Consult (if appropriate) 5. Medical Clearance/Consult from Internal Medicine (IMS) 6. Shower/Wash Order (for designated surgeries) 7. ISMA Screen and Sleep Clinic Referral (if appropriate) CURRENT NARCOTIC USE: No Do you have a history of chronic opioid use? N/A Allergies: Patient has no known allergies. If patient has opioid allergy, is it okay to take Acetaminophen: N/A History Of Present Illness: 69 y.o. male who we are asked to see/evaluate by Dr Castañeda for pre-operative evaluation prior to above procedure. OV Note Dr Castañeda 07/01/24: Patient denies hx of CAD, CHF, [place], TIA/CVA, diabetes, COPD, asthma, DVT/PE. Past Medical History: Past Medical History: No date: AAA (abdominal aortic aneurysm) (HCC) No date: Anxiety No date: Arthritis No date: Claudication of right lower extremity (HCC) No date: Colon polyps No date: Depression No date: Hyperlipidemia No date: Hypertension No date: Joint pain No date: Osteoarthritis No date: Restless legs No date: Sleep apnea Comment: does not use cpap Past Surgical History: Past Surgical History: No date: BACK SURGERY No date: CERVICAL FUSION Comment: x2 No date: COLONOSCOPY No date: FEMORAL ARTERY STENT; Right No date: LUMBAR FUSION No date: ROTATOR CUFF REPAIR; Right No date: TOTAL HIP ARTHROPLASTY; Right No date: TOTAL KNEE ARTHROPLASTY; Right No date: VASECTOMY Medications Prior to Admission: Prior to Admission medications Medication Sig Start Date End Date Taking? Authorizing Provider DULoxetine (Cymbalta) [address] capsule Take 30 mg by mouth 2 times daily. 06/22/24 Historical Provider, gabapentin (Neurontin) 400 MG capsule Take 400 mg by mouth 3 times daily. 06/10/24 Historical Provider, lisinopril 5 MG tablet Take 5 mg by mouth daily. 06/01/24 Historical Provider, naproxen (Naprosyn) 500 MG tablet TAKE 1 TABLET BY MOUTH TWICE DAILY FOR 30 DAYS WITH FOOD OR MILK 06/27/24 Historical Provider, Social History: TOBACCO: reports that he has been smoking cigarettes. He started smoking about 55 years ago. He has a 13.8 pack-year smoking history. He has never used smokeless tobacco. ETOH: reports current alcohol use of about 1.0 standard drink o (more content not included)...[facility] [id number] Discharge summary Author Carlos Castillo [facility] May 06, 2023 7:21pm Note Date/Time May 06, 2023 7:1 3pm [facility] Medical Records Department [address] [place] [address] Discharge Summary 05/06/231910 MR#: [id number] Acct: [id number] Name: SADIE ESTRADA Rep #:[id number] : 1955 68 From: Carlos Castillo MD PCP: Dr. Juan Antonio Bacon MD Status:ADM IN Location: [facility] [id number] Providers Date of Admission: 04/13/23 Primary Care Physician: Dr. Juan Antonio Bacon MD Reason For Visit: DEBILITY Diagnosis Discharge Diagnosis (1) Debility: Status: Acute Code(s): R53.81 - Other malaise (2) Cervical spinal stenosis: Status: Acute Code(s): M48.02 - Spinal stenosis, cervical region (3) H/O laminectomy: Status: Acute Code(s): Z98.890 - Other specified postprocedural states (4) ISMA (obstructive sleep apnea): Status: Acute Code(s): G47.33 - Obstructive sleep apnea (adult) (pediatric) (5) Peripheral vascular disease: Status: Acute Code(s): I73.9 - Peripheral vascular disease, unspecified (6) Osteoarthritis: Status: Acute Code(s): M19.90 - Unspecified osteoarthritis, unspecified site (7) Hyperlipidemia: Status: Inactive Code(s): E78.5 - Hyperlipidemia, unspecified Qualifiers: Hyperlipidemia type: unspecified Qualified Code(s): E78.5 - Hyperlipidemia, unspecified (8) Rheumatoid arthritis: Status: Acute Code(s): M06.9 - Rheumatoid arthritis, unspecified (9) Depression: Status: Inactive Code(s): F32.A - Depression, unspecified Qualifiers: Depression Type: persistent depressive disorder Qualified Code(s): F34.1 - Dysthymic disorder (10) Muscle spasm: Status: Acute Code(s): M62.838 - Other muscle spasm Plan 68 year old male with below past medical history hospitalized for progressive quadraplegia, underwent C2-C7 laminectomy/fusion with Dr. Johnson, [facility], discharged to sleep study, admit to TCU with debility, here for rehabilitation, strengthening, prior to discharge home with . * Debility - PT/OT. * Pain - Tylenol 1000mg q6 prn pain (1-4), Oxycodone 5-10mg q6h prn pain (6-10). * Bowel - senna/colace 2 tablets bid, Dulcolax 10mg pr x 1 prn, MOM 30ml po x 1 prn. * Adult immunization - Administer pneumonia vaccine, covid19 vaccine, flu vaccine as appropriate. * DVT prophylaxis - Monitor. * Skin irritation - Ammonium Lactate topical bid, Hydrocortisone 2.5% topical bid, Calmoseptine topical bid. * CV prophylaxis - Aspirin 81mg daily. * Muscle spasm - Baclofen 5mg q8h prn. * Depression - Duloxetine 40mg daily, stable use, GDR not recommended. * Neuropathic pain - Gabapentin 300mg bid. * Cervical spinal stenosis s/p laminectomy/fusion - Prednisone taper. Medications at Discharge Home Medications acetaminophen 500 mg tablet 1,000 mg (2 x 500 mg) PO Q6H PRN PRN Pain Score 1-4 #0 tabs 05/06/23 ammonium lactate 12 % lotion 1 applic topical BID@1000,2200 30 days #400 grams 05/06/23 apixaban 5 mg tablet (Eliquis) 5 mg PO BID 30 days #60 tabs 05/06/23 baclofen 10 mg tablet 5 mg (1/2 x 10 mg) PO Q8H PRN PRN muscle spasm 30 days #90tabs 05/06/23 duloxetine 20 mg capsule,delayed release 40 mg (2 x 20 mg) PO DAILY 30 days #60 caps 05/06/23 gabapentin 300 mg capsule 300 mg PO BID 30 days #60 caps 05/06/23 oxycodone 5 mg tablet 5 - 10 mg (1 - 2 x 5 mg) PO Q6H PRN PRN Pain Score 4-10 7 days #28 tabs 05/06/23 Hospital Course Operations - (See below.) Procedures None Summary of Care Provided Minutes Spent on Discharge: 35 Hospital Course: 68 year old male with below past medical history hospitalized for progressive quadraplegia, underwent C2-C7 laminectomy/fusion with Dr. Johnson, [facility], discharged to sleep study, admit to TCU with debility, here for rehabilitation, strengthening, prior to discharge home with . 04/19/2023 Doppler showed right lower extremity DVT, recommend Eliquis 5mg bid thru 07/20/2023. Discharge home with 05/12/2023, [facility] PT/OT. Physical Exam Const alert General Appearance: cooperative HEENT normocephalic Eyes PERRL and EOMs intact bilaterally Neck supple, no JVD and no carotid bruits Resp normal respiratory effort, normal air movement and clear to auscultation bilaterally Cardio regular rate and regular rhythm GI normal to inspection, nondistended, normoactive bowel sounds, non-tender and non-distended Extremity normal capillary refill General Extremity: Negative for edema Skin no rashes or lesions noted General Skin Exam: no breakdown Psych affect normal Appearance: appropriate Weight / BMI Weight Weight: 81.193 kg Body Mass Index (BMI) 28.8 ABG / Lab / Microbiology Data 05/05/23 04:05 05/05/23 04:05 D/C Instructions Discharge Diet: No restrictions Discharge Activity: Return to Normal Activity, May Shower and Use Walker Weight Bearing Status: Weight bearing as tolerated Call your doctor if you observe: Fever of 101 or Higher, Inability to urinate, Inability to have a bowel movement, Shortness of breath, Dizziness, Fainting spells, Swelling in the ankles, Chest pain and Uncontrolled pain Additional Instructions: Discharge home with 05/12/2023, [facility] PT/OT. Please Follow Up With: Solis Johnson MD When: As scheduled. Meaningful Use Info Meaningful Use Diagnoses (Choose all that apply): None applicable Discharge Plan Admission Admit Date/Time: 04/13/23 05:30 Primary Reason for Your Visit: Debility. Attending Provider: Carlos Castillo Chi Primary Care Provider: Juan Antonio Bacon Instructions Additional Instructions / Restrictions: Discharge home with 05/12/2023, [facility] PT/OT. Discharge Orders/Prescriptions Prescriptions: New acetaminophen 500 mg Tablet 1,000 mg PO Q6H PRN PRN (Reason: Pain Score 1-4) Qty: 0 0RF ammonium lactate 12 % Lotion 1 applic topical BID@1000,2200 30 Days Qty: 400 0RF Protocol: *Topical Application Instructions APPLICATION INSTRUCTIONS: Apply to BLE baclofen 10 mg Tablet 5 mg PO Q8H PRN PRN (Reason: muscle spasm) 30 Days Qty: 90 0RF gabapentin 300 mg Capsule 300 mg PO BID 30 Days Qty: 60 0RF oxycodone 5 mg Tablet 5 - 10 mg PO Q6H PRN PRN (Reason: Pain Score 4-10) 7 Days Qty: 28 0RF duloxetine 20 mg Capsule,Delayed Release(Dr/Ec) 40 mg PO DAILY 30 Days Qty: 60 0RF Eliquis 5 mg Tablet 5 mg PO BID 30 Days Qty: 60 0RF Discontinued atorvastatin 20 MG tablet 20 mg PO QHS Hold Instructions: Patient stated not taking ibuprofen 400 MG tablet 800 mg PO Q6H PRN PRN (Reason: Mild/Moderate Pain) Hold Instructions: Order Changed aspirin 81 MG tablet,chewable 81 mg PO DAILY@0800 baclofen 5 mg tablet 5 mg PO Q8H PRN (Reason: muscle spasm) gabapentin 300 mg capsule 300 mg PO BID prednisone 5 mg Tablet See Rx Instructions .ROUTE .COMPLEX Qty: 1 0RF Rx Instructions: Prednisone 7.5 mg daily X 3 days then alternate 6 mg and 7 mg for 7 days then 6 mg daily for 7 days then alternate 5 mg and 6 mg for 7 days then 5 mg daily for 7 days then alternate 4 mg and 5 mg for 7 days then 4 mg daily for 7 days them alternate 3 mg and 4 mg for 7 days then 3 mg daily for 7 days then 2.5 mg daily for 14 days and discontinue Prednisone acetaminophen 325 mg Tablet 650 mg PO Q6H PRN PRN (Reason: Pain Score 1-4) Qty: 1 0RF ammonium lactate 12 % Lotion 1 applic topical BID Qty: 1 0RF Protocol: *Topical Application Instructions APPLICATION INSTRUCTIONS: mix this with the hydrocortisone and apply to the hands (back and front) BID bisacodyl 10 mg Suppository 10 mg MI .PRN X 1 PRN (Reason: Constipation) Qty: 12 0RF sennosides-docusate sodium [Stool Softener-Stimulant Laxat] 8.6-50 mg Tablet 2 tab PO BID PRN (Reason: constipation) Qty: 1 0RF duloxetine 20 mg Capsule,Delayed Release(Dr/Ec) 40 mg PO DAILY Qty: 1 0RF oxycodone 5 mg tablet 5 - 10 mg PO Q6H PRN (Reason: pain) 7 Days Qty: 42 0RF Rx Instructions: one tab pain 4-6 two tabs pain 7-10 menthol-zinc oxide [Calmoseptine] 0.44-20.6 % ointment 1 applic topical BID Rx Instructions: Apply to bilateral buttocks Referrals / Follow Up: Juan Antonio Bacon MD [Primary Care Provider] - Gisselle Davila NP, [employer]GICAL [employer]IDES TEACHER-C [Med Staff - [facility]] - 05/09/23 8:00 am Disposition Disposition (needs filled in before D/C Order can be placed): Home Health Service 05/06/231920 <Electronically signed by Carlos Castillo MD> Cosigner Signature (if applicable): CC: Dr. Juan Antonio Bacon MD; Dr. Carlos Castillo MD~ Signed [facility] Work Phone: 1(150) 203-215507-17-2023 Progress note Author Carlos Castillo [facility] April 15, 2023 11:54am Note Date/Time April 15, 2023 11:1 4am [facility] Medical Records Department [address] [place] [address] Progress Note - Pharmacy 04/15/23 1114 MR#: [id number] Acct: [id number] Name: SADIE ESTRADA Rep #:[id number] : 1955 68 From: Maci Saez PCP: Dr. Juan Antonio Bacon MD Status:ADM IN Location: [place] [address] <Statement entered by Carlos Castillo MD - 04/15/23 11:54> I have personally performed a face to face assessment of the patient and have reviewed the BUDDY Note. TCU RX Drug Regimen Review Subjective/Objective Subjective/Objective: Subjective: TCU Admission. 68 YOM presented to the ER with bilateral lower extremity pain, weakness and numbness. Transferred to [facility] and hospitalized for progressive quadriplegia, underwent C2-C7 laminectomy/fusion with Dr. Johnson, transferred to for acute rehab, discharged to sleep study. Admitted to TCU with debility for strengthening and rehabilitation. Objective: Allergies No Known Allergies Allergy (Verified 01/27/19 08:07) Current Medications Generic Name Dose Route Start Last Admin Trade Name Freq PRN Reason Stop Dose Admin Acetaminophen 1,000 mg 04/13/23 08:30 04/15/23 01:48 Acetaminophen 500 Mg Tablet PO 1,000 mg Q6H PRN PRN Administration Pain Score 1-4 Aspirin 81 mg 04/13/23 08:00 04/15/23 07:39 Aspirin 81 Mg Tab.Chew PO 81 mg DAILY@0800 SERGIO Administration Baclofen 5 mg 04/13/23 06:53 04/14/23 20:22 Baclofen 10 Mg Tablet PO 5 mg Q8H PRN PRN Administration muscle spasm Bisacodyl 10 mg 04/13/23 06:40 Bisacodyl 10 Mg Suppository RC .PRN X 1 PRN Constipation Calamine/Phenol 1 applic 04/13/23 18:00 04/15/23 04:54 Menthol/Lanolin/Calamine/Znox 113 Gm Tube TOPICAL 1 applic BID [facility] Administration Protocol Duloxetine HCl 40 mg 04/13/23 08:00 04/15/23 04:51 Duloxetine Hcl 20 Mg Capsule PO 40 mg DAILY SERGIO Administration Gabapentin 300 mg 04/13/23 18:00 04/15/23 04:54 Gabapentin 300 Mg Capsule PO 300 mg BID SERGIO Administration Hydrocortisone 1 applic 04/13/23 18:00 04/15/23 04:52 Hydrocortisone 2.5% Ointment 20 Gm Tube TOPICAL 1 applic BID [facility] Administration Protocol Lactic Acid 1 applic 04/13/23 18:00 04/15/23 04:51 Ammonium Lactate 225 Gm Bottle TOPICAL 1 applic BID [facility] Administration Protocol Magnesium Hydroxide 30 ml 04/13/23 07:39 Magnesium Hydroxide 30 Ml Udc PO DAILY PRN Constipation Oxycodone HCl 5 - 10 mg 04/13/23 06:40 04/15/23 07:42 Oxycodone 5 Mg Tablet PO 5 mg Q6H PRN PRN Administration Pain Score 4-10 Prednisone 7.5 mg 04/14/23 08:00 04/15/23 07:39 Prednisone 5 Mg Tablet PO 04/21/23 08:01 7.5 mg BREAKFAST [facility] Administration Prednisone 5 mg 04/22/23 08:00 Prednisone 5 Mg Tablet PO 04/29/23 08:01 BREAKFAST SERGIO Prednisone 2.5 mg 04/30/23 08:00 Prednisone 5 Mg Tablet PO 05/07/23 08:01 BREAKFAST [facility] Senna/Docusate Sodium 2 tablet 04/13/23 06:40 Senna/Docusate Sodium 1 Tablet PO BID PRN PRN constipation Tuberculin PPD 0.1 ml 04/21/23 10:00 Tuberculin,Purif.Prot.Deriv. 50 Tu/Ml Vial ID 04/21/23 10:01 X1 ONE Problem List (Updated 04/02/23 @ 09:[address] Shyla Coleman, DO) Muscle spasm (Acute) Osteoarthritis (Acute) Peripheral vascular disease (Acute) Cervical spinal stenosis (Acute) Depression (Chronic) Hyperlipidemia (Chronic) Debility (Acute) ISMA (obstructive sleep apnea) (Suspected) Rheumatoid arthritis (Acute) H/O laminectomy (Acute) Vital Signs Temp Pulse Resp BP Pulse Ox O2 Del Method 97.2 F L 53 L 18 128/43 H 94 Room Air 04/14/23 16:00 04/15/23 09:43 04/15/23 09:43 04/14/23 16:00 04/15/23 09:43 04/15/23 09:43 Oxygen Delivery Method Room Air Weight: 81.828 kg Body Mass Index (BMI) 29.1 Sodium 138 mmol/L (136-145) 04/14/23 06:10 Potassium 4.2 mmol/L (3.5-5.1) 04/14/23 06:10 Chloride 103 mmol/L (98-107) 04/14/23 06:10 Carbon Dioxide 33.0 mmol/L (21.0-32.0) H 04/14/23 06:10 Anion Gap 2 (5-15) L 04/14/23 06:10 BUN 21 mg/dL (7-18) H 04/14/23 06:10 Creatinine 0.86 mg/dL (0.70-1.30) 04/14/23 06:10 Est GFR (MDRD) Af Amer 114 mL/min (>60) 04/14/23 06:10 Est GFR (MDRD) Non-Af 94 mL/min (>60) 04/14/23 06:10 BUN/Creatinine Ratio 24.5 RATIO (10-20) H 04/14/23 06:10 Glucose 100 mg/dL (74-106) 04/14/23 06:10 Assessment/Plan: 1. Pain: acetaminophen 1000 mg PO Q6H PRN pain (1-4) and oxycodone 5-10 mg PO Q6H PRN pain (6-10). Please monitor total daily intake of acetaminophen, pain levels, constipation and respiratory depression. Resident has had 1 dose of acetaminophen for a pain score (3 in the legs) and 5 doses of oxycodone for a pain scores of 5-7 in the back/leg/neck. 2. Bowel: senna/docusate 2 tablets PO BID PRN constipation, bisacodyl 10 mg RC PRN constipation and MOM 30mL PO x1 PRN constipation. Please monitor for constipation and diarrhea as well as electrolyte disturbances. Resident has not had any doses of PRN medications. Last documented bowel movement from [facility] admission on 04/07/23. 3. CV prophylaxis: aspirin 81 mg PO daily. Please monitor platelet count (last 215,000), hemoglobin (last 12.4g/dL) and S/S of bleeding/heart attack.? 4. Muscle spasm: baclofen 5 mg Q8H PO PRN muscle spasms. Please monitor breakthrough S/S of muscle spasms and medication effectiveness, hypotonia, dry mouth and muscle weakness.?Resident has received 3 doses so far. 5. Cervical spinal stenosis s/p laminectomy/fusion: prednisone taper thru 05/07/23. Please teacher counselor on taper doses and monitor for insomnia, agitation and irritability, improved pain, increased hunger and glucose (last 100mg/dL). 6. Skin irritation: ammonium lactate topical BID, hydrocortisone ointment 2.5% topical BID, calmoseptine topical BID. Please monitor skin irritation, redness and itching.? Assessment/Plan for indications treated with psychotropic medications: 1. Depression: duloxetine 40mg PO daily. Please see physician note regarding GDR. Please continue to monitor for suicidal ideation (black box warning), falls/fractures (BEERs medication), renal function and sodium (last 138mmol/L). Of note, resident was recently weaned off aripiprazole. 2. Neuropathic pain: gabapentin 300mg PO BID. GDR not appropriate as this resident is using for neuropathic pain. Dose appropriate for renal function. Please continue to monitor renal function (BEERs medication, CrCl 72 mL/min), confusion and falls/fractures (BEERs medication). Medical chart and medication regimen reviewed. The following medication irregularities or issues were identified: 1. Hyperlipidemia: atorvastatin 20mg PO QHS listed on home medication list with a note that resident is not taking, however, hyperlipidemia is still listed as an active problem and there is no lipid panel in the chart. Please consider ordering a lipid panel to see if this medication should be restarted. Thanks. Date Date of Note:: 04/15/23 04/15/23 1134 <Electronically signed by Maci Saez> Maci Che Signature (if applicable): 04/15/23 1154 <Electronically signed by Carlos Castillo MD> CC: ~ Signed [facility] Work Phone: 1(841) 864-799407-17-2023 History and physical note Author Carlos Castillo [facility] April 15, 2023 7:41am Note Date/Time April 13, 2023 8:17 am [facility] Medical Records Department [address] [place] [address] History & Physical Exam 04/13/23 0811 MR#: [id number] Acct: [id number] Name: SADIE ESTRADA Rep #:[id number] : 1955 68 From: Carlos Castillo MD PCP: Dr. Juan Antonio Bacon MD Status:ADM IN Location: [place] [address] HPI - General General Date of Admission: 04/13/23 Date of Service: 04/15/23 Chief Complaint: Here for rehabilitation. HPI Narrative SADIE ESTRADA, is a 68 Male who presents with following: [facility] ED bilateral lower extremity radicular pain, numbness, muscle weakness, needed walker to walk. Legs bucked, fell. Dr. Jeffrey cervical spine fusion 1999', lumbar laminectomy/fusion 01/26/2016. Transfer to [facility] under Dr. Johnson's service. Dr. Johnson performed C2-C7 laminectomy/fusion. PT/OT recommended acute rehab. 04/01/2023 Admit to . On Abilify since his son , causing weight gain. Taper off Abilify. 04/05/2023 Baclofen for muscle spasm. Overnight trending pulsox suggestive of obstructive sleep apnea. Taper off Abilify, start Duloxetine for depression. 04/08/2023 Pain controlled, progressing with therapy. Right side weaker than left. Stop Abilify, increase Duloxetine to 40mg daily. Taper down prednisone. 04/12/2023 Discharge to sleep lab for sleep study. 04/13/2023 Admit to TCU with debility, here for rehabilitation, strengthening, prior to discharge home with . [facility] Medical History Abdominal aortic aneurysm Anxiety Depression Former smoker Hyperlipidemia PAD (peripheral artery disease) Palmoplantar keratoderma Rheumatoid arthritis Rotator cuff arthropathy of right shoulder Ventral hernia Home Medications aspirin 81 mg chewable tablet 81 mg PO DAILY@0800 heart 05/03/15 [History Last Taken 04/12/23] atorvastatin 20 mg tablet 20 mg PO QHS cholesterol 05/03/15 [History Last Taken Unknown] ibuprofen 400 mg tablet 800 mg PO Q6H PRN PRN Mild/Moderate Pain 05/03/15 [History Last Taken Unknown] baclofen 5 mg tablet 5 mg PO Q8H PRN muscle spasm 04/01/23 [History Last Taken Unknown] gabapentin 300 mg capsule 300 mg PO BID pain 04/01/23 [History Last Taken 04/12/23] acetaminophen 325 mg tablet 650 mg (2 x 325 mg) PO Q6H PRN PRN Pain Score 1-4 #1TAB 04/12/23 [Rx Last Taken Unknown] ammonium lactate 12 % lotion 1 applic topical BID Dry skin #1 g 04/12/23 [Rx Last Taken 04/12/23] bisacodyl 10 mg rectal suppository 10 mg MI .PRN X 1 PRN Constipation #12 ea 04/12/23 [Rx Last Taken Unknown] duloxetine 20 mg capsule,delayed release 40 mg (2 x 20 mg) PO DAILY Depression #1 cap 04/12/23 [Rx Last Taken Unknown] oxycodone 5 mg tablet 5 - 10 mg (1 - 2 x 5 mg) PO Q6H PRN pain 7 days #42 tabs 04/12/23 [Rx Last Taken 04/12/23] prednisone 5 mg tablet See Rx Instructions .Route .COMPLEX Inflammation #1 TAB 04/12/23 [Rx Last Taken 04/12/23] sennosides 8.6 mg-docusate sodium 50 mg tablet (Stool Softener-Stimulant Laxative) 2 tab PO BID PRN constipation #1 TAB 04/12/23 [Rx Last Taken Unknown] menthol 0.44 %-zinc oxide 20.6 % topical ointment (Calmoseptine) 1 applic topical BID Redness 04/13/23 [History Last Taken 04/12/23] Allergy/AdvReac Type Severity Reaction Status Date / Time No Known Allergies Allergy Verified 01/27/19 08:07 Surgical History H/O knee surgery H/O laminectomy H/O microdiscectomy Hip joint replacement status History of lumbar laminectomy Status post cervical spinal fusion Status post right rotator cuff repair Total knee replacement status Social History household members: spouse housing: house current occupational status: retired Smoking Status: Former smoker quit date: 03/05/23 how long ago did patient quit smokin weeks ago refuses a nicotine patch alcohol intake: current substance use type: does not use ROS Constitutional Constitutional: Denies chills, fever(s) or weight gain ENT HEENT: Denies headache(s), nasal congestion or nasal discharge Cardiovascular Cardiovascular: Denies chest pain or palpitations Respiratory/Chest Respiratory/Chest: Denies cough, excessive phlegm production or shortness of breath with exertion Gastrointestinal Gastrointestinal: Denies abdominal pain, nausea or vomiting Genitourinary Genitourinary: Denies dysuria Musculoskeletal Musculoskeletal: Denies joint pain or joint swelling Integumentary Integumentary: Denies rash or wounds Neurologic Neurologic: Denies focal weakness, numbness or tingling Psychiatric Psychiatric: Denies anxiety, auditory hallucinations, depression, homicidal ideation or suicidal ideation Vital Signs Vital Signs Vital Signs: 04/13/23 06:00 04/13/23 06:00 Temperature 98.1 F Temperature Source Temporal Pulse Rate 63 Pulse Rhythm Regular Pulse Strength Normal (2+) Respiratory Rate 16 Respiratory Effort Normal Non-Labored Respiratory Depth Normal Respiratory Pattern Normal Blood Pressure 130/70 H Blood Pressure Mean 90 Blood Pressure Source Monitor Blood Pressure Position Sitting Blood Pressure Location Right Arm Pulse Ox 94 Oxygen Delivery Method Room Air Room Air Weight Weight: 82.69 kg Body Mass Index (BMI) 29.4 Physical Exam Const alert General Appearance: cooperative HEENT normocephalic Eyes PERRL and EOMs intact bilaterally Neck supple, no JVD and no carotid bruits Resp normal respiratory effort, normal air movement and clear to auscultation bilaterally Cardio regular rate and regular rhythm GI normal to inspection, nondistended, normoactive bowel sounds, non-tender and non-distended Extremity normal capillary refill General Extremity: Negative for edema Skin no rashes or lesions noted Skin Narrative: Posterior cervical incision birgit intact. General Skin Exam: no breakdown Psych affect normal Appearance: appropriate Results Lab / Micro Data 04/14/23 06:10 04/14/23 06:10 Assessment & Plan Assessment/Plan (1) Debility: (2) Cervical spinal stenosis: (3) H/O laminectomy: (4) ISMA (obstructive sleep apnea): (5) Peripheral vascular disease: (6) Osteoarthritis: (7) Hyperlipidemia: QUALIFIERS: Hyperlipidemia type: unspecified Qualified Code(s): E78.5 - Hyperlipidemia, unspecified (8) Rheumatoid arthritis: (9) Depression: QUALIFIERS: Depression Type: persistent depressive disorder Qualified Code(s): F34.1 - Dysthymic disorder (10) Muscle spasm: PLAN: Plan 68 year old male with below past medical history hospitalized for progressive quadraplegia, underwent C2-C7 laminectomy/fusion with Dr. Johnson, [facility], discharged to sleep study, admit to TCU with debility, here for rehabilitation, strengthening, prior to discharge home with . * Debility - PT/OT. * Pain - Tylenol 1000mg q6 prn pain (1-4), Oxycodone 5-10mg q6h prn pain (6-10). * Bowel - senna/colace 2 tablets bid, Dulcolax 10mg pr x 1 prn, MOM 30ml po x 1 prn. * Adult immunization - Administer pneumonia vaccine, covid19 vaccine, flu vaccine as appropriate. * DVT prophylaxis - Monitor. * Skin irritation - Ammonium Lactate topical bid, Hydrocortisone 2.5% topical bid, Calmoseptine topical bid. * CV prophylaxis - Aspirin 81mg daily. * Muscle spasm - Baclofen 5mg q8h prn. * Depression - Duloxetine 40mg daily, stable use, GDR not recommended. * Neuropathic pain - Gabapentin 300mg bid. * Cervical spinal stenosis s/p laminectomy/fusion - Prednisone taper. 04/15/23 0741 <Electronically signed by Carlos Castillo MD> Cosigner Signature (if applicable): CC: Dr. Juan Antonio Bacon MD; Dr. Carlos Castillo MD~ Signed [facility] Work Phone: 1(707) 555-564007-14-2023 Discharge summary Author Shyla Coleman [facility] April 12, 2023 11:35am Note Date/Time April 12, 2023 10:5 3am [facility] Medical Records Department [address] [place] [id number] Transfer to Extended Care MR#: [id number] Acct: [id number] Name: SADIE ESTRADA Rep #:[id number] : 1955 68 From: Shyla Coleman DO PCP: Dr. Juan Antonio Bacon MD Status:ADM IN Certification of patient admission REQUIRED AT TIME OF ADMISSION. I CERTIFY THAT POST-HOSPITAL ECF SERVICES ARE REQUIRED TO BE GIVEN ON AN IN-PATIENT BASIS BECAUSE OF THE ABOVE NAMED PATIENT'S NEED FOR PRISON CARE ON A CONTINUING BASIS FOR THE CONDITION(S) FOR WHICH HE/SHE WAS RECEIVING IN-PATIENT HOSPITAL SERVICES PRIOR TO HIS/HER TRANSFER TO THE F. 04/12/23 1135<Electronically signed by Shyla Coleman DO> Diet Diet Order/Speech Therapy: 04/01/23 16:01 Diet: Regular - General Routine Orders/Code Status Enema Type: Fleetz Enema Frequency: Daily PRN Suppository Type: Dulcolax 10mg Suppository Frequency: Daily PRN O2 Liters per Minute: 1-2 O2 Frequency: PRN (He should be on 2 LPM of O2 ANYTIME he is sleeping. ) Keep PO Greater than or Equal to (%): 90 Code Status: Full Code Wound(s) posterior neck: Wound Type: Surgical Incision left sykes: Wound Type: Abrasion drain site to the right of the incision: Wound Type: Surgical Incision Therapies Weight Bearing: Full weight bearing Extremity Affected:: Bilateral Lower (BL legs and the R arm. ) Physical Therapy: Eval and Treat Occupational Therapy: Eval and Treat Problem/Diagnosis (1) Debility: Status: Acute Code(s): R53.81 - Other malaise (2) Radiculopathy: Status: Acute Code(s): M54.10 - Radiculopathy, site unspecified (3) Myopathy: Status: Acute Code(s): G72.9 - Myopathy, unspecified (4) Right hemiparesis: Status: Acute Code(s): G81.91 - Hemiplegia, unspecified affecting right dominant side Comment: Due to cervical cord compression. (5) H/O laminectomy: Status: Acute Code(s): Z98.890 - Other specified postprocedural states Comment: Cervical laminectomy and fusion of C2-[address] Johnson in February of 2023. (6) Current chronic use of systemic steroids: Status: Chronic Code(s): Z79.52 - MCFP (current) use of systemic steroids Comment: Tapering these off. See protocol on DC medication. Started in November for radiculopathy. (7) Metabolic alkalosis: Status: Resolved Code(s): E87.3 - Alkalosis Comment: more likely than not due to dehydration. (8) Dehydration: Status: Acute Code(s): E86.0 - Dehydration Comment: He continues to limit fluid intake despite instruction to increase fluids. (9) ISMA (obstructive sleep apnea): Status: Suspected Code(s): G47.33 - Obstructive sleep apnea (adult) (pediatric) Comment: overnight trending pulse ox ABN with pulse ox < 90% on RA for 30% of the time hewas monitored. He is currently on 2 LPM O2 anytime he is sleeping. Having a sleep study on 04/12/23 then admitting to TCU on 04/13/23. 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 Could try a retinoid with ammonium lactate or refer to dermatology when DC'd from TCU (12) Restless leg syndrome: Status: Chronic Code(s): G25.81 - Restless legs syndrome Comment: Suspect due to obstructive sleep apnea. While on oxygen had no restless leg. (13) Depression: Status: Chronic Code(s): F32.A - Depression, unspecified Comment: Abilify weaned off because of weight gain and he has been transitioned to Duloxetine for depression and chronic pain S. Plan 1. Discharge today. 2. Sleep study tonight and then will follow up with pulmonary medicine at [facility]. 3. Continue 2 LPM O2 whenever he is sleeping. 4. Will follow up with Dr. Allen for orthopedics. 5. 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 6. Steroids are being tapered off over several weeks. See protocol in the discharge medication list. Allergies/Procedures Done in Hospital Allergies No Known Allergies Allergy (Verified 01/27/19 08:07) Type of Care/Length of Stay Estimated LOS: Convalescent Care Less Than 30 days Type of Care Needed: Skilled Rehab Potential: Good Prognosis: Good Additional Orders/Day of Discharge Day of Discharge: 04/12/23 Dietary and Speech Recommendations Dietitian Recommendations/Changes: Continue Regular diet to optimize oral intakes. Discharge Plan Admission Admit Date/Time: 04/01/23 14:30 Primary Reason for Your Visit: Debility secondary to cervical canal stenosis with radiculopathy and myopat Attending Provider: Shyla Coleman Primary Care Provider: Juan Antonio Bacon Discharge Orders/Prescriptions Prescriptions: New prednisone 5 mg Tablet See Rx Instructions .ROUTE .COMPLEX Qty: 1 0RF Rx Instructions: Prednisone 7.5 mg daily X 3 days then alternate 6 mg and 7 mg for 7 days then 6 mg daily for 7 days then alternate 5 mg and 6 mg for 7 days then 5 mg daily for 7 days then alternate 4 mg and 5 mg for 7 days then 4 mg daily for 7 days them alternate 3 mg and 4 mg for 7 days then 3 mg daily for 7 days then 2.5 mg daily for 14 days and discontinue Prednisone acetaminophen 325 mg Tablet 650 mg PO Q6H PRN PRN (Reason: Pain Score 1-4) Qty: 1 0RF ammonium lactate 12 % Lotion 1 applic topical BID Qty: 1 0RF Protocol: *Topical Application Instructions APPLICATION INSTRUCTIONS: mix this with the hydrocortisone and apply to the hands (back and front) BID bisacodyl 10 mg Suppository 10 mg MI .PRN X 1 PRN (Reason: Constipation) Qty: 12 0RF sennosides-docusate sodium [Stool Softener-Stimulant Laxat] 8.6-50 mg Tablet 2 tab PO BID PRN (Reason: constipation) Qty: 1 0RF duloxetine 20 mg Capsule,Delayed Release(Dr/Ec) 40 mg PO DAILY Qty: 1 0RF Continued aspirin 81 MG tablet,chewable 81 mg PO DAILY@0800 baclofen 5 mg tablet 5 mg PO Q8H PRN (Reason: muscle spasm) gabapentin 300 mg capsule 300 mg PO BID oxycodone 5 mg tablet 5 - 10 mg PO Q6H PRN (Reason: pain) 7 Days Qty: 42 0RF Rx Instructions: one tab pain 4-6 two tabs pain 7-10 Discontinued alprazolam [Xanax XR] 0.5 MG tablet extended release 24 hr 0.5 mg PO DAILY aripiprazole [Abilify] 5 mg tablet 5 mg PO DAILY prednisone 10 mg tablet 10 mg PO DAILY No Action atorvastatin 20 MG tablet 20 mg PO QHS ibuprofen 400 MG tablet 800 mg PO Q6H PRN PRN (Reason: Mild/Moderate Pain) Referrals / Follow Up: sleep,study [Other] - 04/12/23 8:00 pm Reji Duarte [Other] - 04/15/23 1:40 pm Juan Antonio Bacon MD [Primary Care Provider] - Disposition Disposition (needs filled in before D/C Order can be placed): [facility] Facility (2) Radiculopathy Qualifiers: Spinal region: unspecified Qualified Code(s): M54.10 - Radiculopathy, site unspecified (10) Hyperlipidemia Qualifiers: Hyperlipidemia type: unspecified Qualified Code(s): E78.5 - Hyperlipidemia, unspecified (13) Depression Qualifiers: Depression Type: persistent depressive disorder Qualified Code(s): F34.1 - Dysthymic disorder 04/12/23 1135 <Electronically signed by Shyla Coleman DO> Cosigner Signature (if applicable): CC: Dr. Solis Johnson MD; Dr. Juan Antonio Baocn MD ~ [facility] Work Phone: 1(690) 883-399507-10-2023 Progress note Author [facility] April 08, 2023 4:59pm Note Date/Time April 08, 2023 11:0 8am [facility] Medical Records Department [address] [place] [address] Progress Note 04/08/23 1107 MR#: [id number] Acct: [id number] Name: SADIE ESTRADA Rep #:[id number] : 1955 68 From: Shyla Coleman DO PCP: Dr. Juan Antonio Bacon MD Status:ADM IN Location: [address] Subjective Subjective Sadie was seen on team rounds today. His was present in the room for rounds. Afebrile VSS Maintaining appropriate oxygen saturation on RA Oral intake is good. He ate 75 to 100% of his breakfast today. Discussed with nursing - no problems that need addressed Reviewed the PT/OT/ST notes Medication list reviewed. Taking only 2 oxycodone 10 mg daily. He has had baclofen 5 mg once yesterday and once today. All lab today was personally reviewed. Sodium is 138 and the potassium is 4.0. Serum bicarb is down to 31 from 33 on 04/02/2023. BUN is 22, down from 27 on 04/02/2023 and the creatinine is 0.76, down from 0.92 on 04/02/2023. Calcium is 8 and the Albumin is pending. Sadie tells me that his pain is adequately controlled. He is making progress in therapy. He denies cephalgia, lightheadedness, chest pain, shortness of breath, palpitations, nausea/vomiting/abdominal pain/constipation, dysuria and calf tenderness. The right side is weaker than the left side. He has ambulatedup to 100 feet with a front wheeled walker at contact-guard assist. Still needsa lot of assistance with toileting. Both Sadie and his feel that he is not ready to go home yet and suspect he will need to go to an SNF for more therapy at [place] from rehab which is on the 04/12/23. Objective Data Objective Data Vital Signs: Vital Signs Temp Pulse Resp BP Pulse Ox O2 Del Method O2 Flow Rate 97.6 F L 62 16 135/63 H 96 Room Air 0 04/08/23 08:10 04/08/23 09:56 04/08/23 08:10 04/08/23 08:10 04/08/23 08:10 04/08/23 08:10 04/02/23 22:08 FiO2 21 04/02/23 22:08 Oxygen Flow Rate (L/min) 0 Oxygen Delivery Method Room Air Weight: 184 lb 11.958 oz Body Mass Index (BMI) 29.0 Intake & Output: Intake and Output for Last 24 Hours 04/06/23 04/07/23 04/08/23 23:59 23:59 23:59 Intake Total 1430 / 1430 340 / 340 840 / 840 Output Total 2875 / 2875 650 / 650 Balance -1445 / -1445 -310 / -310 840 / 840 Lab / Micro Data 04/02/23 05:50 04/08/23 05:05 Labs: Laboratory Results - last 24 hr 04/08/23 05:05: Sodium 138, Potassium 4.0, Chloride 105, Carbon Dioxide 31.0, Anion Gap 2 L, BUN 22 H, Creatinine 0.76, Estim Creat Clear Calc 62.03, Est GFR (MDRD) Af Amer 131, Est GFR (MDRD) Non-Af 108, BUN/Creatinine Ratio 29.0 H, Glucose 97, Calcium 8.0 L Physical Exam Const alert, oriented x3 and no apparent distress General Appearance: cooperative Neck supple Resp normal respiratory effort, no use of accessory muscles and clear to auscultationbilaterally Effort and Inspection: able to speak in complete sentences; Negative for tachypneic Auscultation: diminished lung sounds Cardio regular rate, regular rhythm, S1 normal heart sound, S2 normal heart sound, no murmurs, no rub and no gallops Cardio Narrative: No ectopy GI normal to inspection, nondistended, normoactive bowel sounds, soft to palpation and non-tender GI Narrative: No guarding with palpation and he is having regular BM's Extremity no clubbing, cyanosis or edema and no calf tenderness Extremity Narrative: No spasm in the cervical thoracic area posteriorly. No pain with palpation in the trapezius muscle. General Extremity: Negative for edema Skin General Skin Exam: no breakdown Rashes: no rashes Wound Narrative: The incision of the posterior neck and upper thoracic area is intact. There is some swelling around the incision but no erythema and no increased warmth to touch. Small amount of serous DC from the caudal portion of the incision. No tenderness to palpation around the incision. Still with bruising but resolving. Neuro oriented x3 and CN's II-XII intact bilaterally Neuro Narrative: Weakness of the R arm and leg. Can not lift the RLE off the bed but can lift his knee up. Some side to side movement on the bed. R hand door slinger is weaker thanthe left and he is R handed. Unable to lift the R arm more than 20 to 30 degrees off the bed. Psych thought process normal, cooperative and affect normal Psych Narrative: Appropriate, making good eye contact. Able to stay on topic and focus. No flight of ideas. Does not appear anxious or depressed. Conversant and relating well to staff. 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 Continue therapy 2. DC Abilify and increase duloxetine to 40 mg daily later this week. 3. Prednisone decreased to 7.5 mg daily for 1 week then alternate 7.5.and 6 mg for 1 week and then 6 mg daily for 1 week and then alternate 6 mg and 5 mg for 1week and then 5 mg daily for 1 week and then alternate 5 mg and 4 mg for 1 week and then 4 mg daily for 1 week and then alternate 4 mg and 3 mg for 1 week and then decrease to 3 mg daily for 1 week and then decrease to 2.5 mg daily for 1-2weeks and then discontinue. 4. Planning for SNF at CT from rehab. 5. Continue to encourage increased fluid intake. BUN/creatinine ratio is stillmarkedly elevated at 29. Charges/Coding Visit Charges Inpatient E&M: 32988 Subs Hosp L2 04/08/23 1659 <Electronically signed by Shyla Coleman DO> Shyla Coleman DO Cosigner Signature (if applicable): CC: ~ Signed [facility] Work Phone: 1(110) 693-456707-07-2023 Progress [facility] April 05, 2023 9:55am Note Date/Time April 05, 2023 9:00a m [facility] Medical Records Department [address] [place] [address] Progress Note 04/05/23 0853 MR#: [id number] Acct: [id number] Name: SADIE ESTRADA Rep #:[id number] : 1955 68 From: Shyla Coleman DO PCP: Dr. Juan Antonio Bacon MD Status:ADM IN Location: [place] [address] Subjective Subjective Afebrile VSS Maintaining appropriate oxygen saturation on RA Oral intake is good Discussed with nursing - no problems that need addressed Reviewed the PT/OT/ST notes Medication list reviewed. Tells me that he feels tired much of the time and still not feeling rested in the AM. RLS has resolved with the administration of O2 any time he is sleeping. Denies SOB, CP, lightheadedness. No calf tenderness and no dysuria. He wondersfi Valium wound help his pain........his pharmacist suggested this since it helped him after spinal surgery. Sadie is denying muscle spasms. He has only taken 2 doses of the PRN Baclofen since admission to rehab. I told him Baclofenand Valium are both used for muscle spasms and if he is having spasms he should ask for the Baclofen. He is only taking the Oxycodone 2 times a day. His only complaint today is numbness of the R foot.......all his toes today. Between theACE wrap and the sock and shoe it is very tight over the tarsal tunnel.......maybe compressing the nerve. Will take the show off and rewrap the ROBBIE. I reviewed the results of the overnight trending pulse ox with him and told him he likely has ISMA. I completed the paperwork for a sleep study and left in in the sleep lab office. Will try and schedule for the night he is discharged if possible. He will need Oxygen at home until he can get CPAP. Will need to follow up with pulmonary after the sleep study. Sadie had been trying to not take the Oxycodone but, PT spoke to him and told him pain limits his ability to do therapy and he should take the Oxycodone in the AM and around lunch so he is not having a lot of pain with therapy limiting his ability to participate. Objective Data Objective Data Vital Signs: Vital Signs Temp Pulse Resp BP Pulse Ox O2 Del Method O2 Flow Rate 98.3 F 61 17 134/81 H 94 Room Air 0 04/05/23 08:44 04/05/23 08:44 04/05/23 08:44 04/05/23 08:44 04/05/23 08:44 04/05/23 08:44 04/02/23 22:08 FiO2 21 04/02/23 22:08 Oxygen Flow Rate (L/min) 0 Oxygen Delivery Method Room Air Weight: 188 lb 7 oz Body Mass Index (BMI) 29.5 Intake & Output: Intake and Output for Last 24 Hours 04/03/23 04/04/23 04/05/23 23:59 23:59 23:59 Intake Total 1000 / 1000 1024 / 1024 1230 / 1230 Output Total 1250 / 1250 1525 / 1525 1000 / 1000 Balance -250 / -250 -501 / -501 230 / 230 Lab / Micro Data 04/02/23 05:50 04/02/23 05:50 Physical Exam Const alert, oriented x3 and no apparent distress Constitutional Narrative: Sitting in the WC and looks comfortable. General Appearance: cooperative HEENT moist oral mucous membranes Resp normal respiratory effort and clear to auscultation bilaterally Resp Narrative: Denies cough and SOB. Effort and Inspection: Negative for tachypneic or labored Auscultation: diminished lung sounds Cardio regular rate, regular rhythm, no rub and no gallops Cardio Narrative: No ectopy GI normal to inspection, nondistended, normoactive bowel sounds, soft to palpation and non-tender GI Narrative: No guarding with palpation and he is having regular BM's Extremity no calf tenderness Extremity Narrative: No spasm in the cervical thoracic area posteriorly. No pain with palpation in the trapezius muscle. General Extremity: Negative for edema Skin General Skin Exam: no breakdown Rashes: no rashes Wound Narrative: The incision of the posterior neck and upper thoracic area is intact. There is some swelling around the incision but no erythema and no increased warmth to touch. Small amount of serous DC from the caudal portion of the incision. No tenderness to palpation around the incision. Still with bruising but resolving. Psych thought process normal, cooperative and affect normal Appearance: appropriate Attitude: No agitated Activity / Motor Behavior: Negative for restless Assessment & Plan Assessment/Plan (1) Debility: (2) Radiculopathy: QUALIFIERS: Spinal region: unspecified Qualified Code(s): M54.10 - Radiculopathy, site unspecified PLAN: UE's and LE's (3) Myopathy: PLAN: More so on the R (4) Right hemiparesis: (5) H/O laminectomy: (6) Current chronic use of systemic steroids: PLAN: We are weaning off. (7) Metabolic alkalosis: PLAN: more likely than not do to contraction alkalosis (8) Dehydration: (9) ISMA (obstructive sleep apnea): PLAN: Suspected. Very abnormal overnight trending pulse ox. Paperwork completed for sleep study and sleep lab will try and coordinate to do the study on the night of DC. Then he will follow up with pulmonary. I suspect he may have COPD as well. 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 (13) Depression: PLAN: Plan 1. Continue therapy 2. The Abilify was decreased to 2 mg at HS from 5 mg. Has gained 25lbs since he was started on Abilify and he would like to lose weight. Will start Low doseDuloxetine. In another week or 10 days will DC Abilify and increase the Duloxetine to a more therapeutic dose. Will help with the chronic radicular pain he has. 3. Reminded Goerge the Baclofen is PRN and he will need to ask for it if he is having issues with muscle spasm 4. Continue Lac-Hydrin and hydrocortisone cream to both hands. If no improvement by next week will discontinue hydrocortisone and start a retinoid. Recommended he follow up with a linen tech post DC. It runs in his family. 5. Continue to encourage increased fluid intake. 6. Recheck a BMP on Saturday. Charges/Coding Visit Charges Inpatient E&M: 23094 Subs Hosp L2 04/05/23 0975 <Electronically signed by Shyla Coleman DO> Shyla Coleman DO Cosigner Signature (if applicable): CC: ~ Signed [facility] Work Phone: 1(163) 898-577107-04-2023 History and physical note Author Shyla Coleman [facility] April 02, 2023 6:32pm Note Date/Time April 02, 2023 6:24p m [facility] Medical Records Department [address] [place] [address] Post Admission Physician Erum 04/02/23 1820 MR#: [id number] Acct: [id number] Name: SADIE ESTRADA Rep #:[id number] : 1955 68 From: Shyla Inga Anantalyson ULLOA PCP: Dr. Juan Antonio Bacon MD Status:ADM IN Location: [place] [address] Admission Information Primary Diagnosis:: Debility secondary to cervical myelopathy/radiculopathy withrecent cervical laminectomy and fusion. Status Changes from Prescreening?: No changes Identified Actual Problem List:: Skin Intergrity, Pain, ALteration in Cmfrt, Depression, Bowel, Constipation, Mobility Impaired, Self Care Deficit, BP, Hypertension, Fluid Change-Dehydration and Alteration-Leisure Activ. Potential Problem List:: DVT, Bleeding, Infection, UTI, Aspiration, Falls, Skin Integrity and Depression Risk of Complications DVT: MISA Hose and Sequential Compression Device Bleeding: Monitor Lab Values, Nursing to Teach Precautions for anti-coagulation therapy., Wound, if applicable, to be assessed every shift. and Stroke patients assessed for lethargy or change in status. Infection: Clinical Staff to Monitor for S/S of infection: and S/S of infection include fever, redness, warmth, etc. Urinary Tract Infection: Monitor for frequency, burning, discomfort, or incontinence. and Nursing will obtain urine sample for urinalysis and C&S when ordered. Aspiration: Clinical staff will monitor for coughing, drooling, congestion., Speech will evaluate swallowing and dsyphasia. and Nursing will monitor patient swallowing during meals. Falls: Patient will be evaluated for Fall Precautions and Patient will be placedon Fall Precautions as indicated per protocol. Skin Breakdown: Nursing will assess skin daily using assessment tool. and Nursing will place on Skin Breakdown Precautions as indicated. Pain: Clinical staff will assess patient's pain level per protocol., Medicationswill be given, if needed, and the pain level reassessed. and Other methods: Massage, distraction, decrease stimulus, etc. used PRN. Plan of Care Patient requires physician specializing in physical medicine and rehab oversightto provide close medical supervision of rehab issues including: Pain Management,Sleep Problems, Bowel and Bladder, Medical and co-morbidity Management, DVT prophylaxis, Rehabilitation Leadership and Coordination of treatment team Patient needs Physical Therapy: For a minimum of 1 hour and At least 5 out of 7 days Patient needs Physical Therapy to improve:: Mobility, Strengthening, Transfers, Stretching, ROM, Endurance, Stairs, Gait and Balance Patient needs Occupational Therapy: For a minimum of 1 hour and At least 5 out of 7 days Patient needs Occupational Therapy to improve ADL's incl.: Eating, Grooming, Bathing, Dressing, Toileting, Toilet transfers, Community Reintegration, Higher functioning activities, Household tasks, Adaptive Equipment, Splinting and Otheractivities as determined Patient requires 24/7 Rehabilitation Nursing for: Pain Issues, Identifying and preventing risk factors, Monitoring and reporting current medical conditions, Assisting with ambulation, transfer, and all ADL's, Teaching patients about disease process and medications, Family teaching, Providing safe environment, Bowel and Bladder Issues, Skin integrity and Medication Management Patient needs Galley Cook/ Case Management for: Discharge Planning, Arranging Home Equipment or Services and Family Interventions Patient needs Dietary and Nutrition Services for: Adequate Nutrition, Nutritional Supplements and Nutritional Education Goals Patient will remain: free from falls Patient will perform bed mobility at: MOD I level of assist. Patient will complete transfers from bed to chair at: MOD I level of assist. Patient will ambulate: - (150 feet with a front wheeled walker at mod I) Patient will complete upper body dressing at: MOD I level of assist. Patient will complete lower body dressing at: MOD I level of assist. (with AE as needed) Patient will complete toileting at: MOD I level of assist. Patient will perform bathing at: Standby Assist. Patient will complete grooming at: MOD I level of assist. Patient will achieve: - (1 flight of stairs with 2 handrails at mod I to allow safe entry into his home.) Patient will have pain level of: of 3 or less Patient's skin will: remain intact Discharge Planning Pt Prognosis for Sig. Practical Improv. w/in Reasonable Time: Good Estimated Length of stay (days): 28 Anticipated D/C Destination: Home with Outpt Therapy Was Preadmission Assessment Accurate?: Yes 04/02/231831 <Electronically signed by Shyla Coleman DO> Cosigner Signature (if applicable): CC: ~ Signed [facility] Work Phone: 1(403) 169-566407-04-2023 History and physical note Author Shyla Coleman [facility] April 02, 2023 6:19pm Note Date/Time April 01, 2023 6:07p [facility] Medical Records Department [address] [place] [address] [place] [address] History & Physical Exam 04/01/23 1803 MR#: [id number] Acct: [id number] Name: SADIE ESTRADA Rep #:[id number] : 1955 68 From: Shyla Inga Jared DO PCP: Dr. Juan Antonio Bacon MD Status:ADM IN Location: [address] HPI - General General Date of Admission: 04/01/23 Date of Service: 04/01/23 Chief Complaint: Debility due to Cervical laminectomy and fusion of C2-7. HPI Narrative SADIE ESTRADA, is a 68 YO M with a PMH of peripheral vascular disease with history of stents in the lower extremities, osteoarthritis, hyperlipidemia,anxiety and rheumatoid arthritis who was seen at [facility] ED c/o radicular pain in BL LE's, numbness in both legs and muscle weakness to the point where he had to use a walker. The day prior to presenting to the ED his leg buckled and he fell. He was also c/o of pain in his hands for the preceding1-2 weeks. He had been seeing Dr. Johnson and had a hx of cervical spine fusion in the early and Lumbar laminectomy and fusion on 01/26/2016. He was transferred from [facility] to [facility] and was admitted to Dr. Jonhson's service. He underwent cervical laminectomy and fusion of C2-C7 by Dr. Johnson. Post operatively he was seen by PT/OT and admission to acute rehab was recommended post DC. He was transferred to [facility] acute rehab on 04/01/23 for 3 hours of therapy daily to restore function/independence at or near his level prior to recent decline with radiculopathy and myopathy. He has been taking Prednisone 10 mg daily since November to help with radicular pain in the R leg. He tells me that he suddenly became weak in the R leg and the R arm about 1 and 1/2 weeks prior to presenting to [facility]. He though it was his low back causing the R leg pain. Sadie tells me that he started on Abilify in 2012 when his son . He has not tried to get off of Abilify since then. Tells me he has gained about 25 pounds since starting Abilify. [facility] Medical History (Updated 04/02/23 @ 18:[address] Shyla Coleman DO) Abdominal aortic aneurysm Anxiety Depression Former smoker Hyperlipidemia PAD (peripheral artery disease) Palmoplantar keratoderma Rheumatoid arthritis Rotator cuff arthropathy of right shoulder Ventral hernia Home Medications alprazolam 0.5 mg tablet,extended release 24 hr (Xanax XR) 0.5 mg PO DAILY nn 05/03/15 [History Last Taken Unknown] aspirin 81 mg chewable tablet 81 mg PO DAILY@0800 heart 05/03/15 [History Last Taken Unknown] atorvastatin 20 mg tablet 20 mg PO QHS cholesterol 05/03/15 [History Last Taken Unknown] ibuprofen 400 mg tablet 800 mg PO Q6H PRN PRN Mild/Moderate Pain 05/03/15 [History Last Taken Unknown] aripiprazole 5 mg tablet (Abilify) 5 mg PO DAILY mood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 Primary Care Provider Active Start: March 02, 2025 End: March 02, 2025 Gisselle Davila SURGICAL AIDES TEACHER, SURGICAL AIDES TEACHER-C Attending Provider Active Start: March 02, 2025 End: March 02, 2025 Team Status: Active Member Role/Relationship Status Dates Dr. Juan Antonio Bacon MD Primary Care Provider Active Team Status: Inactive Member Role/Relationship Status Dates Dr. Juan Antonio Bacon MD Primary Care Provider Active Start: December 22, 2024 End: December 22, 2024 Gisselle Davila SURGICAL AIDES TEACHER, SURGICAL AIDES TEACHER-C Attending Provider Active Start: December 22, 2024 End: December 22, 2024 Gisselle Davila SURGICAL AIDES TEACHER, SURGICAL AIDES TEACHER-C Referring Provider Active Start: December 22, 2024 End: December 22, 2024 Team Status: Active Member Role/Relationship Status Dates Dr. Juan Antonio Bacon MD Primary Care Provider Active Start: December 23, 2024 Gisselle Davila SURGICAL AIDES TEACHER, SURGICAL AIDES TEACHER-C Referring Provider Active Start: December 23, 2024 Gisselle Davila SURGICAL AIDES TEACHER, SURGICAL AIDES TEACHER-C Other Provider Active Start: December 23, 2024 Dr. Terry Bacon DO Attending Provider Active S tart: December 23, 2024 Team Status: Inactive Member Role/Relationship Status Dates Dr. Juan Antonio Bacon MD Primary Care Provider Active Start: January 14, 2025 End: January 14, 2025 Dr. Juan Antonio Bacon MD Referring Provider Active S tart: January 14, 2025 End: January 14, 2025 Gisselle Davila SURGICAL AIDES TEACHER, SURGICAL AIDES TEACHER-C Attending Provider Active Start: January 14, 2025 End: January 14, 2025 Team Status: Inactive Member Role/Relationship Status Dates Dr. Juan Antonio Bacon MD Primary Care Provider Active Start: March 02, 2025 End: March 02, 2025 Gisselle Davila SURGICAL AIDES TEACHER, SURGICAL AIDES TEACHER-C Attending Provider Active Start: March 02, 2025 End: March 02, 2025 Team Status: Inactive Member Role/Relationship Status Dates Dr. Juan Antonio Bacon MD Primary Care Provider Active Start: April 15, 2025 End: April 15, 2025 Dr. Juan Antonio Bacon MD Referring Provider Active S tart: April 15, 2025 End: April 15, 2025 Gisselle Davila SURGICAL AIDES TEACHER, SURGICAL AIDES TEACHER-C Attending Provider Active Start: April 15, 2025 End: April 15, 2025 Team Status: Active Member Role/Relationship Status Dates Dr. Juan Antonio Bacon MD Primary care physician Active Team Status: Inactive Member Role/Relationship Status Dates Dr. Juan Antonio Bacon MD Primary care physician Active Start: April 15, 2025 End: April 15, 2025 Dr. Juan Antonio Bacon MD Referring Provider Active S tart: April 15, 2025 End: April 15, 2025 Gisselle Davila SURGICAL AIDES TEACHER, SURGICAL AIDES TEACHER-C Attending physician Active Start: April 15, 2025 End: April 15, 2025 Team Status: Inactive Member Role/Relationship Status Dates Dr. Juan Antonio Bacon MD Primary care physician Active Start: July 06, 2025 End: July 06, 2025 Dr. Juan Antonio Bacon MD Referring Provider Active S tart: July 06, 2025 End: July 06, 2025 Dr. Derrick Pate MD Attending physician Active Start: July 06, 2025 End: July 06, 2025 Team Status: Inactive Member Role/Relationship Status Dates Dr. Juan Antonio Bacon MD Primary care physician Active Start: July 06, 2025 End: July 06, 2025 Dr. Dawson Lezama MD Attending physician Active Start: July 06, 2025 End: July 06, 2025 Team Status: Active Member Role/Relationship Status Dates Dr. Juan Antonio Bacon MD Primary care physician Active Start: July 06, 2025 Dr. Juan Antonio Bacon MD Referring Provider Active S tart: July 06, 2025 Dr. Derrick Pate MD Attending physician Active Start: July 06, 2025 Source Comments (unrecognize d section and content) In the event this informatio n is protected by the Federal Confidentiality of Alcohol and Drug Abuse Patient Records regulations: The Federal rules restrict any use of the information to criminally investigate or prosecute any alcohol or drug abuse patient.[facility] Reason for Visit (unrecogniz ed section and content) Reason Comments New Patient Evaluation New patient refer red by Dr. [facility] in [place]. States that he will fall asleep driving, [place], at anytime. On C-Pap Sleep study. [facility]. Doing Rehab while in facility noticed he quit breathing at night [employer]. FOR RECORDS PERTAINING TO PATIENTS WHO ARE [...] BE BASED ON THE PRIMARY CLINICAL RECORDS. [employer] [facility]. provides no warranty or guarantee of the accuracy or completeness of information in this document.
== END | disposition home or self-care (01) ==
LOC: CT 06:18
PROVIDERS: PCP Family Medicine; Referring Provider Nurse Practitioner Acute Care; Visit Provider Nurse Practitioner Acute Care
DX: F17.210 Nicotine dependence, cigarettes, uncomplicated (principal)
CPT/HCPCS: 71271